=== PATIENT | male | born 1950 | race Caucasian/White ===

== ENCOUNTER 2017-05-15 19:14 | Observation (INO) | payer MEDICARE, OTHER ==
[2017-05-15] MEDS ORDERED: Sodium Chloride 0.9% 1000 ML 1,000 ML IV SCH (19:30)
--- NOTE | 2017-05-15 19:30 | ERPHSYRPT ---
- History of Present Illness Time Seen by Provider: 05/15/17 19:25 Source: patient Exam Limitations: no limitations Physician History: pt felt dizzy earlier today and had BP checked at 229/128 per a firend, but in ER is 130s /80s. No CP , some SObreath, no abd pain , no headache at this time; neuro is all normal on exam today. vis mendiola intact; Timing/Duration: today Activities at Onset: none Quality: other (no pain) Location: other (no pain) Chest Pain Radiation: no radiation Severity of Pain-Max: none Severity of Pain-Current: none Modifying Factors: Improves With: nothing Nitro Today/Relief: no nitro taken today Aspirin Treatment Today: 81 mg x 1, provided at home Associated Symptoms: shortness of breath Prior Chest Pain/Cardiac Workup: cardiac cath (prior stents) Allergies/Adverse Reactions: Penicillins Allergy (Severe, Verified 05/15/17 19:28) Hives silver [Silver] Allergy (Intermediate, Verified 05/15/17 19:28) Itching zinc [Zinc] Allergy (Intermediate, Verified 05/15/17 19:28) Itching carvedilol [From Coreg] Adverse Reaction (Intermediate, Verified 05/15/17 19:28) "makes me dizzy" metoprolol Adverse Reaction (Intermediate, Verified 05/15/17 19:28) "makes me dizzy" Home Medications: Aspirin 81 mg PO DAILY 01/30/16 [History] Insulin Lispro [Humalog] 25 unit SQ TIDWMEALS 01/30/16 [History] Pravastatin Sodium 20 mg PO DAILY 01/30/16 [History] Prednisone 10 mg [Deltasone 10 mg] 10 mg PO DAILY 01/30/16 [History] Tamsulosin HCl [Flomax] 0.8 mg PO HS 01/30/16 [History] Gabapentin [Neurontin] 800 mg PO TID 08/15/16 [History] Clopidogrel Bisulfate 75 mg [PLAVIX 75 MG Tablet] 75 mg PO DAILY 10/13/16 [History] Finasteride 5 mg [Proscar 5 MG] 5 mg PO DAILY 10/13/16 [History] Hydrocodone/APAP 10/325 mg [[place] 10/325 MG Tablet] 1 tab PO Q6H PRN PRN 10/13/16 [History] Omeprazole 20 MG [Prilosec 20 mg] 40 mg PO DAILY 10/13/16 [History] Sertraline HCl 50 mg [Zoloft 50 mg Tablet] 50 mg PO DAILY 10/13/16 [History] Hx Tetanus, Diphtheria Vaccination/Date Given: No Hx Influenza Vaccination/Date Given: Yes Hx Pneumococcal Vaccination/Date Given: Yes - Review of Systems Constitutional: No Fever, No Chills Eyes: No Symptoms Ears, Nose, & Throat: No Symptoms Respiratory: Dyspnea, No Cough, No Stridor, No Wheezing Cardiac: No Chest Pain, No Edema, No Syncope Abdominal/Gastrointestinal: No Abdominal Pain, No Nausea, No Vomiting, No Diarrhea Genitourinary Symptoms: No Dysuria Musculoskeletal: No Back Pain, No Neck Pain Skin: No Rash Neurological: No Dizziness, No Focal Weakness, No Sensory Changes Psychological: No Symptoms Endocrine: No Symptoms Hematologic/Lymphatic: No Symptoms Immunological/Allergic: No Symptoms All Other Systems: Reviewed and Negative - Past Medical History Pertinent Past Medical History: Yes Neurological History: Peripheral Neuropathy, TIA ENT History: No Pertinent History Cardiac History: Coronary Artery Disease, Hypertension, Myocardial Infarction ( [place]) Respiratory History: COPD Endocrine Medical History: Diabetes Type II Musculoskeletal History: Arthritis, Fractures, Osteoarthritis GI Medical History: Gallbladder Disease, GI Bleed, Ulcer History: Other Psycho-Social History: No Pertinent History Male Reproductive Disorders: Prostate Problems Other Medical History: right partial foot amputation. kidney infection, hx stones - Past Surgical History Past Surgical History: Yes Neuro Surgical History: No Pertinent History Cardiac: Cardiac Catheterization, Cardiac Stent Respiratory: No Pertinent History Gastrointestinal: Appendectomy, Cholecystectomy Genitourinary: No Pertinent History Musculoskeletal: No Pertinent History, Amputation, Orthopedic Surgery Male Surgical History: No Pertinent History Other Surgical History: Tonsillectomy and adenoidectomy. right toes/foot partial amputation and revision. PORT PLACEMENT - Social History Smoking Status: Never smoker Exposure to second hand smoke: No Drug Use: none Patient Lives Alone: No - Nursing Vital Signs Nursing Vital Signs: Initial Vital Signs Temperature 99.4 F Temperature Source Oral Pulse Rate 80 Respiratory Rate 20 Blood Pressure [] 132/76 Pain Intensity 0 - Physical Exam General Appearance: no apparent distress, alert Eye Exam: PERRL/EOMI, eyes nml inspection Ears, Nose, Throat Exam: normal ENT inspection, moist mucous membranes Neck Exam: normal inspection, non-tender, supple Respiratory Exam: normal breath sounds, lungs clear, airway intact, No respiratory distress, No diminished breath sounds, No accessory muscle use, No crackles/rales, No rhonchi, No wheezing, No stridor Cardiovascular Exam: regular rate/rhythm, normal heart sounds, normal peripheral pulses, No edema Gastrointestinal/Abdomen Exam: soft, No tenderness, No mass, No pulsatile mass Rectal Exam: deferred Back Exam: normal inspection, No CVA tenderness, No vertebral tenderness Extremity Exam: normal inspection, normal range of motion Neurologic Exam: alert, oriented x 3, cooperative, general handling supervisor II-XII nml as tested, normal mood/affect, nml cerebellar function, nml station & gait, sensation nml, other (no pronator drift; symmetrical facial muscles; FN coord normal; prototype carpenter normal bilat.), No motor deficits, No sensory deficit, No facial droop, No slurred speech, No aphasia, No dysarthria Skin Exam: normal color, warm, dry Lymphatic Exam: No adenopathy SpO2 Interpretation: normal Oxygen Delivery: Room Air - Course Nursing assessment & vital signs reviewed: Yes EKG Interpreted by Me: Sinus Rhythm, NORMAL AXIS, NORMAL QRS, Non-specific ST Changes, Other (poor r wave prog sim to previous) - Radiology Exams Chest X-ray Interpretation: Reviewed by me, Other (cardiomegally and venous congestion ) Ordered Tests: Active Orders 24 hr Category Date Time Status Ditch Cleaner STAT Care 05/15/17 19:30 Active Clean Catch Urine Specimen STAT Care 05/15/17 19:30 Active EKG-ER Only STAT Care 05/15/17 19:30 Active IV Insertion STAT Care 05/15/17 19:30 Active CHEST 2 VIEWS (PA AND LAT) Stat Exams 05/15/17 19:31 Taken CHEST WITH CONTRAST [CT] Stat Exams 05/15/17 20:21 Stop Req CBC W DIFF Stat Lab 05/15/17 19:50 Completed CMP Stat Lab 05/15/17 19:50 Completed D-DIMER QUANTITATION Stat Lab 05/15/17 19:33 Completed Lactic Acid Urgent Lab 05/15/17 19:48 Completed Manual Differential NC Stat Lab 05/15/17 19:50 Completed NT PRO BNP Stat Lab 05/15/17 19:50 Completed TROPONIN Q3H Lab 05/15/17 19:50 Completed TROPONIN Q3H Lab 05/15/17 22:30 Ordered TROPONIN Q3H Lab 05/16/17 01:30 Ordered TROPONIN Q3H Lab 05/16/17 04:30 Ordered TROPONIN Q3H Lab 05/16/17 07:30 Ordered UA W/RFX UR CULTURE Stat Lab 05/15/17 19:31 Ordered Medication Summary Generic Name Dose Route Start Last Admin Trade Name Freq PRN Reason Stop Dose Admin Sodium Chloride 1,000 mls @ 50 mls/hr 05/15/17 19:30 05/15/17 19:38 Sodium Chloride 0.9% 1000 Ml IV 06/14/17 19:29 50 mls/hr .Q20H JOSUE Administration Lab/Rad Data: Laboratory Result Diagrams 05/15/17 19:50 05/15/17 19:50 Laboratory Results 05/15/17 05/15/17 05/15/17 Range/Units 19:50 19:50 19:50 WBC 7.3 (4.0-10.5) K/mm3 RBC 3.55 L (4.1-5.6) M/mm3 Hgb 10.5 L (12.5-18.0) gm/dl Hct 34.8 L (42-50) % MCV 98.0 (78-100) fl MCH 29.5 (26-32) pg MCHC 30.2 L (32-36) g/dl RDW 13.0 (11.5-14.0) % Plt Count 228 (150-450) K/mm3 MPV 9.7 H (6-9.5) fl D-Dimer (0-500) ng/mL Sodium 142 (136-145) mEq/L Potassium 5.0 (3.5-5.1) mEq/L Chloride 108 H (98-107) mEq/L Carbon Dioxide 26.3 (21-32) mEq/L Anion Gap 12.7 (5-15) MEQ/L BUN 38 H (9-20) mg/dL Creatinine 1.77 H (0.55-1.30) mg/dl Estimated GFR 41 ML/MIN Glucose 265 H (70-110) MG/DL Lactic Acid (0.4-2.0) Calcium 8.0 L (8.5-10.1) mg/dL Total Bilirubin 0.40 (0.2-1.0) mg/dL AST 13 L (15-37) U/L ALT 14 (12-78) U/L Alkaline Phosphatase 93 (46-116) U/L Troponin I 0.055 (0.000-0.056) ng/ml NT-Pro-B Natriuret Pep 320 H (0-125) pg/ml Serum Total Protein 6.0 L (6.4-8.2) gm/dL Albumin 2.6 L (3.4-5.0) g/dL 05/15/17 05/15/17 Range/Units 19:48 19:33 WBC (4.0-10.5) K/mm3 RBC (4.1-5.6) M/mm3 Hgb (12.5-18.0) gm/dl Hct (42-50) % MCV (78-100) fl MCH (26-32) pg MCHC (32-36) g/dl RDW (11.5-14.0) % Plt Count (150-450) K/mm3 MPV (6-9.5) fl D-Dimer 594 H* (0-500) ng/mL Sodium (136-145) mEq/L Potassium (3.5-5.1) mEq/L Chloride (98-107) mEq/L Carbon Dioxide (21-32) mEq/L Anion Gap (5-15) MEQ/L BUN (9-20) mg/dL Creatinine (0.55-1.30) mg/dl Estimated GFR ML/MIN Glucose (70-110) MG/DL Lactic Acid 1.5 (0.4-2.0) Calcium (8.5-10.1) mg/dL Total Bilirubin (0.2-1.0) mg/dL AST (15-37) U/L ALT (12-78) U/L Alkaline Phosphatase (46-116) U/L Troponin I (0.000-0.056) ng/ml NT-Pro-B Natriuret Pep (0-125) pg/ml Serum Total Protein (6.4-8.2) gm/dL Albumin (3.4-5.0) g/dL - Progress Progress: improved, re-examined Air Movement: good Progress Note: 05/15/17 20:48 discussed slight elevation of d-dimer with Dr. gilbert who knows pt well and also his elevated Trop; it is felt that this is likely false pos for d-dimer ( cannot do ct contrast due to elevated RFTs)and that his Trop may also be frequnetly elevated in his situation, but also discussed with pt and all agree to obs for determining no upward trend in trops overnight , and after risk/ benefit to stay off lovenox at this time and continue asa/plavix; 05/15/17 20:52 Blood Culture(s) Obtained: No Antibiotics given: No Discussed with : Molly Will see patient in: hospital (observation) Counseled pt/family regarding: lab results, diagnosis, need for follow-up, rad results - Departure Time of Disposition: 20:51 Departure Disposition: Observation Clinical Impression: Elevated troponin, Dyspnea, Elevated d-dimer, CAD (coronary artery disease), Diabetes Condition: Good Critical Care Time: No
[2017-05-15] MEDS ORDERED: Sodium Chloride 0.9% 1000 ML 1,000 ML ONE (19:35)
[2017-05-15 20:09] LABS: Mean Platelet Volume 9.7 fl (6-9.5); Platelet Count 228 K/mm3 (150-450); Red Blood Count 3.55 M/mm3 (4.1-5.6); White Blood Count 7.3 K/mm3 (4.0-10.5)
[2017-05-15 20:23] LABS: ALBUMIN 2.6 g/dL (3.4-5.0); ANION GAP 12.7 MEQ/L (5-15); BILIRUBIN,TOTAL 0.4 mg/dL (0.2-1.0); Carbon Dioxide 26.3 mEq/L (21-32)
[2017-05-15 20:25] LABS: Mean Corpuscular Hemoglobin 29.5 pg (26-32)
[2017-05-15 20:53] LABS: BAND 4 % (0.0-2.0); Eosinophil 3 % (0.00-3.0); Platelet Estimate NORMAL (NORMAL); Total Cells Counted 100
[2017-05-15] MEDS ORDERED: TYLENOL 325 MG PO PRN (21:38)
[2017-05-15] MEDS ORDERED: Zofran 4 MG/2 ML VIAL IV PRN (21:38)
[2017-05-15] MEDS ORDERED: Senokot-S Tablet PO PRN (21:38)
[2017-05-15] MEDS ORDERED: MILK OF MAGNESIA 30 ML PO PRN (21:38)
[2017-05-15] MEDS ORDERED: NovoLIN R SQ PRN (21:38)
[2017-05-15] MEDS ORDERED: MAALOX ES 30 ML UNIT DOSE PO PRN (21:38)
[2017-05-15] MEDS ORDERED: Sodium Chloride 0.9% 500 ML 500 ML IV SCH (22:30)
[2017-05-16 00:46] LABS: Bilirubin NEGATIVE (NEGATIVE); Collection Type VOID; Glucose 1000 mg/dL (NEGATIVE); Leukocyte Esterase NEGATIVE (NEGATIVE)
[2017-05-16 00:47] LABS: ADD URINE CULTURE? NO (NO); Bacteria RARE /HPF (NEGATIVE); COMPLETE URINE MICROSCOPIC? YES; Epithelial Cells RARE /HPF (FEW); WBC 0-2 /HPF (0-5)
[2017-05-16] MEDS ORDERED: DELTASONE 10 MG PO ONE (02:05)
[2017-05-16] MEDS ORDERED: Neurontin 400 MG PO ONE (02:05)
[2017-05-16] MEDS ORDERED: Norco 10/325 MG Tablet PO PRN (02:15)
[2017-05-16 07:42] VITALS: BP 137/82; PULSE 76; O2SAT 96
--- NOTE | 2017-05-16 08:33 | XRAY ---
Indication: Short of breath. Comparison: October 13, 2016. AP/lateral chest remains clear with stable left apical calcified granuloma. Heart is not enlarged for AP projection. Stable left-sided Port-A-Cath. Bony thorax intact again with mild osteopenia and degenerative changes. Impression: Stable nonacute chest with chronic features.
[2017-05-16] MEDS ORDERED: Ranexa 500 MG PO PRN (08:57)
[2017-05-16] MEDS ORDERED: Novolin 70/30 SQ SCH (09:00)
[2017-05-16] MEDS ORDERED: DELTASONE 10 MG PO SCH (10:00)
[2017-05-16] MEDS ORDERED: BACTRIM DS TABLET PO SCH (10:00)
[2017-05-16] MEDS ORDERED: ZOLOFT 50 MG TABLET PO SCH (10:00)
[2017-05-16] MEDS ORDERED: NON-FORMULARY ITEM (Omeprazole 20 Mg [Prilosec 20 Mg] 40 MG) PO SCH (10:00)
[2017-05-16] MEDS ORDERED: NON-FORMULARY ITEM (Gabapentin [Neurontin] 800 MG) PO SCH (10:00)
[2017-05-16] MEDS ORDERED: NON-FORMULARY ITEM (Pravastatin Sodium [Pravastatin Sodium] 20 MG) PO SCH (10:00)
[2017-05-16] MEDS ORDERED: Flomax 0.4 MG PO SCH (10:00)
[2017-05-16] MEDS ORDERED: Ecotrin 325 MG PO SCH (10:00)
[2017-05-16] MEDS ORDERED: Cozaar 50 MG PO SCH (10:00)
[2017-05-16] MEDS ORDERED: Proscar 5 MG PO SCH (10:00)
[2017-05-16] MEDS ORDERED: Protonix 40MG Tablet PO SCH (10:00)
[2017-05-16] MEDS ORDERED: Neurontin 400 MG PO SCH (10:00)
[2017-05-16] MEDS ORDERED: TRIMETHOPRIM PO SCH (10:00)
[2017-05-16] MEDS ORDERED: SULFAMETHOXAZOLE PO SCH (10:00)
--- NOTE | 2017-05-16 11:18 | PCM.SSS ---
History of Present Illness - Chief Complaint Chief Complaint: feeling dizzy History of Present Illness: is a 66 year old male.pt felt dizzy earlier today and had BP checked at 229/128 per a firend, but in ER is 130s /80s. No CP , some SObreath, no abd pain , no headache at this time; neuro is all normal on exam today. vis mendiola intact; Timing/Duration: today Activities at Onset: none Quality: other (no pain) Location: other (no pain) Chest Pain Radiation: no radiation Severity of Pain-Max: none Severity of Pain-Current: none Modifying Factors: Improves With: nothing Nitro Today/Relief: no nitro taken today Aspirin Treatment Today: 81 mg x 1, provided at home Associated Symptoms: shortness of breath Prior Chest Pain/Cardiac Workup: cardiac cath (prior stents) - Review of Systems Constitutional: No Fever, No Chills Eyes: No Symptoms Ears, Nose, & Throat: No Symptoms Respiratory: No Cough, No Short Of Breath Cardiac: No Chest Pain, No Edema, No Syncope Abdominal/Gastrointestinal: No Abdominal Pain, No Nausea, No Vomiting, No Diarrhea Genitourinary Symptoms: No Dysuria Musculoskeletal: No Back Pain, No Neck Pain Skin: No Rash Neurological: Dizziness, No Focal Weakness, No Sensory Changes Psychological: No Symptoms Endocrine: No Symptoms Hematologic/Lymphatic: No Symptoms Immunological/Allergic: No Symptoms Medications & Allergies Home Medications: Home Medication List Losartan Potassium 50 mg [Cozaar 50 MG] 50 mg PO DAILY #0 tablet 01/30/16 [Rx Confirmed 05/15/17] Pravastatin Sodium 20 mg PO DAILY 01/30/16 [History Confirmed 05/15/17] Prednisone 10 mg [Deltasone 10 mg] 10 mg PO DAILY 01/30/16 [History Confirmed 05/15/17] Tamsulosin HCl [Flomax] 0.8 mg PO DAILY 01/30/16 [History Confirmed 05/16/17] Gabapentin [Neurontin] 800 mg PO TID 08/15/16 [History Confirmed 05/15/17] Finasteride 5 mg [Proscar 5 MG] 5 mg PO DAILY 10/13/16 [History Confirmed 05/15/17] Hydrocodone/APAP 10/325 mg [[place] 10/325 MG Tablet] 1 tab PO Q4HPRN PRN [History Confirmed 05/15/17] Omeprazole 20 MG [Prilosec 20 mg] 40 mg PO DAILY 10/13/16 [History Confirmed 12/31] Sertraline HCl 50 mg [Zoloft 50 mg Tablet] 100 mg PO DAILY 10/13/16 [ History Confirmed 05/15/17] Hum Insulin NPH/Reg Insulin Hm [Humulin 70-30 Vial] 25 unit SQ TIDWMEALS [History Confirmed 05/15/17] Ranolazine 500 MG [Ranexa 500 MG] 500 mg PO BID PRN PRN 05/15/17 [History Confirmed 05/15/17] Sulfamethoxazole/Trimethoprim [Bactrim 400-80 mg Tablet] 2 each PO BID 05/15/17 [History Confirmed 05/15/17] Allergies/Adverse Reactions: Allergies Allergy/AdvReac Type Severity Reaction Status Date / Time Penicillins Allergy Severe Hives Verified 05/15/17 21:47 silver [Silver] Allergy Intermediate Itching Verified 05/15/17 21:47 zinc [Zinc] Allergy Intermediate Itching Verified 05/15/17 21:47 carvedilol [From Coreg] AdvReac Intermediate Verified 05/15/17 21:47 metoprolol AdvReac Intermediate Verified 05/15/17 21:47 - Past Medical History Past Medical History: Yes Neurological History: TIA ENT History: Cataracts Cardiac History: Congestive Heart Failure, Coronary Artery Disease, Myocardial Infarction (MD) Respiratory History: CHF, COPD, Sleep Apnea Endocrine Medical History: Diabetes Type II Musculoskelatal History: Arthritis GI Medical History: GI Bleed, Ulcer History: No Pertinent History Pyscho-Social History: No Pertinent History Male Reproductive Disorders: Prostate Problems Comment: right partial foot amputation. kidney infection, hx stones - Past Surgical History Past Surgical History: Yes Neuro Surgical History: No Pertinent History Cardiac History: Cardiac Catheterization, Cardiac Stent Respiratory Surgery: No Pertinent History GI Surgical History: Appendectomy, Cholecystectomy Genitourinary Surgical Hx: No Pertinent History Musculskeletal Surgical Hx: Amputation Male Surgical History: Prostate Surgery Other Surgical History: Tonsillectomy and adenoidectomy. right toes/foot partial amputation and revision. PORT PLACEMENT - Social History Smoking Status: Never smoker Exposure to second hand smoke: No Alcohol: None Drug Use: none - Physical Exam Vital Signs: Vital Signs - 24 hr Temp Pulse Resp BP Pulse Ox 05/16/17 08:00 96 05/16/17 07:41 97.7 F 76 20 137/82 96 05/16/17 04:00 93 L 05/16/17 03:53 98.2 F 84 19 142/66 93 L 05/15/17 21:58 98.3 F 80 19 177/74 93 L 05/15/17 21:20 80 20 121/73 93 L 05/15/17 20:04 78 20 133/61 93 L 05/15/17 19:26 99.4 F 80 20 132/76 94 L General Appearance: no apparent distress, alert Neurologic Exam: alert, oriented x 3, cooperative, normal mood/affect, nml cerebellar function, nml station & gait, sensation nml, No motor deficits Eye Exam: PERRL/EOMI, eyes nml inspection Ears, Nose, Throat Exam: normal ENT inspection, TMs normal, pharynx normal, moist mucous membranes Neck Exam: normal inspection, non-tender, supple, full range of motion Respiratory Exam: normal breath sounds, lungs clear, No respiratory distress Cardiovascular Exam: regular rate/rhythm, normal heart sounds, normal peripheral pulses Gastrointestinal/Abdomen Exam: soft, normal bowel sounds, No tenderness, No mass Back Exam: normal inspection, normal range of motion, No CVA tenderness, No vertebral tenderness Extremity Exam: normal inspection, normal range of motion, pelvis stable Skin Exam: normal color, warm, dry, No rash Lymphatic Exam: No adenopathy Results - Labs Lab/Micro Results: Accuchecks Date 05/16/17 Time 05:00 Accucheck Value: 207 Accucheck Value: 191 Lab Results-Last 24 Hours 05/15/17 05/16/17 05/16/17 Range/Units 22:40 02:00 05:00 Troponin I 0.053 0.054 (0.000-0.056) ng/ml Triglycerides 101 (30-200) mg/dL Cholesterol 134 (100-200) mg/dL LDL Cholesterol 69 (5-99) mg/dL HDL Cholesterol 49 (35-60) mg/dL Heart Disease Risk Ratio 2.7 05/16/17 05/16/17 Range/Units 05:00 08:30 Troponin I 0.062 H* 0.054 (0.000-0.056) ng/ml Triglycerides (30-200) mg/dL Cholesterol (100-200) mg/dL LDL Cholesterol (5-99) mg/dL HDL Cholesterol (35-60) mg/dL Heart Disease Risk Ratio Accuchecks Date 05/16/17 Time 05:00 Accucheck Value: 207 Accucheck Value: 191 - Other Procedures and Tests Respiratory Therapy 05/17/17 05:00 EKG DAILY 05/18/17 05:00 EKG DAILY 05/19/17 05:00 EKG DAILY Assessment/Plan (1) CAD (coronary artery disease) Current Visit: Yes Status: Acute Qualifiers: Coronary Disease-Associated Artery/Lesion type: [place] artery [place] vs. transplanted heart: [place] heart Associated angina: without angina Qualified Code(s): I25.10 - Atherosclerotic heart disease of [place] coronary artery without angina pectoris Code(s): I25.10 - ATHSCL HEART DISEASE OF [place] CORONARY ARTERY W/O ANG PCTRS 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 Current Visit: Yes Status: Chronic Code(s): E11.59 - TYPE 2 DIABETES MELLITUS WITH OTH CIRCULATORY COMPLICATIONS; I20.9 - ANGINA PECTORIS, UNSPECIFIED (3) Peripheral vascular disease due to secondary diabetes Current Visit: Yes Status: Chronic Code(s): E13.51 - OTH DIABETES W DIABETIC PERIPHERAL ANGIOPATHY W/O [facility] Summary - Hospital Course Hospital Course: Chief Complaint Diagnosis elevated troponin and ddimer Allergies Allergy/AdvReac Type Severity Reaction Status Date / Time Penicillins Allergy Severe Hives Verified 05/15/17 21:47 silver [Silver] Allergy Intermediate Itching Verified 05/15/17 21:47 zinc [Zinc] Allergy Intermediate Itching Verified 05/15/17 21:47 carvedilol [From Coreg] AdvReac Intermediate Verified 05/15/17 21:47 metoprolol AdvReac Intermediate Verified 05/15/17 21:47 Vital Signs (Last 24 hours) Temp Pulse Resp BP Pulse Ox 05/16/17 08:00 96 05/16/17 07:41 97.7 F 76 20 137/82 96 05/16/17 04:00 93 L 05/16/17 03:53 98.2 F 84 19 142/66 93 L 05/15/17 21:58 98.3 F 80 19 177/74 93 L 05/15/17 21:20 80 20 121/73 93 L 05/15/17 20:04 78 20 133/61 93 L 05/15/17 19:26 99.4 F 80 20 132/76 94 L Home Medications Medication Instructions Recorded Confirmed Last Taken Type Hum Insulin NPH/Reg Insulin Hm 25 unit SQ TIDWMEALS 05/15/17 05/15/17 Unknown History [Humulin 70-30 Vial] Ranolazine 500 MG [Ranexa 500 500 mg PO BID PRN PRN 05/15/17 05/15/17 Unknown History MG] Sulfamethoxazole/Trimethoprim 2 each PO BID 05/15/17 05/15/17 Unknown History [Bactrim 400-80 mg Tablet] Current Medications Generic Name Dose Route Start Last Admin Trade Name Freq PRN Reason Stop Dose Admin Acetaminophen 650 mg 05/15/17 21:38 Tylenol 325 Mg PO 06/14/17 21:37 Q4H PRN PRN PAIN AND/OR FEVER Hydrocodone Bitart/Acetaminophen 1 tab 05/16/17 02:15 05/16/17 02:15 [place] 10/325 Mg Tablet PO 05/21/17 02:14 1 tab Q4H PRN PRN Administration PAIN Al Hydrox/Mg Hydrox/Simethicone 30 ml 05/15/17 21:38 Maalox Es 30 Ml Unit Dose PO 06/14/17 21:37 Q4H PRN PRN INDIGESTION Aspirin 325 mg 05/16/17 10:00 05/16/17 09:57 Ecotrin 325 Mg PO 06/15/17 09:59 Not Given DAILY JOSUE Finasteride 5 mg 05/16/17 10:00 05/16/17 10:06 Proscar 5 Mg PO 06/15/17 09:59 5 mg DAILY JOSUE Administration Gabapentin 800 mg 05/16/17 10:00 05/16/17 10:06 Neurontin 400 Mg PO 06/15/17 09:59 800 mg TID JOSUE Administration Heparin Sodium (Beef Lung) 500 units 05/16/17 08:20 05/16/17 08:56 Heparin Lock Flush 100 Units/Ml 5ml Syringe PORT FLUSH 06/15/17 08:19 500 units PRN PRN Administration IV PORT FLUSH Sodium Chloride 500 mls @ 50 mls/hr 05/15/17 22:30 05/16/17 02:08 Sodium Chloride 0.9% 500 Ml IV 06/14/17 22:29 Not Given .Q10H JOSUE Insulin Human Isoph/Insulin Regular 25 unit 05/16/17 09:00 05/16/17 10:10 Novolin 70/30 SQ 06/15/17 08:59 Not Given TIDWMEALS [facility] Insulin Human Regular 0 unit 05/15/17 21:38 05/16/17 08:01 Novolin R SQ 06/14/17 21:37 5 unit PRN PRN Administration HYPERGLYCEMIA Losartan Potassium 50 mg 05/16/17 10:00 05/16/17 10:07 Cozaar 50 Mg PO 06/15/17 09:59 50 mg DAILY JOSUE Administration Magnesium Hydroxide 30 - 60 ml 05/15/17 21:38 Milk Of Magnesia 30 Ml PO 06/14/17 21:37 QDP PRN CONSTIPATION Ondansetron HCl 4 mg 05/15/17 21:38 Zofran 4 Mg/2 Ml Vial IV 06/14/17 21:37 Q4H PRN PRN NAUSEA/VOMITING Pantoprazole Sodium 40 mg 05/16/17 10:00 05/16/17 10:06 Protonix 40mg Tablet PO 06/15/17 09:59 40 mg DAILY JOSUE Administration Prednisone 10 mg 05/16/17 10:00 05/16/17 10:06 Deltasone 10 Mg PO 06/15/17 09:59 10 mg DAILY JOSUE Administration Ranolazine 500 mg 05/16/17 08:57 Ranexa 500 Mg PO 06/15/17 08:56 BID PRN PRN CHEST PAIN Senna/Docusate Sodium 2 udtab 05/15/17 21:38 Senokot-S Tablet PO 06/14/17 21:37 BID PRN PRN CONSTIPATION Sertraline HCl 100 mg 05/16/17 10:00 05/16/17 10:06 Zoloft 50 Mg Tablet PO 06/15/17 09:59 100 mg DAILY JOSUE Administration Simvastatin 20 mg 05/16/17 22:00 Zocor 20mg PO 06/15/17 21:59 HS JOSUE Tamsulosin HCl 0.8 mg 05/16/17 10:00 05/16/17 10:06 Flomax 0.4 Mg PO 06/15/17 09:59 0.8 mg DAILY JOSUE Administration Trimethoprim/Sulfamethoxazole 1 tab 05/16/17 10:00 05/16/17 10:06 Bactrim Ds Tablet PO 06/15/17 09:59 1 tab BID JOSUE Administration Discontinued Medications Generic Name Dose Route Start Last Admin Trade Name Freq PRN Reason Stop Dose Admin Aspirin 325 mg 05/16/17 20:58 05/16/17 03:23 Ecotrin 325 Mg PO 05/16/17 20:59 325 mg STAT ONE Administration Gabapentin 800 mg 05/16/17 02:05 05/16/17 02:14 Neurontin 400 Mg PO 05/16/17 02:06 800 mg ONCE ONE Administration Sodium Chloride 1,000 mls @ 50 mls/hr 05/15/17 19:30 05/15/17 21:20 Sodium Chloride 0.9% 1000 Ml IV 06/14/17 19:29 0 mls/hr .Q20H JOUSE Infusion Sodium Chloride Confirm 05/15/17 19:35 Sodium Chloride 0.9% 1000 Ml Administered 05/15/17 19:36 Dose 1,000 mls @ ud .ROUTE .STK-MED ONE Prednisone 10 mg 05/16/17 02:05 05/16/17 02:14 Deltasone 10 Mg PO 05/16/17 02:06 10 mg ONCE ONE Administration Intake & Output (Last 24 hours) 05/13/17 05/14/17 05/15/17 05/16/17 11:59 11:59 11:59 11:59 Intake Total 1420 Output Total 0 Balance 1420 Weight 191.779 kg Laboratory Results (Last 24 hours) 05/16/17 05/16/17 05/16/17 08:30 05:00 05:00 WBC RBC Hgb Hct MCV MCH MCHC RDW Plt Count MPV Segmented Neutrophils Band Neutrophils Lymphocytes (Manual) Monocytes (Manual) Eosinophils (Manual) Differential Comment Platelet Estimate D-Dimer Sodium Potassium Chloride Carbon Dioxide Anion Gap BUN Creatinine Estimated GFR Glucose Lactic Acid Calcium Total Bilirubin AST ALT Alkaline Phosphatase Troponin I 0.054 0.062 H* NT-Pro-B Natriuret Pep Serum Total Protein Albumin Triglycerides 101 Cholesterol 134 LDL Cholesterol 69 HDL Cholesterol 49 Heart Disease Risk Ratio 2.7 Ur Collection Type Urine Color Urine Appearance Urine pH Ur Specific Counselor Urine Protein Urine Ketones Urine Blood Urine Nitrite Urine Bilirubin Urine Urobilinogen Ur Leukocyte Esterase Urine Microscopic RBC Urine Microscopic WBC Ur Epithelial Cells Urine Bacteria Urine Glucose Specimen Received 05/16/17 05/15/17 05/15/17 02:00 22:40 19:50 WBC RBC Hgb Hct MCV MCH MCHC RDW Plt Count MPV Segmented Neutrophils Band Neutrophils Lymphocytes (Manual) Monocytes (Manual) Eosinophils (Manual) Differential Comment Platelet Estimate D-Dimer Sodium Potassium Chloride Carbon Dioxide Anion Gap BUN Creatinine Estimated GFR Glucose Lactic Acid Calcium Total Bilirubin AST ALT Alkaline Phosphatase Troponin I 0.054 0.053 0.055 NT-Pro-B Natriuret Pep Serum Total Protein Albumin Triglycerides Cholesterol LDL Cholesterol HDL Cholesterol Heart Disease Risk Ratio Ur Collection Type Urine Color Urine Appearance Urine pH Ur Specific Counselor Urine Protein Urine Ketones Urine Blood Urine Nitrite Urine Bilirubin Urine Urobilinogen Ur Leukocyte Esterase Urine Microscopic RBC Urine Microscopic WBC Ur Epithelial Cells Urine Bacteria Urine Glucose Specimen Received 05/15/17 05/15/17 05/15/17 19:50 19:50 19:48 WBC 7.3 RBC 3.55 L Hgb 10.5 L Hct 34.8 L MCV 98.0 MCH 29.5 MCHC 30.2 L RDW 13.0 Plt Count 228 MPV 9.7 H Segmented Neutrophils 48 Band Neutrophils 4 H Lymphocytes (Manual) 38 Monocytes (Manual) 7 Eosinophils (Manual) 3 Differential Comment NORMAL Platelet Estimate NORMAL D-Dimer Sodium 142 Potassium 5.0 Chloride 108 H Carbon Dioxide 26.3 Anion Gap 12.7 BUN 38 H Creatinine 1.77 H Estimated GFR 41 Glucose 265 H Lactic Acid 1.5 Calcium 8.0 L Total Bilirubin 0.40 AST 13 L ALT 14 Alkaline Phosphatase 93 Troponin I NT-Pro-B Natriuret Pep 320 H Serum Total Protein 6.0 L Albumin 2.6 L Triglycerides Cholesterol LDL Cholesterol HDL Cholesterol Heart Disease Risk Ratio Ur Collection Type Urine Color Urine Appearance Urine pH Ur Specific Counselor Urine Protein Urine Ketones Urine Blood Urine Nitrite Urine Bilirubin Urine Urobilinogen Ur Leukocyte Esterase Urine Microscopic RBC Urine Microscopic WBC Ur Epithelial Cells Urine Bacteria Urine Glucose Specimen Received 05/15/17 05/15/17 19:33 00:26 WBC RBC Hgb Hct MCV MCH MCHC RDW Plt Count MPV Segmented Neutrophils Band Neutrophils Lymphocytes (Manual) Monocytes (Manual) Eosinophils (Manual) Differential Comment Platelet Estimate D-Dimer 594 H* Sodium Potassium Chloride Carbon Dioxide Anion Gap BUN Creatinine Estimated GFR Glucose Lactic Acid Calcium Total Bilirubin AST ALT Alkaline Phosphatase Troponin I NT-Pro-B Natriuret Pep Serum Total Protein Albumin Triglycerides Cholesterol LDL Cholesterol HDL Cholesterol Heart Disease Risk Ratio Ur Collection Type VOID Urine Color YELLOW Urine Appearance CLEAR Urine pH 5.0 Ur Specific Counselor 1.015 Urine Protein 30 Urine Ketones NEGATIVE Urine Blood 5-10 Urine Nitrite NEGATIVE Urine Bilirubin NEGATIVE Urine Urobilinogen NORMAL Ur Leukocyte Esterase NEGATIVE Urine Microscopic RBC 0-2 Urine Microscopic WBC 0-2 Ur Epithelial Cells RARE Urine Bacteria RARE Urine Glucose 1000 Specimen Received 05/16/17 2330 Orders (Last 24 hours) Category Date Time Status Bedrest with BRP/BSC ROUTINE Activity 05/15/17 21:38 Active Admission/Status Order ONCE Care 05/15/17 21:38 Active Pearl Technician STAT Care 05/15/17 19:30 Completed Clean Catch Urine Specimen STAT Care 05/15/17 19:30 Inactive Code Status Order ONCE Care 05/15/17 21:38 Active Code Status Order ROUTINE Care 05/16/17 02:10 Active EKG-ER Only STAT Care 05/15/17 19:30 Completed Fall Protocol Q1H Care 05/15/17 21:38 Active IV Care Q6H Care 05/15/17 21:38 Active IV Insertion STAT Care 05/15/17 19:30 Completed Implement Chest Pain Pathway ONCE Care 05/15/17 21:38 Active Neuro Checks Q2H Care 05/16/17 00:21 Active Kam Man, Apply ROUTINE Care 05/15/17 21:38 Completed Telemetry Q4H Care 05/15/17 21:38 Active Weight,Daily Q24H Care 05/15/17 21:38 Active CHEST 2 VIEWS (PA AND LAT) Stat Exams 05/15/17 19:31 Completed CBC W DIFF Stat Lab 05/15/17 19:50 Completed CMP Stat Lab 05/15/17 19:50 Completed D-DIMER QUANTITATION Stat Lab 05/15/17 19:33 Completed LIPID PROFILE AM.LAB Lab 05/16/17 05:00 Completed Lactic Acid Urgent Lab 05/15/17 19:48 Completed Manual Differential NC Stat Lab 05/15/17 19:50 Completed NT PRO BNP Stat Lab 05/15/17 19:50 Completed TROPONIN Q3H Lab 05/15/17 19:50 Completed TROPONIN Q3H Lab 05/15/17 22:40 Completed TROPONIN Q3H Lab 05/16/17 02:00 Completed TROPONIN Q3H Lab 05/16/17 05:00 Completed TROPONIN Q3H Lab 05/16/17 08:30 Completed Acetaminophen 325 mg [Tylenol 325 mg] Med 05/15/17 21:38 Active 650 mg PO Q4H PRN PRN Aspirin EC 325 mg [Ecotrin 325 MG] Med 05/16/17 10:00 Active 325 mg PO DAILY Aspirin EC 325 mg [Ecotrin 325 MG] Med 05/16/17 20:58 Discontinued 325 mg PO STAT ONE Finasteride 5 mg [Proscar 5 MG] Med 05/16/17 10:00 Active 5 mg PO DAILY Gabapentin 400 mg [Neurontin 400 MG] Med 05/16/17 02:05 Discontinued 800 mg PO ONCE ONE Gabapentin 400 mg [Neurontin 400 MG] Med 05/16/17 10:00 Active 800 mg PO TID Heparin Flush 500 units/5 ml [Heparin Lock Flush 100 Med 05/16/17 08:20 Active Units/ml 5ml Syringe] 500 units PORT FLUSH PRN PRN Hydrocodone/APAP 10/325 mg [[place] 10/325 MG Tablet Med 05/16/17 02:15 Active *] 1 tab PO Q4H PRN PRN Insulin NPH/Reg 70/30 [Novolin 70/30] Med 05/16/17 09:00 Active 25 unit SQ TIDWMEALS Insulin Regular, Human [NovoLIN R] Med 05/15/17 21:38 Active See Dose Instructions SQ PRN PRN Losartan Potassium 50 mg [Cozaar 50 MG] Med 05/16/17 10:00 Active 50 mg PO DAILY Mag Hydrox/Al Hydrox/Simeth [Maalox Es 30 ml Unit Med 05/15/17 21:38 Active Dose] 30 ml PO Q4H PRN PRN Magnesium Hydroxide 30 ml [Milk of Magnesia 30 ml Med 05/15/17 21:38 Active ] 30 - 60 ml PO QDP PRN NaCl 0.9% 1000 ml [Sodium Chloride 0.9% 1000 ML] 1,000 Med 05/15/17 19:30 Discontinued ml IV 50 mls/hr NaCl 0.9% 500 ml [Sodium Chloride 0.9% 500 ML] 500 ml Med 05/15/17 22:30 Active IV 50 mls/hr Ondansetron HCl 4 mg/2 ml [Zofran 4 MG/2 ML VIAL] Med 05/15/17 21:38 Active 4 mg IV Q4H PRN PRN PANTOPRAZOLE 40 mg Tablet [Protonix 40MG Tablet] Med 05/16/17 10:00 Active 40 mg PO DAILY Prednisone 10 mg [Deltasone 10 mg] Med 05/16/17 10:00 Active 10 mg PO DAILY Prednisone 10 mg [Deltasone 10 mg] Med 05/16/17 02:05 Discontinued 10 mg PO ONCE ONE Ranolazine 500 MG [Ranexa 500 MG] Med 05/16/17 08:57 Active 500 mg PO BID PRN PRN Senna/Docusate Sodium Tab [Senokot-S Tablet] Med 05/15/17 21:38 Active 2 udtab PO BID PRN PRN Sertraline HCl 50 mg [Zoloft 50 mg Tablet] Med 05/16/17 10:00 Active 100 mg PO DAILY Simvastatin 20Mg [Zocor 20Mg] Med 05/16/17 22:00 Active 20 mg PO HS Smz/Tmp Ds Tablet [Bactrim Ds Tablet] Med 05/16/17 10:00 Active 1 tab PO BID Tamsulosin HCl 0.4 mg [Flomax 0.4 MG] Med 05/16/17 10:00 Active 0.8 mg PO DAILY EKG DAILY RT 05/17/17 05:00 Active EKG DAILY RT 05/18/17 05:00 Active EKG DAILY RT 05/19/17 05:00 Active EKG Q8HX2,QAMX3,PRN RT 05/15/17 21:38 Completed EKG ROUTINE RT 05/16/17 03:30 Completed Pulse Oximetry Q4H RT 05/15/17 21:38 Active Transfer Order Routine Transfer 05/15/17 20:53 Completed Patient Care Notes (Last 24 hours) 05/16/17 02:50 Nursing Note by Samantha Dolan 05/16/17 0000 Pt informed of doctor's orders for IV fluids, KAM hose, and telemetry. Pt refuses all of these orders. Doing better, no chest pain. will discharge home. continue all home meds - Vitals & Intake/Output Vital Signs: Vital Signs Temperature 97.7 F 05/16/17 07:41 Pulse Rate 76 05/16/17 07:41 Respiratory Rate 20 05/16/17 07:41 Blood Pressure 137/82 05/16/17 07:41 O2 Sat by Pulse Oximetry 96 05/16/17 08:00 Intake & Output: Intake & Output 05/13/17 05/14/17 05/15/17 05/16/17 11:59 11:59 11:59 11:59 Intake Total 1420 Output Total 0 Balance 1420 Weight 191.779 kg - Lab Result Diagrams: 05/15/17 19:50 05/15/17 19:50 Lab Results-Last 24 Hrs: Accuchecks Date 05/16/17 Time 05:00 Accucheck Value: 207 Accucheck Value: 191 Lab Results-Last 24 Hours 05/15/17 05/16/17 05/16/17 Range/Units 22:40 02:00 05:00 Troponin I 0.053 0.054 (0.000-0.056) ng/ml Triglycerides 101 (30-200) mg/dL Cholesterol 134 (100-200) mg/dL LDL Cholesterol 69 (5-99) mg/dL HDL Cholesterol 49 (35-60) mg/dL Heart Disease Risk Ratio 2.7 05/16/17 05/16/17 Range/Units 05:00 08:30 Troponin I 0.062 H* 0.054 (0.000-0.056) ng/ml Triglycerides (30-200) mg/dL Cholesterol (100-200) mg/dL LDL Cholesterol (5-99) mg/dL HDL Cholesterol (35-60) mg/dL Heart Disease Risk Ratio Micro Results-Entire Visit: Accuchecks Date 05/16/17 Time 05:00 Accucheck Value: 207 Accucheck Value: 191 - Procedures and Test Procedures and Tests throughout Hospitalization: Therapy Orders & Screens 05/16/17 03:30 EKG ROUTINE Comment: Diagnosis: Chest pain rule out ACS 05/17/17 05:00 EKG DAILY Comment: Diagnosis: Chest pain rule out ACS 05/18/17 05:00 EKG DAILY Comment: Diagnosis: Chest pain rule out ACS 05/19/17 05:00 EKG DAILY Comment: Diagnosis: Chest pain rule out ACS - Discharge Discharge Date: 05/16/17 Disposition: Home, Self-Care Condition: Stable Prescriptions: Continue Pravastatin Sodium 20 mg PO DAILY Tamsulosin HCl [Flomax] 0.8 mg PO DAILY Prednisone 10 mg [Deltasone 10 mg] 10 mg PO DAILY Losartan Potassium 50 mg [Cozaar 50 MG] 50 mg PO DAILY #0 tablet Gabapentin [Neurontin] 800 mg PO TID Omeprazole 20 MG [Prilosec 20 mg] 40 mg PO DAILY Hydrocodone/APAP 10/325 mg [[place] 10/325 MG Tablet] 1 tab PO Q4HPRN PRN PRN Reason: Pain Sertraline HCl 50 mg [Zoloft 50 mg Tablet] 100 mg PO DAILY Finasteride 5 mg [Proscar 5 MG] 5 mg PO DAILY Hum Insulin NPH/Reg Insulin Hm [Humulin 70-30 Vial] 25 unit SQ TIDWMEALS Ranolazine 500 MG [Ranexa 500 MG] 500 mg PO BID PRN PRN PRN Reason: Chest Pain Sulfamethoxazole/Trimethoprim [Bactrim 400-80 mg Tablet] 2 each PO BID Instructions: Atypical Chest Pain, Diabetes Type 2 Follow up with: NELLY HOWELL MD [Primary Care Provider] - 05/23/17 2:45 pm ([facility]) Forms: Discharge Instructions
[2017-05-16] MEDS ORDERED: Ecotrin 325 MG PO ONE (20:58)
[2017-05-16] MEDS ORDERED: ZOCOR 20MG PO SCH (22:00)
== END 2017-05-16 11:25 | disposition home or self-care (01) ==
LOC: ED 19:14 → MED SURG 21:31
PROVIDERS: ADMIT General Practice; ATTEND General Practice
DX: I25.10 Atherosclerotic heart disease of native coronary artery without angina pectoris (principal); E11.59 Type 2 diabetes mellitus with other circulatory complications; I20.9 Angina pectoris, unspecified; E13.51 Other specified diabetes mellitus with diabetic peripheral angiopathy without gangrene; I50.9 Heart failure, unspecified; J44.9 Chronic obstructive pulmonary disease, unspecified; G47.30 Sleep apnea, unspecified; M19.90 Unspecified osteoarthritis, unspecified site; Z79.899 Other long term (current) drug therapy; Z86.73 Personal history of transient ischemic attack (TIA), and cerebral infarction without residual deficits
CPT/HCPCS: 36000; 36415; 71020; 80053; 80061; 81000; 82962; 83605; 83721; 83880; 84484; 85025; 85379; 93005; 93041; 96360; 96361; 99285; G0378; J1642; A9270-GY; J7506

== ENCOUNTER 2017-12-20 17:07 | Observation (INO) | payer MEDICARE, OTHER ==
--- NOTE | 2017-12-20 17:45 | ERPHSYRPT ---
- History of Present Illness Time Seen by Provider: 12/20/17 17:17 Source: patient, EMS Patient Subjective Stated Complaint: Pt states "I cannot walk. I would not be here but for some reason I cannot walk." Triage Nursing Assessment: Pt alert and oriented X 3, skin pwd. Pt able to speak in clear full sentences. no apparent respiratory distress. CSM X 4 Physician History: CC: trouble walking Hx: 67 y/o patient with hx of TIA, DM, and heart disease. He states his legs won 't work right today and he feels like jello and can not walk. Family told EMS his right face was drawn this AM. Pt states his right arm feels uncoordinated. Mild headache. No chest pain. No abd pain. No V/D. No fever or chills. Does not check sugar. Chews. Timing/Duration: today (since aroun 7AM) Allergies/Adverse Reactions: Penicillins Allergy (Severe, Verified 11/02/17 16:41) Hives silver [Silver] Allergy (Intermediate, Verified 11/02/17 16:41) Itching zinc [Zinc] Allergy (Intermediate, Verified 11/02/17 16:41) Itching carvedilol [From Coreg] Adverse Reaction (Intermediate, Verified 11/02/17 16:41) "makes me dizzy" metoprolol Adverse Reaction (Intermediate, Verified 11/02/17 16:41) "makes me dizzy" Home Medications: Pravastatin Sodium 20 mg PO DAILY 01/30/16 [History] Prednisone 10 mg [Deltasone 10 mg] 10 mg PO DAILY 01/30/16 [History] Tamsulosin HCl [Flomax] 0.8 mg PO DAILY 01/30/16 [History] Gabapentin [Neurontin] 800 mg PO TID 08/15/16 [History] Finasteride 5 mg [Proscar 5 MG] 5 mg PO DAILY 10/13/16 [History] Sertraline HCl 50 mg [Zoloft 50 mg Tablet] 50 mg PO DAILY 10/13/16 [History] Hum Insulin NPH/Reg Insulin Hm [Humulin 70-30 Vial] 25 unit SQ TIDWMEALS [History] Ranolazine 500 MG [Ranexa 500 MG] 500 mg PO BID PRN PRN 05/15/17 [History] Aspirin 81 mg PO DAILY 11/02/17 [History] Ferrous Sulfate [Iron] 325 mg PO TID 11/02/17 [History] Pantoprazole Sodium [Protonix] 40 mg PO DAILY 11/02/17 [History] Furosemide 20 mg [Lasix 20 mg] 20 mg PO DAILY 12/20/17 [History] Oxybutynin Chloride 10 mg Xl [Ditropan Xl 10 MG] 10 mg PO DAILY 12/20/17 [ History] Hx Tetanus, Diphtheria Vaccination/Date Given: No Hx Influenza Vaccination/Date Given: Yes Hx Pneumococcal Vaccination/Date Given: No Immunizations Up to Date: Yes - Review of Systems Constitutional: Fatigue, Malaise, Weakness, No Fever, No Chills Eyes: No Symptoms Ears, Nose, & Throat: No Symptoms Respiratory: No Cough, No Dyspnea Cardiac: No Chest Pain Abdominal/Gastrointestinal: No Abdominal Pain, No Nausea, No Vomiting, No Diarrhea Skin: No Rash Neurological: Focal Weakness (right face, arm, both legs), Headache All Other Systems: Reviewed and Negative - Past Medical History Pertinent Past Medical History: Yes Neurological History: TIA ENT History: Cataracts Cardiac History: Congestive Heart Failure, Coronary Artery Disease, Myocardial Infarction ([place]) Respiratory History: CHF, COPD, Sleep Apnea Endocrine Medical History: Diabetes Type II Musculoskeletal History: Arthritis GI Medical History: GI Bleed, Ulcer History: No Pertinent History Psycho-Social History: No Pertinent History Male Reproductive Disorders: Prostate Problems Other Medical History: right partial foot amputation. kidney infection, hx stones - Past Surgical History Past Surgical History: Yes Neuro Surgical History: No Pertinent History Cardiac: Cardiac Catheterization, Cardiac Stent Respiratory: No Pertinent History Gastrointestinal: Appendectomy, Cholecystectomy, Exploratory Laparoscopy Genitourinary: No Pertinent History Musculoskeletal: Amputation Male Surgical History: Prostate Surgery Other Surgical History: Tonsillectomy and adenoidectomy. right toes/foot partial amputation and revision. PORT PLACEMENT - Social History Smoking Status: Never smoker Exposure to second hand smoke: No Drug Use: none Patient Lives Alone: Yes - Nursing Vital Signs Nursing Vital Signs: Initial Vital Signs Temperature 98.7 F 12/20/17 17:08 Pulse Rate 82 12/20/17 17:08 Respiratory Rate 18 12/20/17 17:08 Blood Pressure 167/82 12/20/17 17:08 O2 Sat by Pulse Oximetry 96 12/20/17 17:08 Pain Scale Pain Intensity 0 - Physical Exam General Appearance: alert, obese Eye Exam: PERRL/EOMI Ears, Nose, Throat Exam: normal ENT inspection, moist mucous membranes Neck Exam: normal inspection, non-tender, supple Respiratory Exam: diminished breath sounds Cardiovascular Exam: regular rate/rhythm Gastrointestinal/Abdomen Exam: soft, No tenderness, No distention Extremity Exam: pedal edema Neurologic Exam: alert, oriented x 3, cooperative, brush clearer surveying II-XII nml as tested (no current facial droop), motor deficits (right arm drift, and mild weakness right leg) Skin Exam: warm, dry, pale SpO2 Interpretation: normal SpO2: 96 Oxygen Delivery: Room Air - Course Nursing assessment & vital signs reviewed: Yes EKG Interpreted by Me: RATE (81), Sinus Rhythm, NORMAL AXIS, NORMAL INTERVALS ( QTc 418), NORMAL QRS, NORMAL ST-T - Radiology Exams cxr X-ray Interpretation: Reviewed by me (DOUGIE) Ordered Tests: Active Orders 24 hr Category Date Time Status Tool Pusher STAT Care 12/20/17 17:23 Active Clean Catch Urine Specimen STAT Care 12/20/17 17:23 Active EKG-ER Only STAT Care 12/20/17 17:23 Active IV Insertion STAT Care 12/20/17 17:23 Active NPO (ED) STAT Care 12/20/17 17:23 Active Pulse Oximetry (ED) STAT Care 12/20/17 17:23 Active CHEST 1 VIEW (PORTABLE) Stat Exams 12/20/17 17:23 Taken HEAD WITHOUT CONTRAST [CT] Stat Exams 12/20/17 17:23 Taken CBC W DIFF Stat Lab 12/20/17 17:30 Completed CMP Stat Lab 12/20/17 17:30 Completed Lactic Acid Stat Lab 12/20/17 17:50 Completed PROTIME WITH INR Stat Lab 12/20/17 17:30 Completed PTT Stat Lab 12/20/17 17:30 Completed UA W/RFX UR CULTURE Stat Lab 12/20/17 17:23 Ordered Lab/Rad Data: Laboratory Result Diagrams 12/20/17 17:30 12/20/17 17:30 Laboratory Results 12/20/17 12/20/17 12/20/17 Range/Units 17:50 17:30 17:30 WBC (4.0-10.5) K/mm3 RBC (4.1-5.6) M/mm3 Hgb (12.5-18.0) gm/dl Hct (42-50) % MCV (78-100) fl MCH (26-32) pg MCHC (32-36) g/dl RDW (11.5-14.0) % Plt Count (150-450) K/mm3 MPV (6-9.5) fl Gran % (36.0-66.0) % Lymphocytes % (24.0-44.0) % Monocytes % (0.0-12.0) % Eosinophils % (0.00-5.0) % Basophils % (0.0-0.4) % Basophils # (0-0.4) INR 0.96 (0.8-3.0) APTT 31.7 (24.1-36.1) SECONDS Sodium 138 (136-145) mEq/L Potassium 4.9 (3.5-5.1) mEq/L Chloride 104 (98-107) mEq/L Carbon Dioxide 28.9 (21-32) mEq/L Anion Gap 9.5 (5-15) MEQ/L BUN 22 H (9-20) mg/dL Creatinine 1.69 H (0.55-1.30) mg/dl Estimated GFR 43 ML/MIN Glucose 211 H (70-110) MG/DL Lactic Acid 1.3 (0.4-2.0) Calcium 8.5 (8.5-10.1) mg/dL Total Bilirubin 0.20 (0.2-1.0) mg/dL AST 12 L (15-37) U/L ALT 11 L (12-78) U/L Alkaline Phosphatase 82 (46-116) U/L Serum Total Protein 7.0 (6.4-8.2) gm/dL Albumin 2.9 L (3.4-5.0) g/dL 12/20/17 Range/Units 17:30 WBC 8.3 (4.0-10.5) K/mm3 RBC 3.47 L (4.1-5.6) M/mm3 Hgb 10.2 L (12.5-18.0) gm/dl Hct 32.9 L (42-50) % MCV 94.8 (78-100) fl MCH 29.3 (26-32) pg MCHC 31.0 L (32-36) g/dl RDW 14.0 (11.5-14.0) % Plt Count 259 (150-450) K/mm3 MPV 9.3 (6-9.5) fl Gran % 77.8 H (36.0-66.0) % Lymphocytes % 14.3 L (24.0-44.0) % Monocytes % 6.7 (0.0-12.0) % Eosinophils % 0.8 (0.00-5.0) % Basophils % 0.4 (0.0-0.4) % Basophils # 0.03 (0-0.4) INR (0.8-3.0) APTT (24.1-36.1) SECONDS Sodium (136-145) mEq/L Potassium (3.5-5.1) mEq/L Chloride (98-107) mEq/L Carbon Dioxide (21-32) mEq/L Anion Gap (5-15) MEQ/L BUN (9-20) mg/dL Creatinine (0.55-1.30) mg/dl Estimated GFR ML/MIN Glucose (70-110) MG/DL Lactic Acid (0.4-2.0) Calcium (8.5-10.1) mg/dL Total Bilirubin (0.2-1.0) mg/dL AST (15-37) U/L ALT (12-78) U/L Alkaline Phosphatase (46-116) U/L Serum Total Protein (6.4-8.2) gm/dL Albumin (3.4-5.0) g/dL - Progress Progress Note: 12/20/17 18:19 CT brain: [email or web address] 6:09 PM 12/20/2017: Stable nonacute senile brain w/ remote L caudate lacunar infarct compared to . 12/20/17 18:38 NIH score 4. He is not a TPA candidate as symptoms onset greater than [address] Barnes. Pt takes asa daily. 12/20/17 18:40 Dr Barnes advised tele obs and teleneurology consultation. Discussed with : Molly Will see patient in: hospital (observation) Counseled pt/family regarding: lab results, diagnosis, need for follow-up, rad results - Departure Time of Disposition: 18:41 Departure Disposition: Observation (Tele) Clinical Impression: subacute nonhemorrhagic stroke, Type 2 diabetes mellitus, Morbid obesity Condition: Fair Critical Care Time: No Referrals: CONNIE GUY [Primary Care Provider] -
[2017-12-20 17:47] LABS: BASOPHIL % 0.4 % (0.0-0.4); Basophil (Absolute #) 0.03 (0-0.4); Eosinophil % 0.8 % (0.00-5.0); Eosinophil (Absolute #) 0.07 (0-0.5); Granulocyte Absolute (ANC) 6.44 (1.4-6.9); Granulocytes % 77.8 % (36.0-66.0); Hematocrit 32.9 % (42-50); Hemoglobin 10.2 gm/dl (12.5-18.0); Lymphocyte (Absolute #) 1.18 (1.0-4.6); Lymphocytes % 14.3 % (24.0-44.0); Mean Cell Volume 94.8 fl (78-100); Mean Platelet Volume 9.3 fl (6-9.5); Monocyte (Absolute #) 0.55 (0.0-1.3); Monocytes % 6.7 % (0.0-12.0); Platelet Count 259 K/mm3 (150-450); Red Blood Count 3.47 M/mm3 (4.1-5.6); White Blood Count 8.3 K/mm3 (4.0-10.5)
[2017-12-20 17:51] LABS: Mean Corpuscular Hemoglobin 29.3 pg (26-32)
[2017-12-20 18:23] LABS: INR 0.96 (0.8-3.0)
[2017-12-20 18:25] LABS: PTT 31.7 SECONDS (24.1-36.1)
[2017-12-20 18:29] LABS: ALBUMIN 2.9 g/dL (3.4-5.0); ANION GAP 9.5 MEQ/L (5-15); BILIRUBIN,TOTAL 0.2 mg/dL (0.2-1.0); Calcium 8.5 mg/dL (8.5-10.1); Carbon Dioxide 28.9 mEq/L (21-32); Creatinine 1 1.69 mg/dl (0.55-1.30); Potassium 4.9 mEq/L (3.5-5.1)
[2017-12-20 23:27] LABS: Appearance CLEAR (CLEAR); Bilirubin NEGATIVE (NEGATIVE); Blood NEGATIVE Ery/ul (0-5); Glucose 500 mg/dL (NEGATIVE); Ketones NEGATIVE (NEGATIVE); Leukocyte Esterase NEGATIVE (NEGATIVE); Nitrite NEGATIVE (NEGATIVE); Protein,Urine Dip TRACE (Negative); Urobilinogen 1 mg/dL (0-1)
[2017-12-20 23:28] LABS: Epithelial Cells RARE /HPF (FEW)
[2017-12-20] MEDS ORDERED: Proscar 5 MG PO ONE (23:30)
[2017-12-20] MEDS ORDERED: FEOSOL 325 MG PO ONE (23:30)
[2017-12-20] MEDS ORDERED: Neurontin 400 MG PO ONE (23:30)
[2017-12-20] MEDS: Proscar 5 MG PO SCH (23:59)
[2017-12-20] MEDS: NovoLOG Insulin SQ PRN (23:59)
[2017-12-21] MEDS: NovoLOG Insulin SQ PRN (08:27)
[2017-12-21] MEDS: Proscar 5 MG PO SCH (08:30)
--- NOTE | 2017-12-21 08:39 | XRAY ---
Indication: Right-sided weakness. Comparison: November 04, 2017. Portable apical lordotic chest is clear with stable incidental left apical calcified granuloma and left Port-A-Cath. Heart is not enlarged for AP portable technique. Bony thorax intact again with mild osteopenia and degenerative changes. Impression: Nonacute chest with chronic features.
--- NOTE | 2017-12-21 08:41 | XRAY ---
Indication: Right-sided weakness. Multiple contiguous axial images obtained through the head without contrast. Comparison: November 02, 2017. Stable age-appropriate global atrophy, minimal periventricular degenerative micro-ischemia bilaterally, and remote left caudate lacunar infarct. No acute intracranial hemorrhage, abnormal extra-axial fluid collection, or mass effect. Fourth ventricle is midline without hydrocephalus. Bony calvarium intact. Visualized paranasal sinuses and mastoid air cells are clear. Impression: Stable nonacute senile brain with remote left caudate lacunar infarct. CT DI 65.91
[2017-12-21] MEDS ORDERED: Sodium Chloride 0.9% 10 ML FLUSH Syringe IV PRN (09:36)
[2017-12-21] MEDS: Avodart 0.5 MG PO SCH (10:00)
[2017-12-21] MEDS: ZOCOR 20MG PO SCH (10:00)
[2017-12-21] MEDS: Ditropan XL 5 MG PO SCH (10:00)
[2017-12-21] MEDS: ZOLOFT 50 MG TABLET PO SCH (10:00)
[2017-12-21] MEDS: FEOSOL 325 MG PO SCH ×3 (10:00→22:45)
[2017-12-21] MEDS: Flomax 0.4 MG PO SCH (10:00)
[2017-12-21] MEDS: ECOTRIN 81 MG PO SCH (10:00)
[2017-12-21] MEDS: Neurontin 400 MG PO SCH ×3 (10:00→22:45)
[2017-12-21] MEDS: Protonix 40MG Tablet PO SCH (10:00)
[2017-12-21] MEDS: DELTASONE 10 MG PO SCH (10:00)
[2017-12-21] MEDS: Cozaar 50 MG PO SCH (10:00)
[2017-12-21] MEDS ORDERED: Ranexa 500 MG PO PRN (10:19)
--- NOTE | 2017-12-21 12:10 | XRAY ---
Indication: TIA. Two-dimensional sonogram and color Doppler imaging of the carotid arteries of the neck performed. Comparison: June 23, 2011. Examination of the right carotid circulation demonstrates mild soft plaquing in the common carotid artery. Minimal eccentric calcified plaquing seen at the level of the bulb. Mild heterogeneous plaquing seen in the proximal internal carotid artery. PSV of the CCA is 79 cm/s. PSV of the ICA is 54 cm/s. ICA/CCA ratio is 0.7. Normal antegrade vertebral artery flow. Examination of the left carotid circulation demonstrates widely patent common carotid artery. At the level of the bulb, there is mild calcified plaquing extending into the origin and proximal internal carotid artery. PSV of the CCA is 81 cm/s. PSV of the ICA is 66 cm/s. ICA/CCA ratio is 0.8. Normal antegrade vertebral artery flow. Impression: Interval worsening minimal/mild scattered plaquing, left greater than right. Velocity measurements and ratios are however negative for hemodynamically significant flow-limiting stenosis.
--- NOTE | 2017-12-21 12:31 | PCM.HP ---
History of Present Illness - Chief Complaint Chief Complaint: c/o weakness History of Present Illness: is a 67 year old male. 67 y/o patient with hx of TIA, DM, and heart disease. He states his legs won't work right today and he feels like jello and can not walk. Family told EMS his right face was drawn this AM. Pt states his right arm feels uncoordinated. Mild headache. No chest pain. No abd pain. No V/D. No fever or chills. Does not check sugar. Chews. - Review of Systems Constitutional: No Fever, No Chills Eyes: No Symptoms Ears, Nose, & Throat: No Symptoms Respiratory: No Cough, No Short Of Breath Cardiac: No Chest Pain, No Edema, No Syncope Abdominal/Gastrointestinal: No Abdominal Pain, No Nausea, No Vomiting, No Diarrhea Genitourinary Symptoms: No Dysuria Musculoskeletal: No Back Pain, No Neck Pain Skin: No Rash Neurological: Focal Weakness, Gait Changes, No Dizziness, No Sensory Changes Psychological: No Symptoms Endocrine: No Symptoms Hematologic/Lymphatic: No Symptoms Immunological/Allergic: No Symptoms Medications & Allergies Home Medications: Home Medication List Pravastatin Sodium 20 mg PO DAILY 01/30/16 [History Confirmed 12/20/17] Prednisone 10 mg [Deltasone 10 mg] 10 mg PO DAILY 01/30/16 [History Confirmed 12/20/17] Tamsulosin HCl [Flomax] 0.4 mg PO DAILY 01/30/16 [History Confirmed 12/20/17] Gabapentin [Neurontin] 800 mg PO TID 08/15/16 [History Confirmed 12/20/17] Finasteride 5 mg [Proscar 5 MG] 5 mg PO DAILY 10/13/16 [History Confirmed 12/20/17] Sertraline HCl 50 mg [Zoloft 50 mg Tablet] 50 mg PO DAILY 10/13/16 [History Confirmed 12/20/17] Hum Insulin NPH/Reg Insulin Hm [Humulin 70-30 Vial] 25 unit SQ TIDWMEALS [History Confirmed 12/20/17] Ranolazine 500 MG [Ranexa 500 MG] 500 mg PO BID PRN PRN 05/15/17 [History Confirmed 12/20/17] Aspirin 81 mg PO DAILY 11/02/17 [History Confirmed 12/20/17] Ferrous Sulfate [Iron] 325 mg PO TID 11/02/17 [History Confirmed 12/20/17] Pantoprazole Sodium [Protonix] 40 mg PO DAILY 11/02/17 [History Confirmed ] Dutasteride 0.5 MG [Avodart 0.5 MG] 0.5 mg PO DAILY 12/20/17 [History Confirmed 12/20/17] Losartan Potassium 50 mg [Cozaar 50 MG] 50 mg PO DAILY 12/20/17 [History Confirmed 12/20/17] Oxybutynin Chloride 10 mg Xl [Ditropan Xl 10 MG] 10 mg PO DAILY 12/20/17 [ History Confirmed 12/20/17] Allergies/Adverse Reactions: Allergies Allergy/AdvReac Type Severity Reaction Status Date / Time Penicillins Allergy Severe Hives Verified 11/02/17 16:41 silver [Silver] Allergy Intermediate Itching Verified 11/02/17 16:41 zinc [Zinc] Allergy Intermediate Itching Verified 11/02/17 16:41 carvedilol [From Coreg] AdvReac Intermediate Verified 11/02/17 16:41 metoprolol AdvReac Intermediate Verified 11/02/17 16:41 - Past Medical History Past Medical History: Yes Neurological History: TIA ENT History: Cataracts Cardiac History: Congestive Heart Failure, Coronary Artery Disease, Myocardial Infarction ([place]) Respiratory History: CHF, COPD, Sleep Apnea Endocrine Medical History: Diabetes Type II Musculoskelatal History: Arthritis GI Medical History: GI Bleed, Ulcer History: No Pertinent History Pyscho-Social History: No Pertinent History Male Reproductive Disorders: Prostate Problems Comment: right partial foot amputation. kidney infection, hx stones - Past Surgical History Past Surgical History: Yes Neuro Surgical History: No Pertinent History Cardiac History: Cardiac Catheterization, Cardiac Stent Respiratory Surgery: No Pertinent History GI Surgical History: Appendectomy, Cholecystectomy, Exploratory Laparoscopy Genitourinary Surgical Hx: No Pertinent History Musculskeletal Surgical Hx: Amputation Male Surgical History: Prostate Surgery Other Surgical History: Tonsillectomy and adenoidectomy. right toes/foot partial amputation and revision. PORT PLACEMENT - Social History Smoking Status: Never smoker Exposure to second hand smoke: No Alcohol: None Drug Use: none - Physical Exam Vital Signs: Vital Signs - 24 hr Temp Pulse Resp BP Pulse Ox 12/21/17 11:09 98.1 F 90 22 158/78 96 12/21/17 07:08 98 F 74 20 160/88 96 12/21/17 04:00 98.5 F 73 18 163/91 95 12/20/17 23:55 98.3 F 73 20 181/84 96 12/20/17 22:16 97.8 F 72 20 196/84 98 12/20/17 18:42 96 12/20/17 18:08 97.8 F 80 18 171/83 98 12/20/17 17:08 98.7 F 82 18 167/82 96 General Appearance: no apparent distress, alert Neurologic Exam: alert, oriented x 3, cooperative, normal mood/affect, nml cerebellar function, nml station & gait, sensation nml, No motor deficits Eye Exam: PERRL/EOMI, eyes nml inspection Ears, Nose, Throat Exam: normal ENT inspection, TMs normal, pharynx normal, moist mucous membranes Neck Exam: normal inspection, non-tender, supple, full range of motion Respiratory Exam: normal breath sounds, lungs clear, No respiratory distress Cardiovascular Exam: regular rate/rhythm, normal heart sounds, normal peripheral pulses Gastrointestinal/Abdomen Exam: soft, normal bowel sounds, No tenderness, No mass Back Exam: normal inspection, normal range of motion, No CVA tenderness, No vertebral tenderness Extremity Exam: normal inspection, normal range of motion, pelvis stable Skin Exam: normal color, warm, dry, No rash Lymphatic Exam: No adenopathy Results - Labs Lab/Micro Results: Accuchecks Date 12/21/17 Date 12/21/17 Time 07:30 Time 22:00 Accucheck Value: 219 Accucheck Value: 213 Lab Results-Last 24 Hours 12/20/17 Range/Units 23:00 Ur Collection Type CCMS Urine Color YELLOW (YELLOW) Urine Appearance CLEAR (CLEAR) Urine pH 7.0 (5-6) Ur Specific [place] 1.010 (1.005-1.025) Urine Protein TRACE (Negative) Urine Ketones NEGATIVE (NEGATIVE) Urine Blood NEGATIVE (0-5) [place]/ul Urine Nitrite NEGATIVE (NEGATIVE) Urine Bilirubin NEGATIVE (NEGATIVE) Urine Urobilinogen 1 (0-1) mg/dL Ur Leukocyte Esterase NEGATIVE (NEGATIVE) Urine Microscopic RBC 0-2 (0-2) /HPF Ur Epithelial Cells RARE (FEW) /HPF Urine Culture Reflexed NO (NO) Urine Glucose 500 (NEGATIVE) mg/dL Specimen Received 12-20-17 1317 Accuchecks Date 12/21/17 Date 12/21/17 Time 07:30 Time 22:00 Accucheck Value: 219 Accucheck Value: 213 - Radiology Impressions Radiology Exams & Impressions: Radiology Procedures Category Date Time Status CAROTID BILATERAL [US] Routine Exams 12/21/17 09:40 Completed ECHO W/2D AND DOPPLER [US] Routine Exams 12/21/17 09:40 Taken Assessment/Plan (1) TIA (transient ischemic attack) Current Visit: Yes Status: Acute Qualifiers: Transient cerebral ischemia type: unspecified Qualified Code(s): G45.9 - Transient cerebral ischemic attack, unspecified (2) Type 2 diabetes mellitus Current Visit: Yes Status: Acute Qualifiers: Diabetes mellitus complication status: with unspecified complications Diabetes mellitus emt intermediate insulin use: with emt intermediate use Qualified Code(s) : E11.8 - Type 2 diabetes mellitus with unspecified complications; Z79.4 - petroleum terminal plant operator (current) use of insulin; Z79.4 - senior living (current) use of insulin; Z79.4 - senior living (current) use of insulin; Z79.4 - petroleum terminal plant operator (current) use of insulin (3) CAD (coronary artery disease) Current Visit: Yes Status: Chronic Qualifiers: Coronary Disease-Associated Artery/Lesion type: [place] artery [place] vs. transplanted heart: [place] heart Associated angina: without angina Qualified Code(s): I25.10 - Atherosclerotic heart disease of [place] coronary artery without angina pectoris Code(s): I25.10 - ATHSCL HEART DISEASE OF [place] CORONARY ARTERY W/O ANG PCTRS
[2017-12-21] MEDS: Sodium Chloride 0.9% 10 ML FLUSH Syringe IV SCH ×2 (14:23→22:45)
[2017-12-21] MEDS: Novolin 70/30 SQ SCH ×2 (14:24→16:42)
[2017-12-21] MEDS ORDERED: NON-FORMULARY ITEM (Gabapentin [Neurontin] 800 MG) PO SCH (15:00)
[2017-12-22] MEDS: NovoLOG Insulin SQ PRN ×2 (00:59→11:48)
[2017-12-22] MEDS: Novolin 70/30 SQ SCH ×2 (08:29→11:49)
[2017-12-22] MEDS: FEOSOL 325 MG PO SCH (08:29)
[2017-12-22] MEDS: Protonix 40MG Tablet PO SCH (08:30)
[2017-12-22] MEDS: Ditropan XL 5 MG PO SCH (08:30)
[2017-12-22] MEDS: Flomax 0.4 MG PO SCH (08:30)
[2017-12-22] MEDS: DELTASONE 10 MG PO SCH (08:31)
[2017-12-22] MEDS: Cozaar 50 MG PO SCH (08:31)
[2017-12-22] MEDS: Avodart 0.5 MG PO SCH (08:32)
[2017-12-22] MEDS: ZOLOFT 50 MG TABLET PO SCH ×2 (08:33→08:35)
[2017-12-22] MEDS: Neurontin 400 MG PO SCH (08:33)
[2017-12-22] MEDS: ECOTRIN 81 MG PO SCH (08:34)
[2017-12-22] MEDS: Proscar 5 MG PO SCH (08:34)
[2017-12-22] MEDS: ZOCOR 20MG PO SCH (08:34)
[2017-12-22] MEDS: Sodium Chloride 0.9% 10 ML FLUSH Syringe IV SCH (08:44)
--- NOTE | 2017-12-22 09:14 | ECHO ---
DATE OF PROCEDURE: 12/21/2017 INDICATION: An echocardiogram was requested on this patient with complaints of neurological symptoms and stroke. ECHOCARDIOGRAM FINDINGS: CHAMBERS: The left atrium is normal size. Left ventricle is normal size. There is mild concentric left ventricular hypertrophy present. Normal left ventricular systolic function. Ejection fraction 55%. Right atrium is mildly dilated. Right ventricle is mildly dilated. Aortic root is normal. VALVES: None of the valves were visualized. Doppler evaluation of the valves revealed no significant valvular pathology. There is anterior echo-free space present probably secondary epicardial fat pad or a small pericardial effusion. IMPRESSION: 1) TECHNICALLY VERY DIFFICULT STUDY. 2) MILDLY DILATED RIGHT SIDED CARDIAC CHAMBERS. 3) MILD CONCENTRIC LEFT VENTRICULAR HYPERTROPHY. 4) NORMAL LEFT VENTRICULAR SYSTOLIC FUNCTION. EJECTION FRACTION 55%. 5) NO HEMODYNAMICALLY SIGNIFICANT VALVULAR PATHOLOGY NOTED. HOWEVER THIS STUDY WAS TECHNICALLY VERY DIFFICULT STUDY.
[2017-12-22] MEDS ORDERED: NON-FORMULARY ITEM (Aspirin [Aspirin] 81 MG) PO SCH (10:00)
[2017-12-22] MEDS ORDERED: NON-FORMULARY ITEM (Pravastatin Sodium [Pravastatin Sodium] 20 MG) PO SCH (10:00)
[2017-12-22] MEDS ORDERED: OXYBUTYNIN CHLORIDE 10 MG PO SCH (10:00)
--- NOTE | 2017-12-22 11:58 | PCM.DS ---
Discharge Summary Date of Admission: 12/20/17 18:53 Admitting Physician: NELLY HOWELL Primary Care Provider: JENNIFER Allergies Allergies Penicillins Allergy (Severe, Verified 11/02/17 16:41) Hives silver [Silver] Allergy (Intermediate, Verified 11/02/17 16:41) Itching zinc [Zinc] Allergy (Intermediate, Verified 11/02/17 16:41) Itching carvedilol [From Coreg] Adverse Reaction (Intermediate, Verified 11/02/17 16:41) "makes me dizzy" metoprolol Adverse Reaction (Intermediate, Verified 11/02/17 16:41) "makes me dizzy" Hospital Summary - Hospital Course Hospital Course: Chief Complaint Diagnosis c/o weakness Allergies Allergy/AdvReac Type Severity Reaction Status Date / Time Penicillins Allergy Severe Hives Verified 11/02/17 16:41 silver [Silver] Allergy Intermediate Itching Verified 11/02/17 16:41 zinc [Zinc] Allergy Intermediate Itching Verified 11/02/17 16:41 carvedilol [From Coreg] AdvReac Intermediate Verified 11/02/17 16:41 metoprolol AdvReac Intermediate Verified 11/02/17 16:41 Vital Signs (Last 24 hours) Temp Pulse Resp BP Pulse Ox 12/22/17 07:44 97.7 F 84 20 148/80 95 12/22/17 04:00 98.0 F 73 20 146/68 96 12/22/17 00:00 98.5 F 83 20 139/65 95 12/21/17 20:00 98.2 F 81 20 129/59 96 12/21/17 15:13 97.9 F 78 22 160/78 94 L Home Medications Medication Instructions Recorded Confirmed Last Taken Type Dutasteride 0.5 MG [Avodart 0.5 0.5 mg PO DAILY 12/20/17 12/20/17 12/20/17 History MG] Losartan Potassium 50 mg 50 mg PO DAILY 12/20/17 12/20/17 12/20/17 History [Cozaar 50 MG] Oxybutynin Chloride 10 mg Xl 10 mg PO DAILY 12/20/17 12/20/17 12/20/17 History [Ditropan Xl 10 MG] 10 Current Medications Generic Name Dose Route Start Last Admin Trade Name Freq PRN Reason Stop Dose Admin Aspirin 81 mg 12/21/17 10:00 12/22/17 08:34 Ecotrin 81 Mg PO 01/20/18 09:59 81 mg DAILY JOSUE Administration Dutasteride 0.5 mg 12/21/17 10:00 12/22/17 08:32 Avodart 0.5 Mg PO 01/20/18 09:59 0.5 mg DAILY JOSUE Administration Ferrous Sulfate 325 mg 12/21/17 10:00 12/22/17 08:29 Feosol 325 Mg PO 01/20/18 09:59 325 mg TID JOSUE Administration Finasteride 5 mg 12/20/17 23:50 12/22/17 08:34 Proscar 5 Mg PO 01/19/18 23:49 5 mg DAILY JOSUE Administration Gabapentin 800 mg 12/21/17 10:00 12/22/17 08:33 Neurontin 400 Mg PO 01/20/18 09:59 800 mg TID JOSUE Administration Insulin Aspart 0 unit 12/20/17 19:26 12/22/17 11:48 Novolog Insulin SQ 01/19/18 19:25 5 unit UD PRN Administration HYPERGLYCEMIA Insulin Human Isoph/Insulin Regular 25 unit 12/21/17 12:00 12/22/17 11:49 Novolin 70/30 SQ 01/20/18 11:59 25 unit TIDWMEALS JOSUE Administration Losartan Potassium 50 mg 12/21/17 10:00 12/22/17 08:31 Cozaar 50 Mg PO 01/20/18 09:59 50 mg DAILY JOSUE Administration Oxybutynin Chloride 10 mg 12/21/17 10:00 12/22/17 08:30 Ditropan Xl 5 Mg PO 01/20/18 09:59 10 mg DAILY JOSUE Administration Pantoprazole Sodium 40 mg 12/21/17 10:00 12/22/17 08:30 Protonix 40mg Tablet PO 01/20/18 09:59 40 mg DAILY JOSUE Administration Prednisone 10 mg 12/21/17 10:00 12/22/17 08:31 Deltasone 10 Mg PO 01/20/18 09:59 10 mg DAILY JOSUE Administration Ranolazine 500 mg 12/21/17 10:19 Ranexa 500 Mg PO 01/20/18 10:18 BID PRN PRN CHEST PAIN Sertraline HCl 50 mg 12/21/17 10:00 12/22/17 08:35 Zoloft 50 Mg Tablet PO 01/20/18 09:59 50 mg DAILY JOSUE Administration Simvastatin 20 mg 12/21/17 10:00 12/22/17 08:34 Zocor 20mg PO 01/20/18 09:59 20 mg DAILY JOSUE Administration Sodium Chloride 10 ml 12/21/17 14:00 12/22/17 08:44 Sodium Chloride 0.9% 10 Ml Flush Syringe IV 01/20/18 13:59 10 ml Q8HT JOSUE Administration Sodium Chloride 10 ml 12/21/17 09:36 Sodium Chloride 0.9% 10 Ml Flush Syringe IV 01/20/18 09:35 PRN PRN FLUSH Tamsulosin HCl 0.4 mg 12/22/17 22:00 Flomax 0.4 Mg PO 01/21/18 21:59 HS JOSUE Discontinued Medications Generic Name Dose Route Start Last Admin Trade Name Freq PRN Reason Stop Dose Admin Ferrous Sulfate 325 mg 12/20/17 23:30 12/20/17 23:58 Feosol 325 Mg PO 12/20/17 23:31 325 mg ONCE ONE Administration Finasteride 5 mg 12/20/17 23:30 12/21/17 00:02 Proscar 5 Mg PO 12/20/17 23:31 Not Given ONCE ONE Gabapentin 800 mg 12/20/17 23:30 12/20/17 23:58 Neurontin 400 Mg PO 12/20/17 23:31 800 mg ONCE ONE Administration Tamsulosin HCl 0.4 mg 12/21/17 10:00 12/21/17 10:00 Flomax 0.4 Mg PO 01/20/18 09:59 0.4 mg DAILY JOSUE Administration Intake & Output (Last 24 hours) 12/19/17 12/20/17 12/21/17 12/22/17 11:59 11:59 11:59 11:59 Intake Total 1320 1160 Output Total 3600 2275 Balance -2280 -1115 Weight 176 kg 177 kg Microbiology Results (Last 24 hours) 12/21/17 07:34 Urine, Indwelling Catheter Urine Culture - Preliminary NO GROWTH TO DATE Laboratory Results (Last 24 hours) 12/21/17 15:00 Hemoglobin A1c 8.1 H Orders (Last 24 hours) Category Date Time Status HEMOGLOBIN A1C Urgent Lab 12/21/17 15:00 Completed Insulin NPH/Reg 70/30 [Novolin 70/30] Med 12/21/17 12:00 Active 25 unit SQ TIDWMEALS NaCl 0.9% 10 ML FLUSH [Sodium Chloride 0.9% 10 ML FLUSH Med 12/21/17 14:00 Active Syringe] 10 ml IV Q8HT Tamsulosin HCl 0.4 mg [Flomax 0.4 MG] Med 12/22/17 22:00 Active 0.4 mg PO HS Patient Care Notes (Last 24 hours) 12/22/17 09:56 Nursing Note by Kathy Cartwright see medsurg assessment, pt denies c/o, up to chair with 2 heavy assist and walker. Initialized on 12/22/17 09:56 - END OF NOTE 12/21/17 15:15 Nursing Note by Maryuri Charlton Tele Neuro called at 1450 said they would be calling to converse with pt. Have been in pt. room no phone call [phone]. Initialized on 12/21/17 15:15 - END OF NOTE 12/21/17 12:10 (created 12/21/17 15:47) Case Management Note by Angeli Loyola DR. ROUNDED AND EVALUATED, DISCUSSED PLAN OF CARE. ALL QUESTIONS ANSWERED. FAMILY MEMBER AT BEDSIDE AND VERBALIZED UNDERSTANDING. PLANNING TO RETURN HOME TO PRE EPISODIC LEVEL OF [place] WITH [facility] TO FOLLOW, WITH ADD P.T. TO HHC SERVICES ON DISCHARGE. NORMALLY USES A WALKER AND IS INDEPENDENT WITH ALL ADL'S. Initialized on 12/21/17 15:47 - END OF NOTE - Vitals & Intake/Output Vital Signs: Vital Signs Temperature 97.7 F 12/22/17 07:44 Pulse Rate 84 12/22/17 07:44 Respiratory Rate 20 12/22/17 07:44 Blood Pressure 148/80 12/22/17 07:44 O2 Sat by Pulse Oximetry 95 12/22/17 07:44 Intake & Output: Intake & Output 02/0512/20/17 12/21/17 12/22/17 11:59 11:59 11:59 11:59 Intake Total 1320 1160 Output Total 3600 2275 Balance -2280 -1115 Weight 176 kg 177 kg - Lab Result Diagrams: 12/20/17 17:30 12/20/17 17:30 Lab Results-Last 24 Hrs: Accuchecks Date 12/22/17 Date 12/21/17 Date 12/21/17 Time 07:30 Time 21:30 Time 16:30 Accucheck Value: 114 Accucheck Value: 271 Accucheck Value: 197 Lab Results-Last 24 Hours 12/21/17 Range/Units 15:00 Hemoglobin A1c 8.1 H (4.5-6.2) Micro Results-Entire Visit: Microbiology 12/21/17 07:34 Urine Culture - Preliminary Urine, Indwelling Catheter NO GROWTH TO DATE Accuchecks Date 12/22/17 Date 12/21/17 Date 12/21/17 Time 07:30 Time 21:30 Time 16:30 Accucheck Value: 114 Accucheck Value: 271 Accucheck Value: 197 - Radiology Exams Ordered Rad Exams-Entire Visit: Radiology Procedures Category Date Time Status CAROTID BILATERAL [US] Routine Exams 12/21/17 09:40 Completed ECHO W/2D AND DOPPLER [US] Routine Exams 12/21/17 09:40 Draft Impressions Echocardiogram Ultrasound 12/21/17 09:40 IMPRESSION: 1) TECHNICALLY VERY DIFFICULT STUDY. 2) MILDLY DILATED RIGHT SIDED CARDIAC CHAMBERS. 3) MILD CONCENTRIC LEFT VENTRICULAR HYPERTROPHY. 4) NORMAL LEFT VENTRICULAR SYSTOLIC FUNCTION. EJECTION FRACTION 55%. 5) NO HEMODYNAMICALLY SIGNIFICANT VALVULAR PATHOLOGY NOTED. HOWEVER THIS STUDY WAS TECHNICALLY VERY DIFFICULT STUDY. - Procedures and Test Procedures and Tests throughout Hospitalization: Therapy Orders & Screens 12/21/17 09:28 PT Eval & Treat ( Order) ROUTINE Reason for Eval:: r side weakness, hx: tia Diagnosis: subacute nonhemorrhagic stroke Discharge Exam General Appearance: no apparent distress, alert Neurologic Exam: alert, oriented x 3, cooperative, normal mood/affect, nml cerebellar function, sensation nml, No motor deficits Skin Exam: normal color, warm, dry Eye Exam: PERRL, EOMI, eyes nml inspection Ears, Nose, Throat Exam: normal ENT inspection, pharynx normal, moist mucous membranes Neck Exam: normal inspection, non-tender, supple, full range of motion Respiratory Exam: normal breath sounds, lungs clear, No respiratory distress Cardiovascular Exam: regular rate/rhythm, normal heart sounds Gastrointestinal/Abdomen Exam: soft, No tenderness, No mass Extremity Exam: normal inspection, normal range of motion Back Exam: normal inspection, normal range of motion, No CVA tenderness, No vertebral tenderness Male Genitalia Exam: deferred Rectal Exam: deferred Final Diagnosis/Problem List - Final Discharge Diagnosis/Problem (1) TIA (transient ischemic attack) Current Visit: Yes Status: Resolved (2) Type 2 diabetes mellitus Current Visit: Yes Status: Chronic (3) CAD (coronary artery disease) Current Visit: Yes Status: Chronic - Discharge Discharge Date: 12/22/17 Disposition: Home, Self-Care Condition: Stable Prescriptions: Continue Pravastatin Sodium 20 mg PO DAILY Tamsulosin HCl [Flomax] 0.4 mg PO DAILY Prednisone 10 mg [Deltasone 10 mg] 10 mg PO DAILY Gabapentin [Neurontin] 800 mg PO TID Sertraline HCl 50 mg [Zoloft 50 mg Tablet] 50 mg PO DAILY Finasteride 5 mg [Proscar 5 MG] 5 mg PO DAILY Hum Insulin NPH/Reg Insulin Hm [Humulin 70-30 Vial] 25 unit SQ TIDWMEALS Ranolazine 500 MG [Ranexa 500 MG] 500 mg PO BID PRN PRN PRN Reason: Chest Pain Pantoprazole Sodium [Protonix] 40 mg PO DAILY Ferrous Sulfate [Iron] 325 mg PO TID Aspirin 81 mg PO DAILY Oxybutynin Chloride 10 mg Xl [Ditropan Xl 10 MG] 10 mg PO DAILY Losartan Potassium 50 mg [Cozaar 50 MG] 50 mg PO DAILY Dutasteride 0.5 MG [Avodart 0.5 MG] 0.5 mg PO DAILY Follow up with: ELIJAH MCCOY [ACTIVE STAFF] - 01/12/18 2:15 pm NELLY HOWELL MD [ACTIVE STAFF] - 1 Week
[2017-12-22 12:13] VITALS: BP 186/88; PULSE 82; O2SAT 96
[2017-12-22] MEDS ORDERED: Flomax 0.4 MG PO SCH (22:00)
== END 2017-12-22 13:20 | disposition home health service (06) ==
LOC: ED 17:07 → MED SURG 18:53
PROVIDERS: ADMIT General Practice; ATTEND General Practice
DX: G45.9 Transient cerebral ischemic attack, unspecified (principal); E11.9 Type 2 diabetes mellitus without complications; Z79.4 Long term (current) use of insulin; I25.10 Atherosclerotic heart disease of native coronary artery without angina pectoris; I50.9 Heart failure, unspecified; G47.30 Sleep apnea, unspecified; J44.9 Chronic obstructive pulmonary disease, unspecified; M19.90 Unspecified osteoarthritis, unspecified site; Z79.899 Other long term (current) drug therapy; I25.2 Old myocardial infarction
CPT/HCPCS: 36000; 36415; 70450; 71045; 80053; 81000; 82962; 83036; 83605; 85025; 85610; 85730; 87086; 93005; 93041; 93268; 93306; 93880; 99285; G0378; J1815; A9270-GY

== ENCOUNTER 2017-12-22 20:54 | Inpatient (IN) | payer MEDICARE, OTHER ==
--- NOTE | 2017-12-22 21:30 | ERPHSYRPT ---
- History of Present Illness Time Seen by Provider: 12/22/17 21:21 Source: patient Exam Limitations: no limitations Patient Subjective Stated Complaint: PT BROUGHT TO ED PER EMS FROM HOME-PT WAS RELEASED EARLIER TODAY ET DECLINED JAIL ADMISSION FOR [place]-PT HAS CHANGED HIS MIND ET WANTS TO BE ADMITTED Triage Nursing Assessment: PT PINK WARM ET [id number] WITH NO RESP UNEASE NOTED Physician History: Pt was treated here with stroke, discharged this morning. He was offered assisted placement for rehab. but refused it. He apparently fell few times today, denies any injuries, no LOC, headaches, chest pain other complaints. He has chronic right sided weakness due to an old CVA. Occurred: just prior to arrival Reason for Fall: lost balance Injuries/Pain Location: no injury Loss of Consciousness: no loss of consciousness Quality: other (denies) Severity of Pain-Max: none Modifying Factors: Improves With: nothing Associated Symptoms (Fall): denies symptoms Allergies/Adverse Reactions: Penicillins Allergy (Severe, Verified 12/22/17 21:10) Hives silver [Silver] Allergy (Intermediate, Verified 12/22/17 21:10) Itching zinc [Zinc] Allergy (Intermediate, Verified 12/22/17 21:10) Itching carvedilol [From Coreg] Adverse Reaction (Intermediate, Verified 12/22/17 21:10) "makes me dizzy" metoprolol Adverse Reaction (Intermediate, Verified 12/22/17 21:10) "makes me dizzy" Home Medications: Pravastatin Sodium 20 mg PO DAILY 01/30/16 [History] Prednisone 10 mg [Deltasone 10 mg] 10 mg PO DAILY 01/30/16 [History] Tamsulosin HCl [Flomax] 0.4 mg PO DAILY 01/30/16 [History] Gabapentin [Neurontin] 800 mg PO TID 08/15/16 [History] Finasteride 5 mg [Proscar 5 MG] 5 mg PO DAILY 10/13/16 [History] Sertraline HCl 50 mg [Zoloft 50 mg Tablet] 50 mg PO DAILY 10/13/16 [History] Hum Insulin NPH/Reg Insulin Hm [Humulin 70-30 Vial] 25 unit SQ TIDWMEALS [History] Ranolazine 500 MG [Ranexa 500 MG] 500 mg PO BID PRN PRN 05/15/17 [History] Aspirin 81 mg PO DAILY 11/02/17 [History] Ferrous Sulfate [Iron] 325 mg PO TID 11/02/17 [History] Pantoprazole Sodium [Protonix] 40 mg PO DAILY 11/02/17 [History] Dutasteride 0.5 MG [Avodart 0.5 MG] 0.5 mg PO DAILY 12/20/17 [History] Losartan Potassium 50 mg [Cozaar 50 MG] 50 mg PO DAILY 12/20/17 [History] Oxybutynin Chloride 10 mg Xl [Ditropan Xl 10 MG] 10 mg PO DAILY 12/20/17 [ History] Hx Tetanus, Diphtheria Vaccination/Date Given: No Hx Influenza Vaccination/Date Given: Yes Hx Pneumococcal Vaccination/Date Given: No Immunizations Up to Date: Yes - Review of Systems Constitutional: No Symptoms Cardiac: Edema - Past Medical History Pertinent Past Medical History: Yes Neurological History: TIA ENT History: Cataracts Cardiac History: Congestive Heart Failure, Coronary Artery Disease, Myocardial Infarction (DE) Respiratory History: CHF, COPD, Sleep Apnea Endocrine Medical History: Diabetes Type II Musculoskeletal History: Arthritis GI Medical History: GI Bleed, Ulcer History: No Pertinent History Psycho-Social History: No Pertinent History Male Reproductive Disorders: Prostate Problems Other Medical History: right partial foot amputation. kidney infection, hx stones - Past Surgical History Past Surgical History: Yes Neuro Surgical History: No Pertinent History Cardiac: Cardiac Catheterization, Cardiac Stent Respiratory: No Pertinent History Gastrointestinal: Appendectomy, Cholecystectomy, Exploratory Laparoscopy Genitourinary: No Pertinent History Musculoskeletal: Amputation Male Surgical History: Prostate Surgery Other Surgical History: Tonsillectomy and adenoidectomy. right toes/foot partial amputation and revision. PORT PLACEMENT - Social History Smoking Status: Never smoker Exposure to second hand smoke: No Drug Use: none Patient Lives Alone: No - Nursing Vital Signs Nursing Vital Signs: Initial Vital Signs Temperature 98.9 F 12/22/17 20:54 Pulse Rate 91 H 12/22/17 20:54 Respiratory Rate 20 12/22/17 20:54 Blood Pressure 137/56 12/22/17 20:54 O2 Sat by Pulse Oximetry 94 L 12/22/17 20:54 Pain Scale Pain Intensity 0 - [place] Coma Score Best Eye Response ([place]): (4) open spontaneously Best Verbal Response ([place]): (5) oriented Best Motor Response ([place]): (6) obeys commands [place] Total: 15 - Physical Exam General Appearance: no apparent distress Head Injury: no evidence of injury Eye Exam: PERRL/EOMI ENT Exam: airway nml Neck Exam: supple, trachea midline Respiratory/Chest Exam: normal breath sounds, No chest tenderness, No crepitus Cardiovascular Exam: normal heart sounds, regular rate/rhythm, No murmur, No JVD Gastrointestinal Exam: soft, normal bowel sounds Back Exam: normal inspection Extremity Exam: other (2 + non pitting edema bilaterally.), No calf tenderness Neurologic Exam: alert, oriented x 3, cooperative, normal mood/affect Skin Exam: normal color, warm, dry, No rash SpO2 Interpretation: normal SpO2: 94 Oxygen Delivery: Room Air - Course Nursing assessment & vital signs reviewed: Yes EKG Interpreted by Me: RATE, NORMAL AXIS, NORMAL INTERVALS, Non-specific ST Changes Ordered Tests: Active Orders 24 hr Category Date Time Status EKG-ER Only STAT Care 12/22/17 21:24 Active IV Insertion STAT Care 12/22/17 21:24 Active CBC W DIFF Stat Lab 12/22/17 22:10 Completed CMP Stat Lab 12/22/17 22:10 Received NT PRO BNP Stat Lab 12/22/17 22:10 Received Lab/Rad Data: Laboratory Result Diagrams 12/22/17 22:10 Laboratory Results 12/22/17 Range/Units 22:10 WBC 10.0 (4.0-10.5) K/mm3 RBC 3.69 L (4.1-5.6) M/mm3 Hgb 10.8 L (12.5-18.0) gm/dl Hct 34.7 L (42-50) % MCV 94.0 (78-100) fl MCH 29.2 (26-32) pg MCHC 31.1 L (32-36) g/dl RDW 14.0 (11.5-14.0) % Plt Count 295 (150-450) K/mm3 MPV 9.1 (6-9.5) fl Gran % 70.1 H (36.0-66.0) % Lymphocytes % 20.9 L (24.0-44.0) % Monocytes % 7.4 (0.0-12.0) % Eosinophils % 1.3 (0.00-5.0) % Basophils % 0.3 (0.0-0.4) % Basophils # 0.03 (0-0.4) - Progress Progress: unchanged Progress Note: 12/22/17 22:44 Pt has been stable, denies any pain or discomfort. 12/22/17 22:44 Dr Barnes was informed, admit patient to medical bed. Discussed with : Molly Will see patient in: hospital (full admit) - Departure Time of Disposition: 22:44 Departure Disposition: In-patient Admission Clinical Impression: Weakness Condition: Stable Critical Care Time: No Referrals: DOCTOR,NO FAMILY [Primary Care Provider] -
[2017-12-22 22:15] LABS: BASOPHIL % 0.3 % (0.0-0.4); Basophil (Absolute #) 0.03 (0-0.4); Eosinophil % 1.3 % (0.00-5.0); Eosinophil (Absolute #) 0.13 (0-0.5); Granulocyte Absolute (ANC) 6.99 (1.4-6.9); Granulocytes % 70.1 % (36.0-66.0); Hematocrit 34.7 % (42-50); Hemoglobin 10.8 gm/dl (12.5-18.0); Lymphocyte (Absolute #) 2.09 (1.0-4.6); Lymphocytes % 20.9 % (24.0-44.0); Mean Corpuscular Hgb Concent. 31.1 g/dl (32-36); Mean Platelet Volume 9.1 fl (6-9.5); Monocyte (Absolute #) 0.74 (0.0-1.3); Monocytes % 7.4 % (0.0-12.0); Platelet Count 295 K/mm3 (150-450); Red Blood Count 3.69 M/mm3 (4.1-5.6)
[2017-12-22 22:18] LABS: Mean Corpuscular Hemoglobin 29.2 pg (26-32)
[2017-12-22] MEDS ORDERED: DUONEB 0.5-3 MG/3 ml Neb IH PRN (22:45)
[2017-12-22 22:57] LABS: ANION GAP 10.9 MEQ/L (5-15); BILIRUBIN,TOTAL 0.2 mg/dL (0.2-1.0); Calcium 9.1 mg/dL (8.5-10.1); Carbon Dioxide 29.6 mEq/L (21-32); Creatinine 1 1.67 mg/dl (0.55-1.30); Potassium 4.3 mEq/L (3.5-5.1); Total Protein 7.4 gm/dL (6.4-8.2)
[2017-12-23] MEDS ORDERED: Ranexa 500 MG PO PRN (09:25)
[2017-12-23] MEDS ORDERED: Norco 10/325 MG Tablet PO PRN (09:25)
[2017-12-23] MEDS ORDERED: MEDICATION INTERVENTION MC PRN (09:57)
[2017-12-23] MEDS ORDERED: NON-FORMULARY ITEM (Aspirin [Aspirin] 81 MG) PO SCH (10:00)
[2017-12-23] MEDS ORDERED: OXYBUTYNIN CHLORIDE 10 MG PO SCH (10:00)
[2017-12-23] MEDS ORDERED: NON-FORMULARY ITEM (Pravastatin Sodium [Pravastatin Sodium] 20 MG) PO SCH (10:00)
[2017-12-23] MEDS ORDERED: Proscar 5 MG PO SCH (10:00)
[2017-12-23] MEDS ORDERED: NON-FORMULARY ITEM (Gabapentin [Neurontin] 800 MG) PO SCH (10:00)
[2017-12-23] MEDS: Avodart 0.5 MG PO SCH (10:24)
[2017-12-23] MEDS: FEOSOL 325 MG PO SCH ×2 (10:24→22:14)
[2017-12-23] MEDS: Protonix 40MG Tablet PO SCH (10:24)
[2017-12-23] MEDS: ZOLOFT 50 MG TABLET PO SCH (10:24)
[2017-12-23] MEDS: Neurontin 400 MG PO SCH ×3 (10:25→22:13)
[2017-12-23] MEDS: Cozaar 50 MG PO SCH (10:25)
[2017-12-23] MEDS: Ditropan XL 5 MG PO SCH (10:25)
[2017-12-23] MEDS: PLAVIX 75 MG Tablet PO SCH (10:25)
[2017-12-23] MEDS: DELTASONE 10 MG PO SCH (10:25)
[2017-12-23] MEDS: ECOTRIN 81 MG PO SCH (10:25)
[2017-12-23] MEDS: Novolin 70/30 SQ SCH ×2 (11:57→16:34)
[2017-12-23] MEDS: NovoLOG Insulin SQ PRN ×2 (16:34→22:15)
--- NOTE | 2017-12-23 17:48 | PCM.HP ---
History of Present Illness - Chief Complaint Chief Complaint: TIA History of Present Illness: is a 67 year old male.Pt was treated here with stroke, discharged this morning. He was offered longterm placement for rehab. but refused it. He apparently fell few times today, denies any injuries, no LOC, headaches, chest pain other complaints. He has chronic right sided weakness due to an old CVA. Occurred: just prior to arrival Reason for Fall: lost balance Injuries/Pain Location: no injury Loss of Consciousness: no loss of consciousness, Patient had recently multiple TIA episodes at home associated with multiple falls and confusion episodes. Patient also has been having slurred speech. - Review of Systems Constitutional: No Fever, No Chills Eyes: No Symptoms Ears, Nose, & Throat: No Symptoms Respiratory: No Cough, No Short Of Breath Cardiac: No Chest Pain, No Edema, No Syncope Abdominal/Gastrointestinal: No Abdominal Pain, No Nausea, No Vomiting, No Diarrhea Genitourinary Symptoms: No Dysuria Musculoskeletal: No Back Pain, No Neck Pain Skin: No Rash Neurological: Dizziness, Focal Weakness, Gait Changes, Lethargy, Speech Changes , No Sensory Changes Psychological: No Symptoms Endocrine: No Symptoms Hematologic/Lymphatic: No Symptoms Immunological/Allergic: No Symptoms Medications & Allergies Home Medications: Home Medication List Pravastatin Sodium 20 mg PO DAILY 01/30/16 [History Confirmed 12/22/17] Prednisone 10 mg [Deltasone 10 mg] 10 mg PO DAILY 01/30/16 [History Confirmed 12/22/17] Tamsulosin HCl [Flomax] 0.4 mg PO HS 01/30/16 [History Confirmed 12/23/17] Gabapentin [Neurontin] 800 mg PO TID 08/15/16 [History Confirmed 12/23/17] Finasteride 5 mg [Proscar 5 MG] 5 mg PO DAILY 10/13/16 [History Confirmed 12/22/17] Sertraline HCl 50 mg [Zoloft 50 mg Tablet] 50 mg PO DAILY 10/13/16 [History Confirmed 12/22/17] Hum Insulin NPH/Reg Insulin Hm [Humulin 70-30 Vial] 25 unit SQ TIDWMEALS [History Confirmed 12/22/17] Ranolazine 500 MG [Ranexa 500 MG] 500 mg PO BID PRN PRN 05/15/17 [History Confirmed 12/22/17] Aspirin 81 mg PO DAILY 11/02/17 [History Confirmed 12/22/17] Ferrous Sulfate [Iron] 325 mg PO BID 11/02/17 [History Confirmed 12/23/17] Pantoprazole Sodium [Protonix] 40 mg PO DAILY 11/02/17 [History Confirmed ] Dutasteride 0.5 MG [Avodart 0.5 MG] 0.5 mg PO DAILY 12/20/17 [History Confirmed 12/22/17] Losartan Potassium 50 mg [Cozaar 50 MG] 50 mg PO DAILY 12/20/17 [History Confirmed 12/22/17] Oxybutynin Chloride 10 mg Xl [Ditropan Xl 10 MG] 10 mg PO DAILY 12/20/17 [ History Confirmed 12/22/17] Clopidogrel Bisulfate 75 mg [PLAVIX 75 MG Tablet] 75 mg PO DAILY #30 tablet 12/22/17 [Rx Confirmed 12/22/17] Hydrocodone/APAP 10/325 mg [[place] 10/325 MG Tablet] 1 tab PO Q6H PRN PRN 12/23/17 [History Confirmed 12/23/17] Allergies/Adverse Reactions: Allergies Allergy/AdvReac Type Severity Reaction Status Date / Time Penicillins Allergy Severe Hives Verified 12/22/17 21:10 silver [Silver] Allergy Intermediate Itching Verified 12/22/17 21:10 zinc [Zinc] Allergy Intermediate Itching Verified 12/22/17 21:10 carvedilol [From Coreg] AdvReac Intermediate Verified 12/22/17 21:10 metoprolol AdvReac Intermediate Verified 12/22/17 21:10 - Past Medical History Past Medical History: Yes Neurological History: TIA ENT History: Cataracts Cardiac History: Congestive Heart Failure, Coronary Artery Disease, Myocardial Infarction ([place]) Respiratory History: CHF, COPD, Sleep Apnea Endocrine Medical History: Diabetes Type II Musculoskelatal History: Arthritis GI Medical History: GI Bleed, Ulcer History: No Pertinent History Pyscho-Social History: No Pertinent History Male Reproductive Disorders: Prostate Problems Comment: right partial foot amputation. kidney infection, hx stones - Past Surgical History Past Surgical History: Yes Neuro Surgical History: No Pertinent History Cardiac History: Cardiac Catheterization, Cardiac Stent Respiratory Surgery: No Pertinent History GI Surgical History: Appendectomy, Cholecystectomy, Exploratory Laparoscopy Genitourinary Surgical Hx: No Pertinent History Musculskeletal Surgical Hx: Amputation Male Surgical History: Prostate Surgery Other Surgical History: Tonsillectomy and adenoidectomy. right toes/foot partial amputation and revision. PORT PLACEMENT - Social History Smoking Status: Never smoker Exposure to second hand smoke: No Alcohol: None Drug Use: none - Physical Exam Vital Signs: Vital Signs - 24 hr Temp Pulse Resp BP Pulse Ox 12/23/17 16:00 98.0 F 77 22 145/70 91 L 12/23/17 11:36 98.6 F 81 22 143/63 93 L 12/23/17 08:00 98.6 F 83 20 149/63 95 12/23/17 07:37 80 16 94 L 12/23/17 04:00 98.4 F 79 16 124/59 96 12/23/17 00:48 97.7 F 96 H 18 163/70 96 12/22/17 23:45 69 16 149/72 100 12/22/17 23:18 74 20 97 12/22/17 22:45 94 L 12/22/17 22:28 78 20 149/76 96 12/22/17 20:54 98.9 F 91 H 20 137/56 94 L General Appearance: mild distress Neurologic Exam: alert, motor deficits, sensory deficit, confusion, abnormal gait Eye Exam: PERRL/EOMI, eyes nml inspection Ears, Nose, Throat Exam: normal ENT inspection, TMs normal, pharynx normal, moist mucous membranes Neck Exam: normal inspection, non-tender, supple, full range of motion Respiratory Exam: normal breath sounds, lungs clear, No respiratory distress Cardiovascular Exam: regular rate/rhythm, normal heart sounds, normal peripheral pulses Gastrointestinal/Abdomen Exam: soft, normal bowel sounds, No tenderness, No mass Back Exam: normal inspection, normal range of motion, No CVA tenderness, No vertebral tenderness Extremity Exam: normal inspection, normal range of motion, pelvis stable Skin Exam: normal color, warm, dry, No rash Lymphatic Exam: No adenopathy Results - Labs Lab/Micro Results: Accuchecks Date 12/23/17 Date 12/23/17 Date 12/23/17 Accucheck Value: 236 Accucheck Value: 252 Accucheck Value: 259 Accuchecks Date 12/23/17 Date 12/23/17 Date 12/23/17 Accucheck Value: 236 Accucheck Value: 252 Accucheck Value: 259 - Other Procedures and Tests Respiratory Therapy 12/23/17 07:37 Respiratory Nebulizer Q4H Assessment/Plan (1) TIA (transient ischemic attack) Current Visit: Yes Status: Acute Qualifiers: Transient cerebral ischemia type: unspecified Assessment & Plan: Patient is admitted, Neurochecks, will follow last neurology consult. 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 Current Visit: Yes Status: Chronic Code(s): E11.59 - TYPE 2 DIABETES MELLITUS WITH OTH CIRCULATORY COMPLICATIONS; I20.9 - ANGINA PECTORIS, UNSPECIFIED (3) CAD (coronary artery disease) Current Visit: Yes Status: Chronic Qualifiers: Coronary Disease-Associated Artery/Lesion type: [place] artery [place] vs. transplanted heart: [place] heart Associated angina: with unspecified angina Qualified Code(s): I25.119 - Atherosclerotic heart disease of [place] coronary artery with unspecified angina pectoris Code(s): I25.10 - ATHSCL HEART DISEASE OF [place] CORONARY ARTERY W/O ANG PCTRS (4) Diabetes Current Visit: No Status: Chronic Qualifiers: Diabetes mellitus type: type 2 Diabetes mellitus complication status: with neurologic complications Diabetes mellitus complication detail: with other neurological complication Diabetes mellitus buttermilk drier operator insulin use: with [facility] use Qualified Code(s): E11.49 - Type 2 diabetes mellitus with other diabetic neurological complication; Z79.4 - skilled nursing (current) use of insulin; Z79.4 - skilled nursing (current) use of insulin; Z79.4 - skilled nursing (current) use of insulin; Z79.4 - local company intermodal truck driver (current) use of insulin Code(s): E11.9 - TYPE 2 DIABETES MELLITUS WITHOUT COMPLICATIONS (5) IHD (ischemic heart disease) Current Visit: Yes Status: Chronic Code(s): I25.9 - CHRONIC ISCHEMIC HEART DISEASE, UNSPECIFIED (6) Morbid obesity Current Visit: Yes Status: Chronic Code(s): E66.01 - MORBID (SEVERE) OBESITY DUE TO EXCESS CALORIES (7) Obstructive sleep apnea Current Visit: Yes Status: Chronic Code(s): G47.33 - OBSTRUCTIVE SLEEP APNEA (ADULT) (PEDIATRIC)
[2017-12-23] MEDS: Flomax 0.4 MG PO SCH (22:13)
[2017-12-23] MEDS: ZOCOR 20MG PO SCH (22:14)
[2017-12-24] MEDS: Novolin 70/30 SQ SCH ×3 (07:30→16:57)
--- NOTE | 2017-12-24 09:20 | PCM.NOTE ---
Date and Time: 12/24/17916 Subjective Assessment: still c/o weakness and confusion - Review of Systems Constitutional: No Fever, No Chills Eyes: No Symptoms Ears, Nose, & Throat: No Symptoms Respiratory: No Cough, No Short Of Breath Cardiac: No Chest Pain, No Edema, No Syncope Abdominal/Gastrointestinal: No Abdominal Pain, No Nausea, No Vomiting, No Diarrhea Genitourinary Symptoms: No Dysuria Musculoskeletal: No Back Pain, No Neck Pain Skin: No Rash Neurological: Lethargy, No Dizziness, No Focal Weakness, No Sensory Changes Psychological: No Symptoms Endocrine: No Symptoms Hematologic/Lymphatic: No Symptoms Immunological/Allergic: No Symptoms Objective Exam General Appearance: no apparent distress, alert Neurologic Exam: alert, oriented x 3, cooperative, normal mood/affect, nml cerebellar function, sensation nml, No motor deficits Skin Exam: normal color, warm, dry Eye Exam: PERRL, EOMI, eyes nml inspection Ears, Nose, Throat Exam: normal ENT inspection, pharynx normal, moist mucous membranes Neck Exam: normal inspection, non-tender, supple, full range of motion Respiratory Exam: normal breath sounds, lungs clear, No respiratory distress Cardiovascular Exam: regular rate/rhythm, normal heart sounds Gastrointestinal/Abdomen Exam: soft, No tenderness, No mass Extremity Exam: normal inspection, normal range of motion Back Exam: normal inspection, normal range of motion, No CVA tenderness, No vertebral tenderness Male Genitalia Exam: deferred Rectal Exam: deferred OBJECTIVE DATA Vital Signs: Vital Signs - 24 hr Temp Pulse Resp BP Pulse Ox 12/24/17 08:00 20 12/24/17 07:27 77 20 96 12/24/17 07:23 97.6 F 74 20 169/67 94 L 12/24/17 04:00 98.0 F 73 22 129/70 93 L 12/23/17 23:52 97.3 F 70 20 106/50 94 L 12/23/17 20:00 98.4 F 77 20 144/66 92 L 12/23/17 19:19 77 20 91 L 12/23/17 16:00 98.0 F 77 22 145/70 91 L 12/23/17 11:36 98.6 F 81 22 143/63 93 L Pain Assessment - Last Documented Pain Scale Used 0-10 Pain Scale Intake and Output: Intake & Output 02/05/3112/22/17 12/23/17 12/24/17 11:59 11:59 11:59 11:59 Intake Total 1200 1660 Output Total 850 1600 Balance 350 60 Weight 174.7 kg Lab Results: Accuchecks Date 12/24/17 Date 12/23/17 Date 12/23/17 Date 12/23/17 Time 07:30 Accucheck Value: 90 Accucheck Value: 203 Accucheck Value: 236 Accucheck Value: 252 Multi-Disciplinary Progress Notes: Multi-Disciplinary Progress Notes 12/23/17 12:00 (created 12/23/17 12:42) Case Management Note by Angeli Loyola FROM [facility] CALLED TO REPORT THAT THEY WILL HAVE BED AVAILABLE WHEN PT READY FOR DISCHARGE. Initialized on 12/23/17 12:42 - END OF NOTE 12/23/17 09:22 Case Management Note by Angeli Loyola REFERRAL CALLED TO [place] AT THIS TIME. Initialized on 12/23/17 09:22 - END OF NOTE 12/23/17 09:20 Case Management Note by Ashley Goldman PAPERS WEB APPROVED, NO LEVEL II REQUIRED. ATTACHED TO PAPER CHART AND FILED. 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 Assessment & Plan: Chief Complaint Diagnosis TIA Allergies Allergy/AdvReac Type Severity Reaction Status Date / Time Penicillins Allergy Severe Hives Verified 12/22/17 21:10 silver [Silver] Allergy Intermediate Itching Verified 12/22/17 21:10 zinc [Zinc] Allergy Intermediate Itching Verified 12/22/17 21:10 carvedilol [From Coreg] AdvReac Intermediate Verified 12/22/17 21:10 metoprolol AdvReac Intermediate Verified 12/22/17 21:10 Vital Signs (Last 24 hours) Temp Pulse Resp BP Pulse Ox 12/24/17 08:00 20 12/24/17 07:27 77 20 96 12/24/17 07:23 97.6 F 74 20 169/67 94 L 12/24/17 04:00 98.0 F 73 22 129/70 93 L 12/23/17 23:52 97.3 F 70 20 106/50 94 L 12/23/17 20:00 98.4 F 77 20 144/66 92 L 12/23/17 19:19 77 20 91 L 12/23/17 16:00 98.0 F 77 22 145/70 91 L 12/23/17 11:36 98.6 F 81 22 143/63 93 L Home Medications Medication Instructions Recorded Confirmed Last Taken Type Hydrocodone/APAP 10/325 mg 1 tab PO Q6H PRN PRN 12/23/17 12/23/17 Unknown History [[place] 10/325 MG Tablet] Current Medications Generic Name Dose Route Start Last Admin Trade Name Freq PRN Reason Stop Dose Admin Hydrocodone Bitart/Acetaminophen 1 tab 12/23/17 09:25 [place] 10/325 Mg Tablet PO 12/28/17 09:24 Q6H PRN PRN PAIN Albuterol/Ipratropium 3 ml 12/22/17 22:45 12/22/17 23:11 Duoneb 0.5-3 Mg/3 Ml Neb IH 01/21/18 22:44 3 ml Q4HPRN PRN Administration SHORTNESS OF BREATH/WHEEZING Aspirin 81 mg 12/23/17 10:00 12/23/17 10:25 Ecotrin 81 Mg PO 01/22/18 09:59 81 mg DAILY JSOUE Administration Clopidogrel Bisulfate 75 mg 12/23/17 10:00 12/23/17 10:25 Plavix 75 Mg Tablet PO 01/22/18 09:59 75 mg DAILY JOSUE Administration Dutasteride 0.5 mg 12/23/17 10:00 12/23/17 10:24 Avodart 0.5 Mg PO 01/22/18 09:59 0.5 mg DAILY JOSUE Administration Ferrous Sulfate 325 mg 12/23/17 10:00 12/23/17 22:14 Feosol 325 Mg PO 01/22/18 09:59 325 mg BID JOSUE Administration Gabapentin 800 mg 12/23/17 10:00 12/23/17 22:13 Neurontin 400 Mg PO 01/22/18 09:59 800 mg TID JOSUE Administration Insulin Aspart 0 unit 12/23/17 12:15 12/23/17 22:15 Novolog Insulin SQ 01/22/18 12:14 5 unit UD PRN Administration HYPERGLYCEMIA Insulin Human Isoph/Insulin Regular 25 unit 12/23/17 12:00 12/24/17 07:30 Novolin 70/30 SQ 01/22/18 11:59 Not Given TIDWMEALS JOSUE Losartan Potassium 50 mg 12/23/17 10:00 12/23/17 10:25 Cozaar 50 Mg PO 01/22/18 09:59 50 mg DAILY JOSUE Administration Oxybutynin Chloride 10 mg 12/23/17 10:00 12/23/17 10:25 Ditropan Xl 5 Mg PO 01/22/18 09:59 10 mg DAILY JOSUE Administration Pantoprazole Sodium 40 mg 12/23/17 10:00 12/23/17 10:24 Protonix 40mg Tablet PO 01/22/18 09:59 40 mg DAILY JOSUE Administration Prednisone 10 mg 12/23/17 10:00 12/23/17 10:25 Deltasone 10 Mg PO 01/22/18 09:59 10 mg DAILY JOSUE Administration Ranolazine 500 mg 12/23/17 09:25 Ranexa 500 Mg PO 01/22/18 09:24 BID PRN PRN CHEST PAIN Sertraline HCl 50 mg 12/23/17 10:00 12/23/17 10:24 Zoloft 50 Mg Tablet PO 01/22/18 09:59 50 mg DAILY JOSUE Administration Simvastatin 20 mg 12/23/17 22:00 12/23/17 22:14 Zocor 20mg PO 01/22/18 21:59 20 mg HS JOSUE Administration Tamsulosin HCl 0.4 mg 12/23/17 22:00 12/23/17 22:13 Flomax 0.4 Mg PO 01/22/18 21:59 0.4 mg HS JOSUE Administration Intake & Output (Last 24 hours) 12/21/17 12/22/17 12/23/17 12/24/17 11:59 11:59 11:59 11:59 Intake Total 1200 1660 Output Total 1450 1600 Balance -250 60 Weight 174.7 kg Orders (Last 24 hours) Category Date Time Status Neuro Checks Q4H Care 12/23/17 08:48 Active Telemetry ROUTINE Care 12/23/17 08:48 Active Infection Control Consult ROUTINE Cons 12/23/17 15:53 Active Aspirin EC 81 mg [Ecotrin 81 mg] Med 12/23/17 10:00 Active 81 mg PO DAILY Clopidogrel Bisulfate 75 mg [PLAVIX 75 MG Tablet] Med 12/23/17 10:00 Active 75 mg PO DAILY Dutasteride 0.5 MG [Avodart 0.5 MG] Med 12/23/17 10:00 Active 0.5 mg PO DAILY Ferrous Sulfate 325 mg [Feosol 325 mg] Med 12/23/17 10:00 Active 325 mg PO BID Gabapentin 400 mg [Neurontin 400 MG] Med 12/23/17 10:00 Active 800 mg PO TID Hydrocodone/APAP 10/325 mg [[place] 10/325 MG Tablet Med 12/23/17 09:25 Active *] 1 tab PO Q6H PRN PRN Insulin Aspart [NovoLOG Insulin] Med 12/23/17 12:15 Active See Dose Instructions SQ UD PRN Insulin NPH/Reg 70/30 [Novolin 70/30] Med 12/23/17 12:00 Active 25 unit SQ TIDWMEALS Losartan Potassium 50 mg [Cozaar 50 MG] Med 12/23/17 10:00 Active 50 mg PO DAILY Medication Intervention Med 12/23/17 09:57 Active 0 each MC PRN PRN Oxybutynin Chloride Xl 5 mg [Ditropan XL 5 MG] Med 12/23/17 10:00 Active 10 mg PO DAILY PANTOPRAZOLE 40 mg Tablet [Protonix 40MG Tablet] Med 12/23/17 10:00 Active 40 mg PO DAILY Prednisone 10 mg [Deltasone 10 mg] Med 12/23/17 10:00 Active 10 mg PO DAILY Ranolazine 500 MG [Ranexa 500 MG] Med 12/23/17 09:25 Active 500 mg PO BID PRN PRN Sertraline HCl 50 mg [Zoloft 50 mg Tablet] Med 12/23/17 10:00 Active 50 mg PO DAILY Simvastatin 20Mg [Zocor 20Mg] Med 12/23/17 22:00 Active 20 mg PO HS Tamsulosin HCl 0.4 mg [Flomax 0.4 MG] Med 12/23/17 22:00 Active 0.4 mg PO HS Respiratory Nebulizer UD RT 12/23/17 19:19 Active Patient Care Notes (Last 24 hours) 12/24/17 04:04 Nursing Note by Vera Lopez A patient took telemetry off at this time, refused to wear. Initialized on 12/24/17 04:04 - END OF NOTE 12/23/17 12:00 (created 12/23/17 12:42) Case Management Note by Angeli Loyola FROM [facility] CALLED TO REPORT THAT THEY WILL HAVE BED AVAILABLE WHEN PT READY FOR DISCHARGE. Initialized on 12/23/17 12:42 - END OF NOTE 12/23/17 09:22 Case Management Note by Angeli Loyola REFERRAL CALLED TO [place] AT THIS TIME. Initialized on 12/23/17 09:22 - END OF NOTE 12/23/17 09:20 Case Management Note by Ashley Goldman PAPERS WEB APPROVED, NO LEVEL II REQUIRED. ATTACHED TO PAPER CHART AND FILED. Initialized on 12/23/17 09:20 - END OF NOTE 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 Current Visit: Yes Status: Chronic Code(s): E11.59 - TYPE 2 DIABETES MELLITUS WITH OTH CIRCULATORY COMPLICATIONS; I20.9 - ANGINA PECTORIS, UNSPECIFIED (3) CAD (coronary artery disease) Current Visit: Yes Status: Chronic Qualifiers: Coronary Disease-Associated Artery/Lesion type: [place] artery [place] vs. transplanted heart: [place] heart Associated angina: with unspecified angina Qualified Code(s): I25.119 - Atherosclerotic heart disease of [place] coronary artery with unspecified angina pectoris Code(s): I25.10 - ATHSCL HEART DISEASE OF [place] CORONARY ARTERY W/O ANG PCTRS (4) Diabetes Current Visit: No Status: Chronic Qualifiers: Diabetes mellitus type: type 2 Diabetes mellitus complication status: with neurologic complications Diabetes mellitus complication detail: with other neurological complication Diabetes mellitus intermodal truck driver insulin use: with [facility] use Qualified Code(s): E11.49 - Type 2 diabetes mellitus with other diabetic neurological complication; Z79.4 - computer terminal operator (current) use of insulin; Z79.4 - nursing home (current) use of insulin; Z79.4 - nursing home (current) use of insulin; Z79.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
[2017-12-24] MEDS: ZOLOFT 50 MG TABLET PO SCH (09:21)
[2017-12-24] MEDS: Ditropan XL 5 MG PO SCH (09:21)
[2017-12-24] MEDS: Avodart 0.5 MG PO SCH (09:22)
[2017-12-24] MEDS: Protonix 40MG Tablet PO SCH (09:23)
[2017-12-24] MEDS: FEOSOL 325 MG PO SCH ×2 (09:23→21:11)
[2017-12-24] MEDS: Neurontin 400 MG PO SCH ×3 (09:23→21:11)
[2017-12-24] MEDS: DELTASONE 10 MG PO SCH (09:23)
[2017-12-24] MEDS: ECOTRIN 81 MG PO SCH (09:23)
[2017-12-24] MEDS: PLAVIX 75 MG Tablet PO SCH (09:23)
[2017-12-24] MEDS: Cozaar 50 MG PO SCH (09:24)
[2017-12-24] MEDS: Flomax 0.4 MG PO SCH (21:11)
[2017-12-24] MEDS: ZOCOR 20MG PO SCH (21:11)
[2017-12-24] MEDS: NovoLOG Insulin SQ PRN (21:12)
[2017-12-25] MEDS: Novolin 70/30 SQ SCH ×2 (08:41→12:00)
[2017-12-25] MEDS: FEOSOL 325 MG PO SCH (10:52)
[2017-12-25] MEDS: DELTASONE 10 MG PO SCH (10:52)
[2017-12-25] MEDS: PLAVIX 75 MG Tablet PO SCH (10:52)
[2017-12-25] MEDS: Protonix 40MG Tablet PO SCH (10:52)
[2017-12-25] MEDS: Neurontin 400 MG PO SCH (10:52)
[2017-12-25] MEDS: Cozaar 50 MG PO SCH (10:52)
[2017-12-25] MEDS: Avodart 0.5 MG PO SCH (10:52)
[2017-12-25] MEDS: ECOTRIN 81 MG PO SCH (10:52)
[2017-12-25] MEDS: Ditropan XL 5 MG PO SCH (10:52)
[2017-12-25] MEDS: ZOLOFT 50 MG TABLET PO SCH (10:52)
[2017-12-25 11:08] VITALS: PULSE 91
[2017-12-25 11:30] VITALS: BP 134/82; O2SAT 97
--- NOTE | 2017-12-25 11:58 | PCM.DS ---
Discharge Summary Date of Admission: 12/22/17 23:47 Admitting Physician: NELLY HOWELL Primary Care Provider: NO FAMILY DOCTOR Allergies Allergies Penicillins Allergy (Severe, Verified 12/22/17 21:10) Hives silver [Silver] Allergy (Intermediate, Verified 12/22/17 21:10) Itching zinc [Zinc] Allergy (Intermediate, Verified 12/22/17 21:10) Itching carvedilol [From Coreg] Adverse Reaction (Intermediate, Verified 12/22/17 21:10) "makes me dizzy" metoprolol Adverse Reaction (Intermediate, Verified 12/22/17 21:10) "makes me dizzy" Hospital Summary - Hospital Course Hospital Course: Chief Complaint Diagnosis TIA Allergies Allergy/AdvReac Type Severity Reaction Status Date / Time Penicillins Allergy Severe Hives Verified 12/22/17 21:10 silver [Silver] Allergy Intermediate Itching Verified 12/22/17 21:10 zinc [Zinc] Allergy Intermediate Itching Verified 12/22/17 21:10 carvedilol [From Coreg] AdvReac Intermediate Verified 12/22/17 21:10 metoprolol AdvReac Intermediate Verified 12/22/17 21:10 Vital Signs (Last 24 hours) Temp Pulse Resp BP Pulse Ox 12/25/17 11:30 98.6 F 91 H 20 134/82 97 12/25/17 11:07 91 H 20 95 12/25/17 08:00 22 12/25/17 07:15 98.2 F 94 H 22 141/85 97 12/25/17 04:00 98.6 F 90 20 145/64 97 12/24/17 23:35 97.7 F 73 22 154/70 98 12/24/17 20:51 84 16 96 12/24/17 20:00 98.5 F 86 21 133/75 94 L 12/24/17 16:00 98.6 F 84 20 179/77 94 L 12/24/17 12:00 20 Home Medications Medication Instructions Recorded Confirmed Last Taken Type Hydrocodone/APAP 10/325 mg 1 tab PO Q6H PRN PRN 12/23/17 12/23/17 Unknown History [Rugby 10/325 MG Tablet] Current Medications Generic Name Dose Route Start Last Admin Trade Name Freq PRN Reason Stop Dose Admin Hydrocodone Bitart/Acetaminophen 1 tab 12/23/17 09:25 12/24/17 12:43 Rugby 10/325 Mg Tablet PO 12/28/17 09:24 1 tab Q6H PRN PRN Administration PAIN Albuterol/Ipratropium 3 ml 12/22/17 22:45 12/22/17 23:11 Duoneb 0.5-3 Mg/3 Ml Neb IH 01/21/18 22:44 3 ml Q4HPRN PRN Administration SHORTNESS OF BREATH/WHEEZING Aspirin 81 mg 12/23/17 10:00 12/25/17 10:52 Ecotrin 81 Mg PO 01/22/18 09:59 81 mg DAILY JOSUE Administration Clopidogrel Bisulfate 75 mg 12/23/17 10:00 12/25/17 10:52 Plavix 75 Mg Tablet PO 01/22/18 09:59 75 mg DAILY JOSUE Administration Dutasteride 0.5 mg 12/23/17 10:00 12/25/17 10:52 Avodart 0.5 Mg PO 01/22/18 09:59 0.5 mg DAILY JOSUE Administration Ferrous Sulfate 325 mg 12/23/17 10:00 12/25/17 10:52 Feosol 325 Mg PO 01/22/18 09:59 325 mg BID JOSUE Administration Gabapentin 800 mg 12/23/17 10:00 12/25/17 10:52 Neurontin 400 Mg PO 01/22/18 09:59 800 mg TID JOSUE Administration Insulin Aspart 0 unit 12/23/17 12:15 12/24/17 21:12 Novolog Insulin SQ 01/22/18 12:14 7 unit UD PRN Administration HYPERGLYCEMIA Insulin Human Isoph/Insulin Regular 25 unit 12/23/17 12:00 12/25/17 08:41 Novolin 70/30 SQ 01/22/18 11:59 25 unit TIDWMEALS JOSUE Administration Losartan Potassium 50 mg 12/23/17 10:00 12/25/17 10:52 Cozaar 50 Mg PO 01/22/18 09:59 50 mg DAILY JOSUE Administration Oxybutynin Chloride 10 mg 12/23/17 10:00 12/25/17 10:52 Ditropan Xl 5 Mg PO 01/22/18 09:59 10 mg DAILY JOSUE Administration Pantoprazole Sodium 40 mg 12/23/17 10:00 12/25/17 10:52 Protonix 40mg Tablet PO 01/22/18 09:59 40 mg DAILY JOSUE Administration Prednisone 10 mg 12/23/17 10:00 12/25/17 10:52 Deltasone 10 Mg PO 01/22/18 09:59 10 mg DAILY JOSUE Administration Ranolazine 500 mg 12/23/17 09:25 Ranexa 500 Mg PO 01/22/18 09:24 BID PRN PRN CHEST PAIN Sertraline HCl 50 mg 12/23/17 10:00 12/25/17 10:52 Zoloft 50 Mg Tablet PO 01/22/18 09:59 50 mg DAILY JOSUE Administration Simvastatin 20 mg 12/23/17 22:00 12/24/17 21:11 Zocor 20mg PO 01/22/18 21:59 20 mg HS JOSUE Administration Tamsulosin HCl 0.4 mg 12/23/17 22:00 12/24/17 21:11 Flomax 0.4 Mg PO 01/22/18 21:59 0.4 mg HS JOSUE Administration Intake & Output (Last 24 hours) 12/22/17 12/23/17 12/24/17 12/25/17 11:59 11:59 11:59 11:59 Intake Total 1200 1660 2590 Output Total 1450 1600 3000 Balance -250 60 -410 Weight 174.7 kg Patient Care Notes (Last 24 hours) 12/25/17 08:56 Case Management Note by Ashley Goldman DISCHARGE PLAN REVIEWED. PT HAS HAD HIS 3 MIDNIGHT STAY AT THIS TIME AND HAS A BED WAITING FOR HIM AT [facility] WHERE HE WILL HAVE REHAB FOR DECONDITIONING R/T CRESCENDO TIA'S. ALL PAPERWORK IS FILLED OUT AND PASRR PAPERS ARE IN FROM OF PATIENT CHART. WILL CONTINUE TO MONITOR FOR ALL D/C NEEDS. Initialized on 12/25/17 08:56 - END OF NOTE 67-year-old male admitted with recurrent transient ischemic attack for last 2-3 weeks. Patient was just admitted. Days ago and at that time patient was advised to go for rehabilitation but patient refused. Once he went home he was having some difficulty talking and weakness on the right side of the upper extremity and right lower extremity So he came back to the emergency room and from where patient was admitted for further evaluation. Patient admitted this time to go to the rehabilitation facility so patient is transferred to rehabilitation facility at [facility] in [facility]. - Vitals & Intake/Output Vital Signs: Vital Signs Temperature 98.6 F 12/25/17 11:30 Pulse Rate 91 H 12/25/17 11:30 Respiratory Rate 20 12/25/17 11:30 Blood Pressure 134/82 12/25/17 11:30 O2 Sat by Pulse Oximetry 97 12/25/17 11:30 Intake & Output: Intake & Output 12/22/17 12/23/17 12/24/17 12/25/17 11:59 11:59 11:59 11:59 Intake Total 1200 1660 2590 Output Total 850 1600 3000 Balance 350 60 -410 Weight 174.7 kg - Lab Result Diagrams: 12/22/17 22:10 12/22/17 22:10 Lab Results-Last 24 Hrs: Accuchecks Date 12/25/17 Date 12/25/1712/24/17 Date 12/24/17 Time 11:30 Time 07:30 Time 16:30 Accucheck Value: 186 Accucheck Value: 202 Accucheck Value: 262 Accucheck Value: 296 Micro Results-Entire Visit: Accuchecks Date 12/25/1712/25/17 Date 12/24/17 Date 12/24/17 Time 11:30 Time 07:30 Time 16:30 Accucheck Value: 186 Accucheck Value: 202 Accucheck Value: 262 Accucheck Value: 296 - Procedures and Test Procedures and Tests throughout Hospitalization: Therapy Orders & Screens 12/23/17 01:30 OT Screen per Nursing Assess Comment: Protocol Order Physician Instructions: Greater than 3 points order OT Admission Screening Reason For Exam: Triggered on Admission Diagnosis: Weakness Open Wound/Cellutlitis/Pressure Ulcers: No Acute Fx/ORIF/Change in wt bearing status: No Severe MUSCULOSKELETAL pain: No ADL Dysfunction: Yes Acute CVA w/Hemiparesis/Hemiplegia: No Decreased Functional Mobility/Strength: Yes Sprain/Strain: No Acute Post-op Mobility Dysfunction: No Total Points: 4 PT Screen per Nursing Assess Comment: Protocol Order Physician Instructions: Greater than 3 points order PT Admission Screenin Reason For Exam: Triggered on Admission Diagnosis: Weakness Open Wound/Cellutlitis/Pressure Ulcers: No Acute Fx/ORIF/Change in wt bearing status: No Severe MUSCULOSKELETAL pain: No ADL Dysfunction: Yes Acute CVA w/Hemiparesis/Hemiplegia: No Decreased Functional Mobility/Strength: Yes Sprain/Strain: No Acute Post-op Mobility Dysfunction: No Total Points: 4 12/23/17 19:19 Respiratory Nebulizer UD Comment: Diagnosis: TIA Discharge Exam General Appearance: no apparent distress, alert Neurologic Exam: alert, oriented x 3, cooperative, normal mood/affect, nml cerebellar function, sensation nml, No motor deficits Skin Exam: normal color, warm, dry Eye Exam: PERRL, EOMI, eyes nml inspection Ears, Nose, Throat Exam: normal ENT inspection, pharynx normal, moist mucous membranes Neck Exam: normal inspection, non-tender, supple, full range of motion Respiratory Exam: normal breath sounds, lungs clear, No respiratory distress Cardiovascular Exam: regular rate/rhythm, normal heart sounds Gastrointestinal/Abdomen Exam: soft, No tenderness, No mass Extremity Exam: normal inspection, normal range of motion Back Exam: normal inspection, normal range of motion, No CVA tenderness, No vertebral tenderness Male Genitalia Exam: deferred Rectal Exam: deferred Final Diagnosis/Problem List - Final Discharge Diagnosis/Problem (1) TIA (transient ischemic attack) Current Visit: Yes Status: Acute Assessment & Plan: improving, patient is being transferred to [facility] today for further rehabilitation. 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 Current Visit: Yes Status: Chronic (3) CAD (coronary artery disease) Current Visit: Yes Status: Chronic (4) Diabetes Current Visit: No Status: Chronic (5) IHD (ischemic heart disease) Current Visit: Yes Status: Chronic (6) Morbid obesity Current Visit: Yes Status: Chronic (7) Obstructive sleep apnea Current Visit: Yes Status: Chronic - Discharge Discharge Date: 12/25/17 Disposition: Skilled Care @ [facility] Condition: Stable Prescriptions: No Action Pravastatin Sodium 20 mg PO DAILY Tamsulosin HCl [Flomax] 0.4 mg PO HS Prednisone 10 mg [Deltasone 10 mg] 10 mg PO DAILY Gabapentin [Neurontin] 800 mg PO TID Sertraline HCl 50 mg [Zoloft 50 mg Tablet] 50 mg PO DAILY Finasteride 5 mg [Proscar 5 MG] 5 mg PO DAILY Hum Insulin NPH/Reg Insulin Hm [Humulin 70-30 Vial] 25 unit SQ TIDWMEALS Ranolazine 500 MG [Ranexa 500 MG] 500 mg PO BID PRN PRN PRN Reason: Chest Pain Pantoprazole Sodium [Protonix] 40 mg PO DAILY Ferrous Sulfate [Iron] 325 mg PO BID Aspirin 81 mg PO DAILY Oxybutynin Chloride 10 mg Xl [Ditropan Xl 10 MG] 10 mg PO DAILY Losartan Potassium 50 mg [Cozaar 50 MG] 50 mg PO DAILY Dutasteride 0.5 MG [Avodart 0.5 MG] 0.5 mg PO DAILY Clopidogrel Bisulfate 75 mg [PLAVIX 75 MG Tablet] 75 mg PO DAILY #30 tablet Hydrocodone/APAP 10/325 mg [Rugby 10/325 MG Tablet] 1 tab PO Q6H PRN PRN PRN Reason: Pain Follow up with: NELLY HOWELL MD [ACTIVE STAFF] - 1 Week
== END 2017-12-25 14:07 | DRG 69 ==
LOC: ED 20:54 → MED SURG 23:47
PROVIDERS: ADMIT General Practice; ATTEND General Practice
DX: R53.1 Weakness (principal); I50.9 Heart failure, unspecified; I25.2 Old myocardial infarction; G45.2 Multiple and bilateral precerebral artery syndromes; J44.9 Chronic obstructive pulmonary disease, unspecified; G47.30 Sleep apnea, unspecified; E11.9 Type 2 diabetes mellitus without complications; E11.59 Type 2 diabetes mellitus with other circulatory complications; M19.90 Unspecified osteoarthritis, unspecified site; Z86.73 Personal history of transient ischemic attack (TIA), and cerebral infarction without residual deficits; I20.9 Angina pectoris, unspecified; Z79.4 Long term (current) use of insulin; I25.10 Atherosclerotic heart disease of native coronary artery without angina pectoris; I25.9 Chronic ischemic heart disease, unspecified; E66.01 Morbid (severe) obesity due to excess calories; G47.33 Obstructive sleep apnea (adult) (pediatric); Z79.899 Other long term (current) drug therapy; E11.49 Type 2 diabetes mellitus with other diabetic neurological complication
CPT/HCPCS: 36000; 36415; 80053; 82962; 83880; 85025; 93005; 94640; 94760; 99285; J1815; A9270-GY

== ENCOUNTER 2018-01-06 15:41 | Emergency (ER) | payer MEDICARE, OTHER ==
--- NOTE | 2018-01-06 15:59 | ERPHSYRPT ---
- History of Present Illness Time Seen by Provider: 01/06/18 15:54 Source: patient, EMS, detention records Exam Limitations: no limitations Patient Subjective Stated Complaint: "very tired today and had a spell of slurred speech" Triage Nursing Assessment: PT to er c/o episode of slurred speech per detention. pt arrives speech clear and appropriated. pt has equal streghth kasi le and ue. pt very drowsy though easily arousable and [id number] Physician History: Patient is a 67-year-old morbidly obese male arriving by ambulance from a detention where it was reported that he was tired today and had slurred speech. The patient denies any problems and wonders why he is here. He has a past medical history of morbid obesity, TIA, recent stroke, CAD, diabetes, peripheral vascular disease, and Strickland catheter. Timing/Duration: today Severity: mild Modifying Factors: Improves With: nothing Associated Symptoms: denies symptoms Allergies/Adverse Reactions: Penicillins Allergy (Severe, Verified 01/06/18 15:55) Hives silver [Silver] Allergy (Intermediate, Verified 01/06/18 15:55) Itching zinc [Zinc] Allergy (Intermediate, Verified 01/06/18 15:55) Itching carvedilol [From Coreg] Adverse Reaction (Intermediate, Verified 01/06/18 15:55) "makes me dizzy" metoprolol Adverse Reaction (Intermediate, Verified 01/06/18 15:55) "makes me dizzy" Home Medications: Pravastatin Sodium 20 mg PO DAILY 01/30/16 [History] Prednisone 10 mg [Deltasone 10 mg] 10 mg PO DAILY 01/30/16 [History] Tamsulosin HCl [Flomax] 0.4 mg PO HS 01/30/16 [History] Gabapentin [Neurontin] 800 mg PO TID 08/15/16 [History] Finasteride 5 mg [Proscar 5 MG] 5 mg PO DAILY 10/13/16 [History] Sertraline HCl 50 mg [Zoloft 50 mg Tablet] 50 mg PO DAILY 10/13/16 [History] Hum Insulin NPH/Reg Insulin Hm [Humulin 70-30 Vial] 15 unit SQ TIDWMEALS [History] Ranolazine 500 MG [Ranexa 500 MG] 500 mg PO BID PRN PRN 05/15/17 [History] Aspirin 81 mg PO DAILY 11/02/17 [History] Ferrous Sulfate [Iron] 325 mg PO BID 11/02/17 [History] Pantoprazole Sodium [Protonix] 40 mg PO DAILY 11/02/17 [History] Dutasteride 0.5 MG [Avodart 0.5 MG] 0.5 mg PO DAILY 12/20/17 [History] Losartan Potassium 50 mg [Cozaar 50 MG] 50 mg PO DAILY 12/20/17 [History] Oxybutynin Chloride 10 mg Xl [Ditropan Xl 10 MG] 10 mg PO DAILY 12/20/17 [ History] Hydrocodone/APAP 10/325 mg [Nunnelly 10/325 MG Tablet] 1 tab PO Q6H PRN PRN 12/23/17 [History] Hx Tetanus, Diphtheria Vaccination/Date Given: No Hx Influenza Vaccination/Date Given: Yes Hx Pneumococcal Vaccination/Date Given: Yes - Review of Systems Constitutional: Weakness Eyes: No Symptoms Ears, Nose, & Throat: No Symptoms Respiratory: No Cough, No Dyspnea Cardiac: No Chest Pain, No Edema, No Syncope Abdominal/Gastrointestinal: No Abdominal Pain, No Nausea, No Vomiting, No Diarrhea Genitourinary Symptoms: No Dysuria Musculoskeletal: No Back Pain, No Neck Pain Skin: No Rash Neurological: No Dizziness, No Focal Weakness, No Sensory Changes Psychological: No Symptoms Endocrine: No Symptoms Hematologic/Lymphatic: No Symptoms Immunological/Allergic: No Symptoms All Other Systems: Reviewed and Negative - Past Medical History Pertinent Past Medical History: Yes Neurological History: TIA ENT History: Cataracts Cardiac History: Congestive Heart Failure, Coronary Artery Disease, Myocardial Infarction ([place]) Respiratory History: CHF, COPD, Sleep Apnea Endocrine Medical History: Diabetes Type II Musculoskeletal History: Arthritis GI Medical History: GI Bleed, Ulcer History: No Pertinent History Psycho-Social History: No Pertinent History Male Reproductive Disorders: Prostate Problems Other Medical History: right partial foot amputation. kidney infection, hx stones - Past Surgical History Past Surgical History: Yes Neuro Surgical History: No Pertinent History Cardiac: Cardiac Catheterization, Cardiac Stent Respiratory: No Pertinent History Gastrointestinal: Appendectomy, Cholecystectomy, Exploratory Laparoscopy Genitourinary: No Pertinent History Musculoskeletal: Amputation Male Surgical History: Prostate Surgery Other Surgical History: Tonsillectomy and adenoidectomy. right toes/foot partial amputation and revision. PORT PLACEMENT - Social History Smoking Status: Never smoker Exposure to second hand smoke: No Drug Use: none Patient Lives Alone: No - Nursing Vital Signs Nursing Vital Signs: Initial Vital Signs Temperature 97.6 F 01/06/18 15:45 Pulse Rate 85 01/06/18 15:45 Respiratory Rate 18 01/06/18 15:45 Blood Pressure 174/71 01/06/18 15:45 O2 Sat by Pulse Oximetry 98 01/06/18 15:45 Pain Scale Pain Intensity 0 - Physical Exam General Appearance: no apparent distress, alert Eye Exam: PERRL/EOMI, eyes nml inspection Ears, Nose, Throat Exam: normal ENT inspection, TMs normal, pharynx normal, moist mucous membranes Neck Exam: normal inspection, non-tender, supple, full range of motion Respiratory Exam: normal breath sounds, lungs clear, No respiratory distress Cardiovascular Exam: regular rate/rhythm, normal heart sounds, normal peripheral pulses Gastrointestinal/Abdomen Exam: soft, normal bowel sounds, other (obese), No tenderness, No mass Rectal Exam: not done Back Exam: normal inspection, normal range of motion, No CVA tenderness, No vertebral tenderness Extremity Exam: normal inspection, normal range of motion, pelvis stable Neurologic Exam: alert, oriented x 3, cooperative, normal mood/affect, nml cerebellar function, nml station & gait, sensation nml, No motor deficits Skin Exam: normal color, warm, dry, No rash Lymphatic Exam: No adenopathy SpO2 Interpretation: normal SpO2: 98 Oxygen Delivery: Room Air - Course EKG Interpreted by Me: RATE, Sinus Rhythm, NORMAL AXIS, NORMAL INTERVALS, NORMAL QRS, NORMAL ST-T Ordered Tests: Active Orders 24 hr Category Date Time Status EKG-ER Only STAT Care 01/06/18 15:59 Active CBC W DIFF Stat Lab 01/06/18 16:33 Completed CMP Stat Lab 01/06/18 16:33 Completed Manual Differential NC Stat Lab 01/06/18 16:33 Completed TROPONIN Stat Lab 01/06/18 16:33 Received UA W/RFX UR CULTURE Stat Lab 01/06/18 17:03 Completed Lab/Rad Data: Laboratory Result Diagrams 01/06/18 16:33 01/06/18 16:33 Laboratory Results 01/06/18 01/06/18 01/06/18 Range/Units 17:03 16:33 16:33 WBC 11.9 H (4.0-10.5) K/mm3 RBC 3.80 L (4.1-5.6) M/mm3 Hgb 11.4 L (12.5-18.0) gm/dl Hct 35.6 L (42-50) % MCV 93.7 (78-100) fl MCH 30.0 (26-32) pg MCHC 32.0 (32-36) g/dl RDW 13.8 (11.5-14.0) % Plt Count 340 (150-450) K/mm3 MPV 9.1 (6-9.5) fl Segmented Neutrophils 78 H (36.-66.) % Band Neutrophils 5 H (0.0-2.0) % Lymphocytes (Manual) 12 L (24-44) % Monocytes (Manual) 5 (0.0-12.0) % Differential Comment ABNORMAL Platelet Estimate NORMAL (NORMAL) Hypochromasia 1+ Anisocytosis 1+ Sodium 136 (136-145) mEq/L Potassium 4.7 (3.5-5.1) mEq/L Chloride 99 (98-107) mEq/L Carbon Dioxide 26.6 (21-32) mEq/L Anion Gap 15.0 (5-15) MEQ/L BUN 39 H (9-20) mg/dL Creatinine 2.07 H (0.55-1.30) mg/dl Estimated GFR 34 ML/MIN Glucose 323 H (70-110) MG/DL Calcium 8.6 (8.5-10.1) mg/dL Total Bilirubin 0.30 (0.2-1.0) mg/dL AST 8 L (15-37) U/L Alkaline Phosphatase 83 (46-116) U/L Serum Total Protein 7.2 (6.4-8.2) gm/dL Albumin 3.0 L (3.4-5.0) g/dL Ur Collection Type CCMS Urine Color YELLOW (YELLOW) Urine Appearance CLEAR (CLEAR) Urine pH 6.0 (5-6) Ur Specific [place] 1.010 (1.005-1.025) Urine Protein NEGATIVE (Negative) Urine Ketones NEGATIVE (NEGATIVE) Urine Blood NEGATIVE (0-5) [place]/ul Urine Nitrite NEGATIVE (NEGATIVE) Urine Bilirubin NEGATIVE (NEGATIVE) Urine Urobilinogen NORMAL (0-1) mg/dL Ur Leukocyte Esterase NEGATIVE (NEGATIVE) Urine Culture Reflexed NO (NO) Urine Glucose 500 (NEGATIVE) mg/dL Specimen Received 01-06-18 1710 - Progress Progress: unchanged Counseled pt/family regarding: lab results - Departure Time of Disposition: 17:58 Departure Disposition: Home Clinical Impression: Leukocytosis, Bandemia without diagnosis of specific infection Condition: Stable Critical Care Time: No Referrals: NELLY HOWELL MD [Primary Care Provider] - Additional Instructions: Your white count is mildly elevated. You were given Rocephin 1 g by IV in the ER. Follow-up on Tuesday with your primary care physician.
[2018-01-06 16:35] LABS: Hematocrit 35.6 % (42-50); Hemoglobin 11.4 gm/dl (12.5-18.0); Mean Cell Volume 93.7 fl (78-100); Mean Platelet Volume 9.1 fl (6-9.5); Platelet Count 340 K/mm3 (150-450); Red Cell Distribution Width 13.8 % (11.5-14.0); White Blood Count 11.9 K/mm3 (4.0-10.5)
[2018-01-06 17:03] LABS: ANISOCYTOSIS 1+; BAND 5 % (0.0-2.0); Hypochromia 1+; Lymphocytes 12 % (24-44); Monocyte 5 % (0.0-12.0); Neutrophils 78 % (36.-66.); Platelet Estimate NORMAL (NORMAL); Total Cells Counted 100
[2018-01-06 17:04] LABS: Granulocyte Absolute (ANC) 9.85 (1.4-6.9)
[2018-01-06 17:10] LABS: Appearance CLEAR (CLEAR); Bilirubin NEGATIVE (NEGATIVE); Blood NEGATIVE Ery/ul (0-5); Glucose 500 mg/dL (NEGATIVE); Ketones NEGATIVE (NEGATIVE); Leukocyte Esterase NEGATIVE (NEGATIVE); Nitrite NEGATIVE (NEGATIVE); Protein,Urine Dip NEGATIVE (Negative); Urobilinogen NORMAL mg/dL (0-1)
[2018-01-06 17:50] LABS: BILIRUBIN,TOTAL 0.3 mg/dL (0.2-1.0); Calcium 8.6 mg/dL (8.5-10.1); Carbon Dioxide 26.6 mEq/L (21-32); Creatinine 1 2.07 mg/dl (0.55-1.30); Potassium 4.7 mEq/L (3.5-5.1); Total Protein 7.2 gm/dL (6.4-8.2)
[2018-01-06] MEDS ORDERED: ROCEPHIN 1 Gm-D5w 50 ml Bag** 1 G/50 ML IVPB IV STA (17:57)
[2018-01-06] MEDS ORDERED: ROCEPHIN 1 Gm-D5w 50 ml Bag** 1 G/50 ML IVPB IV ONE (18:11)
[2018-01-06] MEDS ORDERED: Rocephin 1000 MG INJ ONE (18:19)
[2018-01-06] MEDS ORDERED: XYLOCAINE 1% HCL 20 ML MDV ONE (18:21)
[2018-01-06] MEDS ORDERED: Rocephin 1000 MG INJ IM ONE (18:26)
[2018-01-06 18:36] VITALS: BP 157/83; PULSE 80; O2SAT 99
== END 2018-01-06 19:57 | disposition home or self-care (01) ==
LOC: ED 15:41
DX: D72.825 Bandemia (principal); Z79.899 Other long term (current) drug therapy; E11.9 Type 2 diabetes mellitus without complications; Z79.4 Long term (current) use of insulin
CPT/HCPCS: 36415; 80053; 81002; 84484; 85025; 93005; 96372; 99282; 99284; J0696

== ENCOUNTER 2018-01-28 19:42 | Observation (INO) | payer MEDICARE, OTHER ==
--- NOTE | 2018-01-28 19:51 | ERPHSYRPT ---
- History of Present Illness Time Seen by Provider: 01/28/18 19:47 Source: patient, family, EMS Exam Limitations: no limitations Physician History: pt states that he was discharged for rehab [place] after his CVA but that he is still too weak to get around - hx right sided CVA with residual weakness without change per pt. Timing/Duration: day(s) Severity: moderate Character of Deficits: other (residual weakness after CVA without change per pt. ) Deficits: cannot walk, weak Baseline/Normal Cognition: alert oriented x 3 Current Cognition: alert oriented x 3 Baseline Gait: unable to walk Associated Symptoms: denies symptoms Allergies/Adverse Reactions: Penicillins Allergy (Severe, Verified 01/06/18 15:55) Hives silver [Silver] Allergy (Intermediate, Verified 01/06/18 15:55) Itching zinc [Zinc] Allergy (Intermediate, Verified 01/06/18 15:55) Itching carvedilol [From Coreg] Adverse Reaction (Intermediate, Verified 01/06/18 15:55) "makes me dizzy" metoprolol Adverse Reaction (Intermediate, Verified 01/06/18 15:55) "makes me dizzy" Home Medications: Pravastatin Sodium 20 mg PO DAILY 01/30/16 [History] Prednisone 10 mg [Deltasone 10 mg] 10 mg PO DAILY 01/30/16 [History] Tamsulosin HCl [Flomax] 0.4 mg PO HS 01/30/16 [History] Gabapentin [Neurontin] 800 mg PO TID 08/15/16 [History] Finasteride 5 mg [Proscar 5 MG] 5 mg PO DAILY 10/13/16 [History] Sertraline HCl 50 mg [Zoloft 50 mg Tablet] 50 mg PO DAILY 10/13/16 [History] Hum Insulin NPH/Reg Insulin Hm [Humulin 70-30 Vial] 15 unit SQ TIDWMEALS [History] Ranolazine 500 MG [Ranexa 500 MG] 500 mg PO BID PRN PRN 05/15/17 [History] Aspirin 81 mg PO DAILY 11/02/17 [History] Ferrous Sulfate [Iron] 325 mg PO BID 11/02/17 [History] Pantoprazole Sodium [Protonix] 40 mg PO DAILY 11/02/17 [History] Dutasteride 0.5 MG [Avodart 0.5 MG] 0.5 mg PO DAILY 12/20/17 [History] Losartan Potassium 50 mg [Cozaar 50 MG] 50 mg PO DAILY 12/20/17 [History] Oxybutynin Chloride 10 mg Xl [Ditropan Xl 10 MG] 10 mg PO DAILY 12/20/17 [ History] Hydrocodone/APAP 10/325 mg [Bendena 10/325 MG Tablet] 1 tab PO Q6H PRN PRN 12/23/17 [History] Hx Tetanus, Diphtheria Vaccination/Date Given: No Hx Influenza Vaccination/Date Given: Yes Hx Pneumococcal Vaccination/Date Given: Yes - Review of Systems Constitutional: Weakness, No Fever, No Chills Eyes: No Symptoms Ears, Nose, & Throat: No Symptoms Respiratory: No Cough, No Dyspnea Cardiac: No Chest Pain, No Edema, No Syncope Abdominal/Gastrointestinal: No Abdominal Pain, No Nausea, No Vomiting, No Diarrhea Genitourinary Symptoms: No Dysuria Musculoskeletal: No Back Pain, No Neck Pain Skin: No Rash Neurological: Other (residual right sided weakness and drift without change per pt. ), No Dizziness, No Focal Weakness, No Sensory Changes Psychological: No Symptoms Endocrine: No Symptoms Hematologic/Lymphatic: No Symptoms Immunological/Allergic: No Symptoms All Other Systems: Reviewed and Negative - Past Medical History Pertinent Past Medical History: Yes Neurological History: TIA ENT History: Cataracts Cardiac History: Congestive Heart Failure, Coronary Artery Disease, Myocardial Infarction ([place]) Respiratory History: CHF, COPD, Sleep Apnea Endocrine Medical History: Diabetes Type II Musculoskeletal History: Arthritis GI Medical History: GI Bleed, Ulcer History: No Pertinent History Psycho-Social History: No Pertinent History Male Reproductive Disorders: Prostate Problems Other Medical History: right partial foot amputation. kidney infection, hx stones - Past Surgical History Past Surgical History: Yes Neuro Surgical History: No Pertinent History Cardiac: Cardiac Catheterization, Cardiac Stent Respiratory: No Pertinent History Gastrointestinal: Appendectomy, Cholecystectomy, Exploratory Laparoscopy Genitourinary: No Pertinent History Musculoskeletal: Amputation Male Surgical History: Prostate Surgery Other Surgical History: Tonsillectomy and adenoidectomy. right toes/foot partial amputation and revision. PORT PLACEMENT - Social History Smoking Status: Never smoker Exposure to second hand smoke: No Drug Use: none Patient Lives Alone: No - Nursing Vital Signs Nursing Vital Signs: Initial Vital Signs Temperature 97.5 F 01/28/18 19:44 Pulse Rate 74 01/28/18 19:44 Respiratory Rate 98 H 01/28/18 19:44 Blood Pressure 184/99 01/28/18 19:44 O2 Sat by Pulse Oximetry 98 01/28/18 19:44 Pain Scale Pain Intensity 7 - [place] Coma Scale Best Eye Response ([place]): (4) open spontaneously Best Verbal Response ([place]): (5) oriented Best Motor Response ([place]): (6) obeys commands [place] Total: 15 - Physical Exam General Appearance: no apparent distress, alert Eye Exam: bilateral eye: PERRL, EOMI Ears, Nose, Throat Exam: normal ENT inspection, moist mucous membranes Neck Exam: normal inspection, non-tender, supple Respiratory: normal breath sounds, lungs clear, airway intact, No respiratory distress Cardiovascular: regular rate/rhythm, No edema Gastrointestinal: soft, No tenderness, No distention Back Exam: normal inspection Extremity Exam: normal inspection, No pedal edema Mental Status: alert, oriented x 3 gang supervisor Exam: tongue midline Coordination/Gait: normal finger to nose, normal gait Skin Exam: normal color, warm, dry, No rash - Course Nursing assessment & vital signs reviewed: Yes EKG Interpreted by Me: Sinus Rhythm, NORMAL AXIS, Non-specific ST Changes - Radiology Exams Chest X-ray Interpretation: Reviewed by me, No Infiltrates, Other (cardiomeg) Ordered Tests: Active Orders 24 hr Category Date Time Status Steel Erecting Pusher STAT Care 01/28/18 19:52 Active Clean Catch Urine Specimen STAT Care 01/28/18 19:51 Active EKG-ER Only STAT Care 01/28/18 19:51 Active IV Insertion STAT Care 01/28/18 19:51 Active Pulse Oximetry (ED) STAT Care 01/28/18 19:51 Active CHEST 1 VIEW (PORTABLE) Stat Exams 01/28/18 19:51 Completed HEAD WITHOUT CONTRAST [CT] Stat Exams 01/28/18 19:51 Completed CBC W DIFF Stat Lab 01/28/18 20:10 Completed CMP Stat Lab 01/28/18 20:10 Completed Lactic Acid Stat Lab 01/28/18 21:25 Completed NT PRO BNP Stat Lab 01/28/18 20:10 Completed TROPONIN Q3H Lab 01/28/18 20:10 Completed TROPONIN Q3H Lab 01/28/18 23:00 Ordered TROPONIN Q3H Lab 01/29/18 02:00 Ordered TROPONIN Q3H Lab 01/29/18 05:00 Ordered TROPONIN Q3H Lab 01/29/18 08:00 Ordered TSH [TSH, 3RD Generation] Stat Lab 01/28/18 20:10 Completed UA W/ MICROSCOPIC Stat Lab 01/28/18 Completed Medication Summary Generic Name Dose Route Start Last Admin Trade Name Freq PRN Reason Stop Dose Admin Sodium Chloride 1,000 mls @ 50 mls/hr 01/28/18 20:00 01/28/18 20:19 Sodium Chloride 0.9% 1000 Ml IV 02/27/18 19:59 50 mls/hr .Q20H JOSUE Administration Lab/Rad Data: Laboratory Result Diagrams 01/28/18 20:10 01/28/18 20:10 Laboratory Results 01/28/18 01/28/18 01/28/18 Range/Units Unknown 21:25 20:10 WBC (4.0-10.5) K/mm3 RBC (4.1-5.6) M/mm3 Hgb (12.5-18.0) gm/dl Hct (42-50) % MCV (78-100) fl MCH (26-32) pg MCHC (32-36) g/dl RDW (11.5-14.0) % Plt Count (150-450) K/mm3 MPV (6-9.5) fl Gran % (36.0-66.0) % Lymphocytes % (24.0-44.0) % Monocytes % (0.0-12.0) % Eosinophils % (0.00-5.0) % Basophils % (0.0-0.4) % Basophils # (0-0.4) Sodium (137-145) mmol/L Potassium (3.5-5.1) mmol/L Chloride (98-107) mmol/L Carbon Dioxide (22-30) mmol/L Anion Gap (5-15) MEQ/L BUN (9-20) mg/dL Creatinine (0.66-1.25) mg/dL Estimated GFR ML/MIN Glucose (74-106) mg/dL Lactic Acid 1.6 (0.4-2.0) Calcium (8.4-10.2) mg/dL Total Bilirubin (0.2-1.3) mg/dL AST (17-59) U/L ALT (0-50) U/L Alkaline Phosphatase (38-126) U/L Troponin I (0.000-0.034) ng/mL NT-Pro-B Natriuret Pep (0-900) pg/mL Serum Total Protein (6.3-8.2) g/dL Albumin (3.5-5.0) g/dL TSH 3rd Generation 0.716 (0.47-4.68) mIU/L Ur Collection Type VOID Urine Color YELLOW (YELLOW) Urine Appearance CLEAR (CLEAR) Urine pH 7.0 (5-6) Ur Specific [place] 1.005 (1.005-1.025) Urine Protein 100 (Negative) Urine Ketones NEGATIVE (NEGATIVE) Urine Blood 5-10 (0-5) [place]/ul Urine Nitrite NEGATIVE (NEGATIVE) Urine Bilirubin NEGATIVE (NEGATIVE) Urine Urobilinogen NORMAL (0-1) mg/dL Ur Leukocyte Esterase NEGATIVE (NEGATIVE) Urine Microscopic WBC 0-2 (0-5) /HPF Ur Epithelial Cells RARE (FEW) /HPF Urine Bacteria RARE (NEGATIVE) /HPF Urine Culture Reflexed NO (NO) Urine Glucose 1000 (NEGATIVE) mg/dL Influenza Type A Ag (NEGATIVE) Influenza Type B Ag (NEGATIVE) RSV (PCR) (Negative) Specimen Received 01/28/18199901/28/18 01/28/18 01/28/18 Range/Units 20:10 20:10 20:10 WBC (4.0-10.5) K/mm3 RBC (4.1-5.6) M/mm3 Hgb (12.5-18.0) gm/dl Hct (42-50) % MCV (78-100) fl MCH (26-32) pg MCHC (32-36) g/dl RDW (11.5-14.0) % Plt Count (150-450) K/mm3 MPV (6-9.5) fl Gran % (36.0-66.0) % Lymphocytes % (24.0-44.0) % Monocytes % (0.0-12.0) % Eosinophils % (0.00-5.0) % Basophils % (0.0-0.4) % Basophils # (0-0.4) Sodium 139 (137-145) mmol/L Potassium 5.2 H (3.5-5.1) mmol/L Chloride 102 (98-107) mmol/L Carbon Dioxide 27 (22-30) mmol/L Anion Gap 14.5 (5-15) MEQ/L BUN 28 H (9-20) mg/dL Creatinine 1.19 (0.66-1.25) mg/dL Estimated GFR > 60 ML/MIN Glucose 281 H (74-106) mg/dL Lactic Acid (0.4-2.0) Calcium 9.1 (8.4-10.2) mg/dL Total Bilirubin 0.40 (0.2-1.3) mg/dL AST 18 (17-59) U/L ALT 17 (0-50) U/L Alkaline Phosphatase 82 (38-126) U/L Troponin I < 0.012 (0.000-0.034) ng/mL NT-Pro-B Natriuret Pep 709 (0-900) pg/mL Serum Total Protein 6.8 (6.3-8.2) g/dL Albumin 3.7 (3.5-5.0) g/dL TSH 3rd Generation (0.47-4.68) mIU/L Ur Collection Type Urine Color (YELLOW) Urine Appearance (CLEAR) Urine pH (5-6) Ur Specific [place] (1.005-1.025) Urine Protein (Negative) Urine Ketones (NEGATIVE) Urine Blood (0-5) [place]/ul Urine Nitrite (NEGATIVE) Urine Bilirubin (NEGATIVE) Urine Urobilinogen (0-1) mg/dL Ur Leukocyte Esterase (NEGATIVE) Urine Microscopic WBC (0-5) /HPF Ur Epithelial Cells (FEW) /HPF Urine Bacteria (NEGATIVE) /HPF Urine Culture Reflexed (NO) Urine Glucose (NEGATIVE) mg/dL Influenza Type A Ag NEGATIVE (NEGATIVE) Influenza Type B Ag NEGATIVE (NEGATIVE) RSV (PCR) NEGATIVE (Negative) Specimen Received 01/28/18 Range/Units 20:10 WBC 8.9 (4.0-10.5) K/mm3 RBC 3.68 L (4.1-5.6) M/mm3 Hgb 11.1 L (12.5-18.0) gm/dl Hct 35.4 L (42-50) % MCV 96.2 (78-100) fl MCH 30.1 (26-32) pg MCHC 31.4 L (32-36) g/dl RDW 14.2 H (11.5-14.0) % Plt Count 274 (150-450) K/mm3 MPV 9.7 H (6-9.5) fl Gran % 73.8 H (36.0-66.0) % Lymphocytes % 17.9 L (24.0-44.0) % Monocytes % 6.6 (0.0-12.0) % Eosinophils % 1.3 (0.00-5.0) % Basophils % 0.4 (0.0-0.4) % Basophils # 0.04 (0-0.4) Sodium (137-145) mmol/L Potassium (3.5-5.1) mmol/L Chloride (98-107) mmol/L Carbon Dioxide (22-30) mmol/L Anion Gap (5-15) MEQ/L BUN (9-20) mg/dL Creatinine (0.66-1.25) mg/dL Estimated GFR ML/MIN Glucose (74-106) mg/dL Lactic Acid (0.4-2.0) Calcium (8.4-10.2) mg/dL Total Bilirubin (0.2-1.3) mg/dL AST (17-59) U/L ALT (0-50) U/L Alkaline Phosphatase (38-126) U/L Troponin I (0.000-0.034) ng/mL NT-Pro-B Natriuret Pep (0-900) pg/mL Serum Total Protein (6.3-8.2) g/dL Albumin (3.5-5.0) g/dL TSH 3rd Generation (0.47-4.68) mIU/L Ur Collection Type Urine Color (YELLOW) Urine Appearance (CLEAR) Urine pH (5-6) Ur Specific [place] (1.005-1.025) Urine Protein (Negative) Urine Ketones (NEGATIVE) Urine Blood (0-5) [place]/ul Urine Nitrite (NEGATIVE) Urine Bilirubin (NEGATIVE) Urine Urobilinogen (0-1) mg/dL Ur Leukocyte Esterase (NEGATIVE) Urine Microscopic WBC (0-5) /HPF Ur Epithelial Cells (FEW) /HPF Urine Bacteria (NEGATIVE) /HPF Urine Culture Reflexed (NO) Urine Glucose (NEGATIVE) mg/dL Influenza Type A Ag (NEGATIVE) Influenza Type B Ag (NEGATIVE) RSV (PCR) (Negative) Specimen Received - Progress Progress: unchanged, re-examined Progress Note: 01/28/18 22:[address] Gonzalez and pt and will place on Obs until re-admission to [place] can be arranged and to confirm no new pathology - current CT read is no change; Discussed with : Bernie Durant Will see patient in: hospital (observation) Counseled pt/family regarding: lab results, diagnosis, need for follow-up, rad results - Departure Time of Disposition: 22:11 Departure Disposition: Observation Clinical Impression: Weakness, cva - stable , weakness persisting after CVA requiring Condition: Good Critical Care Time: No Referrals: NELLY HOWELL MD [Primary Care Provider] -
[2018-01-28 20:19] LABS: BASOPHIL % 0.4 % (0.0-0.4); Basophil (Absolute #) 0.04 (0-0.4); Eosinophil % 1.3 % (0.00-5.0); Eosinophil (Absolute #) 0.12 (0-0.5); Granulocyte Absolute (ANC) 6.57 (1.4-6.9); Granulocytes % 73.8 % (36.0-66.0); Hematocrit 35.4 % (42-50); Hemoglobin 11.1 gm/dl (12.5-18.0); Lymphocytes % 17.9 % (24.0-44.0); Mean Cell Volume 96.2 fl (78-100); Mean Corpuscular Hgb Concent. 31.4 g/dl (32-36); Mean Platelet Volume 9.7 fl (6-9.5); Monocyte (Absolute #) 0.59 (0.0-1.3); Monocytes % 6.6 % (0.0-12.0); Platelet Count 274 K/mm3 (150-450); Red Blood Count 3.68 M/mm3 (4.1-5.6); Red Cell Distribution Width 14.2 % (11.5-14.0); White Blood Count 8.9 K/mm3 (4.0-10.5)
[2018-01-28] MEDS: Sodium Chloride 0.9% 1000 ML 1,000 ML IV SCH (20:19)
[2018-01-28 20:21] LABS: Mean Corpuscular Hemoglobin 30.1 pg (26-32)
[2018-01-28 20:45] LABS: ALBUMIN 3.7 g/dL (3.5-5.0); ALKALINE PHOSPHATASE 82 U/L (38-126); ANION GAP 14.5 MEQ/L (5-15); BLOOD UREA NITROGEN 28 mg/dL (9-20); CHLORIDE 102 mmol/L (98-107); Calcium 9.1 mg/dL (8.4-10.2); Carbon Dioxide 27 mmol/L (22-30); Creatinine 1 1.19 mg/dL (0.66-1.25); Glucose 281 mg/dL (74-106); Potassium 5.2 mmol/L (3.5-5.1); SGOT/AST 18 U/L (17-59); SGPT/ALT 17 U/L (0-50); SODIUM 139 mmol/L (137-145); Total Protein 6.8 g/dL (6.3-8.2)
[2018-01-28 21:01] LABS: INFLUENZA A NEGATIVE (NEGATIVE); INFLUENZA B NEGATIVE (NEGATIVE); NT PRO BNP 709 pg/mL (0-900); RESPIRATORY SYNCTIAL VIRUS NEGATIVE (Negative)
[2018-01-28 21:03] LABS: Appearance CLEAR (CLEAR); Leukocyte Esterase NEGATIVE (NEGATIVE); Nitrite NEGATIVE (NEGATIVE); Specific Gravity 1.005 (1.005-1.025)
[2018-01-28 21:04] LABS: Bacteria RARE /HPF (NEGATIVE); Bilirubin NEGATIVE (NEGATIVE); Epithelial Cells RARE /HPF (FEW); Glucose 1000 mg/dL (NEGATIVE); Ketones NEGATIVE (NEGATIVE); Protein,Urine Dip 100 (Negative); Urobilinogen NORMAL mg/dL (0-1); WBC 0-2 /HPF (0-5)
--- NOTE | 2018-01-28 21:46 | XRAY ---
Indication: Bilateral leg weakness. Multiple contiguous axial images obtained through the head without contrast. Comparison: December 20, 2017. Again age-appropriate global atrophy, minimal periventricular degenerative micro-ischemia bilaterally, and remote left caudate lacunar infarct. No acute intracranial hemorrhage, abnormal extra-axial fluid collection, or mass effect. Fourth ventricle is midline without hydrocephalus. Bony calvarium intact. There is mild mucosal thickening of the visualized right maxillary sinus. Mastoid air cells are clear. Impression: 1. Again nonacute senile brain with remote left caudate lacunar infarct.. 2. Incidental right maxillary sinus disease not previously included in the [id number]. Comment: Preliminary interpretation was made by [facility]. No discrepancy. CTDI 70.48
--- NOTE | 2018-01-28 21:49 | XRAY ---
Indication: Weakness. Comparison: December 20, 2017. Portable apical lordotic chest unchanged again clear with incidental left apical calcific granuloma and left-sided Port-A-Cath. Heart is not enlarged for AP portable technique. No new/acute findings.
[2018-01-29] MEDS ORDERED: MORPHINE SULFATE 4 MG INJ IV PRN (00:40)
[2018-01-29] MEDS ORDERED: TYLENOL 325 MG PO PRN (00:40)
[2018-01-29] MEDS ORDERED: Zofran 4 MG/2 ML VIAL IV PRN (00:40)
[2018-01-29 06:17] LABS: BASOPHIL % 0.6 % (0.0-0.4); Basophil (Absolute #) 0.04 (0-0.4); Eosinophil % 3.2 % (0.00-5.0); Eosinophil (Absolute #) 0.23 (0-0.5); Granulocyte Absolute (ANC) 3.94 (1.4-6.9); Granulocytes % 54.3 % (36.0-66.0); Hematocrit 32.3 % (42-50); Hemoglobin 10.2 gm/dl (12.5-18.0); Lymphocyte (Absolute #) 2.38 (1.0-4.6); Lymphocytes % 32.8 % (24.0-44.0); Mean Cell Volume 96.1 fl (78-100); Mean Corpuscular Hgb Concent. 31.6 g/dl (32-36); Mean Platelet Volume 9.3 fl (6-9.5); Monocyte (Absolute #) 0.66 (0.0-1.3); Monocytes % 9.1 % (0.0-12.0); Platelet Count 269 K/mm3 (150-450); Red Blood Count 3.36 M/mm3 (4.1-5.6); Red Cell Distribution Width 14.2 % (11.5-14.0); White Blood Count 7.3 K/mm3 (4.0-10.5)
[2018-01-29 06:19] LABS: Mean Corpuscular Hemoglobin 30.3 pg (26-32)
[2018-01-29 06:37] LABS: ALBUMIN 3.1 g/dL (3.5-5.0); ALKALINE PHOSPHATASE 64 U/L (38-126); ANION GAP 10.4 MEQ/L (5-15); BLOOD UREA NITROGEN 24 mg/dL (9-20); CHLORIDE 103 mmol/L (98-107); Calcium 8.8 mg/dL (8.4-10.2); Carbon Dioxide 29 mmol/L (22-30); Creatinine 1 1.07 mg/dL (0.66-1.25); Glucose 272 mg/dL (74-106); Potassium 4.5 mmol/L (3.5-5.1); SGOT/AST 12 U/L (17-59); SGPT/ALT 14 U/L (0-50); SODIUM 139 mmol/L (137-145)
[2018-01-29] MEDS ORDERED: Ranexa 500 MG PO PRN (14:09)
[2018-01-29] MEDS ORDERED: NON-FORMULARY ITEM (Gabapentin [Neurontin] 800 MG) PO SCH (15:00)
[2018-01-29] MEDS: ZOLOFT 50 MG TABLET PO SCH (15:21)
[2018-01-29] MEDS: Ditropan XL 5 MG PO SCH (15:21)
[2018-01-29] MEDS: DELTASONE 10 MG PO SCH (15:21)
[2018-01-29] MEDS: Cozaar 50 MG PO SCH (15:22)
[2018-01-29] MEDS: PLAVIX 75 MG Tablet PO SCH (15:22)
[2018-01-29] MEDS: ZOCOR 20MG PO SCH (15:22)
[2018-01-29] MEDS: Protonix 40MG Tablet PO SCH (15:22)
[2018-01-29] MEDS: Avodart 0.5 MG PO SCH (15:22)
[2018-01-29] MEDS: ECOTRIN 81 MG PO SCH (15:22)
[2018-01-29] MEDS: Neurontin 400 MG PO SCH ×2 (15:22→21:28)
[2018-01-29] MEDS: Proscar 5 MG PO SCH (15:25)
[2018-01-29] MEDS: Sodium Chloride 0.9% 1000 ML 1,000 ML IV SCH (16:32)
[2018-01-29] MEDS: Novolin 70/30 SQ SCH (17:00)
[2018-01-29] MEDS: FEOSOL 325 MG PO SCH (21:27)
[2018-01-29] MEDS ORDERED: Flomax 0.4 MG PO SCH (22:00)
[2018-01-29] MEDS: NovoLIN R SQ PRN (22:35)
[2018-01-30] MEDS: Neurontin 400 MG PO SCH (08:20)
[2018-01-30] MEDS: Novolin 70/30 SQ SCH ×2 (08:21→11:52)
[2018-01-30] MEDS: NovoLIN R SQ PRN ×2 (08:25→11:52)
--- NOTE | 2018-01-30 09:17 | HP ---
HISTORY OF PRESENT ILLNESS: The patient is a poor historian and somewhat drowsy at the time of this evaluation. History has been gathered from review of patient's chart and discussion with nursing staff. Matt Bravo is a 67 year old male with past medical history of hypertension, coronary artery disease, diabetes mellitus, chronic pain, hyperlipidemia, chronic obstructive pulmonary disease, sleep apnea and recent history of CVA with residual right-sided weakness (three weeks ago). He was recently discharged from skilled nursing after undergoing rehab. As per patient since he went home he has been having generalized weakness and was having trouble getting around. He also reported some right-sided weakness which was unchanged from when he was discharged from rehab. There were no other reported symptoms. Initial vitals upon emergency room presentation yesterday was blood pressure 184/99, heart rate 74, and temperature 97.5F. He was treated with normal saline 1 liter. Subsequently he was admitted to medical floor for further monitoring and management. His course since admission was essentially more or less unremarkable. As per the patient's nurse, the patient had declined to eat anything today and refused his insulin as well. At the time of this evaluation he is drowsy but easily arousable, answers simple questions. Complains of fatigue, generalized weakness, increased shortness of breath. Denies pain. PAST MEDICAL HISTORY: As noted above. The patient has history of transient ischemic attack, myocardial infarction, congestive heart failure. History of kidney stones. PAST SURGICAL HISTORY: Right partial foot amputation,, appendectomy, cholecystectomy, exploratory laparotomy, cardiac catheterization with stent placement, tonsillectomy, adenoidectomy, port placement. MEDICATIONS: Current medications were reviewed. ALLERGIES: PENICILLIN, SILVER, ZINC, CARVEDILOL, METOPROLOL. FAMILY HISTORY: Noncontributory. SOCIAL HISTORY: The patient lives at home. No history of smoking or illicit drug use. REVIEW OF SYSTEMS: Denies headache or dizziness. Complains of generalized weakness. Denies fever. Denies chest pain, increased shortness of breath or cough. Denies abdominal pain, nausea or vomiting. Denies constipation or diarrhea. Denies urinary complaints. PHYSICAL EXAMINATION: An elderly obese male lying comfortably in bed, not in acute distress. VITAL SIGNS: Blood pressure 142/80, heart rate 87, respiratory rate 20, temperature 98F. Oxygen saturation 97% on room air. HEENT: Pallor is present. No icterus is noted. NECK: No JVD is present. CVS: S1, S2 present. RESPIRATORY: Breath sounds are bilaterally diminished. ABDOMEN: Obese, soft, nontender. NEURO: The patient was drowsy but easily arousable, answers simple questions, follows simple commands. However falls back to drowsiness easily. Evaluation of motor strength in left upper and bilateral lower extremities revealed 4+ over 5 motor strength, right upper extremity strength appears to be 4 to 4+ over 5. EXTREMITIES: Trace edema in bilateral lower extremities. LABORATORY DATA AND TESTS: Labs on admission were notable for CBC with white blood cell 8.9, hemoglobin 11/.1, hematocrit 35.4, PLT 274,000. Today CBC was notable for white blood cell 7.3, hemoglobin 10.2, hematocrit 32.3, PLT 269,000. CMP from admission was notable for glucose of 281, BUN 28, creatinine 1.19. Today's CMP showed BUN 24, creatinine 1.07, glucose 272. Liver function test was unremarkable. Troponin was less than 0.012 x3. NT BNP was 709. TSH 0.716. Flu A/B and respiratory syncytial virus were negative. UA showed 0-2 white blood cells, rare epithelial cells, rare bacteria. Chest x-ray showed incidental left apical calcific granuloma. No new or acute findings. CT scan of head showed nonacute senile brain with remote left caudate lacunar infarct, incidental right maxillary sinus disease. ASSESSMENT: A 67 year old male with impression: 1) Generalized weakness. 2) Recent history of CVA with residual right-sided weakness. 3) History of hypertension/congestive heart failure. 4) History of diabetes mellitus. 5) Chronic pain. 6) History of chronic obstructive pulmonary disease. 7) History of sleep apnea. 8) Lethargy. 9) Renal insufficiency, mild. PLAN: The patient is admitted for further monitoring and management. Continue to monitor neurological status. Follow CBC and electrolytes in the a.m. Discharge plan regarding likely transfer back to skilled nursing tomorrow. The plan was discussed with the patient. He appears to be in understanding and agreement. Discussed with patient's nurse, Maryana.
[2018-01-30] MEDS ORDERED: NON-FORMULARY ITEM (Pravastatin Sodium [Pravastatin Sodium] 20 MG) PO SCH (10:00)
[2018-01-30] MEDS ORDERED: OXYBUTYNIN CHLORIDE 10 MG PO SCH (10:00)
[2018-01-30] MEDS ORDERED: NON-FORMULARY ITEM (Aspirin [Aspirin] 81 MG) PO SCH (10:00)
[2018-01-30] MEDS: Cozaar 50 MG PO SCH (10:14)
[2018-01-30] MEDS: Ditropan XL 5 MG PO SCH (10:14)
[2018-01-30] MEDS: FEOSOL 325 MG PO SCH (10:14)
[2018-01-30] MEDS: ZOLOFT 50 MG TABLET PO SCH (10:14)
[2018-01-30] MEDS: ECOTRIN 81 MG PO SCH (10:14)
[2018-01-30] MEDS: Protonix 40MG Tablet PO SCH (10:14)
[2018-01-30] MEDS: DELTASONE 10 MG PO SCH (10:14)
[2018-01-30] MEDS: Proscar 5 MG PO SCH (10:14)
[2018-01-30] MEDS: ZOCOR 20MG PO SCH (10:14)
[2018-01-30] MEDS: PLAVIX 75 MG Tablet PO SCH (10:14)
[2018-01-30] MEDS: Avodart 0.5 MG PO SCH (10:14)
--- NOTE | 2018-01-30 12:33 | PCM.SSS ---
History of Present Illness - Chief Complaint Chief Complaint: weakness for weeks, Patient wants to go back to rehab History of Present Illness: is a 67 year old male came to ER with c/o worsening weakness. patient was in rehab 2 weeks ago and went home but still has weakness and fell twice at home - Review of Systems Constitutional: No Fever, No Chills Eyes: No Symptoms Ears, Nose, & Throat: No Symptoms Respiratory: No Cough, No Short Of Breath Cardiac: No Chest Pain, No Edema, No Syncope Abdominal/Gastrointestinal: No Abdominal Pain, No Nausea, No Vomiting, No Diarrhea Genitourinary Symptoms: No Dysuria Musculoskeletal: No Back Pain, No Neck Pain Skin: No Rash Neurological: No Dizziness, No Focal Weakness, No Sensory Changes Psychological: No Symptoms Endocrine: No Symptoms Hematologic/Lymphatic: No Symptoms Immunological/Allergic: No Symptoms Medications & Allergies Home Medications: Home Medication List Pravastatin Sodium 20 mg PO DAILY 01/30/16 [History Confirmed 01/29/18] Prednisone 10 mg [Deltasone 10 mg] 10 mg PO DAILY 01/30/16 [History Confirmed 01/29/18] Tamsulosin HCl [Flomax] 0.4 mg PO HS 01/30/16 [History Confirmed 01/29/18] Gabapentin [Neurontin] 800 mg PO TID 08/15/16 [History Confirmed 01/29/18] Finasteride 5 mg [Proscar 5 MG] 5 mg PO DAILY 10/13/16 [History Confirmed 01/29/18] Sertraline HCl 50 mg [Zoloft 50 mg Tablet] 50 mg PO DAILY 10/13/16 [History Confirmed 01/29/18] Hum Insulin NPH/Reg Insulin Hm [Humulin 70-30 Vial] 15 unit SQ TIDWMEALS [History Confirmed 01/29/18] Ranolazine 500 MG [Ranexa 500 MG] 500 mg PO BID PRN PRN 05/15/17 [History Confirmed 01/29/18] Aspirin 81 mg PO DAILY 11/02/17 [History Confirmed 01/29/18] Ferrous Sulfate [Iron] 325 mg PO BID 11/02/17 [History Confirmed 01/29/18] Pantoprazole Sodium [Protonix] 40 mg PO DAILY 11/02/17 [History Confirmed ] Dutasteride 0.5 MG [Avodart 0.5 MG] 0.5 mg PO DAILY 12/20/17 [History Confirmed 01/29/18] Losartan Potassium 50 mg [Cozaar 50 MG] 50 mg PO DAILY 12/20/17 [History Confirmed 01/29/18] Oxybutynin Chloride 10 mg Xl [Ditropan Xl 10 MG] 10 mg PO DAILY 12/20/17 [ History Confirmed 01/29/18] Clopidogrel Bisulfate 75 mg [PLAVIX 75 MG Tablet] 75 mg PO DAILY #30 tablet 12/22/17 [Rx Confirmed 01/29/18] Hydrocodone/APAP 10/325 mg [[place] 10/325 MG Tablet] 1 tab PO Q6H PRN PRN 15 Days #60 tablet MDD 4 per day 01/30/18 [Rx] Allergies/Adverse Reactions: Allergies Allergy/AdvReac Type Severity Reaction Status Date / Time Penicillins Allergy Severe Hives Verified 01/29/18 04:17 silver [Silver] Allergy Intermediate Itching Verified 01/29/18 04:17 zinc [Zinc] Allergy Intermediate Itching Verified 01/29/18 04:17 carvedilol [From Coreg] AdvReac Intermediate Verified 01/29/18 04:17 metoprolol AdvReac Intermediate Verified 01/29/18 04:17 - Past Medical History Past Medical History: Yes Neurological History: Stroke, TIA ENT History: Cataracts Cardiac History: Congestive Heart Failure, Coronary Artery Disease, Myocardial Infarction ([place]) Respiratory History: CHF, COPD, Sleep Apnea Endocrine Medical History: Diabetes Type II Musculoskelatal History: Arthritis GI Medical History: GERD, GI Bleed, Ulcer History: No Pertinent History Pyscho-Social History: No Pertinent History, Depression Male Reproductive Disorders: Prostate Problems Comment: right partial foot amputation. kidney infection, hx stones - Past Surgical History Past Surgical History: Yes Neuro Surgical History: No Pertinent History Cardiac History: Cardiac Catheterization, Cardiac Stent Respiratory Surgery: No Pertinent History GI Surgical History: Appendectomy, Cholecystectomy, Exploratory Laparoscopy Genitourinary Surgical Hx: No Pertinent History Musculskeletal Surgical Hx: Amputation Male Surgical History: Prostate Surgery Other Surgical History: Tonsillectomy and adenoidectomy. right toes/foot partial amputation and revision. PORT PLACEMENT - Social History Smoking Status: Never smoker Exposure to second hand smoke: Yes Alcohol: None Drug Use: none - Physical Exam Vital Signs: Vital Signs - 24 hr Temp Pulse Resp BP Pulse Ox 01/30/18 07:35 97.8 F 86 20 178/80 95 01/30/18 04:00 98.2 F 78 22 132/68 95 01/29/18 23:59 98.2 F 81 24 127/55 94 L 01/29/18 19:49 98.3 F 89 20 138/63 96 01/29/18 16:00 98.5 F 75 18 139/85 General Appearance: no apparent distress, alert Neurologic Exam: alert, oriented x 3, cooperative, normal mood/affect, nml cerebellar function, nml station & gait, sensation nml, No motor deficits Eye Exam: PERRL/EOMI, eyes nml inspection Ears, Nose, Throat Exam: normal ENT inspection, TMs normal, pharynx normal, moist mucous membranes Neck Exam: normal inspection, non-tender, supple, full range of motion Respiratory Exam: normal breath sounds, lungs clear, No respiratory distress Cardiovascular Exam: regular rate/rhythm, normal heart sounds, normal peripheral pulses Gastrointestinal/Abdomen Exam: soft, normal bowel sounds, No tenderness, No mass Back Exam: normal inspection, normal range of motion, No CVA tenderness, No vertebral tenderness Extremity Exam: normal inspection, normal range of motion, pelvis stable Skin Exam: normal color, warm, dry, No rash Lymphatic Exam: No adenopathy Results - Labs Lab/Micro Results: Accuchecks Date 01/29/18 Time 16:30 Accucheck Value: 211 Accucheck Value: 230 Accucheck Value: 254 Accucheck Value: 198 Accuchecks Date 01/29/18 Time 16:30 Accucheck Value: 211 Accucheck Value: 230 Accucheck Value: 254 Accucheck Value: 198 Assessment/Plan (1) Weakness Current Visit: Yes Status: Acute Assessment & Plan: plan to transfer patient back to [facility] Code(s): R53.1 - WEAKNESS (2) TIA (transient ischemic attack) Current Visit: No Status: Acute Qualifiers: (3) Angina pectoris associated with type 2 diabetes mellitus Current Visit: No Status: Chronic Code(s): E11.59 - TYPE 2 DIABETES MELLITUS WITH OTH CIRCULATORY COMPLICATIONS; I20.9 - ANGINA PECTORIS, UNSPECIFIED (4) CAD (coronary artery disease) Current Visit: No Status: Chronic Qualifiers: Code(s): I25.10 - ATHSCL HEART DISEASE OF [place] CORONARY ARTERY W/O ANG PCTRS (5) Diabetes Current Visit: No Status: Chronic Qualifiers: Code(s): E11.9 - TYPE 2 DIABETES MELLITUS WITHOUT COMPLICATIONS (6) IHD (ischemic heart disease) Current Visit: No Status: Chronic Code(s): I25.9 - CHRONIC ISCHEMIC HEART DISEASE, UNSPECIFIED (7) Type 2 diabetes mellitus Current Visit: No Status: Chronic Qualifiers: Hospital Summary - Hospital Course Hospital Course: Chief Complaint Diagnosis weakness Allergies Allergy/AdvReac Type Severity Reaction Status Date / Time Penicillins Allergy Severe Hives Verified 01/29/18 04:17 silver [Silver] Allergy Intermediate Itching Verified 01/29/18 04:17 zinc [Zinc] Allergy Intermediate Itching Verified 01/29/18 04:17 carvedilol [From Coreg] AdvReac Intermediate Verified 01/29/18 04:17 metoprolol AdvReac Intermediate Verified 01/29/18 04:17 Vital Signs (Last 24 hours) Temp Pulse Resp BP Pulse Ox 01/30/18 07:35 97.8 F 86 20 178/80 95 01/30/18 04:00 98.2 F 78 22 132/68 95 01/29/18 23:59 98.2 F 81 24 127/55 94 L 01/29/18 19:49 98.3 F 89 20 138/63 96 01/29/18 16:00 98.5 F 75 18 139/85 Current Medications Generic Name Dose Route Start Last Admin Trade Name Freq PRN Reason Stop Dose Admin Acetaminophen 650 mg 01/29/18 00:40 Tylenol 325 Mg PO 02/28/18 00:39 Q4H PRN PRN PAIN AND/OR FEVER Aspirin 81 mg 01/29/18 15:00 01/30/18 10:14 Ecotrin 81 Mg PO 02/28/18 14:59 81 mg DAILY JOSUE Administration Clopidogrel Bisulfate 75 mg 01/29/18 15:00 01/30/18 10:14 Plavix 75 Mg Tablet PO 02/28/18 14:59 75 mg DAILY JOSUE Administration Dutasteride 0.5 mg 01/29/18 15:00 01/30/18 10:14 Avodart 0.5 Mg PO 02/28/18 14:59 0.5 mg DAILY JOSUE Administration Ferrous Sulfate 325 mg 01/29/18 22:00 01/30/18 10:14 Feosol 325 Mg PO 02/28/18 21:59 325 mg BID JOSUE Administration Finasteride 5 mg 01/29/18 15:00 01/30/18 10:14 Proscar 5 Mg PO 02/28/18 14:59 5 mg DAILY JOSUE Administration Gabapentin 800 mg 01/29/18 15:00 01/30/18 08:20 Neurontin 400 Mg PO 02/28/18 14:59 800 mg TID JOSUE Administration Sodium Chloride 1,000 mls @ 50 mls/hr 01/28/18 20:00 01/29/18 16:32 Sodium Chloride 0.9% 1000 Ml IV 02/27/18 19:59 50 mls/hr .Q20H JOSUE Administration Insulin Human Isoph/Insulin Regular 15 unit 01/29/18 17:00 01/30/18 11:52 Novolin 70/30 SQ 02/28/18 16:59 15 unit TIDWMEALS JOSUE Administration Insulin Human Regular 0 unit 01/29/18 00:40 01/30/18 11:52 Novolin R SQ 02/28/18 00:39 3 unit UD PRN Administration HYPERGLYCEMIA Losartan Potassium 50 mg 01/29/18 15:00 01/30/18 10:14 Cozaar 50 Mg PO 02/28/18 14:59 50 mg DAILY JOSUE Administration Morphine Sulfate 4 mg 01/29/18 00:40 Morphine Sulfate 4 Mg Inj IV 02/03/18 00:39 Q4H PRN PRN PAIN Ondansetron HCl 4 mg 01/29/18 00:40 Zofran 4 Mg/2 Ml Vial IV 02/28/18 00:39 Q6H PRN PRN NAUSEA/VOMITING Oxybutynin Chloride 10 mg 01/29/18 15:00 01/30/18 10:14 Ditropan Xl 5 Mg PO 02/28/18 14:59 10 mg DAILY JOSUE Administration Pantoprazole Sodium 40 mg 01/29/18 15:00 01/30/18 10:14 Protonix 40mg Tablet PO 02/28/18 14:59 40 mg DAILY JOSUE Administration Prednisone 10 mg 01/29/18 15:00 01/30/18 10:14 Deltasone 10 Mg PO 02/28/18 14:59 10 mg DAILY JOSUE Administration Ranolazine 500 mg 01/29/18 14:09 01/29/18 15:22 Ranexa 500 Mg PO 02/28/18 14:08 500 mg BID PRN PRN Administration CHEST PAIN Sertraline HCl 50 mg 01/29/18 15:00 01/30/18 10:14 Zoloft 50 Mg Tablet PO 02/28/18 14:59 50 mg DAILY JOSUE Administration Simvastatin 20 mg 01/29/18 15:00 01/30/18 10:14 Zocor 20mg PO 02/28/18 14:59 20 mg DAILY JOSUE Administration Tamsulosin HCl 0.4 mg 01/29/18 22:00 01/29/18 21:27 Flomax 0.4 Mg PO 02/28/18 21:59 0.4 mg HS JOSUE Administration Intake & Output (Last 24 hours) 01/28/18 01/29/18 01/30/18 01/31/18 11:59 11:59 11:59 11:59 Intake Total 735 2928 Output Total 700 3500 Balance 35 -572 Weight 179.4 kg 179.8 kg Orders (Last 24 hours) Category Date Time Status Aspirin EC 81 mg [Ecotrin 81 mg] Med 01/29/18 15:00 Active 81 mg PO DAILY Clopidogrel Bisulfate 75 mg [PLAVIX 75 MG Tablet] Med 01/29/18 15:00 Active 75 mg PO DAILY Dutasteride 0.5 MG [Avodart 0.5 MG] Med 01/29/18 15:00 Active 0.5 mg PO DAILY Ferrous Sulfate 325 mg [Feosol 325 mg] Med 01/29/18 22:00 Active 325 mg PO BID Finasteride 5 mg [Proscar 5 MG] Med 01/29/18 15:00 Active 5 mg PO DAILY Gabapentin 400 mg [Neurontin 400 MG] Med 01/29/18 15:00 Active 800 mg PO TID Insulin NPH/Reg 70/30 [Novolin 70/30] Med 01/29/18 17:00 Active 15 unit SQ TIDWMEALS Losartan Potassium 50 mg [Cozaar 50 MG] Med 01/29/18 15:00 Active 50 mg PO DAILY Oxybutynin Chloride Xl 5 mg [Ditropan XL 5 MG] Med 01/29/18 15:00 Active 10 mg PO DAILY PANTOPRAZOLE 40 mg Tablet [Protonix 40MG Tablet] Med 01/29/18 15:00 Active 40 mg PO DAILY Prednisone 10 mg [Deltasone 10 mg] Med 01/29/18 15:00 Active 10 mg PO DAILY Ranolazine 500 MG [Ranexa 500 MG] Med 01/29/18 14:09 Active 500 mg PO BID PRN PRN Sertraline HCl 50 mg [Zoloft 50 mg Tablet] Med 01/29/18 15:00 Active 50 mg PO DAILY Simvastatin 20Mg [Zocor 20Mg] Med 01/29/18 15:00 Active 20 mg PO DAILY Tamsulosin HCl 0.4 mg [Flomax 0.4 MG] Med 01/29/18 22:00 Active 0.4 mg PO HS Patient Care Notes (Last 24 hours) 01/30/18 10:22 Case Management Note by Ashley Goldman LEVEL I DONE, NO LEVEL II REQUIRED, NO LOC REQUIRED. ON CHART AND FAXED TO [place]. Initialized on 01/30/18 10:22 - END OF NOTE 01/30/18 08:55 (created 01/30/18 10:10) Case Management Note by Angeli Loyola CALL TO [facility] TO SEE IF PT HAS USED ALL SKILLED DAYS AND TO SEE HOW LONG PT HAS BEEN DISCHARGED FROM [facility]. SPOKE WITH [facility]. [facility] REPORTS THAT PT DISCHARGED ON JANUARY 22, AND HAS USED 44 DAYS. REPORTS THAT THEY HAVE A BED AND WOULD BE WILLING TO TAKE HIM BACK. PT IS UNABLE TO CARE FOR HIMSELF SAFELY IN THE HOME AND PREFERS TO GO BACK. NO ADDNL NEEDS NOTED AT PRESENT. WILL CONTINUE TO FOLLOW FOR ALL DC NEEDS. Initialized on 01/30/18 10:10 - END OF NOTE 01/29/18 17:30 (created 01/29/18 18:44) Nursing Note by Sophia Saunders Patient has refused all meals and insulins today. Patient educated on risks associated with both refusing medication and meals. Dr. Liset Durant made aware. No new orders received. Pt encouraged to drink fluids. Initialized on 01/29/18 18:44 - END OF NOTE - Vitals & Intake/Output Vital Signs: Vital Signs Temperature 97.8 F 01/30/18 07:35 Pulse Rate 86 01/30/18 07:35 Respiratory Rate 20 01/30/18 07:35 Blood Pressure 178/80 01/30/18 07:35 O2 Sat by Pulse Oximetry 95 01/30/18 07:35 Intake & Output: Intake & Output 01/28/18 01/29/18 01/30/18 01/31/18 11:59 11:59 11:59 11:59 Intake Total 735 2928 Output Total 700 3500 Balance 35 -572 Weight 179.4 kg 179.8 kg - Lab Result Diagrams: 01/29/18 05:20 01/29/18 05:20 Lab Results-Last 24 Hrs: Accuchecks Date 01/29/18 Time 16:30 Accucheck Value: 211 Accucheck Value: 230 Accucheck Value: 254 Accucheck Value: 198 Micro Results-Entire Visit: Accuchecks Date 01/29/18 Time 16:30 Accucheck Value: 211 Accucheck Value: 230 Accucheck Value: 254 Accucheck Value: 198 - Procedures and Test Procedures and Tests throughout Hospitalization: Therapy Orders & Screens 01/29/18 01:15 OT Screen per Nursing Assess Comment: Protocol Order Physician Instructions: Greater than 3 points order OT Admission Screening Reason For Exam: Triggered on Admission Diagnosis: weakness Open Wound/Cellutlitis/Pressure Ulcers: No Acute Fx/ORIF/Change in wt bearing status: No Severe MUSCULOSKELETAL pain: No ADL Dysfunction: Yes Acute CVA w/Hemiparesis/Hemiplegia: No Decreased Functional Mobility/Strength: Yes Sprain/Strain: No Acute Post-op Mobility Dysfunction: No Total Points: 4 PT Screen per Nursing Assess Comment: Protocol Order Physician Instructions: Greater than 3 points order PT Admission Screenin Reason For Exam: Triggered on Admission Diagnosis: weakness Open Wound/Cellutlitis/Pressure Ulcers: No Acute Fx/ORIF/Change in wt bearing status: No Severe MUSCULOSKELETAL pain: No ADL Dysfunction: Yes Acute CVA w/Hemiparesis/Hemiplegia: No Decreased Functional Mobility/Strength: Yes Sprain/Strain: No Acute Post-op Mobility Dysfunction: No Total Points: 4 - Discharge Discharge Date: 01/30/18 Disposition: Skilled Care @ [facility] Condition: Good Prescriptions: Continue Pravastatin Sodium 20 mg PO DAILY Tamsulosin HCl [Flomax] 0.4 mg PO HS Prednisone 10 mg [Deltasone 10 mg] 10 mg PO DAILY Gabapentin [Neurontin] 800 mg PO TID Sertraline HCl 50 mg [Zoloft 50 mg Tablet] 50 mg PO DAILY Finasteride 5 mg [Proscar 5 MG] 5 mg PO DAILY Hum Insulin NPH/Reg Insulin Hm [Humulin 70-30 Vial] 15 unit SQ TIDWMEALS Ranolazine 500 MG [Ranexa 500 MG] 500 mg PO BID PRN PRN PRN Reason: Chest Pain Pantoprazole Sodium [Protonix] 40 mg PO DAILY Ferrous Sulfate [Iron] 325 mg PO BID Aspirin 81 mg PO DAILY Oxybutynin Chloride 10 mg Xl [Ditropan Xl 10 MG] 10 mg PO DAILY Losartan Potassium 50 mg [Cozaar 50 MG] 50 mg PO DAILY Dutasteride 0.5 MG [Avodart 0.5 MG] 0.5 mg PO DAILY Clopidogrel Bisulfate 75 mg [PLAVIX 75 MG Tablet] 75 mg PO DAILY #30 tablet Hydrocodone/APAP 10/325 mg [[place] 10/325 MG Tablet] 1 tab PO Q6H PRN PRN 15 Days #60 tablet MDD 4 per day PRN Reason: Pain Follow up with: NELLY HOWELL MD [Primary Care Provider] - 1 Week
[2018-01-30 12:38] VITALS: BP 154/80; PULSE 84; O2SAT 96
== END 2018-01-30 14:40 ==
LOC: ED 19:42 → MED SURG 23:32
PROVIDERS: ADMIT General Practice; ATTEND General Practice
DX: R53.1 Weakness (principal); I69.851 Hemiplegia and hemiparesis following other cerebrovascular disease affecting right dominant side; I25.119 Atherosclerotic heart disease of native coronary artery with unspecified angina pectoris; G45.9 Transient cerebral ischemic attack, unspecified; I10 Essential (primary) hypertension; R06.02 Shortness of breath; G89.29 Other chronic pain; N28.9 Disorder of kidney and ureter, unspecified; Z79.01 Long term (current) use of anticoagulants; Z79.899 Other long term (current) drug therapy; E11.9 Type 2 diabetes mellitus without complications; Z79.4 Long term (current) use of insulin
CPT/HCPCS: 36000; 36415; 70450; 71045; 80053; 81000; 82962; 83605; 83880; 84443; 84484; 85025; 87631; 93005; 93041; 96360; 96361; 96365; 99285; G0378; J1815; A9270-GY

== ENCOUNTER 2018-04-24 15:24 | Observation (INO) | payer MEDICARE, OTHER ==
[2018-04-24] MEDS ORDERED: Sodium Chloride 0.9% 1000 ML 1,000 ML IV SCH (17:00)
--- NOTE | 2018-04-24 17:10 | XRAY ---
Indication: Fever. Acute pyelonephritis. Comparison: January 28, 2018. Portable apical lordotic chest again demonstrates normal heart and lungs with incidental left apical calcified granuloma and left Port-A-Cath. Bony thorax intact. No new/acute findings.
[2018-04-24 17:11] LABS: Hematocrit 34.8 % (42-50); Hemoglobin 11.4 gm/dl (12.5-18.0); Mean Cell Volume 92.6 fl (78-100); Mean Corpuscular Hemoglobin 30.3 pg (26-32); Mean Corpuscular Hgb Concent. 32.8 g/dl (32-36); Mean Platelet Volume 8.9 fl (6-9.5); Platelet Count 286 K/mm3 (150-450); Red Blood Count 3.76 M/mm3 (4.1-5.6); Red Cell Distribution Width 12.9 % (11.5-14.0); White Blood Count 9.1 K/mm3 (4.0-10.5)
[2018-04-24 17:38] LABS: ALBUMIN 3.7 g/dL (3.5-5.0); ALKALINE PHOSPHATASE 94 U/L (38-126); ANION GAP 14.2 MEQ/L (5-15); BLOOD UREA NITROGEN 53 mg/dL (9-20); CHLORIDE 96 mmol/L (98-107); Carbon Dioxide 30 mmol/L (22-30); Creatinine 1 1.87 mg/dL (0.66-1.25); Glucose 204 mg/dL (74-106); Potassium 3.5 mmol/L (3.5-5.1); SGOT/AST 16 U/L (17-59); SGPT/ALT 12 U/L (0-50); SODIUM 137 mmol/L (137-145); Total Protein 7.1 g/dL (6.3-8.2)
[2018-04-24] MEDS: NovoLOG Insulin SQ PRN ×2 (17:49→21:46)
[2018-04-24 17:52] LABS: TROPONIN < 0.012 ng/mL (0.000-0.034)
[2018-04-24] MEDS: Norco 10/325 MG Tablet PO PRN (19:06)
[2018-04-24 19:56] LABS: Appearance CLEAR (CLEAR); Leukocyte Esterase 1+ (NEGATIVE); Nitrite NEGATIVE (NEGATIVE); Protein,Urine Dip TRACE (Negative)
[2018-04-24 19:57] LABS: Bilirubin NEGATIVE (NEGATIVE); Blood TRACE NON-HEM Ery/ul (0-5); Glucose NEGATIVE (NEGATIVE); Ketones NEGATIVE (NEGATIVE); Urobilinogen NORMAL mg/dL (0-1)
[2018-04-24 20:00] LABS: Bacteria RARE /HPF (NEGATIVE); Epithelial Cells RARE /HPF (FEW)
[2018-04-24] MEDS ORDERED: Ranexa 500 MG PO PRN (20:00)
[2018-04-24 20:01] LABS: Amourphous Crystal FEW /HPF (NEGATIVE)
[2018-04-24] MEDS: Zaroxolyn 2.5 MG PO SCH (21:43)
[2018-04-24] MEDS ORDERED: Neurontin 100 MG PO SCH (22:00)
[2018-04-24] MEDS ORDERED: Colace 100 MG PO SCH (22:00)
[2018-04-24] MEDS ORDERED: NEURONTIN 300 MG PO SCH (22:00)
[2018-04-24] MEDS ORDERED: ZOCOR 20MG PO SCH (22:00)
[2018-04-24] MEDS ORDERED: Levaquin 250MG/50ML D5W 250 MG/50 ML BAG IV SCH (22:00)
[2018-04-24] MEDS ORDERED: Flomax 0.4 MG PO SCH (22:00)
[2018-04-24] MEDS ORDERED: Cymbalta 30 MG Capsule PO SCH (22:00)
[2018-04-25] MEDS ORDERED: TYLENOL 325 MG PO PRN (07:03)
[2018-04-25] MEDS ORDERED: MORPHINE SULFATE 5 MG PO PRN (07:03)
[2018-04-25] MEDS ORDERED: IMODIUM 2 MG PO PRN (07:03)
[2018-04-25] MEDS ORDERED: MILK OF MAGNESIA 30 ML PO PRN (07:03)
[2018-04-25] MEDS: Norco 10/325 MG Tablet PO PRN (07:45)
[2018-04-25] MEDS: Novolin 70/30 SQ SCH ×2 (08:35→11:56)
[2018-04-25] MEDS ORDERED: MEDICATION INTERVENTION MC SCH ×2 (08:45)
[2018-04-25] MEDS: Zaroxolyn 2.5 MG PO SCH (09:13)
[2018-04-25] MEDS ORDERED: PLAVIX 75 MG Tablet PO SCH (10:00)
[2018-04-25] MEDS ORDERED: DUONEB 0.5-3 MG/3 ml Neb IH SCH (10:00)
[2018-04-25] MEDS ORDERED: Ditropan XL 5 MG PO SCH (10:00)
[2018-04-25] MEDS ORDERED: Cozaar 50 MG PO SCH (10:00)
[2018-04-25] MEDS ORDERED: DELTASONE 10 MG PO SCH (10:00)
[2018-04-25] MEDS ORDERED: Voltaren GEL TP SCH (10:00)
[2018-04-25] MEDS ORDERED: Lasix 40 MG PO SCH (10:00)
[2018-04-25] MEDS ORDERED: Proscar 5 MG PO SCH (10:00)
[2018-04-25] MEDS ORDERED: Neurontin 400 MG PO SCH (10:00)
[2018-04-25] MEDS ORDERED: Avodart 0.5 MG PO SCH (10:00)
[2018-04-25] MEDS ORDERED: FEOSOL 325 MG PO SCH (10:00)
[2018-04-25] MEDS ORDERED: OXYBUTYNIN CHLORIDE 10 MG PO SCH (10:00)
[2018-04-25] MEDS ORDERED: ZOLOFT 50 MG TABLET PO SCH (10:00)
[2018-04-25] MEDS ORDERED: NEURONTIN 300 MG PO SCH (10:00)
[2018-04-25] MEDS ORDERED: Protonix 40MG Tablet PO SCH (10:00)
[2018-04-25] MEDS ORDERED: ECOTRIN 81 MG PO SCH (10:00)
[2018-04-25] MEDS ORDERED: NON-FORMULARY ITEM (Aspirin [Aspirin] 81 MG) PO SCH (10:00)
[2018-04-25 11:19] VITALS: BP 133/68; O2SAT 97
[2018-04-25] MEDS ORDERED: DUONEB 0.5-3 MG/3 ml Neb IH PRN (11:40)
[2018-04-25 11:48] VITALS: PULSE 81
--- NOTE | 2018-04-25 12:24 | PCM.SSS ---
History of Present Illness - Chief Complaint Chief Complaint: fever,acute pylonephritis, History of Present Illness: is a 67 year old male.admitted with fever and chills, - Review of Systems Constitutional: Fever, Chills Eyes: No Symptoms Ears, Nose, & Throat: No Symptoms Respiratory: No Cough, No Short Of Breath Cardiac: No Chest Pain, No Edema, No Syncope Abdominal/Gastrointestinal: No Abdominal Pain, No Nausea, No Vomiting, No Diarrhea Genitourinary Symptoms: No Dysuria Musculoskeletal: No Back Pain, No Neck Pain Skin: No Rash Neurological: No Dizziness, No Focal Weakness, No Sensory Changes Psychological: No Symptoms Endocrine: No Symptoms Hematologic/Lymphatic: No Symptoms Immunological/Allergic: No Symptoms Medications & Allergies Home Medications: Home Medication List Pravastatin Sodium 20 mg PO DAILY 01/30/16 [History Confirmed 04/24/18] Prednisone 10 mg [Deltasone 10 mg] 10 mg PO DAILY 01/30/16 [History Confirmed 04/24/18] Tamsulosin HCl [Flomax] 0.4 mg PO HS 01/30/16 [History Confirmed 04/24/18] Gabapentin [Neurontin] 1,000 mg PO TID 08/15/16 [History Confirmed 04/24/18] Finasteride 5 mg [Proscar 5 MG] 5 mg PO DAILY 10/13/16 [History Confirmed 04/24/18] Sertraline HCl 50 mg [Zoloft 50 mg Tablet] 50 mg PO DAILY 10/13/16 [History Confirmed 04/24/18] Hum Insulin NPH/Reg Insulin Hm [Humulin 70-30 Vial] 24 unit SQ TIDWMEALS [History Confirmed 04/24/18] Ranolazine 500 MG [Ranexa 500 MG] 500 mg PO BID PRN PRN 05/15/17 [History Confirmed 04/24/18] Aspirin 81 mg PO DAILY 11/02/17 [History Confirmed 04/24/18] Ferrous Sulfate [Iron] 325 mg PO DAILY 11/02/17 [History Confirmed 04/24/18] Pantoprazole Sodium [Protonix] 40 mg PO DAILY 11/02/17 [History Confirmed ] Dutasteride 0.5 MG [Avodart 0.5 MG] 0.5 mg PO DAILY 12/20/17 [History Confirmed 04/24/18] Losartan Potassium 50 mg [Cozaar 50 MG] 50 mg PO DAILY 12/20/17 [History Confirmed 04/24/18] Oxybutynin Chloride 10 mg Xl [Ditropan Xl 10 MG] 10 mg PO DAILY 12/20/17 [ History Confirmed 04/24/18] Clopidogrel Bisulfate 75 mg [PLAVIX 75 MG Tablet] 75 mg PO DAILY #30 tablet 12/22/17 [Rx Confirmed 04/24/18] Acetaminophen 325 mg [Tylenol 325 mg] 650 mg PO Q4HPRN PRN 04/24/18 [ History Confirmed 04/24/18] Albuterol/Ipratropium 3ml Neb* [DUONEB 0.5-3 MG/3 ml Neb] 1 neb IH TID [History Confirmed 04/24/18] Diclofenac Sodium Gel [Voltaren GEL] 1 applic TP TID 04/24/18 [History Confirmed 04/24/18] Docusate Sodium 100 mg [Colace 100 MG] 100 mg PO HS 04/24/18 [History Confirmed 04/24/18] Duloxetine HCl 30 mg [Cymbalta 30 MG Capsule] 30 mg PO HS 04/24/18 [ History Confirmed 04/24/18] Furosemide 40 mg [Lasix 40 MG] 40 mg PO DAILY 04/24/18 [History Confirmed 04/24/18] Hydrocodone/APAP 10/325 mg [[place] 10/325 MG Tablet] 1 tab PO Q4H PRN PRN MDD 4 per day 04/24/18 [History Confirmed 04/24/18] Loperamide HCl 2 mg [Imodium 2 mg] 2 mg PO Q4HPRN PRN 04/24/18 [History Confirmed 04/24/18] Magnesium Hydroxide 30 ml [Milk of Magnesia 30 ml] 30 ml PO DAILY PRN PRN 04/24/18 [History Confirmed 04/24/18] Morphine Sulfate [Roxanol] 5 mg PO Q4HPRN PRN 04/24/18 [History Confirmed ] metOLazone [Metolazone] 5 mg PO BID 04/24/18 [History Confirmed 04/24/18] Levofloxacin [Levaquin] 250 mg PO DAILY #5 tablet 04/25/18 [Rx] Allergies/Adverse Reactions: Allergies Allergy/AdvReac Type Severity Reaction Status Date / Time Penicillins Allergy Severe Hives Verified 04/24/18 17:39 silver [Silver] Allergy Intermediate Itching Verified 04/24/18 17:39 zinc [Zinc] Allergy Intermediate Itching Verified 04/24/18 17:39 carvedilol [From Coreg] AdvReac Intermediate Verified 04/24/18 17:39 metoprolol AdvReac Intermediate Verified 04/24/18 17:39 - Past Medical History Past Medical History: Yes Neurological History: Stroke, TIA ENT History: Cataracts Cardiac History: Congestive Heart Failure, Coronary Artery Disease, Myocardial Infarction (MD) Respiratory History: CHF, COPD, Sleep Apnea Endocrine Medical History: Diabetes Type II Musculoskelatal History: Arthritis GI Medical History: GERD, GI Bleed, Ulcer History: No Pertinent History Pyscho-Social History: Depression Male Reproductive Disorders: No Pertinent History Comment: right partial foot amputation. kidney infection, hx stones - Past Surgical History Past Surgical History: Yes Neuro Surgical History: No Pertinent History Cardiac History: Cardiac Catheterization, Cardiac Stent Respiratory Surgery: No Pertinent History GI Surgical History: Appendectomy, Cholecystectomy, Exploratory Laparoscopy Genitourinary Surgical Hx: No Pertinent History Musculskeletal Surgical Hx: Amputation Male Surgical History: Prostate Surgery Other Surgical History: Tonsillectomy and adenoidectomy. right toes/foot partial amputation and revision. PORT PLACEMENT - Social History Smoking Status: Never smoker Exposure to second hand smoke: No Alcohol: None Drug Use: none - Physical Exam Vital Signs: Vital Signs - 24 hr Temp Pulse Resp BP BP Pulse Ox 04/25/18 11:42 81 18 97 04/25/18 11:19 97.3 F 83 20 133/68 97 04/25/18 07:08 97.9 F 93 H 20 138/61 93 L 04/25/18 04:00 97.7 F 86 14 114/53 95 04/25/18 00:00 97.6 F 73 18 124/53 100 04/24/18 20:00 97.5 F 77 18 137/61 97 04/24/18 16:03 98.2 F 80 18 145/63 92 L 04/24/18 15:55 98.2 F 80 18 145/63 145/63 92 L General Appearance: no apparent distress, alert Neurologic Exam: alert, oriented x 3, cooperative, normal mood/affect, nml cerebellar function, nml station & gait, sensation nml, No motor deficits Eye Exam: PERRL/EOMI, eyes nml inspection Ears, Nose, Throat Exam: normal ENT inspection, TMs normal, pharynx normal, moist mucous membranes Neck Exam: normal inspection, non-tender, supple, full range of motion Respiratory Exam: normal breath sounds, lungs clear, No respiratory distress Cardiovascular Exam: regular rate/rhythm, normal heart sounds, normal peripheral pulses Gastrointestinal/Abdomen Exam: soft, normal bowel sounds, No tenderness, No mass Back Exam: normal inspection, normal range of motion, No CVA tenderness, No vertebral tenderness Extremity Exam: normal inspection, normal range of motion, pelvis stable Skin Exam: normal color, warm, dry, No rash Lymphatic Exam: No adenopathy Results - Labs Lab/Micro Results: Accuchecks Accucheck Value: 267 Accucheck Value: 246 Accucheck Value: 213 Accucheck Value: 204 Lab Results-Last 24 Hours 04/24/18 04/24/18 04/24/18 Range/Units 17:05 17:05 17:13 WBC 9.1 (4.0-10.5) K/mm3 RBC 3.76 L (4.1-5.6) M/mm3 Hgb 11.4 L (12.5-18.0) gm/dl Hct 34.8 L (42-50) % MCV 92.6 (78-100) fl MCH 30.3 (26-32) pg MCHC 32.8 (32-36) g/dl RDW 12.9 (11.5-14.0) % Plt Count 286 (150-450) K/mm3 MPV 8.9 (6-9.5) fl Sodium 137 (137-145) mmol/L Potassium 3.5 (3.5-5.1) mmol/L Chloride 96 L (98-107) mmol/L Carbon Dioxide 30 (22-30) mmol/L Anion Gap 14.2 (5-15) MEQ/L BUN 53 H (9-20) mg/dL Creatinine 1.87 H (0.66-1.25) mg/dL Estimated GFR 38.5 ML/MIN Glucose 204 H (74-106) mg/dL Lactic Acid 1.4 (0.4-2.0) Calcium 9.0 (8.4-10.2) mg/dL Total Bilirubin 0.20 (0.2-1.3) mg/dL AST 16 L (17-59) U/L ALT 12 (0-50) U/L Alkaline Phosphatase 94 (38-126) U/L Troponin I < 0.012 (0.000-0.034) ng/mL Serum Total Protein 7.1 (6.3-8.2) g/dL Albumin 3.7 (3.5-5.0) g/dL Ur Collection Type Urine Color (YELLOW) Urine Appearance (CLEAR) Urine pH (5-6) Ur Specific [place] (1.005-1.025) Urine Protein (Negative) Urine Ketones (NEGATIVE) Urine Blood (0-5) [place]/ul Urine Nitrite (NEGATIVE) Urine Bilirubin (NEGATIVE) Urine Urobilinogen (0-1) mg/dL Ur Leukocyte Esterase (NEGATIVE) Urine Microscopic RBC (0-2) /HPF Urine Microscopic WBC (0-5) /HPF Ur Epithelial Cells (FEW) /HPF Amorphous Crystals (NEGATIVE) /HPF Urine Bacteria (NEGATIVE) /HPF Urine Glucose (NEGATIVE) mg/dL Specimen Received 04/24/18 Range/Units 17:45 WBC (4.0-10.5) K/mm3 RBC (4.1-5.6) M/mm3 Hgb (12.5-18.0) gm/dl Hct (42-50) % MCV (78-100) fl MCH (26-32) pg MCHC (32-36) g/dl RDW (11.5-14.0) % Plt Count (150-450) K/mm3 MPV (6-9.5) fl Sodium (137-145) mmol/L Potassium (3.5-5.1) mmol/L Chloride (98-107) mmol/L Carbon Dioxide (22-30) mmol/L Anion Gap (5-15) MEQ/L BUN (9-20) mg/dL Creatinine (0.66-1.25) mg/dL Estimated GFR ML/MIN Glucose (74-106) mg/dL Lactic Acid (0.4-2.0) Calcium (8.4-10.2) mg/dL Total Bilirubin (0.2-1.3) mg/dL AST (17-59) U/L ALT (0-50) U/L Alkaline Phosphatase (38-126) U/L Troponin I (0.000-0.034) ng/mL Serum Total Protein (6.3-8.2) g/dL Albumin (3.5-5.0) g/dL Ur Collection Type VOID Urine Color YELLOW (YELLOW) Urine Appearance CLEAR (CLEAR) Urine pH 5.0 (5-6) Ur Specific [place] 1.010 (1.005-1.025) Urine Protein TRACE (Negative) Urine Ketones NEGATIVE (NEGATIVE) Urine Blood TRACE NON-HEM (0-5) [place]/ul Urine Nitrite NEGATIVE (NEGATIVE) Urine Bilirubin NEGATIVE (NEGATIVE) Urine Urobilinogen NORMAL (0-1) mg/dL Ur Leukocyte Esterase 1+ (NEGATIVE) Urine Microscopic RBC 5-10 (0-2) /HPF Urine Microscopic WBC 2-5 (0-5) /HPF Ur Epithelial Cells RARE (FEW) /HPF Amorphous Crystals FEW (NEGATIVE) /HPF Urine Bacteria RARE (NEGATIVE) /HPF Urine Glucose NEGATIVE (NEGATIVE) mg/dL Specimen Received 04/24/18 1900 Accuchecks Accucheck Value: 267 Accucheck Value: 246 Accucheck Value: 213 Accucheck Value: 204 - Radiology Impressions Radiology Exams & Impressions: Radiology Procedures Category Date Time Status CHEST 1 VIEW (PORTABLE) Routine Exams 04/24/18 17:00 Completed - Other Procedures and Tests Respiratory Therapy 04/25/18 11:40 Respiratory Nebulizer 04/25/18 11:41 Respiratory Therapy Assessment ONCE Assessment/Plan (1) Pyelonephritis due to Escherichia coli Current Visit: Yes Status: Acute Code(s): N12 - TUBULO-INTERSTITIAL NEPHRITIS, NOT SPCF ACUTE OR CHRONIC; B96.20 - UNSP ESCHERICHIA COLI THE CAUSE OF DISEASES CLASSD ELSWHR (2) Acute on chronic renal failure Current Visit: No Status: Acute Onset Date: ~04/24/18 Code(s): N17.9 - ACUTE KIDNEY FAILURE, UNSPECIFIED; N18.9 - CHRONIC KIDNEY DISEASE, UNSPECIFIED Hospital Summary - Hospital Course Hospital Course: Chief Complaint Diagnosis fever,acute pylonephritis,acute chronic renal failure Allergies Allergy/AdvReac Type Severity Reaction Status Date / Time Penicillins Allergy Severe Hives Verified 04/24/18 17:39 silver [Silver] Allergy Intermediate Itching Verified 04/24/18 17:39 zinc [Zinc] Allergy Intermediate Itching Verified 04/24/18 17:39 carvedilol [From Coreg] AdvReac Intermediate Verified 04/24/18 17:39 metoprolol AdvReac Intermediate Verified 04/24/18 17:39 Vital Signs (Last 24 hours) Temp Pulse Resp BP BP Pulse Ox 04/25/18 11:42 81 18 97 04/25/18 11:19 97.3 F 83 20 133/68 97 04/25/18 07:08 97.9 F 93 H 20 138/61 93 L 04/25/18 04:00 97.7 F 86 14 114/53 95 04/25/18 00:00 97.6 F 73 18 124/53 100 04/24/18 20:00 97.5 F 77 18 137/61 97 04/24/18 16:03 98.2 F 80 18 145/63 92 L 04/24/18 15:55 98.2 F 80 18 145/63 145/63 92 L Home Medications Medication Instructions Recorded Confirmed Last Taken Type Acetaminophen 325 mg [Tylenol 650 mg PO Q4HPRN PRN 04/24/18 04/24/18 Unknown History 325 mg] Albuterol/Ipratropium 3ml Neb* 1 neb IH TID 04/24/18 04/24/18 04/24/18 History [DUONEB 0.5-3 MG/3 ml Neb] Diclofenac Sodium Gel [Voltaren 1 applic TP TID 04/24/18 04/24/18 04/24/18 History GEL] Docusate Sodium 100 mg [Colace 100 mg PO HS 04/24/18 04/24/18 04/23/18 History 100 MG] Duloxetine HCl 30 mg [Cymbalta 30 mg PO HS 04/24/18 04/24/18 04/23/18 History 30 MG Capsule] Furosemide 40 mg [Lasix 40 40 mg PO DAILY 04/24/18 04/24/18 04/24/18 History MG] Hydrocodone/APAP 10/325 mg 1 tab PO Q4H PRN PRN MDD 4 per day 04/24/18 Unknown History [[place] 10/325 MG Tablet] Loperamide HCl 2 mg [Imodium 2 2 mg PO Q4HPRN PRN 04/24/18 04/24/18 Unknown History mg] Magnesium Hydroxide 30 ml [Milk 30 ml PO DAILY PRN PRN 04/24/18 04/24/18 Unknown History of Magnesia 30 ml] Morphine Sulfate [Roxanol] 5 mg PO Q4HPRN PRN 04/24/18 04/24/18 Unknown History metOLazone [Metolazone] 5 mg PO BID 04/24/18 04/24/18 04/24/18 History Current Medications Generic Name Dose Route Start Last Admin Trade Name Freq PRN Reason Stop Dose Admin Acetaminophen 650 mg 04/25/18 07:03 Tylenol 325 Mg PO 05/25/18 07:02 Q4HPRN PRN PAIN Hydrocodone Bitart/Acetaminophen 1 tab 04/24/18 19:00 04/25/18 07:45 [place] 10/325 Mg Tablet PO 04/29/18 18:59 1 tab Q4H PRN PRN Administration PAIN Albuterol/Ipratropium 3 ml 04/25/18 11:40 Duoneb 0.5-3 Mg/3 Ml Neb IH 05/25/18 11:39 Q4HPRN PRN SHORTNESS OF BREATH Aspirin 81 mg 04/25/18 10:00 04/25/18 09:13 Ecotrin 81 Mg PO 05/25/18 09:59 81 mg DAILY JOSUE Administration Clopidogrel Bisulfate 75 mg 04/25/18 10:00 04/25/18 09:13 Plavix 75 Mg Tablet PO 05/25/18 09:59 75 mg DAILY JOSUE Administration Diclofenac Sodium 0 gm 04/25/18 10:00 04/25/18 09:14 Voltaren Gel TP 05/25/18 09:59 100 gm TID JOSUE Administration Docusate Sodium 100 mg 04/24/18 22:00 04/24/18 21:42 Colace 100 Mg PO 05/24/18 21:59 100 mg HS JOSUE Administration Duloxetine HCl 30 mg 04/24/18 22:00 04/24/18 21:42 Cymbalta 30 Mg Capsule PO 05/24/18 21:59 Not Given HS JOSUE Ferrous Sulfate 325 mg 04/25/18 10:00 04/25/18 09:12 Feosol 325 Mg PO 05/25/18 09:59 325 mg DAILY JOSUE Administration Finasteride 5 mg 04/25/18 10:00 04/25/18 09:14 Proscar 5 Mg PO 05/25/18 09:59 5 mg DAILY JOSUE Administration Furosemide 40 mg 04/25/18 10:00 04/25/18 09:13 Lasix 40 Mg PO 05/25/18 09:59 40 mg DAILY JOSUE Administration Gabapentin 400 mg 04/25/18 10:00 04/25/18 09:13 Neurontin 400 Mg PO 05/25/18 09:59 400 mg TID JOSUE Administration Gabapentin 600 mg 04/25/18 10:00 04/25/18 09:13 Neurontin 300 Mg PO 05/25/18 09:59 600 mg TID JOSUE Administration Sodium Chloride 1,000 mls @ 70 mls/hr 04/24/18 17:00 04/24/18 17:49 Sodium Chloride 0.9% 1000 Ml IV 05/24/18 16:59 70 mls/hr .[id number] JOSUE Administration Levofloxacin/Dextrose 250 mg in 50 mls @ 50 mls/hr 04/25/18 22:00 Levaquin 250mg/50ml D5w IV 05/25/18 21:59 Q24H22 JOSUE Insulin Aspart 0 unit 04/24/18 17:00 04/24/18 21:46 Novolog Insulin SQ 05/24/18 16:59 2 unit UD PRN Administration HYPERGLYCEMIA Insulin Human Isoph/Insulin Regular 24 unit 04/25/18 08:00 04/25/18 11:56 Novolin 70/30 SQ 05/25/18 07:59 24 unit TIDWMEALS JOSUE Administration Loperamide HCl 2 mg 04/25/18 07:03 Imodium 2 Mg PO 05/25/18 07:02 Q4HPRN PRN DIARRHEA Losartan Potassium 50 mg 04/25/18 10:00 04/25/18 09:13 Cozaar 50 Mg PO 05/25/18 09:59 50 mg DAILY JOSUE Administration Magnesium Hydroxide 30 ml 04/25/18 07:03 Milk Of Magnesia 30 Ml PO 05/25/18 07:02 DAILY PRN PRN CONSTIPATION Metolazone 5 mg 04/24/18 22:00 04/25/18 09:13 Zaroxolyn 2.5 Mg PO 05/24/18 21:59 5 mg BID JOSUE Administration Miscellaneous Information 0 each 04/25/18 08:45 Medication Intervention 05/25/18 08:44 .RN TO CHECK WITH PA [facility] Miscellaneous Information 0 each 04/25/18 08:45 Medication Intervention 05/25/18 08:44 .RN TO CHECK WITH PT [facility] Oxybutynin Chloride 10 mg 04/25/18 10:00 04/25/18 09:12 Ditropan Xl 5 Mg PO 05/25/18 09:59 10 mg DAILY JOSUE Administration Pantoprazole Sodium 40 mg 04/25/18 10:00 04/25/18 09:13 Protonix 40mg Tablet PO 05/25/18 09:59 40 mg DAILY JOSUE Administration Prednisone 10 mg 04/25/18 10:00 04/25/18 09:13 Deltasone 10 Mg PO 05/25/18 09:59 10 mg DAILY JOSUE Administration Ranolazine 500 mg 04/24/18 20:00 Ranexa 500 Mg PO 05/24/18 19:59 BID PRN PRN Sertraline HCl 50 mg 04/25/18 10:00 04/25/18 09:13 Zoloft 50 Mg Tablet PO 05/25/18 09:59 50 mg DAILY JOSUE Administration Simvastatin 20 mg 04/24/18 22:00 04/24/18 21:44 Zocor 20mg PO 05/24/18 21:59 20 mg HS JOSUE Administration Tamsulosin HCl 0.4 mg 04/24/18 22:00 04/24/18 21:43 Flomax 0.4 Mg PO 05/24/18 21:59 0.4 mg HS JOSUE Administration Discontinued Medications Generic Name Dose Route Start Last Admin Trade Name Lisa PRN Reason Stop Dose Admin Albuterol/Ipratropium 3 ml 04/25/18 10:00 Duoneb 0.5-3 Mg/3 Ml Neb IH 05/25/18 09:59 TIDRT JOSUE Gabapentin 900 mg 04/24/18 22:00 04/24/18 21:43 Neurontin 300 Mg PO 05/24/18 21:59 900 mg TID JOSUE Administration Gabapentin 100 mg 04/24/18 22:00 04/24/18 21:43 Neurontin 100 Mg PO 05/24/18 21:59 100 mg TID JOSUE Administration Levofloxacin/Dextrose 250 mg in 50 mls @ 50 mls/hr 04/24/18 22:00 04/24/18 21 :43 Levaquin 250mg/50ml D5w IV 05/24/18 21:59 50 mls/hr Q24H10 JOSUE Administration Intake & Output (Last 24 hours) 04/23/18 04/24/18 04/25/18 04/26/18 11:59 11:59 11:59 11:59 Intake Total 2146 Output Total 2650 Balance -504 Weight 179.1 kg Microbiology Results (Last 24 hours) 04/24/18 16:43 Blood Blood Culture Gram Stain - Pending 04/24/18 16:43 Blood Blood Culture - Pending 04/24/18 19:00 Urine, Indwelling Catheter Urine Culture - Pending 04/24/18 18:07 Blood Blood Culture Gram Stain - Pending 04/24/18 18:07 Blood Blood Culture - Pending Laboratory Results (Last 24 hours) 04/24/18 04/24/18 04/24/18 17:45 17:13 17:05 WBC RBC Hgb Hct MCV MCH MCHC RDW Plt Count MPV Sodium 137 Potassium 3.5 Chloride 96 L Carbon Dioxide 30 Anion Gap 14.2 BUN 53 H Creatinine 1.87 H Estimated GFR 38.5 Glucose 204 H Lactic Acid 1.4 Calcium 9.0 Total Bilirubin 0.20 AST 16 L ALT 12 Alkaline Phosphatase 94 Troponin I < 0.012 Serum Total Protein 7.1 Albumin 3.7 Ur Collection Type VOID Urine Color YELLOW Urine Appearance CLEAR Urine pH 5.0 Ur Specific [place] 1.010 Urine Protein TRACE Urine Ketones NEGATIVE Urine Blood TRACE NON-HEM Urine Nitrite NEGATIVE Urine Bilirubin NEGATIVE Urine Urobilinogen NORMAL Ur Leukocyte Esterase 1+ Urine Microscopic RBC 5-10 Urine Microscopic WBC 2-5 Ur Epithelial Cells RARE Amorphous Crystals FEW Urine Bacteria RARE Urine Glucose NEGATIVE Specimen Received 04/24/18 1900 04/24/18 17:05 WBC 9.1 RBC 3.76 L Hgb 11.4 L Hct 34.8 L MCV 92.6 MCH 30.3 MCHC 32.8 RDW 12.9 Plt Count 286 MPV 8.9 Sodium Potassium Chloride Carbon Dioxide Anion Gap BUN Creatinine Estimated GFR Glucose Lactic Acid Calcium Total Bilirubin AST ALT Alkaline Phosphatase Troponin I Serum Total Protein Albumin Ur Collection Type Urine Color Urine Appearance Urine pH Ur Specific [place] Urine Protein Urine Ketones Urine Blood Urine Nitrite Urine Bilirubin Urine Urobilinogen Ur Leukocyte Esterase Urine Microscopic RBC Urine Microscopic WBC Ur Epithelial Cells Amorphous Crystals Urine Bacteria Urine Glucose Specimen Received Orders (Last 24 hours) Category Date Time Status ACCUCHECK [Accucheck] ACHS Care 04/24/18 16:27 Active Miscellaneous Nursing Order ROUTINE Care 04/24/18 16:[address] in Observation ROUTINE Care 04/24/18 15:26 Active Cardio-Pulmonary Rehab .as ordered Cons 04/24/18 16:29 Active Infection Control Consult Cons 04/24/18 16:29 Active Ribber/Discharge Plan Cons 04/24/18 16:29 Active 2000 Calorie ADA Diet 04/24/18 Dinner Active Nutritional Admission Screen Diet 04/24/18 16:29 Active CHEST 1 VIEW (PORTABLE) Routine Exams 04/24/18 17:00 Completed BLOOD CULTURE Routine Lab 04/24/18 16:43 Received CBC Urgent Lab 04/24/18 17:05 Completed CMP Urgent Lab 04/24/18 17:05 Completed CULTURE,URINE Urgent Lab 04/24/18 19:00 Received Lactic Acid Urgent Lab 04/24/18 17:13 Completed TROPONIN Urgent Lab 04/24/18 17:05 Completed UA W/ MICROSCOPIC Urgent Lab 04/24/18 17:45 Completed Acetaminophen 325 mg [Tylenol 325 mg] Med 04/25/18 07:03 Active 650 mg PO Q4HPRN PRN Albuterol/Ipratropium 3ml Neb* [DUONEB 0.5-3 MG/3 ml Med 04/25/18 11:40 Active Neb] 3 ml IH Q4HPRN PRN Albuterol/Ipratropium 3ml Neb* [DUONEB 0.5-3 MG/3 ml Med 04/25/18 10:00 Discontinued Neb] 3 ml IH TIDRT Aspirin EC 81 mg [Ecotrin 81 mg] Med 04/25/18 10:00 Active 81 mg PO DAILY Clopidogrel Bisulfate 75 mg [PLAVIX 75 MG Tablet] Med 04/25/18 10:00 Active 75 mg PO DAILY Diclofenac Sodium Gel [Voltaren GEL] Med 04/25/18 10:00 Active 0 gm TP TID Docusate Sodium 100 mg [Colace 100 MG] Med 04/24/18 22:00 Active 100 mg PO HS Duloxetine HCl 30 mg [Cymbalta 30 MG Capsule] Med 04/24/18 22:00 Active 30 mg PO HS Ferrous Sulfate 325 mg [Feosol 325 mg] Med 04/25/18 10:00 Active 325 mg PO DAILY Finasteride 5 mg [Proscar 5 MG] Med 04/25/18 10:00 Active 5 mg PO DAILY Furosemide 40 mg [Lasix 40 MG] Med 04/25/18 10:00 Active 40 mg PO DAILY Gabapentin 100 mg [Neurontin 100 MG] Med 04/24/18 22:00 Discontinued 100 mg PO TID Gabapentin 300 mg [Neurontin 300 mg] Med 04/25/18 10:00 Active 600 mg PO TID Gabapentin 300 mg [Neurontin 300 mg] Med 04/24/18 22:00 Discontinued 900 mg PO TID Gabapentin 400 mg [Neurontin 400 MG] Med 04/25/18 10:00 Active 400 mg PO TID Hydrocodone/APAP 10/325 mg [[place] 10/325 MG Tablet Med 04/24/18 19:00 Active *] 1 tab PO Q4H PRN PRN Insulin Aspart [NovoLOG Insulin] Med 04/24/18 17:00 Active See Dose Instructions SQ UD PRN Insulin NPH/Reg 70/30 [Novolin 70/30] Med 04/25/18 08:00 Active 24 unit SQ TIDWMEALS Levofloxacin [Levaquin 250MG/50ML D5W] Med 04/24/18 22:00 Discontinued 250 mg in 50 ml IV Q24H10 Levofloxacin [Levaquin 250MG/50ML D5W] Med 04/25/18 22:00 Active 250 mg in 50 ml IV Q24H22 Loperamide HCl 2 mg [Imodium 2 mg] Med 04/25/18 07:03 Active 2 mg PO Q4HPRN PRN Losartan Potassium 50 mg [Cozaar 50 MG] Med 04/25/18 10:00 Active 50 mg PO DAILY Magnesium Hydroxide 30 ml [Milk of Magnesia 30 ml Med 04/25/18 07:03 Active ] 30 ml PO DAILY PRN PRN Medication Intervention Med 04/25/18 08:45 Active 0 each MC .RN TO CHECK WITH PA Medication Intervention Med 04/25/18 08:45 Active 0 each MC .RN TO CHECK WITH PT Metolazone 2.5 mg [Zaroxolyn 2.5 MG] Med 04/24/18 22:00 Active 5 mg PO BID NaCl 0.9% 1000 ml [Sodium Chloride 0.9% 1000 ML] 1,000 Med 04/24/18 17:00 Active ml IV 70 mls/hr Oxybutynin Chloride Xl 5 mg [Ditropan XL 5 MG] Med 04/25/18 10:00 Active 10 mg PO DAILY PANTOPRAZOLE 40 mg Tablet [Protonix 40MG Tablet] Med 04/25/18 10:00 Active 40 mg PO DAILY Prednisone 10 mg [Deltasone 10 mg] Med 04/25/18 10:00 Active 10 mg PO DAILY Ranolazine 500 MG [Ranexa 500 MG] Med 04/24/18 20:00 Active 500 mg PO BID PRN PRN Sertraline HCl 50 mg [Zoloft 50 mg Tablet] Med 04/25/18 10:00 Active 50 mg PO DAILY Simvastatin 20Mg [Zocor 20Mg] Med 04/24/18 22:00 Active 20 mg PO HS Tamsulosin HCl 0.4 mg [Flomax 0.4 MG] Med 04/24/18 22:00 Active 0.4 mg PO HS EKG ROUTINE RT 04/24/18 16:40 Completed Respiratory Nebulizer RT 04/25/18 11:40 Active Respiratory Therapy Assessment ONCE RT 04/25/18 11:41 Active - Vitals & Intake/Output Vital Signs: Vital Signs Temperature 97.3 F 04/25/18 11:19 Pulse Rate 81 04/25/18 11:42 Respiratory Rate 18 04/25/18 11:42 Blood Pressure 133/68 04/25/18 11:19 O2 Sat by Pulse Oximetry 97 04/25/18 11:42 Intake & Output: Intake & Output 04/23/18 04/24/18 04/25/18 04/26/18 11:59 11:59 11:59 11:59 Intake Total 2146 Output Total 2650 Balance -504 Weight 179.1 kg - Lab Result Diagrams: 04/24/18 17:05 04/24/18 17:05 Lab Results-Last 24 Hrs: Accuchecks Accucheck Value: 267 Accucheck Value: 246 Accucheck Value: 213 Accucheck Value: 204 Lab Results-Last 24 Hours 04/24/18 04/24/18 04/24/18 Range/Units 17:05 17:05 17:13 WBC 9.1 (4.0-10.5) K/mm3 RBC 3.76 L (4.1-5.6) M/mm3 Hgb 11.4 L (12.5-18.0) gm/dl Hct 34.8 L (42-50) % MCV 92.6 (78-100) fl MCH 30.3 (26-32) pg MCHC 32.8 (32-36) g/dl RDW 12.9 (11.5-14.0) % Plt Count 286 (150-450) K/mm3 MPV 8.9 (6-9.5) fl Sodium 137 (137-145) mmol/L Potassium 3.5 (3.5-5.1) mmol/L Chloride 96 L (98-107) mmol/L Carbon Dioxide 30 (22-30) mmol/L Anion Gap 14.2 (5-15) MEQ/L BUN 53 H (9-20) mg/dL Creatinine 1.87 H (0.66-1.25) mg/dL Estimated GFR 38.5 ML/MIN Glucose 204 H (74-106) mg/dL Lactic Acid 1.4 (0.4-2.0) Calcium 9.0 (8.4-10.2) mg/dL Total Bilirubin 0.20 (0.2-1.3) mg/dL AST 16 L (17-59) U/L ALT 12 (0-50) U/L Alkaline Phosphatase 94 (38-126) U/L Troponin I < 0.012 (0.000-0.034) ng/mL Serum Total Protein 7.1 (6.3-8.2) g/dL Albumin 3.7 (3.5-5.0) g/dL Ur Collection Type Urine Color (YELLOW) Urine Appearance (CLEAR) Urine pH (5-6) Ur Specific [place] (1.005-1.025) Urine Protein (Negative) Urine Ketones (NEGATIVE) Urine Blood (0-5) [place]/ul Urine Nitrite (NEGATIVE) Urine Bilirubin (NEGATIVE) Urine Urobilinogen (0-1) mg/dL Ur Leukocyte Esterase (NEGATIVE) Urine Microscopic RBC (0-2) /HPF Urine Microscopic WBC (0-5) /HPF Ur Epithelial Cells (FEW) /HPF Amorphous Crystals (NEGATIVE) /HPF Urine Bacteria (NEGATIVE) /HPF Urine Glucose (NEGATIVE) mg/dL Specimen Received 04/24/18 Range/Units 17:45 WBC (4.0-10.5) K/mm3 RBC (4.1-5.6) M/mm3 Hgb (12.5-18.0) gm/dl Hct (42-50) % MCV (78-100) fl MCH (26-32) pg MCHC (32-36) g/dl RDW (11.5-14.0) % Plt Count (150-450) K/mm3 MPV (6-9.5) fl Sodium (137-145) mmol/L Potassium (3.5-5.1) mmol/L Chloride (98-107) mmol/L Carbon Dioxide (22-30) mmol/L Anion Gap (5-15) MEQ/L BUN (9-20) mg/dL Creatinine (0.66-1.25) mg/dL Estimated GFR ML/MIN Glucose (74-106) mg/dL Lactic Acid (0.4-2.0) Calcium (8.4-10.2) mg/dL Total Bilirubin (0.2-1.3) mg/dL AST (17-59) U/L ALT (0-50) U/L Alkaline Phosphatase (38-126) U/L Troponin I (0.000-0.034) ng/mL Serum Total Protein (6.3-8.2) g/dL Albumin (3.5-5.0) g/dL Ur Collection Type VOID Urine Color YELLOW (YELLOW) Urine Appearance CLEAR (CLEAR) Urine pH 5.0 (5-6) Ur Specific [place] 1.010 (1.005-1.025) Urine Protein TRACE (Negative) Urine Ketones NEGATIVE (NEGATIVE) Urine Blood TRACE NON-HEM (0-5) [place]/ul Urine Nitrite NEGATIVE (NEGATIVE) Urine Bilirubin NEGATIVE (NEGATIVE) Urine Urobilinogen NORMAL (0-1) mg/dL Ur Leukocyte Esterase 1+ (NEGATIVE) Urine Microscopic RBC 5-10 (0-2) /HPF Urine Microscopic WBC 2-5 (0-5) /HPF Ur Epithelial Cells RARE (FEW) /HPF Amorphous Crystals FEW (NEGATIVE) /HPF Urine Bacteria RARE (NEGATIVE) /HPF Urine Glucose NEGATIVE (NEGATIVE) mg/dL Specimen Received 04/24/18 1900 Micro Results-Entire Visit: Accuchecks Accucheck Value: 267 Accucheck Value: 246 Accucheck Value: 213 Accucheck Value: 204 - Radiology Exams Ordered Rad Exams-Entire Visit: Radiology Procedures Category Date Time Status CHEST 1 VIEW (PORTABLE) Routine Exams 04/24/18 17:00 Completed - Procedures and Test Procedures and Tests throughout Hospitalization: Therapy Orders & Screens 04/24/18 16:40 EKG ROUTINE Comment: Diagnosis: fever,acrf,acute pylonephritis 04/25/18 11:40 Respiratory Nebulizer Comment: DUONEB Q4PRN Diagnosis: fever,acute pylonephritis,acute chronic renal failure 04/25/18 11:41 Respiratory Therapy Assessment ONCE Comment: Diagnosis: fever,acute pylonephritis,acute chronic renal failure - Discharge Discharge Date: 04/25/18 Disposition: Home, Self-Care Condition: Stable Prescriptions: New Levofloxacin [Levaquin] 250 mg PO DAILY #5 tablet Continue Pravastatin Sodium 20 mg PO DAILY Tamsulosin HCl [Flomax] 0.4 mg PO HS Prednisone 10 mg [Deltasone 10 mg] 10 mg PO DAILY Gabapentin [Neurontin] 1,000 mg PO TID Sertraline HCl 50 mg [Zoloft 50 mg Tablet] 50 mg PO DAILY Finasteride 5 mg [Proscar 5 MG] 5 mg PO DAILY Hum Insulin NPH/Reg Insulin Hm [Humulin 70-30 Vial] 24 unit SQ TIDWMEALS Ranolazine 500 MG [Ranexa 500 MG] 500 mg PO BID PRN PRN PRN Reason: Chest Pain Pantoprazole Sodium [Protonix] 40 mg PO DAILY Ferrous Sulfate [Iron] 325 mg PO DAILY Aspirin 81 mg PO DAILY Oxybutynin Chloride 10 mg Xl [Ditropan Xl 10 MG] 10 mg PO DAILY Losartan Potassium 50 mg [Cozaar 50 MG] 50 mg PO DAILY Dutasteride 0.5 MG [Avodart 0.5 MG] 0.5 mg PO DAILY Clopidogrel Bisulfate 75 mg [PLAVIX 75 MG Tablet] 75 mg PO DAILY #30 tablet Diclofenac Sodium Gel [Voltaren GEL] 1 applic TP TID Acetaminophen 325 mg [Tylenol 325 mg] 650 mg PO Q4HPRN PRN PRN Reason: Pain Morphine Sulfate [Roxanol] 5 mg PO Q4HPRN PRN PRN Reason: Pain Magnesium Hydroxide 30 ml [Milk of Magnesia 30 ml] 30 ml PO DAILY PRN PRN PRN Reason: Constipation Loperamide HCl 2 mg [Imodium 2 mg] 2 mg PO Q4HPRN PRN PRN Reason: Diarrhea metOLazone [Metolazone] 5 mg PO BID Furosemide 40 mg [Lasix 40 MG] 40 mg PO DAILY Duloxetine HCl 30 mg [Cymbalta 30 MG Capsule] 30 mg PO HS Docusate Sodium 100 mg [Colace 100 MG] 100 mg PO HS Hydrocodone/APAP 10/325 mg [[place] 10/325 MG Tablet] 1 tab PO Q4H PRN PRN MDD 4 per day PRN Reason: Pain Albuterol/Ipratropium 3ml Neb* [DUONEB 0.5-3 MG/3 ml Neb] 1 neb IH TID Additional Instructions: [facility] SENIOR LIVING ORDERS: SEE ATTACHED MED LIST FOR CURRENT MED ORDERS 1999 [address] ADA DIET RESUME ALL OTHER SENIOR LIVING ORDERS Follow up with: NELLY HOWELL MD [Primary Care Provider] - 1 Week
[2018-04-25] MEDS ORDERED: Levaquin 250MG/50ML D5W 250 MG/50 ML BAG IV SCH (12:30)
== END 2018-04-25 14:10 ==
LOC: MED SURG 15:26
PROVIDERS: ADMIT General Practice; ATTEND General Practice
DX: N12 Tubulo-interstitial nephritis, not specified as acute or chronic (principal); B96.20 Unspecified Escherichia coli [E. coli] as the cause of diseases classified elsewhere; N17.9 Acute kidney failure, unspecified; N18.9 Chronic kidney disease, unspecified; Z79.899 Other long term (current) drug therapy
CPT/HCPCS: 36415; 71045; 80053; 81000; 83605; 84484; 85027; 87040; 87077; 87086; 87186; 93005; 94760; G0378; J1642; J1815; J1956; A9270-GY

== ENCOUNTER 2018-10-29 08:26 | Inpatient (IN) | payer MEDICARE ==
[2018-10-29] MEDS ORDERED: PHARMACY DOSING REQUIRED: GENTAMICIN IV ONE (08:30)
[2018-10-29] MEDS ORDERED: Vancomycin 1GM/ Ns 250ML*** 250 ML IV ONE ×2 (08:30→10:21)
[2018-10-29] MEDS ORDERED: FEVERALL 650 MG PR ONE (08:30)
[2018-10-29] MEDS ORDERED: FLAGYL 500 MG IVPB 500 MG/100 ML BAG IV STA (08:30)
[2018-10-29 08:45] LABS: Lactic Acid 2.3 (0.4-2.0)
--- NOTE | 2018-10-29 08:46 | ERPHSYRPT ---
- History of Present Illness Time Seen by Provider: 10/29/18 08:30 Source: patient, EMS, old records Exam Limitations: clinical condition (unconcious and unresponsive excpet to pain ) Physician History: per respiratory care program director patient was normal status last pm taking meds and eating; found in bed unconcious and unresponsive this am; hx of DM and COPD as well as heart issues and incontinent of stool this am with elizondo; FSBS 208; sats 92 on room air palced on O2, tachycardic, tachypnic and hot to the touch; narcan given with no response in field Timing/Duration: today (found this am and EMS called) Fever Severity: severe Fever Therapy COORDINATOR OF PLACEMENT: none, other (ordered in ER) International travel in last 2 weeks: No Allergies/Adverse Reactions: Penicillins Allergy (Severe, Verified 04/24/18 17:39) Hives silver [Silver] Allergy (Intermediate, Verified 04/24/18 17:39) Itching zinc [Zinc] Allergy (Intermediate, Verified 04/24/18 17:39) Itching carvedilol [From Coreg] Adverse Reaction (Intermediate, Verified 04/24/18 17:39) "makes me dizzy" metoprolol Adverse Reaction (Intermediate, Verified 04/24/18 17:39) "makes me dizzy" Home Medications: Pravastatin Sodium 20 mg PO DAILY 01/30/16 [History] Prednisone 10 mg [Deltasone 10 mg] 10 mg PO DAILY 01/30/16 [History] Tamsulosin HCl [Flomax] 0.4 mg PO HS 01/30/16 [History] Gabapentin [Neurontin] 1,000 mg PO TID 08/15/16 [History] Finasteride 5 mg [Proscar 5 MG] 5 mg PO DAILY 10/13/16 [History] Sertraline HCl 50 mg [Zoloft 50 mg Tablet] 50 mg PO DAILY 10/13/16 [History] Hum Insulin NPH/Reg Insulin Hm [Humulin 70-30 Vial] 24 unit SQ TIDWMEALS [History] Ranolazine 500 MG [Ranexa 500 MG] 500 mg PO BID PRN PRN 05/15/17 [History] Aspirin 81 mg PO DAILY 11/02/17 [History] Ferrous Sulfate [Iron] 325 mg PO DAILY 11/02/17 [History] Pantoprazole Sodium [Protonix] 40 mg PO DAILY 11/02/17 [History] Dutasteride 0.5 MG [Avodart 0.5 MG] 0.5 mg PO DAILY 12/20/17 [History] Losartan Potassium 50 mg [Cozaar 50 MG] 50 mg PO DAILY 12/20/17 [History] Oxybutynin Chloride 10 mg Xl [Ditropan Xl 10 MG] 10 mg PO DAILY 12/20/17 [ History] Acetaminophen 325 mg [Tylenol 325 mg] 650 mg PO Q4HPRN PRN 04/24/18 [ History] Albuterol/Ipratropium 3ml Neb* [DUONEB 0.5-3 MG/3 ml Neb] 1 neb IH TID [History] Diclofenac Sodium Gel [Voltaren GEL] 1 applic TP TID 04/24/18 [History] Docusate Sodium 100 mg [Colace 100 MG] 100 mg PO HS 04/24/18 [History] Duloxetine HCl 30 mg [Cymbalta 30 MG Capsule] 30 mg PO HS 04/24/18 [ History] Furosemide 40 mg [Lasix 40 MG] 40 mg PO DAILY 04/24/18 [History] Hydrocodone/APAP 10/325 mg [[place] 10/325 MG Tablet] 1 tab PO Q4H PRN PRN MDD 4 per day 04/24/18 [History] Loperamide HCl 2 mg [Imodium 2 mg] 2 mg PO Q4HPRN PRN 04/24/18 [History] Magnesium Hydroxide 30 ml [Milk of Magnesia 30 ml] 30 ml PO DAILY PRN PRN 04/24/18 [History] Morphine Sulfate [Roxanol] 5 mg PO Q4HPRN PRN 04/24/18 [History] metOLazone [Metolazone] 5 mg PO BID 04/24/18 [History] Hx Tetanus, Diphtheria Vaccination/Date Given: No Hx Influenza Vaccination/Date Given: Yes Hx Pneumococcal Vaccination/Date Given: Yes - Review of Systems Constitutional: Fever, Other (morbid obese, hot to touch; unconcious and unresponsive) Eyes: No Symptoms Ears, Nose, & Throat: No Symptoms Respiratory: Other (tachypnea), No Cough, No Wheezing Cardiac: Edema, No Chest Pain, No PND Abdominal/Gastrointestinal: Other (incontinent of large amount soft brown stool) , No Abdominal Pain, No Vomiting, No Constipation, No Hematemesis, No Hematochezia Genitourinary Symptoms: Other (indwelling cath- cloudy urine) Musculoskeletal: No Symptoms Skin: Other (small oldbruise left arm), No Cellulitis, No Rash Neurological: Other (unconcious, unresponseive except pain) Psychological: No Symptoms Endocrine: No Symptoms Hematologic/Lymphatic: No Symptoms Immunological/Allergic: No Symptoms All Other Systems: Unable due to condition - Past Medical History Pertinent Past Medical History: Yes Neurological History: Stroke, TIA ENT History: Cataracts Cardiac History: Congestive Heart Failure, Coronary Artery Disease, Myocardial Infarction ([place]) Respiratory History: CHF, COPD, Sleep Apnea Endocrine Medical History: Diabetes Type II Musculoskeletal History: Arthritis GI Medical History: GERD, GI Bleed, Ulcer History: No Pertinent History Psycho-Social History: Depression Male Reproductive Disorders: No Pertinent History Other Medical History: right partial foot amputation. kidney infection, hx stones - Past Surgical History Past Surgical History: Yes Neuro Surgical History: No Pertinent History Cardiac: Cardiac Catheterization, Cardiac Stent Respiratory: No Pertinent History Gastrointestinal: Appendectomy, Cholecystectomy, Exploratory Laparoscopy Genitourinary: No Pertinent History Musculoskeletal: Amputation Male Surgical History: Prostate Surgery Other Surgical History: Tonsillectomy and adenoidectomy. right toes/foot partial amputation and revision. PORT PLACEMENT - Social History Smoking Status: Never smoker Exposure to second hand smoke: No Alcohol Use: None Drug Use: none Patient Lives Alone: No Significant Family History: heart disease, diabetes, hypertension - Female History Hx Now: No - Nursing Vital Signs Nursing Vital Signs: Initial Vital Signs Temperature 101.6 F 10/29/18 08:27 Pulse Rate 118 H 10/29/18 08:27 Respiratory Rate 24 10/29/18 08:27 Blood Pressure 105/86 10/29/18 08:27 O2 Sat by Pulse Oximetry 97 10/29/18 08:27 Pain Scale Pain Intensity 0 - Physical Exam General Appearance: obese (morbid), other (unconcious and unresponsive excpe tpain) Eye Exam: PERRL/EOMI, eyes nml inspection, other (fundi benign) ENT Exam: normal ENT inspection, no apparent trauma, TMs normal, pharynx normal Neck Exam: non-tender, supple, trachea midline, JVD (mild flat) Respiratory Exam: normal breath sounds, chest non-tender, decreased breath sounds, No no respiratory distress (mild tachypnea), No rhonchi, No wheezing, No pleural rub Cardiovascular/Chest Exam: normal heart sounds, regular rate/rhythm, edema, JVD , tachycardia (112), No murmur Gastrointestinal/Abdominal Exam: soft, non tender, no mass, no guarding, no ecchymosis, no pulsatile mass, normal bowel sounds, No no distention (softly) Male Genitalia: normal genitalia (with catheter in place), No hernia, No priapism Rectal Exam: normal rectal tone, other (incontinent large amount soft brown stool) Neurologic Exam: other (initially unconsious and unresposnive except for pain; over time became more resposnie; gag and cornea reflex present from start,) Skin Exam: normal color, warm (increased warmth to the touch), dry, decubitus ( after cleaning up small 2-3 cm dry ulcer post proximal left thigh and open red with clear d/c 3 x 10 cm linear abrasion/ulcer mid anterior lower left leg), ecchymosis (small silver dollar size left upper arm), No rash, No petechiae, No cyanosis, No jaundice Lymphatic: No adenopathy SpO2 Interpretation: normal, O2 applied SpO2: 99 (after moved; O2 decreased as patinet aroused to maintain <92) Oxygen Delivery: Non-rebreather - Course Nursing assessment & vital signs reviewed: Yes EKG Interpreted by Me: RATE (109), A-fib (w RVR), NORMAL AXIS, NORMAL INTERVALS , Non-specific ST Changes (low voltage) Rhythm Strip: Rate (112), Atrial Fibrillation, Atrial Tachycardia - Radiology Exams Chest X-ray Interpretation: Interpreted by me, Negative (for acute process), Other ( unchanged form 04/24/18) Ordered Tests: Active Orders 24 hr Category Date Time Status Accucheck STAT Care 10/29/18 08:30 Active Admit as Inpatient ROUTINE Care 10/29/18 10:49 Ordered Medical Sales Associate STAT Care 10/29/18 08:31 Active Catheter-Loomis Elizondo STAT Care 10/29/18 08:30 Active Code Status Order ROUTINE Care 10/29/18 10:49 Ordered EKG-ER Only STAT Care 10/29/18 08:30 Active IV Care Q6H Care 10/29/18 10:49 Ordered IV Insertion STAT Care 10/29/18 08:30 Active IV Insertion-2nd Peripheral STAT Care 10/29/18 08:30 Active Oxygen-ED Only VENTI-MASK 28% Care 10/29/18 08:30 Active Pulse Oximetry (ED) STAT Care 10/29/18 08:30 Active Rectal Temperature STAT Care 10/29/18 08:30 Active CHEST 1 VIEW (PORTABLE) Stat Exams 10/29/18 09:37 Completed BLOOD CULTURE Stat Lab 10/29/18 08:35 Received CBC W DIFF Stat Lab 10/29/18 08:30 Completed CMP Stat Lab 10/29/18 08:30 Completed CULTURE,URINE Stat Lab 10/29/18 08:31 Uncollected CULTURE,WOUND Stat Lab 10/29/18 10:00 Received Lactic Acid Stat Lab 10/29/18 08:40 Completed Lactic Acid Stat Lab 10/29/18 10:45 Ordered Manual Differential NC Stat Lab 10/29/18 08:30 Completed PROTIME WITH INR Stat Lab 10/29/18 08:30 Completed TROPONIN Q3H Lab 10/29/18 08:30 Completed TROPONIN Q3H Lab 10/29/18 12:45 Ordered TROPONIN Q3H Lab 10/29/18 15:45 Ordered TROPONIN Q3H Lab 10/29/18 18:45 Ordered TROPONIN Q3H Lab 10/29/18 21:45 Ordered Urinalysis with Microscopy Stat Lab 10/29/18 Uncollected Transfer Order Routine Transfer 10/29/18 Ordered Medication Summary Generic Name Dose Route Start Last Admin Trade Name Freq PRN Reason Stop Dose Admin Sodium Chloride 1,000 mls @ 999 mls/hr 10/29/18 08:30 10/29/18 10:47 Sodium Chloride 0.9% 1000 Ml IV 10/29/18 12:30 999 mls/hr .Q1H1M JOSUE Administration Gentamicin Sulfate 240 mg/ 56 mls @ 112 mls/hr 10/29/18 10:00 10/29/18 09:38 Sodium Chloride IV 11/28/18 09:59 112 mls/hr DAILY JOSUE Administration Discontinued Medications Generic Name Dose Route Start Last Admin Trade Name Lisa PRN Reason Stop Dose Admin Acetaminophen 650 mg 10/29/18 08:30 10/29/18 09:15 Feverall 650 Mg SC 10/29/18 08:31 650 mg STAT ONE Administration Acetaminophen Confirm 10/29/18 09:15 [place] 650 Mg Administered 10/29/18 09:16 Dose 650 mg .ROUTE .STK-MED ONE Metronidazole 500 mg in 100 mls @ 200 mls/hr 10/29/18 08:30 10/29/18 09:22 Flagyl 500 Mg Ivpb IV 10/29/18 08:59 200 ml/hr STAT STA 200 mls/hr Administration Vancomycin HCl 250 mls @ 167 mls/hr 10/29/18 08:30 Vancomycin 1gm/ Ns 250ml IV 10/29/18 09:59 STAT ONE Metronidazole Confirm 10/29/18 09:21 Flagyl 500 Mg Ivpb Administered 10/29/18 09:22 Dose 500 mg in 100 mls @ ud IV .STK-MED ONE Vancomycin HCl Confirm 10/29/18 10:21 Vancomycin 1gm/ Ns 250ml Administered 10/29/18 10:22 Dose 250 mls @ ud IV .STK-MED ONE Non-Formulary Medication 1 each 10/29/18 08:30 10/29/18 10:02 Pharmacy Dosing Required: Gentamicin IV 10/29/18 08:31 Not Given STAT ONE Lab/Rad Data: Laboratory Result Diagrams 10/29/18 08:30 10/29/18 08:30 Laboratory Results 10/29/18 10/29/18 10/29/18 Range/Units 08:40 08:30 08:30 WBC (4.0-10.5) K/mm3 RBC (4.1-5.6) M/mm3 Hgb (12.5-18.0) gm/dl Hct (42-50) % MCV (78-100) fl MCH (26-32) pg MCHC (32-36) g/dl RDW (11.5-14.0) % Plt Count (150-450) K/mm3 MPV (6-9.5) fl Segmented Neutrophils (36.-66.) % Band Neutrophils (0.0-2.0) % Lymphocytes (Manual) (24-44) % Monocytes (Manual) (0.0-12.0) % Toxic Granulation Platelet Estimate (NORMAL) RBC Morphology Anisocytosis PT 13.8 H (8.83-12.87) SECONDS INR 1.18 (0.8-3.0) Sodium (137-145) mmol/L Potassium (3.5-5.1) mmol/L Chloride (98-107) mmol/L Carbon Dioxide (22-30) mmol/L Anion Gap (5-15) MEQ/L BUN (9-20) mg/dL Creatinine (0.66-1.25) mg/dL Estimated GFR ML/MIN Glucose (74-106) mg/dL Lactic Acid 2.3 H (0.4-2.0) Calcium (8.4-10.2) mg/dL Total Bilirubin (0.2-1.3) mg/dL AST (17-59) U/L ALT (0-50) U/L Alkaline Phosphatase (38-126) U/L Troponin I 0.074 H* (0.000-0.034) ng/mL Serum Total Protein (6.3-8.2) g/dL Albumin (3.5-5.0) g/dL 10/29/18 10/29/18 Range/Units 08:30 08:30 WBC 23.0 H (4.0-10.5) K/mm3 RBC 3.75 L (4.1-5.6) M/mm3 Hgb 11.4 L (12.5-18.0) gm/dl Hct 35.6 L (42-50) % MCV 94.9 (78-100) fl MCH 30.4 (26-32) pg MCHC 32.0 (32-36) g/dl RDW 12.5 (11.5-14.0) % Plt Count 301 (150-450) K/mm3 MPV 9.6 H (6-9.5) fl Segmented Neutrophils 86 H (36.-66.) % Band Neutrophils 7 H (0.0-2.0) % Lymphocytes (Manual) 4 L (24-44) % Monocytes (Manual) 3 (0.0-12.0) % Toxic Granulation 1+ Platelet Estimate NORMAL (NORMAL) RBC Morphology ABNORMAL Anisocytosis 1+ PT (8.83-12.87) SECONDS INR (0.8-3.0) Sodium 138 (137-145) mmol/L Potassium 4.0 (3.5-5.1) mmol/L Chloride 100 (98-107) mmol/L Carbon Dioxide 27 (22-30) mmol/L Anion Gap 15.0 (5-15) MEQ/L BUN 44 H (9-20) mg/dL Creatinine 3.00 H (0.66-1.25) mg/dL Estimated GFR 22.2 ML/MIN Glucose 205 H (74-106) mg/dL Lactic Acid (0.4-2.0) Calcium 8.7 (8.4-10.2) mg/dL Total Bilirubin 0.90 (0.2-1.3) mg/dL AST 21 (17-59) U/L ALT 16 (0-50) U/L Alkaline Phosphatase 82 (38-126) U/L Troponin I (0.000-0.034) ng/mL Serum Total Protein 6.7 (6.3-8.2) g/dL Albumin 3.3 L (3.5-5.0) g/dL reviewed - Progress Progress: improved Progress Note: 10/29/18 08:53 second IV started and fluid boluses ordered per sepsis protocol; O2 adjusted; tylenol ordered and ATBs ordered as well as cultures; patient becamee more responsive over time; elizondo changed; lab and xr pending 10/29/18 09:01 recheck and patient starting to have spontaneous opening of eyes; and movement of upper extremities; will see if rectal catheter available and place if available as he remains incontinent of stool; 10/29/18 09:05 elizondo cath temp now 102+; tyelnol ordered 10/29/18 09:25 ATBs started, temp now up to 103.3; tylenol given; lactic acid 2.3; INR 1.18; WBC 23.0 H?H = 11.4/35.6; Glu 205; BUN 44; Cr 3.0; lytes ok liver functions ok; cultures pending; xr pending; will consult LMD for disposition; 10/29/18 09:46 patient continues to imporve clinically, family at bedside and discussed findings; LMD to be consulted for disposition;CXR NAD 10/29/18 09:54 Dr Howell consulted and will admit to ICU. Family notified 10/29/18 10:46 Troponin was slightly elevated; Dr Howell notiifed and will monitor; on 3rd bag IV fluids; monitoring pressure which has been slightly low; patient awake and alert; will transfer to ICU Discussed with : Molly Will see patient in: hospital (full admit) (consulted and will admit) Counseled pt/family regarding: lab results, diagnosis, need for follow-up, rad results - Departure Time of Disposition: 09:55 Departure Disposition: In-patient Admission (ICU) Clinical Impression: Acute on chronic renal failure, Type 2 diabetes mellitus, CAD (coronary artery disease), Morbid obesity, FUO (fever of unknown origin), Sepsis, Atrial fibrillation with RVR Condition: Critical Critical Care Time: Yes Critical Care Time(excluding separately billable procedures): 30-74 minutes Referrals: CONNIE GUY [Primary Care Provider] - NELLY HOWELL MD [ACTIVE STAFF] -
[2018-10-29 08:54] LABS: Hematocrit 35.6 % (42-50); Hemoglobin 11.4 gm/dl (12.5-18.0); INR 1.18 (0.8-3.0); Mean Cell Volume 94.9 fl (78-100); Mean Corpuscular Hemoglobin 30.4 pg (26-32); Mean Platelet Volume 9.6 fl (6-9.5); Platelet Count 301 K/mm3 (150-450); Red Blood Count 3.75 M/mm3 (4.1-5.6); Red Cell Distribution Width 12.5 % (11.5-14.0)
[2018-10-29 08:59] LABS: ALBUMIN 3.3 g/dL (3.5-5.0); BILIRUBIN,TOTAL 0.9 mg/dL (0.2-1.3); Calcium 8.7 mg/dL (8.4-10.2); Total Protein 6.7 g/dL (6.3-8.2)
[2018-10-29] MEDS ORDERED: FEVERALL 650 MG ONE (09:15)
[2018-10-29] MEDS: Sodium Chloride 0.9% 1000 ML 1,000 ML IV SCH ×5 (09:16→22:14)
[2018-10-29] MEDS ORDERED: FLAGYL 500 MG IVPB 500 MG/100 ML BAG IV ONE (09:21)
[2018-10-29 09:40] LABS: ANISOCYTOSIS 1+; BAND 7 % (0.0-2.0); Lymphocytes 4 % (24-44); Monocyte 3 % (0.0-12.0); Neutrophils 86 % (36.-66.); Platelet Estimate NORMAL (NORMAL); Total Cells Counted 100; Toxic Granulation 1+
[2018-10-29] MEDS ORDERED: GARAMYCIN IV SCH (10:00)
[2018-10-29] MEDS ORDERED: SODIUM CHLORIDE 0.9% IV SCH (10:00)
--- NOTE | 2018-10-29 10:12 | XRAY ---
Indication: Possible sepsis. Comparison: April 24, 2018. Portable apical lordotic chest markedly underinflated today accentuating the cardiopulmonary structures. Stable left Port-A-Cath. Bony thorax intact. No new/acute findings. Impression: Nonacute underinflated chest.
[2018-10-29] MEDS: Dopamine 400 MG/D5W 250ML PREMIX 250 ML IV PRN ×3 (11:40→22:13)
[2018-10-29] MEDS ORDERED: Dopamine 400 MG/D5W 250ML PREMIX 250 ML IV ONE (11:41)
[2018-10-29] MEDS: LEVOPHED 4 MG/4 ML 4,000 MCG in Dextrose 5%/Water IV Soln. 500 ML 500 ML IV PRN ×3 (12:10→22:14)
[2018-10-29 12:15] LABS: Appearance CLOUDY (CLEAR); Bilirubin SMALL (NEGATIVE); Blood MODERATE Ery/ul (0-5); Glucose NEGATIVE (NEGATIVE); Ketones NEGATIVE (NEGATIVE); Leukocyte Esterase MODERATE (NEGATIVE); Nitrite NEGATIVE (NEGATIVE); Protein,Urine Dip >=500 (Negative); Specific Gravity 1.026 (1.005-1.025); Urobilinogen 4 mg/dL (0-1)
[2018-10-29] MEDS ORDERED: Sodium Chloride 0.9% 1000 ML 1,000 ML IV STA ×5 (12:16→14:26)
[2018-10-29] MEDS ORDERED: PHARMACY DOSING REQUEST MC ONE (13:09)
[2018-10-29] MEDS: Merrem 1 GM 1 G in Sodium Chloride 100ML MINI-BAG PLUS 100 ML IV SCH ×2 (13:43→22:13)
[2018-10-29] MEDS ORDERED: Lasix 40 MG/4 ML IV ONE (14:10)
[2018-10-29] MEDS: NovoLOG Insulin SQ PRN ×4 (14:52→20:46)
[2018-10-29] MEDS ORDERED: PHARMACY DOSING REQUIRED: VANCOMYCIN IV ONE (14:56)
[2018-10-29] MEDS ORDERED: VANCOCIN 1 GM VIAL*** 1.5 GM in Sodium Chloride 0.9% 500 ML 500 ML IV SCH (16:00)
[2018-10-29] MEDS ORDERED: FEVERALL 650 MG PR PRN (22:26)
[2018-10-30] MEDS: NovoLOG Insulin SQ PRN ×6 (00:24→21:45)
[2018-10-30] MEDS: Dopamine 400 MG/D5W 250ML PREMIX 250 ML IV PRN ×3 (03:14→20:02)
[2018-10-30] MEDS ORDERED: Vancomycin 1GM/ Ns 250ML*** 250 ML IV ONE (04:24)
[2018-10-30] MEDS: VANCOCIN 1 GM VIAL*** 1.5 GM in Sodium Chloride 0.9% 500 ML 500 ML IV SCH (05:04)
[2018-10-30 05:39] LABS: A-aADO2 57; ABG HEMOGLOBIN 12.2; ABG POTASSIUM 4.3 (3.5-5.1); ABG SITE RIGHT RADIAL; ALLEN TEST OK? no; ARTERIAL BLOOD GAS BASE EXCESS -1.8 (-2.0-2.0); ARTERIAL BLOOD GAS FIO2 40 %; ARTERIAL BLOOD GAS PCO2 33 mmHg (35-45); ARTERIAL BLOOD GAS PO2 187 mmHg (75-100); ARTERIAL BLOOD GAS VENT MODE BiPAP; ARTERIAL BLOOD GAS pH 7.43 (7.35-7.45); CARBOXYHEMOGLOBIN 5.3 % THgb (0.0-6.9); HCO3- 21.9 (22-28); HGB O2 SAT 92.5 g/dF (94-100); Methhemoglobin 1.3 % (1.4-1.5); paO2 pAO1 0.77
[2018-10-30 06:09] LABS: Hematocrit 37.6 % (42-50); Hemoglobin 12.1 gm/dl (12.5-18.0); Mean Cell Volume 94.9 fl (78-100); Mean Corpuscular Hgb Concent. 32.2 g/dl (32-36); Mean Platelet Volume 9.3 fl (6-9.5); Platelet Count 293 K/mm3 (150-450); Red Blood Count 3.96 M/mm3 (4.1-5.6); Red Cell Distribution Width 12.5 % (11.5-14.0); White Blood Count 23.9 K/mm3 (4.0-10.5)
[2018-10-30 06:11] LABS: Mean Corpuscular Hemoglobin 30.5 pg (26-32)
[2018-10-30 06:14] LABS: ALBUMIN 3.3 g/dL (3.5-5.0); ANION GAP 15.1 MEQ/L (5-15); BILIRUBIN,TOTAL 0.6 mg/dL (0.2-1.3); Calcium 8.1 mg/dL (8.4-10.2); Creatinine 1 2.42 mg/dL (0.66-1.25); Potassium 4.4 mmol/L (3.5-5.1); Total Protein 6.8 g/dL (6.3-8.2)
[2018-10-30 06:34] LABS: ANISOCYTOSIS 1+; BAND 3 % (0.0-2.0); Basophil 1 % (0.0-1.0); Lymphocytes 4 % (24-44); Monocyte 1 % (0.0-12.0); Neutrophils 91 % (36.-66.); Total Cells Counted 100
[2018-10-30 06:35] LABS: Platelet Estimate NORMAL (NORMAL); Toxic Granulation 1+
--- NOTE | 2018-10-30 08:56 | PCM.HP ---
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 was normal status last pm taking meds and eating; found in bed unconcious and unresponsive this am; hx of DM and COPD as well as heart issues and incontinent of stool this am with elizondo; FSBS 208; sats 92 on room air palced on O2, tachycardic, tachypnic and hot to the touch; narcan given with no response in field - Review of Systems Constitutional: Fever, Chills, Fatigue, Lethargy Eyes: No Symptoms Ears, Nose, & Throat: No Symptoms Respiratory: Orthopnea, Short Of Breath, No Cough Cardiac: No Chest Pain, No Edema, No Syncope Abdominal/Gastrointestinal: No Abdominal Pain, No Nausea, No Vomiting, No Diarrhea Genitourinary Symptoms: No Dysuria Musculoskeletal: No Back Pain, No Neck Pain Skin: No Rash Neurological: Other (unresponsive), No Sensory Changes Psychological: No Symptoms Endocrine: No Symptoms Hematologic/Lymphatic: No Symptoms Immunological/Allergic: No Symptoms Medications & Allergies Home Medications: Home Medication List Pravastatin Sodium 20 mg PO DAILY 01/30/16 [History Confirmed 04/24/18] Prednisone 10 mg [Deltasone 10 mg] 10 mg PO DAILY 01/30/16 [History Confirmed 04/24/18] Tamsulosin HCl [Flomax] 0.4 mg PO HS 01/30/16 [History Confirmed 04/24/18] Gabapentin [Neurontin] 1,000 mg PO TID 08/15/16 [History Confirmed 04/24/18] Finasteride 5 mg [Proscar 5 MG] 5 mg PO DAILY 10/13/16 [History Confirmed 04/24/18] Sertraline HCl 50 mg [Zoloft 50 mg Tablet] 50 mg PO DAILY 10/13/16 [History Confirmed 04/24/18] Hum Insulin NPH/Reg Insulin Hm [Humulin 70-30 Vial] 24 unit SQ TIDWMEALS [History Confirmed 04/24/18] Ranolazine 500 MG [Ranexa 500 MG] 500 mg PO BID PRN PRN 05/15/17 [History Confirmed 04/24/18] Aspirin 81 mg PO DAILY 11/02/17 [History Confirmed 04/24/18] Ferrous Sulfate [Iron] 325 mg PO DAILY 11/02/17 [History Confirmed 04/24/18] Pantoprazole Sodium [Protonix] 40 mg PO DAILY 11/02/17 [History Confirmed ] Dutasteride 0.5 MG [Avodart 0.5 MG] 0.5 mg PO DAILY 12/20/17 [History Confirmed 04/24/18] Losartan Potassium 50 mg [Cozaar 50 MG] 50 mg PO DAILY 12/20/17 [History Confirmed 04/24/18] Oxybutynin Chloride 10 mg Xl [Ditropan Xl 10 MG] 10 mg PO DAILY 12/20/17 [ History Confirmed 04/24/18] Clopidogrel Bisulfate 75 mg [PLAVIX 75 MG Tablet] 75 mg PO DAILY #30 tablet 12/22/17 [Rx Confirmed 04/24/18] Acetaminophen 325 mg [Tylenol 325 mg] 650 mg PO Q4HPRN PRN 04/24/18 [ History Confirmed 04/24/18] Albuterol/Ipratropium 3ml Neb* [DUONEB 0.5-3 MG/3 ml Neb] 1 neb IH TID [History Confirmed 04/24/18] Diclofenac Sodium Gel [Voltaren GEL] 1 applic TP TID 04/24/18 [History Confirmed 04/24/18] Docusate Sodium 100 mg [Colace 100 MG] 100 mg PO HS 04/24/18 [History Confirmed 04/24/18] Duloxetine HCl 30 mg [Cymbalta 30 MG Capsule] 30 mg PO HS 04/24/18 [ History Confirmed 04/24/18] Furosemide 40 mg [Lasix 40 MG] 40 mg PO DAILY 04/24/18 [History Confirmed 04/24/18] Hydrocodone/APAP 10/325 mg [Brantley 10/325 MG Tablet] 1 tab PO Q4H PRN PRN MDD 4 per day 04/24/18 [History Confirmed 04/24/18] Loperamide HCl 2 mg [Imodium 2 mg] 2 mg PO Q4HPRN PRN 04/24/18 [History Confirmed 04/24/18] Magnesium Hydroxide 30 ml [Milk of Magnesia 30 ml] 30 ml PO DAILY PRN PRN 04/24/18 [History Confirmed 04/24/18] Morphine Sulfate [Roxanol] 5 mg PO Q4HPRN PRN 04/24/18 [History Confirmed ] metOLazone [Metolazone] 5 mg PO BID 04/24/18 [History Confirmed 04/24/18] Levofloxacin [Levaquin] 250 mg PO DAILY #5 tablet 04/25/18 [Rx] Allergies/Adverse Reactions: Allergies Allergy/AdvReac Type Severity Reaction Status Date / Time Penicillins Allergy Severe Hives Verified 04/24/18 17:39 silver [Silver] Allergy Intermediate Itching Verified 04/24/18 17:39 zinc [Zinc] Allergy Intermediate Itching Verified 04/24/18 17:39 carvedilol [From Coreg] AdvReac Intermediate Verified 04/24/18 17:39 metoprolol AdvReac Intermediate Verified 04/24/18 17:39 - Past Medical History Past Medical History: Yes Neurological History: Stroke, TIA ENT History: Cataracts Cardiac History: Congestive Heart Failure, Coronary Artery Disease, Myocardial Infarction ([place]) Respiratory History: CHF, COPD, Sleep Apnea Endocrine Medical History: Diabetes Type II Musculoskelatal History: Arthritis GI Medical History: GERD, GI Bleed, Ulcer History: No Pertinent History Pyscho-Social History: Depression Male Reproductive Disorders: No Pertinent History Comment: right partial foot amputation. kidney infection, hx stones - Past Surgical History Past Surgical History: Yes Neuro Surgical History: No Pertinent History Cardiac History: Cardiac Catheterization, Cardiac Stent Respiratory Surgery: No Pertinent History GI Surgical History: Appendectomy, Cholecystectomy, Exploratory Laparoscopy Genitourinary Surgical Hx: No Pertinent History Musculskeletal Surgical Hx: Amputation Male Surgical History: Prostate Surgery Other Surgical History: Tonsillectomy and adenoidectomy. right toes/foot partial amputation and revision. PORT PLACEMENT - Social History Smoking Status: Never smoker Exposure to second hand smoke: No Alcohol: None Drug Use: none Significant Family History: heart disease, diabetes, hypertension - Physical Exam Vital Signs: Vital Signs - 24 hr Temp Pulse Pulse Resp BP BP Pulse Ox 10/30/18 08:00 98.6 F 88 12 97/53 100 10/30/18 06:00 98.8 F 87 16 134/66 100 10/30/18 05:00 98.8 F 83 15 121/58 98 10/30/18 04:00 98.8 F 90 15 128/56 100 10/30/18 03:52 91 H 15 10/30/18 03:00 99.0 F 88 17 138/58 99 10/30/18 02:00 99.0 F 89 19 145/62 99 10/30/18 01:00 99.3 F 90 16 149/64 99 10/30/18 00:01 96 H 10/30/18 00:00 99.5 F 90 16 165/68 100 10/29/18 22:55 99.9 F 92 H 16 155/85 100 10/29/18 22:00 100.0 F 97 H 18 136/77 100 10/29/18 21:00 99.7 F 99 H 16 158/99 100 10/29/18 20:00 99.7 F 102 H 20 140/90 100 10/29/18 19:00 99.5 F 103 H 26 H 124/84 100 10/29/18 18:00 99.5 F 110 H 27 H 155/55 96 10/29/18 17:00 99.3 F 110 H 22 96/65 96 10/29/18 16:41 99.1 F 114 H 24 110/53 96 10/29/18 16:00 99.1 F 115 H 22 74/53 100 10/29/18 15:56 113 H 10/29/18 15:00 99.5 F 119 H 20 75/37 100 10/29/18 14:00 99.7 F 125 H 20 74/37 98 18 13:00 100.6 F 128 H 22 76/33 97 18 11:40 100.6 F 111 H 22 84/28 98 10/29/18 11:00 101.8 F 108 H 72/49 93 L 10/29/18 10:54 99 10/29/18 10:50 102.0 F 107 H 94 L 10/29/18 10:45 84 26 H 84/70 93 L 10/29/18 10:00 102.6 F 107 H 24 100/45 92 L 10/29/18 09:56 110 H 10/29/18 09:21 103.3 F 10/29/18 09:20 111 H 24 112/88 100 Oxygen-Last 24 hours O2 Percentage 40% O2 Percentage 40% O2 Percentage 40% O2 Percentage 40% O2 Percentage 40% O2 Percentage 40% O2 Percentage 40% O2 Percentage 40% O2 Percentage 40% O2 Percentage 40% O2 Percentage 40% O2 Percentage 40% O2 Percentage 4 Liters = 36% O2 Percentage 4 Liters = 36% O2 Percentage 2 Liters = 28% O2 Percentage 2 Liters = 28% General Appearance: severe distress Neurologic Exam: disoriented Eye Exam: PERRL/EOMI Ears, Nose, Throat Exam: normal ENT inspection Neck Exam: normal inspection Respiratory Exam: diminished breath sounds, accessory muscle use, prolonged expirations, crackles/rales, rhonchi Cardiovascular Exam: tachycardia Gastrointestinal/Abdomen Exam: normal bowel sounds Rectal Exam: deferred Skin Exam: warm Results - Labs Lab/Micro Results: Accuchecks Date 10/30/18 Date 10/30/18 Date 10/29/18 Date 10/29/18 Date 10/29/18 Time 04:00 Time 00:00 Time 20:40 Time 16:03 Time 13:41 Accucheck Value: 381 Accucheck Value: 361 Accucheck Value: 405 Accucheck Value: 371 Accucheck Value: 316 Accucheck Value: 273 Accucheck Value: 251 Lab Results-Last 24 Hours 10/29/18 10/29/18 10/29/18 Range/Units 08:30 08:30 08:30 WBC 23.0 H (4.0-10.5) K/mm3 RBC 3.75 L (4.1-5.6) M/mm3 Hgb 11.4 L (12.5-18.0) gm/dl Hct 35.6 L (42-50) % MCV 94.9 (78-100) fl MCH 30.4 (26-32) pg MCHC 32.0 (32-36) g/dl RDW 12.5 (11.5-14.0) % Plt Count 301 (150-450) K/mm3 MPV 9.6 H (6-9.5) fl Segmented Neutrophils 86 H (36.-66.) % Band Neutrophils 7 H (0.0-2.0) % Lymphocytes (Manual) 4 L (24-44) % Monocytes (Manual) 3 (0.0-12.0) % Basophils (Manual) (0.0-1.0) % Toxic Granulation 1+ Platelet Estimate NORMAL (NORMAL) RBC Morphology ABNORMAL Anisocytosis 1+ PT 13.8 H (8.83-12.87) SECONDS INR 1.18 (0.8-3.0) Puncture Site pCO2 (35-45) mmHg pO2 (75-100) mmHg Base Excess (-2.0-2.0) O2 Saturation (94-100) g/dF ABG pH (7.35-7.45) ABG HCO3 (22-28) ABG O2 Sat (Measured) (95-100) % Chandra Test A-a Gradient a/A Ratio Hemoglobin Carboxyhemoglobin (0.0-6.9) % THgb Methemoglobin (1.4-1.5) % Temperature C POC O2 Flow Rate % Vent Mode Inspiratory BiPAP Expiratory BiPAP Sodium 138 (137-145) mmol/L Potassium 4.0 (3.5-5.1) mmol/L Chloride 100 (98-107) mmol/L Carbon Dioxide 27 (22-30) mmol/L Anion Gap 15.0 (5-15) MEQ/L BUN 44 H (9-20) mg/dL Creatinine 3.00 H (0.66-1.25) mg/dL Estimated GFR 22.2 ML/MIN Glucose 205 H (74-106) mg/dL Lactic Acid (0.4-2.0) Calcium 8.7 (8.4-10.2) mg/dL Magnesium (1.6-2.3) mg/dL Total Bilirubin 0.90 (0.2-1.3) mg/dL AST 21 (17-59) U/L ALT 16 (0-50) U/L Alkaline Phosphatase 82 (38-126) U/L Troponin I (0.000-0.034) ng/mL Serum Total Protein 6.7 (6.3-8.2) g/dL Albumin 3.3 L (3.5-5.0) g/dL Prealbumin (17.6-36.0) mg/dL Urine Color (YELLOW) Urine Appearance (CLEAR) Urine pH (5-6) Ur Specific Carmine (1.005-1.025) Urine Protein (Negative) Urine Ketones (NEGATIVE) Urine Blood (0-5) Chinmay/ul Urine Nitrite (NEGATIVE) Urine Bilirubin (NEGATIVE) Urine Urobilinogen (0-1) mg/dL Ur Leukocyte Esterase (NEGATIVE) Urine WBC (Auto) (0-5) /HPF Urine RBC (Auto) (0-2) /HPF U Epithel Cells (Auto) (FEW) /HPF Urine Bacteria (Auto) (NEGATIVE) /HPF Urine Mucus (Auto) (NEGATIVE) /HPF Urine Glucose (NEGATIVE) mg/dL 10/29/18 10/29/18 10/29/18 Range/Units 08:30 12:00 12:55 WBC (4.0-10.5) K/mm3 RBC (4.1-5.6) M/mm3 Hgb (12.5-18.0) gm/dl Hct (42-50) % MCV (78-100) fl MCH (26-32) pg MCHC (32-36) g/dl RDW (11.5-14.0) % Plt Count (150-450) K/mm3 MPV (6-9.5) fl Segmented Neutrophils (36.-66.) % Band Neutrophils (0.0-2.0) % Lymphocytes (Manual) (24-44) % Monocytes (Manual) (0.0-12.0) % Basophils (Manual) (0.0-1.0) % Toxic Granulation Platelet Estimate (NORMAL) RBC Morphology Anisocytosis PT (8.83-12.87) SECONDS INR (0.8-3.0) Puncture Site pCO2 (35-45) mmHg pO2 (75-100) mmHg Base Excess (-2.0-2.0) O2 Saturation (94-100) g/dF ABG pH (7.35-7.45) ABG HCO3 (22-28) ABG O2 Sat (Measured) (95-100) % Chandra Test A-a Gradient a/A Ratio Hemoglobin Carboxyhemoglobin (0.0-6.9) % THgb Methemoglobin (1.4-1.5) % Temperature C POC O2 Flow Rate % Vent Mode Inspiratory BiPAP Expiratory BiPAP Sodium (137-145) mmol/L Potassium (3.5-5.1) mmol/L Chloride (98-107) mmol/L Carbon Dioxide (22-30) mmol/L Anion Gap (5-15) MEQ/L BUN (9-20) mg/dL Creatinine (0.66-1.25) mg/dL Estimated GFR ML/MIN Glucose (74-106) mg/dL Lactic Acid (0.4-2.0) Calcium (8.4-10.2) mg/dL Magnesium (1.6-2.3) mg/dL Total Bilirubin (0.2-1.3) mg/dL AST (17-59) U/L ALT (0-50) U/L Alkaline Phosphatase (38-126) U/L Troponin I 0.074 H* (0.000-0.034) ng/mL Serum Total Protein (6.3-8.2) g/dL Albumin (3.5-5.0) g/dL Prealbumin 10.71 L (17.6-36.0) mg/dL Urine Color DIGNA (YELLOW) Urine Appearance CLOUDY (CLEAR) Urine pH 5.0 (5-6) Ur Specific Carmine 1.026 (1.005-1.025) Urine Protein >=500 (Negative) Urine Ketones NEGATIVE (NEGATIVE) Urine Blood MODERATE (0-5) Chinmay/ul Urine Nitrite NEGATIVE (NEGATIVE) Urine Bilirubin SMALL (NEGATIVE) Urine Urobilinogen 4 (0-1) mg/dL Ur Leukocyte Esterase MODERATE (NEGATIVE) Urine WBC (Auto) >100 (0-5) /HPF Urine RBC (Auto) 51-100 (0-2) /HPF U Epithel Cells (Auto) NONE (FEW) /HPF Urine Bacteria (Auto) MODERATE (NEGATIVE) /HPF Urine Mucus (Auto) SLIGHT (NEGATIVE) /HPF Urine Glucose NEGATIVE (NEGATIVE) mg/dL 10/29/18 10/29/18 10/29/18 Range/Units 12:59 15:47 15:49 WBC (4.0-10.5) K/mm3 RBC (4.1-5.6) M/mm3 Hgb (12.5-18.0) gm/dl Hct (42-50) % MCV (78-100) fl MCH (26-32) pg MCHC (32-36) g/dl RDW (11.5-14.0) % Plt Count (150-450) K/mm3 MPV (6-9.5) fl Segmented Neutrophils (36.-66.) % Band Neutrophils (0.0-2.0) % Lymphocytes (Manual) (24-44) % Monocytes (Manual) (0.0-12.0) % Basophils (Manual) (0.0-1.0) % Toxic Granulation Platelet Estimate (NORMAL) RBC Morphology Anisocytosis PT (8.83-12.87) SECONDS INR (0.8-3.0) Puncture Site pCO2 (35-45) mmHg pO2 (75-100) mmHg Base Excess (-2.0-2.0) O2 Saturation (94-100) g/dF ABG pH (7.35-7.45) ABG HCO3 (22-28) ABG O2 Sat (Measured) (95-100) % Chandra Test A-a Gradient a/A Ratio Hemoglobin Carboxyhemoglobin (0.0-6.9) % THgb Methemoglobin (1.4-1.5) % Temperature C POC O2 Flow Rate % Vent Mode Inspiratory BiPAP Expiratory BiPAP Sodium (137-145) mmol/L Potassium (3.5-5.1) mmol/L Chloride (98-107) mmol/L Carbon Dioxide (22-30) mmol/L Anion Gap (5-15) MEQ/L BUN (9-20) mg/dL Creatinine (0.66-1.25) mg/dL Estimated GFR ML/MIN Glucose (74-106) mg/dL Lactic Acid 2.0 (0.4-2.0) Calcium (8.4-10.2) mg/dL Magnesium (1.6-2.3) mg/dL Total Bilirubin (0.2-1.3) mg/dL AST (17-59) U/L ALT (0-50) U/L Alkaline Phosphatase (38-126) U/L Troponin I 0.083 H* 0.073 H* (0.000-0.034) ng/mL Serum Total Protein (6.3-8.2) g/dL Albumin (3.5-5.0) g/dL Prealbumin (17.6-36.0) mg/dL Urine Color (YELLOW) Urine Appearance (CLEAR) Urine pH (5-6) Ur Specific Carmine (1.005-1.025) Urine Protein (Negative) Urine Ketones (NEGATIVE) Urine Blood (0-5) Chinmay/ul Urine Nitrite (NEGATIVE) Urine Bilirubin (NEGATIVE) Urine Urobilinogen (0-1) mg/dL Ur Leukocyte Esterase (NEGATIVE) Urine WBC (Auto) (0-5) /HPF Urine RBC (Auto) (0-2) /HPF U Epithel Cells (Auto) (FEW) /HPF Urine Bacteria (Auto) (NEGATIVE) /HPF Urine Mucus (Auto) (NEGATIVE) /HPF Urine Glucose (NEGATIVE) mg/dL 10/29/18 10/29/18 10/29/18 Range/Units 19:05 19:12 22:15 WBC (4.0-10.5) K/mm3 RBC (4.1-5.6) M/mm3 Hgb (12.5-18.0) gm/dl Hct (42-50) % MCV (78-100) fl MCH (26-32) pg MCHC (32-36) g/dl RDW (11.5-14.0) % Plt Count (150-450) K/mm3 MPV (6-9.5) fl Segmented Neutrophils (36.-66.) % Band Neutrophils (0.0-2.0) % Lymphocytes (Manual) (24-44) % Monocytes (Manual) (0.0-12.0) % Basophils (Manual) (0.0-1.0) % Toxic Granulation Platelet Estimate (NORMAL) RBC Morphology Anisocytosis PT (8.83-12.87) SECONDS INR (0.8-3.0) Puncture Site pCO2 (35-45) mmHg pO2 (75-100) mmHg Base Excess (-2.0-2.0) O2 Saturation (94-100) g/dF ABG pH (7.35-7.45) ABG HCO3 (22-28) ABG O2 Sat (Measured) (95-100) % Chandra Test A-a Gradient a/A Ratio Hemoglobin Carboxyhemoglobin (0.0-6.9) % THgb Methemoglobin (1.4-1.5) % Temperature C POC O2 Flow Rate % Vent Mode Inspiratory BiPAP Expiratory BiPAP Sodium (137-145) mmol/L Potassium (3.5-5.1) mmol/L Chloride (98-107) mmol/L Carbon Dioxide (22-30) mmol/L Anion Gap (5-15) MEQ/L BUN (9-20) mg/dL Creatinine (0.66-1.25) mg/dL Estimated GFR ML/MIN Glucose (74-106) mg/dL Lactic Acid 1.5 (0.4-2.0) Calcium (8.4-10.2) mg/dL Magnesium (1.6-2.3) mg/dL Total Bilirubin (0.2-1.3) mg/dL AST (17-59) U/L ALT (0-50) U/L Alkaline Phosphatase (38-126) U/L Troponin I 0.069 H* 0.082 H* (0.000-0.034) ng/mL Serum Total Protein (6.3-8.2) g/dL Albumin (3.5-5.0) g/dL Prealbumin (17.6-36.0) mg/dL Urine Color (YELLOW) Urine Appearance (CLEAR) Urine pH (5-6) Ur Specific Carmine (1.005-1.025) Urine Protein (Negative) Urine Ketones (NEGATIVE) Urine Blood (0-5) Chinmay/ul Urine Nitrite (NEGATIVE) Urine Bilirubin (NEGATIVE) Urine Urobilinogen (0-1) mg/dL Ur Leukocyte Esterase (NEGATIVE) Urine WBC (Auto) (0-5) /HPF Urine RBC (Auto) (0-2) /HPF U Epithel Cells (Auto) (FEW) /HPF Urine Bacteria (Auto) (NEGATIVE) /HPF Urine Mucus (Auto) (NEGATIVE) /HPF Urine Glucose (NEGATIVE) mg/dL 10/30/18 10/30/18 10/30/18 Range/Units 05:25 05:50 05:50 WBC 23.9 H (4.0-10.5) K/mm3 RBC 3.96 L (4.1-5.6) M/mm3 Hgb 12.1 L (12.5-18.0) gm/dl Hct 37.6 L (42-50) % MCV 94.9 (78-100) fl MCH 30.5 (26-32) pg MCHC 32.2 (32-36) g/dl RDW 12.5 (11.5-14.0) % Plt Count 293 (150-450) K/mm3 MPV 9.3 (6-9.5) fl Segmented Neutrophils 91 H (36.-66.) % Band Neutrophils 3 H (0.0-2.0) % Lymphocytes (Manual) 4 L (24-44) % Monocytes (Manual) 1 (0.0-12.0) % Basophils (Manual) 1 (0.0-1.0) % Toxic Granulation 1+ Platelet Estimate NORMAL (NORMAL) RBC Morphology ABNORMAL Anisocytosis 1+ PT (8.83-12.87) SECONDS INR (0.8-3.0) Puncture Site RIGHT RADIAL pCO2 33 L (35-45) mmHg pO2 187 H* (75-100) mmHg Base Excess -1.8 (-2.0-2.0) O2 Saturation 92.5 L (94-100) g/dF ABG pH 7.43 (7.35-7.45) ABG HCO3 21.9 L (22-28) ABG O2 Sat (Measured) 99.0 (95-100) % Chandra Test no A-a Gradient 57 a/A Ratio 0.77 Hemoglobin 12.2 Carboxyhemoglobin 5.3 (0.0-6.9) % THgb Methemoglobin 1.3 L (1.4-1.5) % Temperature 37.0 C POC O2 Flow Rate 40 % Vent Mode BiPAP Inspiratory BiPAP 14 Expiratory BiPAP 8 Sodium 138 (137-145) mmol/L Potassium 4.3 4.4 (3.5-5.1) mmol/L Chloride 100 (98-107) mmol/L Carbon Dioxide 26 (22-30) mmol/L Anion Gap 15.1 H (5-15) MEQ/L BUN 44 H (9-20) mg/dL Creatinine 2.42 H (0.66-1.25) mg/dL Estimated GFR 28.5 ML/MIN Glucose 380 H (74-106) mg/dL Lactic Acid (0.4-2.0) Calcium 8.1 L (8.4-10.2) mg/dL Magnesium 1.6 (1.6-2.3) mg/dL Total Bilirubin 0.60 (0.2-1.3) mg/dL AST 27 (17-59) U/L ALT 19 (0-50) U/L Alkaline Phosphatase 92 (38-126) U/L Troponin I (0.000-0.034) ng/mL Serum Total Protein 6.8 (6.3-8.2) g/dL Albumin 3.3 L (3.5-5.0) g/dL Prealbumin (17.6-36.0) mg/dL Urine Color (YELLOW) Urine Appearance (CLEAR) Urine pH (5-6) Ur Specific Carmine (1.005-1.025) Urine Protein (Negative) Urine Ketones (NEGATIVE) Urine Blood (0-5) Chinmay/ul Urine Nitrite (NEGATIVE) Urine Bilirubin (NEGATIVE) Urine Urobilinogen (0-1) mg/dL Ur Leukocyte Esterase (NEGATIVE) Urine WBC (Auto) (0-5) /HPF Urine RBC (Auto) (0-2) /HPF U Epithel Cells (Auto) (FEW) /HPF Urine Bacteria (Auto) (NEGATIVE) /HPF Urine Mucus (Auto) (NEGATIVE) /HPF Urine Glucose (NEGATIVE) mg/dL 10/30/18 Range/Units 05:50 WBC (4.0-10.5) K/mm3 RBC (4.1-5.6) M/mm3 Hgb (12.5-18.0) gm/dl Hct (42-50) % MCV (78-100) fl MCH (26-32) pg MCHC (32-36) g/dl RDW (11.5-14.0) % Plt Count (150-450) K/mm3 MPV (6-9.5) fl Segmented Neutrophils (36.-66.) % Band Neutrophils (0.0-2.0) % Lymphocytes (Manual) (24-44) % Monocytes (Manual) (0.0-12.0) % Basophils (Manual) (0.0-1.0) % Toxic Granulation Platelet Estimate (NORMAL) RBC Morphology Anisocytosis PT (8.83-12.87) SECONDS INR (0.8-3.0) Puncture Site pCO2 (35-45) mmHg pO2 (75-100) mmHg Base Excess (-2.0-2.0) O2 Saturation (94-100) g/dF ABG pH (7.35-7.45) ABG HCO3 (22-28) ABG O2 Sat (Measured) (95-100) % Chandra Test A-a Gradient a/A Ratio Hemoglobin Carboxyhemoglobin (0.0-6.9) % THgb Methemoglobin (1.4-1.5) % Temperature C POC O2 Flow Rate % Vent Mode Inspiratory BiPAP Expiratory BiPAP Sodium (137-145) mmol/L Potassium (3.5-5.1) mmol/L Chloride (98-107) mmol/L Carbon Dioxide (22-30) mmol/L Anion Gap (5-15) MEQ/L BUN (9-20) mg/dL Creatinine (0.66-1.25) mg/dL Estimated GFR ML/MIN Glucose (74-106) mg/dL Lactic Acid (0.4-2.0) Calcium (8.4-10.2) mg/dL Magnesium (1.6-2.3) mg/dL Total Bilirubin (0.2-1.3) mg/dL AST (17-59) U/L ALT (0-50) U/L Alkaline Phosphatase (38-126) U/L Troponin I 0.174 H* (0.000-0.034) ng/mL Serum Total Protein (6.3-8.2) g/dL Albumin (3.5-5.0) g/dL Prealbumin (17.6-36.0) mg/dL Urine Color (YELLOW) Urine Appearance (CLEAR) Urine pH (5-6) Ur Specific Carmine (1.005-1.025) Urine Protein (Negative) Urine Ketones (NEGATIVE) Urine Blood (0-5) Chinmay/ul Urine Nitrite (NEGATIVE) Urine Bilirubin (NEGATIVE) Urine Urobilinogen (0-1) mg/dL Ur Leukocyte Esterase (NEGATIVE) Urine WBC (Auto) (0-5) /HPF Urine RBC (Auto) (0-2) /HPF U Epithel Cells (Auto) (FEW) /HPF Urine Bacteria (Auto) (NEGATIVE) /HPF Urine Mucus (Auto) (NEGATIVE) /HPF Urine Glucose (NEGATIVE) mg/dL Microbiology 10/29/18 12:00 Urine Culture - Preliminary Catherized NO GROWTH TO DATE Accuchecks Date 10/30/18 Date 10/30/18 Date 10/29/18 Date 10/29/18 Date 10/29/18 Time 04:00 Time 00:00 Time 20:40 Time 16:03 Time 13:41 Accucheck Value: 381 Accucheck Value: 361 Accucheck Value: 405 Accucheck Value: 371 Accucheck Value: 316 Accucheck Value: 273 Accucheck Value: 251 - Radiology Impressions Radiology Exams & Impressions: Radiology Procedures Category Date Time Status CHEST 1 VIEW (PORTABLE) Stat Exams 10/29/18 09:37 Completed - Other Procedures and Tests Respiratory Therapy 10/29/18 11:45 BiPap/CPAP ROUTINE 10/29/18 18:39 Oxygen VENTI-MASK 40% Assessment/Plan (1) Sepsis Current Visit: Yes Status: Acute Qualifiers: Sepsis type: Escherichia coli, in Qualified Code(s): P36.4 - Sepsis of due to Escherichia coli (2) Acute on chronic renal failure Current Visit: Yes Status: Acute Onset Date: ~04/24/18 Code(s): N17.9 - ACUTE KIDNEY FAILURE, UNSPECIFIED; N18.9 - CHRONIC KIDNEY DISEASE, UNSPECIFIED (3) Atrial fibrillation with RVR Current Visit: Yes Status: Acute Code(s): I48.91 - UNSPECIFIED ATRIAL FIBRILLATION (4) FUO (fever of unknown origin) Current Visit: Yes Status: Acute (5) Type 2 diabetes mellitus Current Visit: Yes Status: Chronic Qualifiers: (6) Pyelonephritis due to Escherichia coli Current Visit: No Status: Acute Code(s): N12 - TUBULO-INTERSTITIAL NEPHRITIS , NOT SPCF ACUTE OR CHRONIC; B96.20 - UNSP ESCHERICHIA COLI THE CAUSE OF DISEASES CLASSD ELSWHR (7) IHD (ischemic heart disease) Current Visit: No Status: Chronic Code(s): I25.9 - CHRONIC ISCHEMIC HEART DISEASE, UNSPECIFIED
--- NOTE | 2018-10-30 09:00 | PCM.NOTE ---
Date and Time: 10/30/18858 Subjective Assessment: doing little better - Review of Systems Constitutional: No Fever, No Chills Eyes: No Symptoms Ears, Nose, & Throat: No Symptoms Respiratory: Short Of Breath, No Cough Cardiac: No Chest Pain, No Edema, No Syncope Abdominal/Gastrointestinal: No Abdominal Pain, No Nausea, No Vomiting, No Diarrhea Genitourinary Symptoms: No Dysuria Musculoskeletal: No Back Pain, No Neck Pain Skin: No Rash Neurological: No Dizziness, No Focal Weakness, No Sensory Changes Psychological: No Symptoms Endocrine: No Symptoms Hematologic/Lymphatic: No Symptoms Immunological/Allergic: No Symptoms Objective Exam General Appearance: mild distress, alert Neurologic Exam: alert, oriented x 3, cooperative, normal mood/affect, nml cerebellar function, sensation nml, No motor deficits Skin Exam: normal color, warm, dry Eye Exam: PERRL, EOMI, eyes nml inspection Ears, Nose, Throat Exam: normal ENT inspection, pharynx normal, moist mucous membranes Neck Exam: normal inspection, non-tender, supple, full range of motion Respiratory Exam: prolonged expirations, crackles/rales, rhonchi, No respiratory distress Cardiovascular Exam: regular rate/rhythm, normal heart sounds Gastrointestinal/Abdomen Exam: soft, No tenderness, No mass Extremity Exam: normal inspection, normal range of motion Back Exam: normal inspection, normal range of motion, No CVA tenderness, No vertebral tenderness Male Genitalia Exam: deferred Rectal Exam: deferred OBJECTIVE DATA Vital Signs: Vital Signs - 24 hr Temp Pulse Pulse Resp BP BP Pulse Ox 10/30/18 08:00 98.6 F 88 12 97/53 100 10/30/18 06:00 98.8 F 87 16 134/66 100 10/30/18 05:00 98.8 F 83 15 121/58 98 10/30/18 04:00 98.8 F 90 15 128/56 100 10/30/18 03:52 91 H 15 10/30/18 03:00 99.0 F 88 17 138/58 99 10/30/18 02:00 99.0 F 89 19 145/62 99 10/30/18 01:00 99.3 F 90 16 149/64 99 10/30/18 00:01 96 H 10/30/18 00:00 99.5 F 90 16 165/68 100 10/29/18 22:55 99.9 F 92 H 16 155/85 100 10/29/18 22:00 100.0 F 97 H 18 136/77 100 10/29/18 21:00 99.7 F 99 H 16 158/99 100 10/29/18 20:00 99.7 F 102 H 20 140/90 100 10/29/18 19:00 99.5 F 103 H 26 H 124/84 100 10/29/18 18:00 99.5 F 110 H 27 H 155/55 96 10/29/18 17:00 99.3 F 110 H 22 96/65 96 10/29/18 16:41 99.1 F 114 H 24 110/53 96 10/29/18 16:00 99.1 F 115 H 22 74/53 100 10/29/18 15:56 113 H 10/29/18 15:00 99.5 F 119 H 20 75/37 100 10/29/18 14:00 99.7 F 125 H 20 74/37 98 10/29/18 13:00 100.6 F 128 H 22 76/33 97 10/29/18 11:40 100.6 F 111 H 22 84/28 98 10/29/18 11:00 101.8 F 108 H 72/49 93 L 10/29/18 10:54 99 10/29/18 10:50 102.0 F 107 H 94 L 10/29/18 10:45 84 26 H 84/70 93 L 10/29/18 10:00 102.6 F 107 H 24 100/45 92 L 10/29/18 09:56 110 H 10/29/18 09:21 103.3 F 10/29/18 09:20 111 H 24 112/88 100 Oxygen-Last 24 hours O2 Percentage 40% O2 Percentage 40% O2 Percentage 40% O2 Percentage 40% O2 Percentage 40% O2 Percentage 40% O2 Percentage 40% O2 Percentage 40% O2 Percentage 40% O2 Percentage 40% O2 Percentage 40% O2 Percentage 40% O2 Percentage 4 Liters = 36% O2 Percentage 4 Liters = 36% O2 Percentage 2 Liters = 28% O2 Percentage 2 Liters = 28% Pain Assessment - Last Documented Pain Intensity 0 Pain Scale Used FLACC Intake and Output: Intake & Output 10/27/18 10/28/18 10/29/18 10/30/18 11:59 11:59 11:59 11:59 Intake Total 9611 Output Total 20 6150 Balance -20 3461 Weight 181.3 kg Lab Results: Accuchecks Date 10/30/18 Date 10/30/18 Date 10/29/18 Date 10/29/18 Date 10/29/18 Time 04:00 Time 00:00 Time 20:40 Time 16:03 Time 13:41 Accucheck Value: 381 Accucheck Value: 361 Accucheck Value: 405 Accucheck Value: 371 Accucheck Value: 316 Accucheck Value: 273 Accucheck Value: 251 Lab Results-Last 24 Hours 10/29/18 10/29/18 10/29/18 Range/Units 08:30 08:30 08:30 WBC 23.0 H (4.0-10.5) K/mm3 RBC 3.75 L (4.1-5.6) M/mm3 Hgb 11.4 L (12.5-18.0) gm/dl Hct 35.6 L (42-50) % MCV 94.9 (78-100) fl MCH 30.4 (26-32) pg MCHC 32.0 (32-36) g/dl RDW 12.5 (11.5-14.0) % Plt Count 301 (150-450) K/mm3 MPV 9.6 H (6-9.5) fl Segmented Neutrophils 86 H (36.-66.) % Band Neutrophils 7 H (0.0-2.0) % Lymphocytes (Manual) 4 L (24-44) % Monocytes (Manual) 3 (0.0-12.0) % Basophils (Manual) (0.0-1.0) % Toxic Granulation 1+ Platelet Estimate NORMAL (NORMAL) RBC Morphology ABNORMAL Anisocytosis 1+ PT 13.8 H (8.83-12.87) SECONDS INR 1.18 (0.8-3.0) Puncture Site pCO2 (35-45) mmHg pO2 (75-100) mmHg Base Excess (-2.0-2.0) O2 Saturation (94-100) g/dF ABG pH (7.35-7.45) ABG HCO3 (22-28) ABG O2 Sat (Measured) (95-100) % Chandra Test A-a Gradient a/A Ratio Hemoglobin Carboxyhemoglobin (0.0-6.9) % THgb Methemoglobin (1.4-1.5) % Temperature C POC O2 Flow Rate % Vent Mode Inspiratory BiPAP Expiratory BiPAP Sodium 138 (137-145) mmol/L Potassium 4.0 (3.5-5.1) mmol/L Chloride 100 (98-107) mmol/L Carbon Dioxide 27 (22-30) mmol/L Anion Gap 15.0 (5-15) MEQ/L BUN 44 H (9-20) mg/dL Creatinine 3.00 H (0.66-1.25) mg/dL Estimated GFR 22.2 ML/MIN Glucose 205 H (74-106) mg/dL Lactic Acid (0.4-2.0) Calcium 8.7 (8.4-10.2) mg/dL Magnesium (1.6-2.3) mg/dL Total Bilirubin 0.90 (0.2-1.3) mg/dL AST 21 (17-59) U/L ALT 16 (0-50) U/L Alkaline Phosphatase 82 (38-126) U/L Troponin I (0.000-0.034) ng/mL Serum Total Protein 6.7 (6.3-8.2) g/dL Albumin 3.3 L (3.5-5.0) g/dL Prealbumin (17.6-36.0) mg/dL Urine Color (YELLOW) Urine Appearance (CLEAR) Urine pH (5-6) Ur Specific [place] (1.005-1.025) Urine Protein (Negative) Urine Ketones (NEGATIVE) Urine Blood (0-5) [place]/ul Urine Nitrite (NEGATIVE) Urine Bilirubin (NEGATIVE) Urine Urobilinogen (0-1) mg/dL Ur Leukocyte Esterase (NEGATIVE) Urine WBC (Auto) (0-5) /HPF Urine RBC (Auto) (0-2) /HPF U Epithel Cells (Auto) (FEW) /HPF Urine Bacteria (Auto) (NEGATIVE) /HPF Urine Mucus (Auto) (NEGATIVE) /HPF Urine Glucose (NEGATIVE) mg/dL 10/29/18 10/29/18 10/29/18 Range/Units 08:30 12:00 12:55 WBC (4.0-10.5) K/mm3 RBC (4.1-5.6) M/mm3 Hgb (12.5-18.0) gm/dl Hct (42-50) % MCV (78-100) fl MCH (26-32) pg MCHC (32-36) g/dl RDW (11.5-14.0) % Plt Count (150-450) K/mm3 MPV (6-9.5) fl Segmented Neutrophils (36.-66.) % Band Neutrophils (0.0-2.0) % Lymphocytes (Manual) (24-44) % Monocytes (Manual) (0.0-12.0) % Basophils (Manual) (0.0-1.0) % Toxic Granulation Platelet Estimate (NORMAL) RBC Morphology Anisocytosis PT (8.83-12.87) SECONDS INR (0.8-3.0) Puncture Site pCO2 (35-45) mmHg pO2 (75-100) mmHg Base Excess (-2.0-2.0) O2 Saturation (94-100) g/dF ABG pH (7.35-7.45) ABG HCO3 (22-28) ABG O2 Sat (Measured) (95-100) % Chandra Test A-a Gradient a/A Ratio Hemoglobin Carboxyhemoglobin (0.0-6.9) % THgb Methemoglobin (1.4-1.5) % Temperature C POC O2 Flow Rate % Vent Mode Inspiratory BiPAP Expiratory BiPAP Sodium (137-145) mmol/L Potassium (3.5-5.1) mmol/L Chloride (98-107) mmol/L Carbon Dioxide (22-30) mmol/L Anion Gap (5-15) MEQ/L BUN (9-20) mg/dL Creatinine (0.66-1.25) mg/dL Estimated GFR ML/MIN Glucose (74-106) mg/dL Lactic Acid (0.4-2.0) Calcium (8.4-10.2) mg/dL Magnesium (1.6-2.3) mg/dL Total Bilirubin (0.2-1.3) mg/dL AST (17-59) U/L ALT (0-50) U/L Alkaline Phosphatase (38-126) U/L Troponin I 0.074 H* (0.000-0.034) ng/mL Serum Total Protein (6.3-8.2) g/dL Albumin (3.5-5.0) g/dL Prealbumin 10.71 L (17.6-36.0) mg/dL Urine Color DIGNA (YELLOW) Urine Appearance CLOUDY (CLEAR) Urine pH 5.0 (5-6) Ur Specific [place] 1.026 (1.005-1.025) Urine Protein >=500 (Negative) Urine Ketones NEGATIVE (NEGATIVE) Urine Blood MODERATE (0-5) [place]/ul Urine Nitrite NEGATIVE (NEGATIVE) Urine Bilirubin SMALL (NEGATIVE) Urine Urobilinogen 4 (0-1) mg/dL Ur Leukocyte Esterase MODERATE (NEGATIVE) Urine WBC (Auto) >100 (0-5) /HPF Urine RBC (Auto) 51-100 (0-2) /HPF U Epithel Cells (Auto) NONE (FEW) /HPF Urine Bacteria (Auto) MODERATE (NEGATIVE) /HPF Urine Mucus (Auto) SLIGHT (NEGATIVE) /HPF Urine Glucose NEGATIVE (NEGATIVE) mg/dL 10/29/18 10/29/18 10/29/18 Range/Units 12:59 15:47 15:49 WBC (4.0-10.5) K/mm3 RBC (4.1-5.6) M/mm3 Hgb (12.5-18.0) gm/dl Hct (42-50) % MCV (78-100) fl MCH (26-32) pg MCHC (32-36) g/dl RDW (11.5-14.0) % Plt Count (150-450) K/mm3 MPV (6-9.5) fl Segmented Neutrophils (36.-66.) % Band Neutrophils (0.0-2.0) % Lymphocytes (Manual) (24-44) % Monocytes (Manual) (0.0-12.0) % Basophils (Manual) (0.0-1.0) % Toxic Granulation Platelet Estimate (NORMAL) RBC Morphology Anisocytosis PT (8.83-12.87) SECONDS INR (0.8-3.0) Puncture Site pCO2 (35-45) mmHg pO2 (75-100) mmHg Base Excess (-2.0-2.0) O2 Saturation (94-100) g/dF ABG pH (7.35-7.45) ABG HCO3 (22-28) ABG O2 Sat (Measured) (95-100) % Chandra Test A-a Gradient a/A Ratio Hemoglobin Carboxyhemoglobin (0.0-6.9) % THgb Methemoglobin (1.4-1.5) % Temperature C POC O2 Flow Rate % Vent Mode Inspiratory BiPAP Expiratory BiPAP Sodium (137-145) mmol/L Potassium (3.5-5.1) mmol/L Chloride (98-107) mmol/L Carbon Dioxide (22-30) mmol/L Anion Gap (5-15) MEQ/L BUN (9-20) mg/dL Creatinine (0.66-1.25) mg/dL Estimated GFR ML/MIN Glucose (74-106) mg/dL Lactic Acid 2.0 (0.4-2.0) Calcium (8.4-10.2) mg/dL Magnesium (1.6-2.3) mg/dL Total Bilirubin (0.2-1.3) mg/dL AST (17-59) U/L ALT (0-50) U/L Alkaline Phosphatase (38-126) U/L Troponin I 0.083 H* 0.073 H* (0.000-0.034) ng/mL Serum Total Protein (6.3-8.2) g/dL Albumin (3.5-5.0) g/dL Prealbumin (17.6-36.0) mg/dL Urine Color (YELLOW) Urine Appearance (CLEAR) Urine pH (5-6) Ur Specific [place] (1.005-1.025) Urine Protein (Negative) Urine Ketones (NEGATIVE) Urine Blood (0-5) [place]/ul Urine Nitrite (NEGATIVE) Urine Bilirubin (NEGATIVE) Urine Urobilinogen (0-1) mg/dL Ur Leukocyte Esterase (NEGATIVE) Urine WBC (Auto) (0-5) /HPF Urine RBC (Auto) (0-2) /HPF U Epithel Cells (Auto) (FEW) /HPF Urine Bacteria (Auto) (NEGATIVE) /HPF Urine Mucus (Auto) (NEGATIVE) /HPF Urine Glucose (NEGATIVE) mg/dL 10/29/18 10/29/18 10/29/18 Range/Units 19:05 19:12 22:15 WBC (4.0-10.5) K/mm3 RBC (4.1-5.6) M/mm3 Hgb (12.5-18.0) gm/dl Hct (42-50) % MCV (78-100) fl MCH (26-32) pg MCHC (32-36) g/dl RDW (11.5-14.0) % Plt Count (150-450) K/mm3 MPV (6-9.5) fl Segmented Neutrophils (36.-66.) % Band Neutrophils (0.0-2.0) % Lymphocytes (Manual) (24-44) % Monocytes (Manual) (0.0-12.0) % Basophils (Manual) (0.0-1.0) % Toxic Granulation Platelet Estimate (NORMAL) RBC Morphology Anisocytosis PT (8.83-12.87) SECONDS INR (0.8-3.0) Puncture Site pCO2 (35-45) mmHg pO2 (75-100) mmHg Base Excess (-2.0-2.0) O2 Saturation (94-100) g/dF ABG pH (7.35-7.45) ABG HCO3 (22-28) ABG O2 Sat (Measured) (95-100) % Chandra Test A-a Gradient a/A Ratio Hemoglobin Carboxyhemoglobin (0.0-6.9) % THgb Methemoglobin (1.4-1.5) % Temperature C POC O2 Flow Rate % Vent Mode Inspiratory BiPAP Expiratory BiPAP Sodium (137-145) mmol/L Potassium (3.5-5.1) mmol/L Chloride (98-107) mmol/L Carbon Dioxide (22-30) mmol/L Anion Gap (5-15) MEQ/L BUN (9-20) mg/dL Creatinine (0.66-1.25) mg/dL Estimated GFR ML/MIN Glucose (74-106) mg/dL Lactic Acid 1.5 (0.4-2.0) Calcium (8.4-10.2) mg/dL Magnesium (1.6-2.3) mg/dL Total Bilirubin (0.2-1.3) mg/dL AST (17-59) U/L ALT (0-50) U/L Alkaline Phosphatase (38-126) U/L Troponin I 0.069 H* 0.082 H* (0.000-0.034) ng/mL Serum Total Protein (6.3-8.2) g/dL Albumin (3.5-5.0) g/dL Prealbumin (17.6-36.0) mg/dL Urine Color (YELLOW) Urine Appearance (CLEAR) Urine pH (5-6) Ur Specific [place] (1.005-1.025) Urine Protein (Negative) Urine Ketones (NEGATIVE) Urine Blood (0-5) [place]/ul Urine Nitrite (NEGATIVE) Urine Bilirubin (NEGATIVE) Urine Urobilinogen (0-1) mg/dL Ur Leukocyte Esterase (NEGATIVE) Urine WBC (Auto) (0-5) /HPF Urine RBC (Auto) (0-2) /HPF U Epithel Cells (Auto) (FEW) /HPF Urine Bacteria (Auto) (NEGATIVE) /HPF Urine Mucus (Auto) (NEGATIVE) /HPF Urine Glucose (NEGATIVE) mg/dL 10/30/18 10/30/18 10/30/18 Range/Units 05:25 05:50 05:50 WBC 23.9 H (4.0-10.5) K/mm3 RBC 3.96 L (4.1-5.6) M/mm3 Hgb 12.1 L (12.5-18.0) gm/dl Hct 37.6 L (42-50) % MCV 94.9 (78-100) fl MCH 30.5 (26-32) pg MCHC 32.2 (32-36) g/dl RDW 12.5 (11.5-14.0) % Plt Count 293 (150-450) K/mm3 MPV 9.3 (6-9.5) fl Segmented Neutrophils 91 H (36.-66.) % Band Neutrophils 3 H (0.0-2.0) % Lymphocytes (Manual) 4 L (24-44) % Monocytes (Manual) 1 (0.0-12.0) % Basophils (Manual) 1 (0.0-1.0) % Toxic Granulation 1+ Platelet Estimate NORMAL (NORMAL) RBC Morphology ABNORMAL Anisocytosis 1+ PT (8.83-12.87) SECONDS INR (0.8-3.0) Puncture Site RIGHT RADIAL pCO2 33 L (35-45) mmHg pO2 187 H* (75-100) mmHg Base Excess -1.8 (-2.0-2.0) O2 Saturation 92.5 L (94-100) g/dF ABG pH 7.43 (7.35-7.45) ABG HCO3 21.9 L (22-28) ABG O2 Sat (Measured) 99.0 (95-100) % Chandra Test no A-a Gradient 57 a/A Ratio 0.77 Hemoglobin 12.2 Carboxyhemoglobin 5.3 (0.0-6.9) % THgb Methemoglobin 1.3 L (1.4-1.5) % Temperature 37.0 C POC O2 Flow Rate 40 % Vent Mode BiPAP Inspiratory BiPAP 14 Expiratory BiPAP 8 Sodium 138 (137-145) mmol/L Potassium 4.3 4.4 (3.5-5.1) mmol/L Chloride 100 (98-107) mmol/L Carbon Dioxide 26 (22-30) mmol/L Anion Gap 15.1 H (5-15) MEQ/L BUN 44 H (9-20) mg/dL Creatinine 2.42 H (0.66-1.25) mg/dL Estimated GFR 28.5 ML/MIN Glucose 380 H (74-106) mg/dL Lactic Acid (0.4-2.0) Calcium 8.1 L (8.4-10.2) mg/dL Magnesium 1.6 (1.6-2.3) mg/dL Total Bilirubin 0.60 (0.2-1.3) mg/dL AST 27 (17-59) U/L ALT 19 (0-50) U/L Alkaline Phosphatase 92 (38-126) U/L Troponin I (0.000-0.034) ng/mL Serum Total Protein 6.8 (6.3-8.2) g/dL Albumin 3.3 L (3.5-5.0) g/dL Prealbumin (17.6-36.0) mg/dL Urine Color (YELLOW) Urine Appearance (CLEAR) Urine pH (5-6) Ur Specific [place] (1.005-1.025) Urine Protein (Negative) Urine Ketones (NEGATIVE) Urine Blood (0-5) [place]/ul Urine Nitrite (NEGATIVE) Urine Bilirubin (NEGATIVE) Urine Urobilinogen (0-1) mg/dL Ur Leukocyte Esterase (NEGATIVE) Urine WBC (Auto) (0-5) /HPF Urine RBC (Auto) (0-2) /HPF U Epithel Cells (Auto) (FEW) /HPF Urine Bacteria (Auto) (NEGATIVE) /HPF Urine Mucus (Auto) (NEGATIVE) /HPF Urine Glucose (NEGATIVE) mg/dL 10/30/18 Range/Units 05:50 WBC (4.0-10.5) K/mm3 RBC (4.1-5.6) M/mm3 Hgb (12.5-18.0) gm/dl Hct (42-50) % MCV (78-100) fl MCH (26-32) pg MCHC (32-36) g/dl RDW (11.5-14.0) % Plt Count (150-450) K/mm3 MPV (6-9.5) fl Segmented Neutrophils (36.-66.) % Band Neutrophils (0.0-2.0) % Lymphocytes (Manual) (24-44) % Monocytes (Manual) (0.0-12.0) % Basophils (Manual) (0.0-1.0) % Toxic Granulation Platelet Estimate (NORMAL) RBC Morphology Anisocytosis PT (8.83-12.87) SECONDS INR (0.8-3.0) Puncture Site pCO2 (35-45) mmHg pO2 (75-100) mmHg Base Excess (-2.0-2.0) O2 Saturation (94-100) g/dF ABG pH (7.35-7.45) ABG HCO3 (22-28) ABG O2 Sat (Measured) (95-100) % Chandra Test A-a Gradient a/A Ratio Hemoglobin Carboxyhemoglobin (0.0-6.9) % THgb Methemoglobin (1.4-1.5) % Temperature C POC O2 Flow Rate % Vent Mode Inspiratory BiPAP Expiratory BiPAP Sodium (137-145) mmol/L Potassium (3.5-5.1) mmol/L Chloride (98-107) mmol/L Carbon Dioxide (22-30) mmol/L Anion Gap (5-15) MEQ/L BUN (9-20) mg/dL Creatinine (0.66-1.25) mg/dL Estimated GFR ML/MIN Glucose (74-106) mg/dL Lactic Acid (0.4-2.0) Calcium (8.4-10.2) mg/dL Magnesium (1.6-2.3) mg/dL Total Bilirubin (0.2-1.3) mg/dL AST (17-59) U/L ALT (0-50) U/L Alkaline Phosphatase (38-126) U/L Troponin I 0.174 H* (0.000-0.034) ng/mL Serum Total Protein (6.3-8.2) g/dL Albumin (3.5-5.0) g/dL Prealbumin (17.6-36.0) mg/dL Urine Color (YELLOW) Urine Appearance (CLEAR) Urine pH (5-6) Ur Specific [place] (1.005-1.025) Urine Protein (Negative) Urine Ketones (NEGATIVE) Urine Blood (0-5) [place]/ul Urine Nitrite (NEGATIVE) Urine Bilirubin (NEGATIVE) Urine Urobilinogen (0-1) mg/dL Ur Leukocyte Esterase (NEGATIVE) Urine WBC (Auto) (0-5) /HPF Urine RBC (Auto) (0-2) /HPF U Epithel Cells (Auto) (FEW) /HPF Urine Bacteria (Auto) (NEGATIVE) /HPF Urine Mucus (Auto) (NEGATIVE) /HPF Urine Glucose (NEGATIVE) mg/dL Radiology Exams: Radiology Procedures Category Date Time Status CHEST 1 VIEW (PORTABLE) Stat Exams 10/29/18 09:37 Completed Assessment/Plan (1) Sepsis Current Visit: Yes Status: Acute Qualifiers: Sepsis type: Escherichia coli, in Qualified Code(s): P36.4 - Sepsis of due to Escherichia coli (2) Acute on chronic renal failure Current Visit: Yes Status: Acute Onset Date: ~04/24/18 Code(s): N17.9 - ACUTE KIDNEY FAILURE, UNSPECIFIED; N18.9 - CHRONIC KIDNEY DISEASE, UNSPECIFIED (3) Atrial fibrillation with RVR Current Visit: Yes Status: Acute Code(s): I48.91 - UNSPECIFIED ATRIAL FIBRILLATION (4) FUO (fever of unknown origin) Current Visit: Yes Status: Acute (5) Type 2 diabetes mellitus Current Visit: Yes Status: Chronic Qualifiers: (6) Pyelonephritis due to Escherichia coli Current Visit: No Status: Acute Code(s): N12 - TUBULO-INTERSTITIAL NEPHRITIS , NOT SPCF ACUTE OR CHRONIC; B96.20 - UNSP ESCHERICHIA COLI THE CAUSE OF DISEASES CLASSD ELSWHR (7) IHD (ischemic heart disease) Current Visit: No Status: Chronic Code(s): I25.9 - CHRONIC ISCHEMIC HEART DISEASE, UNSPECIFIED
[2018-10-30] MEDS: Merrem 1 GM 1 G in Sodium Chloride 100ML MINI-BAG PLUS 100 ML IV SCH ×2 (10:18→21:43)
[2018-10-30] MEDS: Sodium Chloride 0.9% 1000 ML 1,000 ML IV SCH ×2 (10:52→23:09)
[2018-10-30] MEDS ORDERED: Nitrostat 0.4 MG Tablet SL PRN (13:56)
[2018-10-30] MEDS: Norco 10/325 MG Tablet PO PRN ×2 (14:17→21:51)
[2018-10-30] MEDS: DELTASONE 10 MG PO SCH (14:35)
[2018-10-30] MEDS: Novolin 70/30 SQ SCH (16:36)
[2018-10-30] MEDS: Bactroban OINTMENT TOP SCH (21:43)
[2018-10-31] MEDS: NovoLOG Insulin SQ PRN ×6 (00:29→22:14)
[2018-10-31] MEDS ORDERED: Vancomycin 1GM/ Ns 250ML*** 250 ML IV ONE (04:50)
[2018-10-31] MEDS: VANCOCIN 1 GM VIAL*** 1.5 GM in Sodium Chloride 0.9% 500 ML 500 ML IV SCH (05:26)
[2018-10-31 06:21] LABS: ALBUMIN 2.6 g/dL (3.5-5.0); ANION GAP 12.5 MEQ/L (5-15); BILIRUBIN,TOTAL 0.4 mg/dL (0.2-1.3); Creatinine 1 2.03 mg/dL (0.66-1.25); Potassium 4.1 mmol/L (3.5-5.1); Total Protein 5.6 g/dL (6.3-8.2)
[2018-10-31] MEDS ORDERED: VANCOCIN 500 MG VIAL*** 500 MG in Sodium Chloride 100ML MINI-BAG PLUS 100 ML IV ONE (06:45)
[2018-10-31 06:48] LABS: BASOPHIL % 0.1 % (0.0-0.4); Basophil (Absolute #) 0.02 (0-0.4); Eosinophil % 0.4 % (0.00-5.0); Eosinophil (Absolute #) 0.08 (0-0.5); Granulocyte Absolute (ANC) 16.53 (1.4-6.9); Granulocytes % 90.2 % (36.0-66.0); Hematocrit 30.4 % (42-50); Hemoglobin 9.9 gm/dl (12.5-18.0); Lymphocyte (Absolute #) 0.96 (1.0-4.6); Lymphocytes % 5.2 % (24.0-44.0); Mean Cell Volume 94.1 fl (78-100); Mean Corpuscular Hemoglobin 30.6 pg (26-32); Mean Corpuscular Hgb Concent. 32.6 g/dl (32-36); Mean Platelet Volume 9.6 fl (6-9.5); Monocyte (Absolute #) 0.76 (0.0-1.3); Monocytes % 4.1 % (0.0-12.0); Platelet Count 244 K/mm3 (150-450); Red Blood Count 3.23 M/mm3 (4.1-5.6); Red Cell Distribution Width 12.2 % (11.5-14.0); White Blood Count 18.4 K/mm3 (4.0-10.5)
[2018-10-31] MEDS: Novolin 70/30 SQ SCH ×3 (08:01→16:56)
[2018-10-31] MEDS ORDERED: MUPIROCIN CALCIUM NS SCH (10:00)
[2018-10-31] MEDS: Merrem 1 GM 1 G in Sodium Chloride 100ML MINI-BAG PLUS 100 ML IV SCH ×2 (10:04→22:14)
[2018-10-31] MEDS: DELTASONE 10 MG PO SCH (10:07)
[2018-10-31] MEDS: Cozaar 50 MG PO SCH (10:07)
[2018-10-31] MEDS: Lasix 40 MG PO SCH (10:07)
[2018-10-31] MEDS: Avodart 0.5 MG PO SCH (10:19)
[2018-10-31] MEDS: Bactroban OINTMENT TOP SCH ×2 (10:21→22:14)
--- NOTE | 2018-10-31 13:39 | PCM.NOTE ---
Date and Time: 10/31/18 7798 Subjective Assessment: doing better - Review of Systems Constitutional: No Fever, No Chills Eyes: No Symptoms Ears, Nose, & Throat: No Symptoms Respiratory: No Cough, No Short Of Breath Cardiac: No Chest Pain, No Edema, No Syncope Abdominal/Gastrointestinal: No Abdominal Pain, No Nausea, No Vomiting, No Diarrhea Genitourinary Symptoms: No Dysuria Musculoskeletal: No Back Pain, No Neck Pain Skin: No Rash Neurological: No Dizziness, No Focal Weakness, No Sensory Changes Psychological: No Symptoms Endocrine: No Symptoms Hematologic/Lymphatic: No Symptoms Immunological/Allergic: No Symptoms Objective Exam General Appearance: no apparent distress, alert Neurologic Exam: alert, oriented x 3, cooperative, normal mood/affect, nml cerebellar function, sensation nml, No motor deficits Skin Exam: normal color, warm, dry Eye Exam: PERRL, EOMI, eyes nml inspection Ears, Nose, Throat Exam: normal ENT inspection, pharynx normal, moist mucous membranes Neck Exam: normal inspection, non-tender, supple, full range of motion Respiratory Exam: normal breath sounds, lungs clear, No respiratory distress Cardiovascular Exam: regular rate/rhythm, normal heart sounds Gastrointestinal/Abdomen Exam: soft, No tenderness, No mass Extremity Exam: normal inspection, normal range of motion Back Exam: normal inspection, normal range of motion, No CVA tenderness, No vertebral tenderness Male Genitalia Exam: deferred Rectal Exam: deferred OBJECTIVE DATA Vital Signs: Vital Signs - 24 hr Temp Pulse Resp BP BP Pulse Ox 10/31/18 12:00 99.1 F 83 14 114/63 96 10/31/18 08:00 98.4 F 77 15 117/69 97 10/31/18 04:00 98.6 F 79 16 119/56 97 10/31/18 02:00 98.8 F 78 14 120/68 95 10/31/18 01:00 98.8 F 80 14 91/43 98/66 98 10/31/18 00:32 99.1 F 81 15 91/43 117/73 95 10/31/18 00:01 81 10/31/18 00:00 99.1 F 83 15 91/43 102/70 94 L 10/30/18 23:00 98.9 F 85 15 102/68 95 10/30/18 22:00 82 15 112/53 100 10/30/18 21:00 99.1 F 82 15 91/43 137/67 97 10/30/18 20:00 99.1 F 83 14 106/56 100 10/30/18 19:00 99.0 F 82 14 91/43 100 18 18:00 99.0 F 81 12 90/56 100 10/30/18 17:00 98.8 F 77 13 92/42 99 10/30/18 16:00 98.6 F 83 13 107/71 100 10/30/18 15:00 98.6 F 85 14 107/60 100 10/30/18 14:00 98.8 F 81 14 98/68 98 Oxygen-Last 24 hours O2 Percentage 4 Liters = 36% O2 Percentage 4 Liters = 36% O2 Percentage 4 Liters = 36% O2 Percentage 4 Liters = 36% O2 Percentage 4 Liters = 36% O2 Percentage 4 Liters = 36% Pain Assessment - Last Documented Pain Intensity 0 Pain Scale Used 0-10 Pain Scale Intake and Output: Intake & Output 10/29/18 10/30/18 10/31/18 11/01/18 11:59 11:59 11:59 11:59 Intake Total 9611 2474 904 Output Total 20 7000 800 Balance -20 2611 3464 904 Weight 181.3 kg 181.3 kg Lab Results: Accuchecks Date 10/31/18 Date 10/31/18 Date 10/30/18 Time 04:10 Time 00:20 Time 21:00 Accucheck Value: 189 Accucheck Value: 215 Accucheck Value: 261 Accucheck Value: 237 Accucheck Value: 291 Lab Results-Last 24 Hours 10/31/18 10/31/18 Range/Units 05:38 05:38 WBC 18.4 H (4.0-10.5) K/mm3 RBC 3.23 L (4.1-5.6) M/mm3 Hgb 9.9 L (12.5-18.0) gm/dl Hct 30.4 L (42-50) % MCV 94.1 (78-100) fl MCH 30.6 (26-32) pg MCHC 32.6 (32-36) g/dl RDW 12.2 (11.5-14.0) % Plt Count 244 (150-450) K/mm3 MPV 9.6 H (6-9.5) fl Gran % 90.2 H (36.0-66.0) % Eos # (Auto) 0.08 (0-0.5) Absolute Lymphs (auto) 0.96 L (1.0-4.6) Absolute Monos (auto) 0.76 (0.0-1.3) Lymphocytes % 5.2 L (24.0-44.0) % Monocytes % 4.1 (0.0-12.0) % Eosinophils % 0.4 (0.00-5.0) % Basophils % 0.1 (0.0-0.4) % Absolute Granulocytes 16.53 H (1.4-6.9) Basophils # 0.02 (0-0.4) Sodium 137 (137-145) mmol/L Potassium 4.1 (3.5-5.1) mmol/L Chloride 103 (98-107) mmol/L Carbon Dioxide 25 (22-30) mmol/L Anion Gap 12.5 (5-15) MEQ/L BUN 45 H (9-20) mg/dL Creatinine 2.03 H (0.66-1.25) mg/dL Estimated GFR 34.9 ML/MIN Glucose 186 H (74-106) mg/dL Calcium 8.0 L (8.4-10.2) mg/dL Total Bilirubin 0.40 (0.2-1.3) mg/dL AST 16 L (17-59) U/L ALT 15 (0-50) U/L Alkaline Phosphatase 69 (38-126) U/L Serum Total Protein 5.6 L (6.3-8.2) g/dL Albumin 2.6 L (3.5-5.0) g/dL Assessment/Plan (1) Sepsis Current Visit: Yes Status: Acute Qualifiers: Sepsis type: Escherichia coli, in Qualified Code(s): P36.4 - Sepsis of due to Escherichia coli (2) Acute on chronic renal failure Current Visit: Yes Status: Acute Onset Date: ~04/24/18 Qualifiers: Chronic kidney disease stage: stage 3 (moderate) Code(s): N17.9 - ACUTE KIDNEY FAILURE, UNSPECIFIED; N18.9 - CHRONIC KIDNEY DISEASE, UNSPECIFIED (3) Atrial fibrillation with RVR Current Visit: Yes Status: Acute Code(s): I48.91 - UNSPECIFIED ATRIAL FIBRILLATION (4) FUO (fever of unknown origin) Current Visit: Yes Status: Resolved (5) Type 2 diabetes mellitus Current Visit: Yes Status: Chronic Qualifiers: Diabetes mellitus complication status: with hyperglycemia (6) Pyelonephritis due to Escherichia coli Current Visit: Yes Status: Acute Code(s): N12 - TUBULO-INTERSTITIAL NEPHRITIS, NOT SPCF ACUTE OR CHRONIC; B96.20 - UNSP ESCHERICHIA COLI [facility] (7) IHD (ischemic heart disease) Current Visit: Yes Status: Chronic Code(s): I25.9 - CHRONIC ISCHEMIC HEART DISEASE, UNSPECIFIED
[2018-10-31] MEDS: Norco 10/325 MG Tablet PO PRN (16:54)
[2018-10-31] MEDS: Sodium Chloride 0.9% 1000 ML 1,000 ML IV SCH (17:10)
[2018-10-31] MEDS: MARY'S MOUTHWASH PO SCH ×2 (17:11→22:14)
[2018-10-31] MEDS ORDERED: VANCOCIN 1 GM VIAL*** 1 GM in Sodium Chloride 0.9% 250 ML 250 ML IV SCH (18:00)
[2018-11-01] MEDS: NovoLOG Insulin SQ PRN (00:33)
[2018-11-01 04:38] VITALS: PULSE 75
[2018-11-01] MEDS: Sodium Chloride 0.9% 1000 ML 1,000 ML IV SCH (05:44)
[2018-11-01 07:44] VITALS: BP 137/60; O2SAT 95
[2018-11-01] MEDS: Novolin 70/30 SQ SCH (08:29)
[2018-11-01] MEDS: Avodart 0.5 MG PO SCH (09:07)
[2018-11-01] MEDS: DELTASONE 10 MG PO SCH (09:08)
[2018-11-01] MEDS: Lasix 40 MG PO SCH (09:08)
[2018-11-01] MEDS: Cozaar 50 MG PO SCH (09:08)
[2018-11-01] MEDS: MARY'S MOUTHWASH PO SCH (09:09)
[2018-11-01] MEDS: Merrem 1 GM 1 G in Sodium Chloride 100ML MINI-BAG PLUS 100 ML IV SCH (09:11)
== END 2018-11-01 11:05 | DRG 872 ==
LOC: ED 08:26 → ICU 11:30 → UNDOADMOB 11:50 → INTOOBSV 11:50 → ICU 11:50 → OBSVTOIN 11:50 → MED SURG 10-31 13:14
PROVIDERS: ADMIT General Practice; ATTEND General Practice
DX: A41.51 Sepsis due to Escherichia coli [E. coli] (principal); N17.9 Acute kidney failure, unspecified; N12 Tubulo-interstitial nephritis, not specified as acute or chronic; N18.9 Chronic kidney disease, unspecified; E11.9 Type 2 diabetes mellitus without complications; Z79.4 Long term (current) use of insulin; I25.10 Atherosclerotic heart disease of native coronary artery without angina pectoris; B96.20 Unspecified Escherichia coli [E. coli] as the cause of diseases classified elsewhere; I25.9 Chronic ischemic heart disease, unspecified; E66.01 Morbid (severe) obesity due to excess calories; R50.9 Fever, unspecified; A41.9 Sepsis, unspecified organism; I48.91 Unspecified atrial fibrillation; J44.9 Chronic obstructive pulmonary disease, unspecified; Z79.899 Other long term (current) drug therapy; Z86.73 Personal history of transient ischemic attack (TIA), and cerebral infarction without residual deficits; I25.2 Old myocardial infarction; I50.9 Heart failure, unspecified; G47.30 Sleep apnea, unspecified; M19.90 Unspecified osteoarthritis, unspecified site; K21.9 Gastro-esophageal reflux disease without esophagitis; F32.9 Major depressive disorder, single episode, unspecified; Z87.442 Personal history of urinary calculi
CPT/HCPCS: 36000; 36415; 36600; 51702; 71045; 80053; 81001; 82375; 82803; 82962; 83605; 83735; 84134; 84484; 85025; 85610; 87040; 87045; 87046; 87070; 87077; 87086; 87186; 87335; 93005; 93041; 94002; 94003; 94760; 96360; 96365; 96367; 96374; 99285; J1265; J1580; J1815; J1940; J3370; A9270-GY

== ENCOUNTER 2020-01-12 18:15 | Observation (INO) | payer MEDICARE ==
--- NOTE | 2020-01-12 18:48 | ERPHSYRPT ---
- History of Present Illness Patient Subjective Stated Complaint: "I have just been dizzy for past 3 days" Triage Nursing Assessment: aaox3, color good, resp easy, denies trouble with breathing, abd distended states patient but denies pain of any type,. states h/ o heart stents. Denies dizzness at this time. States dizziness happens when trying to sit up. Has f/c and urine appears to have alot of sediment whitish colored. Patient states fell today trying to get into w/c. denies injury. 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 Physician History: 9 years old morbidly obese male with multiple medical problems including atrial fibrillation/flutter, coronary artery disease status post stenting, congestive heart failure, indwelling catheter, decreased mobility is brought in the ER by EMS with chief complaint of dizziness. Patient reports dizziness since yesterday whenever he tries to get up and feels things spinning around him. He does not feel spinning himself. Denies any lightheadedness or palpitations or shortness of breath. Denies any chest pain. Patient has chronic lower extremity swelling which is not any worse than usual. Dizziness gets better with sitting and lying. Denies any numbness tingling or focal weakness. Timing/Duration: yesterday, intermittent, worse Severity: moderate Character of Deficits: none Deficits: falling Baseline/Normal Cognition: alert oriented x 3 Current Cognition: alert oriented x 3 Associated Symptoms: fatigue, trouble walking, No fever, No chills, No nausea, No vomiting, No weakness, No numbness/tingling in legs/feet, No ringing in ears , No seizures, No slurred speech Allergies/Adverse Reactions: Penicillins Allergy (Severe, Verified 04/24/18 17:39) Hives silver [Silver] Allergy (Intermediate, Verified 04/24/18 17:39) Itching zinc [Zinc] Allergy (Intermediate, Verified 04/24/18 17:39) Itching carvedilol [From Coreg] Adverse Reaction (Intermediate, Verified 04/24/18 17:39) "makes me dizzy" metoprolol Adverse Reaction (Intermediate, Verified 04/24/18 17:39) "makes me dizzy" Home Medications: Dutasteride 0.5 MG [Avodart 0.5 MG] 0.5 mg PO DAILY 10/30/18 [History] Furosemide 40 mg [Lasix 40 MG] 40 mg PO DAILY 10/30/18 [History] Hum Insulin NPH/Reg Insulin Hm [Novolin 70-30 100 Unit/ml Vial] 24 units SQ AC 10/30/18 [History] Losartan Potassium 50 mg [Cozaar 50 MG] 50 mg PO DAILY 10/30/18 [History] Mupirocin Calcium [Bactroban Nasal] 1 gm NS DAILY 10/30/18 [History] Nitroglycerin 0.4 mg Tablet [Nitrostat 0.4 MG Tablet] 0.4 mg SL Q5MIN PRN MR X 3 PRN 10/30/18 [History] Prednisone 10 mg [Deltasone 10 mg] 10 mg PO DAILY 10/30/18 [History] Hx Tetanus, Diphtheria Vaccination/Date Given: No Hx Influenza Vaccination/Date Given: Yes Hx Pneumococcal Vaccination/Date Given: Yes - Review of Systems Constitutional: No Symptoms Eyes: No Symptoms Ears, Nose, & Throat: No Symptoms Respiratory: No Symptoms Cardiac: No Symptoms Abdominal/Gastrointestinal: No Symptoms Musculoskeletal: No Symptoms Skin: No Symptoms Neurological: Dizziness Psychological: No Symptoms Endocrine: No Symptoms Hematologic/Lymphatic: No Symptoms Immunological/Allergic: No Symptoms - Past Medical History Pertinent Past Medical History: Yes Neurological History: Stroke, TIA ENT History: Cataracts Cardiac History: Congestive Heart Failure, Coronary Artery Disease, Myocardial Infarction ([place]) Respiratory History: CHF, COPD, Sleep Apnea Endocrine Medical History: Diabetes Type II Musculoskeletal History: Arthritis GI Medical History: GERD, GI Bleed, Ulcer History: No Pertinent History Psycho-Social History: Depression Male Reproductive Disorders: No Pertinent History Other Medical History: right partial foot amputation. kidney infection, hx stones - Past Surgical History Past Surgical History: Yes Neuro Surgical History: No Pertinent History Cardiac: Cardiac Catheterization, Cardiac Stent Respiratory: No Pertinent History Gastrointestinal: Appendectomy, Cholecystectomy, Exploratory Laparoscopy Genitourinary: No Pertinent History Musculoskeletal: Amputation Male Surgical History: Prostate Surgery Other Surgical History: Tonsillectomy and adenoidectomy. right toes/foot partial amputation and revision. PORT PLACEMENT - Social History Smoking Status: Never smoker Exposure to second hand smoke: No Alcohol Use: None Drug Use: none Patient Lives Alone: No Significant Family History: heart disease, diabetes, hypertension - Nursing Vital Signs Nursing Vital Signs: Initial Vital Signs Temperature 97.9 F 01/12/20 18:15 Pulse Rate 80 01/12/20 18:15 Respiratory Rate 120 H 01/12/20 18:15 Blood Pressure 177/84 01/12/20 18:15 Pain Scale Pain Intensity 0 - [place] Coma Scale Best Eye Response ([place]): (4) open spontaneously Best Verbal Response ([place]): (5) oriented Best Motor Response ([place]): (6) obeys commands [place] Total: 15 - Physical Exam General Appearance: no apparent distress, alert Eye Exam: bilateral eye: normal inspection, PERRL, EOMI Ears, Nose, Throat Exam: normal ENT inspection, TMs normal, pharynx normal Neck Exam: normal inspection, non-tender, full range of motion Respiratory: diminished breath sounds Cardiovascular: normal heart sounds, irregular, capillary refill 2-3 sec, edema (2+ bilateral) Back Exam: normal inspection Extremity Exam: pelvis stable, pedal edema, swelling Mental Status: alert, oriented x 3, cooperative machine marker Exam: normal hearing, normal speech, PERRL Coordination/Gait: normal finger to nose Motor/Sensory: no motor deficit Skin Exam: normal color SpO2 Interpretation: normal O2 Delivery: Room Air - Course Nursing assessment & vital signs reviewed: Yes EKG Interpreted by Me: RATE ([id number]), NORMAL AXIS, NORMAL INTERVALS, Non-specific ST Changes Rhythm Strip: Atrial Flutter Ordered Tests: Active Orders 24 hr Category Date Time Status Operations Chief STAT Care 01/12/20 18:50 Active EKG-ER Only STAT Care 01/12/20 18:49 Active IV Insertion STAT Care 01/12/20 18:49 Active Orthostatic Vital Signs STAT Care 01/12/20 18:49 Active CHEST 1 VIEW (PORTABLE) Stat Exams 01/12/20 18:50 Completed HEAD WITHOUT CONTRAST [CT] Stat Exams 01/12/20 18:50 Taken CBC W DIFF Stat Lab 01/12/20 19:14 Completed CMP Stat Lab 01/12/20 19:14 Completed CULTURE,URINE Stat Lab 01/12/20 20:49 Received Lactic Acid Stat Lab 01/12/20 19:25 Completed MAGNESIUM Stat Lab 01/12/20 19:14 Completed TROPONIN Q3H Lab 01/12/20 19:14 Completed TROPONIN Q3H Lab 01/12/20 22:00 Ordered TROPONIN Q3H Lab 01/13/20 01:00 Ordered TROPONIN Q3H Lab 01/13/20 04:00 Ordered TROPONIN Q3H Lab 01/13/20 07:00 Ordered UA W/RFX UR CULTURE Stat Lab 01/12/20 20:49 Completed Transfer Order Routine Transfer 01/12/20 Ordered Medication Summary Generic Name Dose Route Start Last Admin Trade Name Lisa PRN Reason Stop Dose Admin Levofloxacin/Dextrose 250 mg in 50 mls @ 50 mls/hr 01/12/20 21:30 01/12/20 21 :40 Levaquin 250mg/50ml D5w IV 01/12/20 22:29 50 mls/hr STAT STA 50 mls/hr Administration Discontinued Medications Generic Name Dose Route Start Last Admin Trade Name Lisa PRN Reason Stop Dose Admin Levofloxacin/Dextrose Confirm 01/12/20 21:36 Levaquin 250mg/50ml D5w Administered 01/12/20 21:37 Dose 250 mg in 50 mls @ ud IV .STK-MED ONE Meclizine HCl 25 mg 01/12/20 18:49 01/12/20 19:10 Antivert 25 Mg PO 01/12/20 18:50 25 mg STAT ONE Administration Meclizine HCl Confirm 01/12/20 19:10 Antivert 25 Mg Administered 01/12/20 19:11 Dose 25 mg .ROUTE .STK-[facility] Lab/Rad Data: Laboratory Result Diagrams 01/12/20 19:14 01/12/20 19:14 Laboratory Results 01/12/20 01/12/20 01/12/20 Range/Units 20:49 19:25 19:14 WBC (4.0-10.5) K/mm3 RBC (4.1-5.6) M/mm3 Hgb (12.5-18.0) gm/dl Hct (42-50) % MCV (78-100) fl MCH (26-32) pg MCHC (32-36) g/dl RDW (11.5-14.0) % Plt Count (150-450) K/mm3 MPV (7.5-11.0) fl Gran % (36.0-66.0) % Eos # (Auto) (0-0.5) Absolute Lymphs (auto) (1.0-4.6) Absolute Monos (auto) (0.0-1.3) Lymphocytes % (24.0-44.0) % Monocytes % (0.0-12.0) % Eosinophils % (0.00-5.0) % Basophils % (0.0-0.4) % Absolute Granulocytes (1.4-6.9) Basophils # (0-0.4) Sodium (137-145) mmol/L Potassium (3.5-5.1) mmol/L Chloride (98-107) mmol/L Carbon Dioxide (22-30) mmol/L Anion Gap (5-15) MEQ/L BUN (9-20) mg/dL Creatinine (0.66-1.25) mg/dL Estimated GFR ML/MIN Glucose (74-106) mg/dL Lactic Acid 1.2 (0.4-2.0) Calcium (8.4-10.2) mg/dL Magnesium (1.6-2.3) mg/dL Total Bilirubin (0.2-1.3) mg/dL AST (17-59) U/L ALT (0-50) U/L Alkaline Phosphatase (38-126) U/L Troponin I < 0.012 (0.000-0.034) ng/mL Serum Total Protein (6.3-8.2) g/dL Albumin (3.5-5.0) g/dL Urine Color YELLOW (YELLOW) Urine Appearance TURBID (CLEAR) Urine pH 9.0 (5-6) Ur Specific [place] 1.005 (1.005-1.025) Urine Protein 100 (Negative) Urine Ketones NEGATIVE (NEGATIVE) Urine Blood SMALL (0-5) [place]/ul Urine Nitrite POSITIVE (NEGATIVE) Urine Bilirubin NEGATIVE (NEGATIVE) Urine Urobilinogen NEGATIVE (0-1) mg/dL Ur Leukocyte Esterase LARGE (NEGATIVE) Urine WBC (Auto) NONE (0-5) /HPF Urine RBC (Auto) 6-10 (0-2) /HPF U Epithel Cells (Auto) RARE (FEW) /HPF Urine Bacteria (Auto) RARE (NEGATIVE) /HPF Urine Culture Reflexed ORDERED SEPARATELY (NO) Urine Glucose 50 (NEGATIVE) mg/dL 01/12/20 01/12/20 Range/Units 19:14 19:14 WBC 8.9 (4.0-10.5) K/mm3 RBC 3.78 L (4.1-5.6) M/mm3 Hgb 11.2 L (12.5-18.0) gm/dl Hct 35.2 L (42-50) % MCV 93.1 (78-100) fl MCH 29.6 (26-32) pg MCHC 31.8 L (32-36) g/dl RDW 13.0 (11.5-14.0) % Plt Count 297 (150-450) K/mm3 MPV 9.1 (7.5-11.0) fl Gran % 74.0 H (36.0-66.0) % Eos # (Auto) 0.19 (0-0.5) Absolute Lymphs (auto) 1.57 (1.0-4.6) Absolute Monos (auto) 0.52 (0.0-1.3) Lymphocytes % 17.7 L (24.0-44.0) % Monocytes % 5.8 (0.0-12.0) % Eosinophils % 2.1 (0.00-5.0) % Basophils % 0.4 (0.0-0.4) % Absolute Granulocytes 6.57 (1.4-6.9) Basophils # 0.04 (0-0.4) Sodium 136 L (137-145) mmol/L Potassium 3.9 (3.5-5.1) mmol/L Chloride 97 L (98-107) mmol/L Carbon Dioxide 35 H (22-30) mmol/L Anion Gap 8.0 (5-15) MEQ/L BUN 44 H (9-20) mg/dL Creatinine 1.61 H (0.66-1.25) mg/dL Estimated GFR 45.5 ML/MIN Glucose 188 H (74-106) mg/dL Lactic Acid (0.4-2.0) Calcium 8.7 (8.4-10.2) mg/dL Magnesium 2.2 (1.6-2.3) mg/dL Total Bilirubin 0.40 (0.2-1.3) mg/dL AST 20 (17-59) U/L ALT 14 (0-50) U/L Alkaline Phosphatase 84 (38-126) U/L Troponin I (0.000-0.034) ng/mL Serum Total Protein 7.0 (6.3-8.2) g/dL Albumin 3.6 (3.5-5.0) g/dL Urine Color (YELLOW) Urine Appearance (CLEAR) Urine pH (5-6) Ur Specific [place] (1.005-1.025) Urine Protein (Negative) Urine Ketones (NEGATIVE) Urine Blood (0-5) [place]/ul Urine Nitrite (NEGATIVE) Urine Bilirubin (NEGATIVE) Urine Urobilinogen (0-1) mg/dL Ur Leukocyte Esterase (NEGATIVE) Urine WBC (Auto) (0-5) /HPF Urine RBC (Auto) (0-2) /HPF U Epithel Cells (Auto) (FEW) /HPF Urine Bacteria (Auto) (NEGATIVE) /HPF Urine Culture Reflexed (NO) Urine Glucose (NEGATIVE) mg/dL - Progress Progress: improved Progress Note: 01/12/20 22:03 69 years old is evaluated for dizziness along with generalized weakness and fatigue. EKG showed atrial flutter with no acute ST elevation. Negative initial troponins. CT head is negative. Chest x-ray did not show any pneumonic infiltrates. He does have UTI and this could be the reason for his symptoms. Patient is deconditioned and is at high risk for fall. He is being admitted for IV antibiotic and physical therapy so that he can ambulate better. Discussed with Dr. Workman and patient is being admitted. Discussed with : Karla Will see patient in: hospital (observation) Counseled pt/family regarding: lab results, diagnosis, rad results - Departure Departure Disposition: Observation Clinical Impression: Dizziness, Acute UTI Condition: Stable Critical Care Time: Yes Critical Care Time(excluding separately billable procedures): Critical 30-74 mins Referrals: [facility], [facility] [Primary Care Provider] -
[2020-01-12] MEDS ORDERED: ANTIVERT 25 MG PO ONE (18:49)
[2020-01-12] MEDS ORDERED: ANTIVERT 25 MG ONE (19:10)
[2020-01-12 19:15] LABS: Absolute Neutrophil Ct (ANC) 6.57 (1.4-6.9); BASOPHIL % 0.4 % (0.0-0.4); Basophil (Absolute #) 0.04 (0-0.4); Eosinophil % 2.1 % (0.00-5.0); Eosinophil (Absolute #) 0.19 (0-0.5); Hematocrit 35.2 % (42-50); Hemoglobin 11.2 gm/dl (12.5-18.0); Lymphocyte (Absolute #) 1.57 (1.0-4.6); Lymphocytes % 17.7 % (24.0-44.0); Mean Cell Volume 93.1 fl (78-100); Mean Corpuscular Hemoglobin 29.6 pg (26-32); Mean Corpuscular Hgb Concent. 31.8 g/dl (32-36); Mean Platelet Volume 9.1 fl (7.5-11.0); Monocyte (Absolute #) 0.52 (0.0-1.3); Monocytes % 5.8 % (0.0-12.0); Platelet Count 297 K/mm3 (150-450); Red Blood Count 3.78 M/mm3 (4.1-5.6); White Blood Count 8.9 K/mm3 (4.0-10.5)
[2020-01-12 19:26] LABS: ALBUMIN 3.6 g/dL (3.5-5.0); BILIRUBIN,TOTAL 0.4 mg/dL (0.2-1.3); Calcium 8.7 mg/dL (8.4-10.2); Creatinine 1 1.61 mg/dL (0.66-1.25); MAGNESIUM 2.2 mg/dL (1.6-2.3); Potassium 3.9 mmol/L (3.5-5.1)
--- NOTE | 2020-01-12 20:13 | XRAY ---
Indication: Dizziness. Comparison: October 29, 2018. Portable chest demonstrates normal heart and lungs with stable left Port-A-Cath and left upper lobe calcified granuloma. Bony thorax intact.
[2020-01-12 20:55] LABS: Appearance TURBID (CLEAR); Bacteria RARE /HPF (NEGATIVE); Bilirubin NEGATIVE (NEGATIVE); Blood SMALL Ery/ul (0-5); Epithelial Cells RARE /HPF (FEW); Glucose 50 mg/dL (NEGATIVE); Ketones NEGATIVE (NEGATIVE); Leukocyte Esterase LARGE (NEGATIVE); Nitrite POSITIVE (NEGATIVE); Protein,Urine Dip 100 (Negative); Specific Gravity 1.005 (1.005-1.025); Urobilinogen NEGATIVE mg/dL (0-1)
[2020-01-12] MEDS ORDERED: Levaquin 250MG/50ML D5W 250 MG/50 ML BAG IV STA (21:30)
[2020-01-12] MEDS ORDERED: Levaquin 250MG/50ML D5W 250 MG/50 ML BAG IV ONE (21:36)
[2020-01-13] MEDS ORDERED: Zofran 4 MG/2 ML VIAL IV PRN (00:36)
[2020-01-13] MEDS ORDERED: DUONEB 0.5-3 MG/3 ml Neb IH PRN (00:36)
[2020-01-13] MEDS ORDERED: ANTIVERT 25 MG PO PRN (01:16)
[2020-01-13 05:05] LABS: Absolute Neutrophil Ct (ANC) 6.05 (1.4-6.9); BASOPHIL % 0.3 % (0.0-0.4); Basophil (Absolute #) 0.03 (0-0.4); Eosinophil % 3.2 % (0.00-5.0); Eosinophil (Absolute #) 0.31 (0-0.5); Hematocrit 37.3 % (42-50); Hemoglobin 11.6 gm/dl (12.5-18.0); Lymphocyte (Absolute #) 2.73 (1.0-4.6); Lymphocytes % 27.8 % (24.0-44.0); Mean Cell Volume 93.7 fl (78-100); Mean Corpuscular Hemoglobin 29.1 pg (26-32); Mean Corpuscular Hgb Concent. 31.1 g/dl (32-36); Mean Platelet Volume 9.6 fl (7.5-11.0); Monocytes % 7.1 % (0.0-12.0); Neutrophil % 61.6 % (36.0-66.0); Platelet Count 279 K/mm3 (150-450); Red Blood Count 3.98 M/mm3 (4.1-5.6); Red Cell Distribution Width 13.2 % (11.5-14.0); White Blood Count 9.8 K/mm3 (4.0-10.5)
[2020-01-13 05:16] LABS: ANION GAP 9.6 MEQ/L (5-15); Calcium 8.7 mg/dL (8.4-10.2); Creatinine 1 1.46 mg/dL (0.66-1.25); Potassium 3.7 mmol/L (3.5-5.1)
--- NOTE | 2020-01-13 07:47 | XRAY ---
Indication: Dizziness 3 days. Weakness and fatigue. Multiple contiguous axial images obtained through the head without contrast. Comparison: January 28, 2018. There is again age-appropriate global atrophy, minimal periventricular degenerative micro-ischemia bilaterally, and remote left caudate lacunar infarct. No acute intracranial hemorrhage, abnormal extra-axial fluid collection, or mass effect. Fourth ventricle is midline without hydrocephalus. Bony calvarium intact. There is worsening near-complete opacification of the right maxillary sinus. Mastoid air cells are clear. Impression: 1. Again nonacute senile brain with remote left caudate lacunar infarct. 2. Worsening right maxillary sinus disease. Comment: Preliminary interpretation was made by [facility]. No critical discrepancy.
[2020-01-13] MEDS: HUMALOG SQ PRN ×3 (08:05→21:30)
[2020-01-13] MEDS ORDERED: Norco 10/325 MG Tablet PO PRN (15:12)
[2020-01-13] MEDS ORDERED: Atrovent 0.5MG NEBULE IH PRN (15:12)
[2020-01-13] MEDS ORDERED: Nitrostat 0.4 MG Tablet SL PRN (15:12)
--- NOTE | 2020-01-13 15:36 | PCM.HP ---
History of Present Illness - Chief Complaint Chief Complaint: Dizziness History of Present Illness: is a 69 year old male who was admitted through ER with dizziness. He describes episodes as the room is spinning .He has chronic sinus but denies ear pain or other symptoms associated with the dizziness. He is SP CVA right hemiplegia with IDDM,COPD,CAD,Afib,morbid obesity and sleep apnea stating he does not wear CPap bc his sinuses get congested.He lives at home with his who is a [employer] and able to care for him. - Review of Systems Constitutional: Other (denies fever or chills or change in chronic state) Eyes: No Symptoms Ears, Nose, & Throat: Nose Congestion (denies ear pain), Other (sleep apnea untreated,has CPap that he does not tolerate due to sinusitis) Respiratory: No Symptoms (he is deconditioned and has SOB with exertion chronically) Cardiac: Edema (chronic not improved on diuretics) Abdominal/Gastrointestinal: No Symptoms Genitourinary Symptoms: Other (no dysuria) Musculoskeletal: Arthralgias, Joint Pain (knee,chronic) Neurological: Dizziness, Focal Weakness (right sided hemiplegia remote CVA) Psychological: No Symptoms Endocrine: No Symptoms Hematologic/Lymphatic: No Symptoms Medications & Allergies Home Medications: Home Medication List Dutasteride 0.5 MG [Avodart 0.5 MG] 0.5 mg PO DAILY 10/30/18 [History Confirmed 01/13/20] Furosemide 40 mg [Lasix 40 MG] 80 mg PO DAILY 10/30/18 [History Confirmed 01/13/20] Nitroglycerin 0.4 mg Tablet [Nitrostat 0.4 MG Tablet] 0.4 mg SL Q5MIN PRN MR X 3 PRN 10/30/18 [History Confirmed 01/13/20] Prednisone 10 mg [Deltasone 10 mg] 10 mg PO DAILY 10/30/18 [History Confirmed 01/13/20] Hydrocodone/APAP 10/325 mg [[place] 10/325 MG Tablet] 1 tab PO Q6HPRN PRN 7 Days #28 tablet MDD 4 11/01/18 [Rx Confirmed 01/13/20] Bumetanide 1 mg PO DAILY 01/13/20 [History Confirmed 01/13/20] Cetirizine HCl [Zyrtec] 10 mg PO DAILY 01/13/20 [History Confirmed 01/13/20] Clopidogrel Bisulfate 75 mg [PLAVIX 75 MG Tablet] 75 mg PO DAILY 01/13/20 [History Confirmed 01/13/20] Docusate Sodium 100 mg [Colace 100 MG] 100 mg PO TID 01/13/20 [History Confirmed 01/13/20] Duloxetine HCl 30 mg [Cymbalta 30 MG Capsule] 30 mg PO QHS 01/13/20 [ History Confirmed 01/13/20] Ergocalciferol (Vitamin D2) [Vitamin D] 50,000 unit PO WEEKLY 01/13/20 [History Confirmed 01/13/20] Finasteride 5 mg [Proscar 5 MG] 5 mg PO DAILY 01/13/20 [History Confirmed 01/13/20] Gabapentin 400 mg [Neurontin 400 MG] 1,200 mg PO TID 01/13/20 [History Confirmed 01/13/20] Insulin Lispro [Humalog Kwikpen U-100] 45 unit SQ AC 01/13/20 [History Confirmed 01/13/20] Ipratropium [place] 0.5 mg [Atrovent 0.5MG NEBULE] 0.5 mg IH Q4HPRN PRN 12/03 [History Confirmed 01/13/20] Multivitamin [Multivitamins] 1 each PO DAILY 01/13/20 [History Confirmed ] Nitrofurantoin Monohyd/M-Cryst [Nitrofurantoin Orange-Mcr 100 mg] 100 mg PO DAILY 01/13/20 [History Confirmed 01/13/20] Oxybutynin Chloride [Oxybutynin Chloride ER] 10 mg PO DAILY 01/13/20 [History Confirmed 01/13/20] PANTOPRAZOLE 40 mg Tablet [Protonix 40MG Tablet] 40 mg PO DAILY 01/13/20 [ History Confirmed 01/13/20] Potassium Chloride [K-Dur] 40 meq PO DAILY 01/13/20 [History Confirmed 01/13/20] Pravastatin Sodium [Pravachol] 20 mg PO QHS 01/13/20 [History Confirmed 01/13/20 ] Sertraline HCl 50 mg [Zoloft 50 mg Tablet] 50 mg PO DAILY 01/13/20 [History Confirmed 01/13/20] Tamsulosin HCl 0.4 mg [Flomax 0.4 MG] 0.4 mg PO QHS 01/13/20 [History Confirmed 01/13/20] Allergies/Adverse Reactions: Allergies Allergy/AdvReac Type Severity Reaction Status Date / Time Penicillins Allergy Severe Hives Verified 04/24/18 17:39 silver [Silver] Allergy Intermediate Itching Verified 04/24/18 17:39 zinc [Zinc] Allergy Intermediate Itching Verified 04/24/18 17:39 carvedilol [From Coreg] AdvReac Intermediate Verified 04/24/18 17:39 metoprolol AdvReac Intermediate Verified 04/24/18 17:39 - Past Medical History Past Medical History: Yes Neurological History: Stroke, TIA ENT History: Cataracts Cardiac History: Congestive Heart Failure, Coronary Artery Disease, Myocardial Infarction ([place]) Respiratory History: CHF, COPD, Sleep Apnea Endocrine Medical History: Diabetes Type II Musculoskelatal History: Arthritis GI Medical History: GERD, GI Bleed, Ulcer History: No Pertinent History Pyscho-Social History: Depression Male Reproductive Disorders: No Pertinent History Comment: right partial foot amputation. kidney infection, hx stones - Past Surgical History Past Surgical History: Yes Neuro Surgical History: No Pertinent History Cardiac History: Cardiac Catheterization, Cardiac Stent Respiratory Surgery: No Pertinent History GI Surgical History: Appendectomy, Cholecystectomy, Exploratory Laparoscopy Genitourinary Surgical Hx: No Pertinent History Musculskeletal Surgical Hx: Amputation Male Surgical History: Prostate Surgery Other Surgical History: Tonsillectomy and adenoidectomy. right toes/foot partial amputation and revision. PORT PLACEMENT - Social History Smoking Status: Never smoker Exposure to second hand smoke: No Alcohol: None Drug Use: none Significant Family History: heart disease, diabetes, hypertension - Physical Exam Vital Signs: Vital Signs - 24 hr Temp Pulse Resp BP Pulse Ox 01/13/20 12:00 98.2 F 85 20 138/60 98 01/13/20 08:13 94 H 18 98 01/13/20 07:36 97.6 F 77 18 126/59 97 01/13/20 03:45 81 20 97 01/13/20 02:02 98.1 F 83 20 170/71 97 01/12/20 23:08 78 154/53 97 01/12/20 19:05 177/84 01/12/20 18:15 97.9 F 80 120 H 177 General Appearance: mild distress (due to vertigo) Neurologic Exam: alert, oriented x 3, cooperative, normal mood/affect, other ( right sided hemiplegia) Eye Exam: PERRL/EOMI (nonicteric) Ears, Nose, Throat Exam: moist mucous membranes (visable due to xs soft cerumin) Neck Exam: normal inspection Respiratory Exam: diminished breath sounds (bases,no rales or wheezing) Cardiovascular Exam: regular rate/rhythm Gastrointestinal/Abdomen Exam: soft (obese), normal bowel sounds (nontender) Rectal Exam: not done Back Exam: other (no CVA tenderness) Extremity Exam: swelling (bilateral LE) Skin Exam: normal color, warm, dry Results - Labs Lab/Micro Results: Accuchecks Date 01/13/20 Date 01/13/20 Time 11:30 Time 07:30 Accucheck Value: 334 Lab Results-Last 24 Hours 01/12/20 01/12/20 01/12/20 Range/Units 19:14 19:14 19:14 WBC 8.9 (4.0-10.5) K/mm3 RBC 3.78 L (4.1-5.6) M/mm3 Hgb 11.2 L (12.5-18.0) gm/dl Hct 35.2 L (42-50) % MCV 93.1 (78-100) fl MCH 29.6 (26-32) pg MCHC 31.8 L (32-36) g/dl RDW 13.0 (11.5-14.0) % Plt Count 297 (150-450) K/mm3 MPV 9.1 (7.5-11.0) fl Gran % 74.0 H (36.0-66.0) % Eos # (Auto) 0.19 (0-0.5) Absolute Lymphs (auto) 1.57 (1.0-4.6) Absolute Monos (auto) 0.52 (0.0-1.3) Lymphocytes % 17.7 L (24.0-44.0) % Monocytes % 5.8 (0.0-12.0) % Eosinophils % 2.1 (0.00-5.0) % Basophils % 0.4 (0.0-0.4) % Absolute Granulocytes 6.57 (1.4-6.9) Basophils # 0.04 (0-0.4) Sodium 136 L (137-145) mmol/L Potassium 3.9 (3.5-5.1) mmol/L Chloride 97 L (98-107) mmol/L Carbon Dioxide 35 H (22-30) mmol/L Anion Gap 8.0 (5-15) MEQ/L BUN 44 H (9-20) mg/dL Creatinine 1.61 H (0.66-1.25) mg/dL Estimated GFR 45.5 ML/MIN Glucose 188 H (74-106) mg/dL Hemoglobin A1c (4.5-6.0) % Lactic Acid (0.4-2.0) Calcium 8.7 (8.4-10.2) mg/dL Magnesium 2.2 (1.6-2.3) mg/dL Total Bilirubin 0.40 (0.2-1.3) mg/dL AST 20 (17-59) U/L ALT 14 (0-50) U/L Alkaline Phosphatase 84 (38-126) U/L Troponin I < 0.012 (0.000-0.034) ng/mL Serum Total Protein 7.0 (6.3-8.2) g/dL Albumin 3.6 (3.5-5.0) g/dL Urine Color (YELLOW) Urine Appearance (CLEAR) Urine pH (5-6) Ur Specific [place] (1.005-1.025) Urine Protein (Negative) Urine Ketones (NEGATIVE) Urine Blood (0-5) [place]/ul Urine Nitrite (NEGATIVE) Urine Bilirubin (NEGATIVE) Urine Urobilinogen (0-1) mg/dL Ur Leukocyte Esterase (NEGATIVE) Urine WBC (Auto) (0-5) /HPF Urine RBC (Auto) (0-2) /HPF U Epithel Cells (Auto) (FEW) /HPF Urine Bacteria (Auto) (NEGATIVE) /HPF Urine Culture Reflexed (NO) Urine Glucose (NEGATIVE) mg/dL 01/12/20 01/12/20 01/12/20 Range/Units 19:25 20:49 22:47 WBC (4.0-10.5) K/mm3 RBC (4.1-5.6) M/mm3 Hgb (12.5-18.0) gm/dl Hct (42-50) % MCV (78-100) fl MCH (26-32) pg MCHC (32-36) g/dl RDW (11.5-14.0) % Plt Count (150-450) K/mm3 MPV (7.5-11.0) fl Gran % (36.0-66.0) % Eos # (Auto) (0-0.5) Absolute Lymphs (auto) (1.0-4.6) Absolute Monos (auto) (0.0-1.3) Lymphocytes % (24.0-44.0) % Monocytes % (0.0-12.0) % Eosinophils % (0.00-5.0) % Basophils % (0.0-0.4) % Absolute Granulocytes (1.4-6.9) Basophils # (0-0.4) Sodium (137-145) mmol/L Potassium (3.5-5.1) mmol/L Chloride (98-107) mmol/L Carbon Dioxide (22-30) mmol/L Anion Gap (5-15) MEQ/L BUN (9-20) mg/dL Creatinine (0.66-1.25) mg/dL Estimated GFR ML/MIN Glucose (74-106) mg/dL Hemoglobin A1c (4.5-6.0) % Lactic Acid 1.2 (0.4-2.0) Calcium (8.4-10.2) mg/dL Magnesium (1.6-2.3) mg/dL Total Bilirubin (0.2-1.3) mg/dL AST (17-59) U/L ALT (0-50) U/L Alkaline Phosphatase (38-126) U/L Troponin I < 0.012 (0.000-0.034) ng/mL Serum Total Protein (6.3-8.2) g/dL Albumin (3.5-5.0) g/dL Urine Color YELLOW (YELLOW) Urine Appearance TURBID (CLEAR) Urine pH 9.0 (5-6) Ur Specific [place] 1.005 (1.005-1.025) Urine Protein 100 (Negative) Urine Ketones NEGATIVE (NEGATIVE) Urine Blood SMALL (0-5) [place]/ul Urine Nitrite POSITIVE (NEGATIVE) Urine Bilirubin NEGATIVE (NEGATIVE) Urine Urobilinogen NEGATIVE (0-1) mg/dL Ur Leukocyte Esterase LARGE (NEGATIVE) Urine WBC (Auto) NONE (0-5) /HPF Urine RBC (Auto) 6-10 (0-2) /HPF U Epithel Cells (Auto) RARE (FEW) /HPF Urine Bacteria (Auto) RARE (NEGATIVE) /HPF Urine Culture Reflexed ORDERED SEPARATELY (NO) Urine Glucose 50 (NEGATIVE) mg/dL 01/13/20 01/13/20 01/13/20 Range/Units 01:00 05:03 05:03 WBC (4.0-10.5) K/mm3 RBC (4.1-5.6) M/mm3 Hgb (12.5-18.0) gm/dl Hct (42-50) % MCV (78-100) fl MCH (26-32) pg MCHC (32-36) g/dl RDW (11.5-14.0) % Plt Count (150-450) K/mm3 MPV (7.5-11.0) fl Gran % (36.0-66.0) % Eos # (Auto) (0-0.5) Absolute Lymphs (auto) (1.0-4.6) Absolute Monos (auto) (0.0-1.3) Lymphocytes % (24.0-44.0) % Monocytes % (0.0-12.0) % Eosinophils % (0.00-5.0) % Basophils % (0.0-0.4) % Absolute Granulocytes (1.4-6.9) Basophils # (0-0.4) Sodium 135 L (137-145) mmol/L Potassium 3.7 (3.5-5.1) mmol/L Chloride 96 L (98-107) mmol/L Carbon Dioxide 33 H (22-30) mmol/L Anion Gap 9.6 (5-15) MEQ/L BUN 41 H (9-20) mg/dL Creatinine 1.46 H (0.66-1.25) mg/dL Estimated GFR 50.9 ML/MIN Glucose 332 H (74-106) mg/dL Hemoglobin A1c (4.5-6.0) % Lactic Acid (0.4-2.0) Calcium 8.7 (8.4-10.2) mg/dL Magnesium (1.6-2.3) mg/dL Total Bilirubin (0.2-1.3) mg/dL AST (17-59) U/L ALT (0-50) U/L Alkaline Phosphatase (38-126) U/L Troponin I < 0.012 < 0.012 (0.000-0.034) ng/mL Serum Total Protein (6.3-8.2) g/dL Albumin (3.5-5.0) g/dL Urine Color (YELLOW) Urine Appearance (CLEAR) Urine pH (5-6) Ur Specific [place] (1.005-1.025) Urine Protein (Negative) Urine Ketones (NEGATIVE) Urine Blood (0-5) [place]/ul Urine Nitrite (NEGATIVE) Urine Bilirubin (NEGATIVE) Urine Urobilinogen (0-1) mg/dL Ur Leukocyte Esterase (NEGATIVE) Urine WBC (Auto) (0-5) /HPF Urine RBC (Auto) (0-2) /HPF U Epithel Cells (Auto) (FEW) /HPF Urine Bacteria (Auto) (NEGATIVE) /HPF Urine Culture Reflexed (NO) Urine Glucose (NEGATIVE) mg/dL 01/13/20 01/13/20 01/13/20 Range/Units 05:03 07:00 07:05 WBC 9.8 (4.0-10.5) K/mm3 RBC 3.98 L (4.1-5.6) M/mm3 Hgb 11.6 L (12.5-18.0) gm/dl Hct 37.3 L (42-50) % MCV 93.7 (78-100) fl MCH 29.1 (26-32) pg MCHC 31.1 L (32-36) g/dl RDW 13.2 (11.5-14.0) % Plt Count 279 (150-450) K/mm3 MPV 9.6 (7.5-11.0) fl Gran % 61.6 (36.0-66.0) % Eos # (Auto) 0.31 (0-0.5) Absolute Lymphs (auto) 2.73 (1.0-4.6) Absolute Monos (auto) 0.70 (0.0-1.3) Lymphocytes % 27.8 (24.0-44.0) % Monocytes % 7.1 (0.0-12.0) % Eosinophils % 3.2 (0.00-5.0) % Basophils % 0.3 (0.0-0.4) % Absolute Granulocytes 6.05 (1.4-6.9) Basophils # 0.03 (0-0.4) Sodium (137-145) mmol/L Potassium (3.5-5.1) mmol/L Chloride (98-107) mmol/L Carbon Dioxide (22-30) mmol/L Anion Gap (5-15) MEQ/L BUN (9-20) mg/dL Creatinine (0.66-1.25) mg/dL Estimated GFR ML/MIN Glucose (74-106) mg/dL Hemoglobin A1c 9.08 H (4.5-6.0) % Lactic Acid (0.4-2.0) Calcium (8.4-10.2) mg/dL Magnesium (1.6-2.3) mg/dL Total Bilirubin (0.2-1.3) mg/dL AST (17-59) U/L ALT (0-50) U/L Alkaline Phosphatase (38-126) U/L Troponin I < 0.012 (0.000-0.034) ng/mL Serum Total Protein (6.3-8.2) g/dL Albumin (3.5-5.0) g/dL Urine Color (YELLOW) Urine Appearance (CLEAR) Urine pH (5-6) Ur Specific [place] (1.005-1.025) Urine Protein (Negative) Urine Ketones (NEGATIVE) Urine Blood (0-5) [place]/ul Urine Nitrite (NEGATIVE) Urine Bilirubin (NEGATIVE) Urine Urobilinogen (0-1) mg/dL Ur Leukocyte Esterase (NEGATIVE) Urine WBC (Auto) (0-5) /HPF Urine RBC (Auto) (0-2) /HPF U Epithel Cells (Auto) (FEW) /HPF Urine Bacteria (Auto) (NEGATIVE) /HPF Urine Culture Reflexed (NO) Urine Glucose (NEGATIVE) mg/dL Accuchecks Date 01/13/20 Date 01/13/20 Time 11:30 Time 07:30 Accucheck Value: 334 - Radiology Impressions Radiology Exams & Impressions: Radiology Procedures Category Date Time Status CHEST 1 VIEW (PORTABLE) Stat Exams 01/12/20 18:50 Completed HEAD WITHOUT CONTRAST [CT] Stat Exams 01/12/20 18:50 Completed - Other Procedures and Tests Respiratory Therapy 01/13/20 03:21 Respiratory Therapy Assessment DAILY Assessment/Plan (1) Vertigo Current Visit: Yes Status: Acute Assessment & Plan: start Meclizine 25mg q 6 hours,hold Zyrtec. Code(s): R42 - DIZZINESS AND GIDDINESS (2) Sleep apnea Current Visit: Yes Status: Chronic Assessment & Plan: patient states he does not wear the Cpap because nasal congestion. Agrees to try it and will start Flonase. Code(s): G47.30 - SLEEP APNEA, UNSPECIFIED (3) Ceruminosis Current Visit: Yes Status: Acute Assessment & Plan: treat after vertigo resolved Code(s): H61.20 - IMPACTED CERUMEN, UNSPECIFIED EAR
[2020-01-13] MEDS ORDERED: IMODIUM 2 MG PO ONE (15:45)
[2020-01-13] MEDS ORDERED: POTASSIUM CHLORIDE 40 MEQ PO SCH (16:30)
[2020-01-13] MEDS ORDERED: INSULIN LISPRO 45 UNIT SQ SCH (16:30)
[2020-01-13] MEDS: ZOLOFT 50 MG TABLET PO SCH (16:43)
[2020-01-13] MEDS: Macrobid 100MG Capsule PO SCH (16:44)
[2020-01-13] MEDS: THERAGRAN MULTIVITAMIN PO SCH (16:44)
[2020-01-13] MEDS: Avodart 0.5 MG PO SCH (16:44)
[2020-01-13] MEDS: Protonix 40MG Tablet PO SCH (16:44)
[2020-01-13] MEDS: DELTASONE 10 MG PO SCH (16:44)
[2020-01-13] MEDS: BUMEX 1 MG PO SCH (16:44)
[2020-01-13] MEDS: ANTIVERT 25 MG PO SCH ×2 (16:44→22:50)
[2020-01-13] MEDS: Ditropan XL 5 MG PO SCH (16:45)
[2020-01-13] MEDS: PLAVIX 75 MG Tablet PO SCH (16:45)
[2020-01-13] MEDS: Klor Con 10 MEQ PO SCH (16:45)
[2020-01-13] MEDS: HUMALOG SQ SCH (16:55)
[2020-01-13] MEDS ORDERED: Levaquin 250MG/50ML D5W 250 MG/50 ML BAG IV SCH (22:00)
[2020-01-13] MEDS ORDERED: NON-FORMULARY ITEM (Pravastatin Sodium [Pravachol] 20 MG) PO SCH (22:00)
[2020-01-13] MEDS: ZOCOR 20MG PO SCH (22:49)
[2020-01-13] MEDS: Neurontin 400 MG PO SCH (22:49)
[2020-01-13] MEDS: Cymbalta 30 MG Capsule PO SCH (22:49)
[2020-01-13] MEDS: Flomax 0.4 MG PO SCH (22:49)
[2020-01-14] MEDS: IMODIUM 2 MG PO PRN ×2 (00:26→13:27)
[2020-01-14] MEDS: PLAVIX 75 MG Tablet PO SCH (09:04)
[2020-01-14] MEDS: Neurontin 400 MG PO SCH ×3 (09:04→21:23)
[2020-01-14] MEDS: ZOLOFT 50 MG TABLET PO SCH (09:04)
[2020-01-14] MEDS: HUMALOG SQ SCH ×3 (09:04→18:21)
[2020-01-14] MEDS: Protonix 40MG Tablet PO SCH (09:04)
[2020-01-14] MEDS: ANTIVERT 25 MG PO SCH ×4 (09:05→21:23)
[2020-01-14] MEDS: Avodart 0.5 MG PO SCH (09:05)
[2020-01-14] MEDS: THERAGRAN MULTIVITAMIN PO SCH (09:05)
[2020-01-14] MEDS: Ditropan XL 5 MG PO SCH (09:05)
[2020-01-14] MEDS: Macrobid 100MG Capsule PO SCH (09:05)
[2020-01-14] MEDS: BUMEX 1 MG PO SCH (09:05)
[2020-01-14] MEDS: Klor Con 10 MEQ PO SCH (09:05)
[2020-01-14] MEDS: DELTASONE 10 MG PO SCH (09:05)
[2020-01-14] MEDS: KEFLEX 500 MG PO SCH ×3 (09:43→21:22)
[2020-01-14] MEDS ORDERED: NON-FORMULARY ITEM (Multivitamin [Multivitamins] 1 EACH) PO SCH (10:00)
[2020-01-14] MEDS ORDERED: NON-FORMULARY ITEM (Oxybutynin Chloride [Oxybutynin Chloride Er] 10 MG) PO SCH (10:00)
[2020-01-14] MEDS ORDERED: Proscar 5 MG PO SCH (10:00)
[2020-01-14] MEDS ORDERED: Lasix 40 MG PO SCH (10:00)
[2020-01-14] MEDS: ZOCOR 20MG PO SCH (21:23)
[2020-01-14] MEDS: Cymbalta 30 MG Capsule PO SCH (21:23)
[2020-01-14] MEDS: Flomax 0.4 MG PO SCH (21:24)
[2020-01-15 08:01] VITALS: BP 155/61; PULSE 78; O2SAT 97
[2020-01-15] MEDS: HUMALOG SQ SCH (08:05)
--- NOTE | 2020-01-15 09:02 | PCM.DS ---
Discharge Summary Date of Admission: 01/13/20 00:35 Admitting Physician: NELLY HOWELL Primary Care Provider: ESTHER MANDAEN [facility] Allergies Allergies Penicillins Allergy (Severe, Verified 04/24/18 17:39) Hives silver [Silver] Allergy (Intermediate, Verified 04/24/18 17:39) Itching zinc [Zinc] Allergy (Intermediate, Verified 04/24/18 17:39) Itching carvedilol [From Coreg] Adverse Reaction (Intermediate, Verified 04/24/18 17:39) "makes me dizzy" metoprolol Adverse Reaction (Intermediate, Verified 04/24/18 17:39) "makes me dizzy" Hospital Summary - Hospital Course Hospital Course: Chief Complaint Diagnosis Dizziness Allergies Allergy/AdvReac Type Severity Reaction Status Date / Time Penicillins Allergy Severe Hives Verified 04/24/18 17:39 silver [Silver] Allergy Intermediate Itching Verified 04/24/18 17:39 zinc [Zinc] Allergy Intermediate Itching Verified 04/24/18 17:39 carvedilol [From Coreg] AdvReac Intermediate Verified 04/24/18 17:39 metoprolol AdvReac Intermediate Verified 04/24/18 17:39 Vital Signs (Last 24 hours) Temp Pulse Resp BP Pulse Ox 01/15/20 08:00 97.8 F 78 19 155/61 97 01/15/20 04:00 97.7 F 81 16 128/58 98 01/14/20 23:41 97.3 F 74 20 141/58 94 L 01/14/20 21:26 85 16 95 01/14/20 20:00 98.3 F 87 16 130/69 99 01/14/20 16:00 97.8 F 66 20 148/83 01/14/20 12:00 97.8 F 87 18 145/71 98 Home Medications Medication Instructions Recorded Confirmed Last Taken Type Bumetanide 1 mg PO DAILY 01/13/20 01/13/20 Unknown History Cetirizine HCl [Zyrtec] 10 mg PO DAILY 01/13/20 01/13/20 Unknown History Clopidogrel Bisulfate 75 mg 75 mg PO DAILY 01/13/20 01/13/20 Unknown History [PLAVIX 75 MG Tablet] Docusate Sodium 100 mg [Colace 100 mg PO TID 01/13/20 01/13/20 Unknown History 100 MG] Duloxetine HCl 30 mg [Cymbalta 30 mg PO QHS 01/13/20 01/13/20 Unknown History 30 MG Capsule] Ergocalciferol (Vitamin D2) 50,000 unit PO WEEKLY 01/13/20 01/13/20 Unknown History [Vitamin D] Finasteride 5 mg [Proscar 5 5 mg PO DAILY 01/13/20 01/13/20 Unknown History MG] Gabapentin 400 mg [Neurontin 1,200 mg PO TID 01/13/20 01/13/20 Unknown History 400 MG] Insulin Lispro [Humalog Kwikpen 45 unit SQ AC 01/13/20 01/13/20 Unknown History U-100] Ipratropium [place] 0.5 mg 0.5 mg IH Q4HPRN PRN 01/13/20 01/13/20 Unknown History [Atrovent 0.5MG NEBULE] Multivitamin [Multivitamins] 1 each PO DAILY 01/13/20 01/13/20 Unknown History Nitrofurantoin Monohyd/M-Cryst 100 mg PO DAILY 01/13/20 01/13/20 Unknown History [Nitrofurantoin [place]-Mcr 100 mg] Oxybutynin Chloride [Oxybutynin 10 mg PO DAILY 01/13/20 01/13/20 Unknown History Chloride ER] PANTOPRAZOLE 40 mg Tablet 40 mg PO DAILY 01/13/20 01/13/20 Unknown History [Protonix 40MG Tablet] Potassium Chloride [K-Dur] 40 meq PO DAILY 01/13/20 01/13/20 Unknown History Pravastatin Sodium [Pravachol] 20 mg PO QHS 01/13/20 01/13/20 Unknown History Sertraline HCl 50 mg [Zoloft 50 50 mg PO DAILY 01/13/20 01/13/20 Unknown History mg Tablet] Tamsulosin HCl 0.4 mg [Flomax 0.4 mg PO QHS 01/13/20 01/13/20 Unknown History 0.4 MG] Current Medications Generic Name Dose Route Start Last Admin Trade Name Freq PRN Reason Stop Dose Admin Hydrocodone Bitart/Acetaminophen 1 tab 01/13/20 15:12 01/13/20 16:47 [place] 10/325 Mg Tablet PO 01/18/20 15:11 1 tab Q6HPRN PRN Administration PAIN Albuterol/Ipratropium 3 ml 01/13/20 00:36 Duoneb 0.5-3 Mg/3 Ml Neb IH 02/12/20 00:35 Q4HPRN PRN SHORTNESS OF BREATH/WHEEZING Bumetanide 1 mg 01/13/20 16:15 01/14/20 09:05 Bumex 1 Mg PO 02/12/20 16:14 1 mg DAILY JOSUE Administration Cephalexin HCl 500 mg 01/14/20 10:00 01/14/20 21:22 Keflex 500 Mg PO 02/13/20 09:59 500 mg TID JOSUE Administration Clopidogrel Bisulfate 75 mg 01/13/20 16:15 01/14/20 09:04 Plavix 75 Mg Tablet PO 02/12/20 16:14 75 mg DAILY JOSUE Administration Docusate Sodium 100 mg 01/15/20 10:00 Colace 100 Mg PO 02/14/20 09:59 DAILY JOSUE Duloxetine HCl 30 mg 01/13/20 22:00 01/14/20 21:23 Cymbalta 30 Mg Capsule PO 02/12/20 21:59 30 mg QHS JOSUE Administration Dutasteride 0.5 mg 01/13/20 16:00 01/14/20 09:05 Avodart 0.5 Mg PO 02/12/20 15:59 0.5 mg DAILY JOSUE Administration Ergocalciferol 50,000 unit 01/19/20 10:00 Vitamin D2 PO 02/18/20 09:59 WEEKLY JOSUE Finasteride 5 mg 01/14/20 10:00 01/14/20 09:05 Proscar 5 Mg PO 02/13/20 09:59 5 mg DAILY JOSUE Administration Furosemide 80 mg 01/14/20 10:00 01/14/20 09:05 Lasix 40 Mg PO 02/13/20 09:59 80 mg DAILY JOSUE Administration Gabapentin 1,200 mg 01/13/20 22:00 01/14/20 21:23 Neurontin 400 Mg PO 02/12/20 21:59 1,200 mg TID JOSUE Administration Insulin Human Lispro 0 unit 01/13/20 00:36 01/13/20 21:30 Humalog SQ 02/12/20 00:35 5 unit UD PRN Administration HYPERGLYCEMIA Insulin Human Lispro 45 unit 01/13/20 16:30 01/15/20 08:05 Humalog SQ 02/12/20 16:29 45 unit AC JOSUE Administration Ipratropium [place] 0.5 mg 01/13/20 15:12 Atrovent 0.5mg Nebule IH 02/12/20 15:11 Q4HPRN PRN SHORTNESS OF BREATH/WHEEZING Loperamide HCl 2 mg 01/13/20 23:54 01/14/20 13:27 Imodium 2 Mg PO 02/12/20 23:53 2 mg TID PRN PRN Administration DIARRHEA Meclizine HCl 25 mg 01/13/20 17:00 01/14/20 21:23 Antivert 25 Mg PO 02/12/20 16:59 25 mg QID JOSUE Administration Multivitamins Therapeutic 1 tab 01/13/20 16:15 01/14/20 09:05 Theragran Multivitamin PO 02/12/20 16:14 1 tab DAILY JOSUE Administration Nitrofurantoin Macrocrystals 100 mg 01/13/20 16:15 01/14/20 09:05 Macrobid 100mg Capsule PO 02/12/20 16:14 100 mg DAILY JOSUE Administration Nitroglycerin 0.4 mg 01/13/20 15:12 Nitrostat 0.4 Mg Tablet SL 02/12/20 15:11 Q5MIN PRN MR X 3 PRN CHEST PAIN Ondansetron HCl 4 mg 01/13/20 00:36 Zofran 4 Mg/2 Ml Vial IV 02/12/20 00:35 Q6H PRN PRN NAUSEA/VOMITING Oxybutynin Chloride 10 mg 01/13/20 16:15 01/14/20 09:05 Ditropan Xl 5 Mg PO 02/12/20 16:14 10 mg DAILY JOSUE Administration Pantoprazole Sodium 40 mg 01/13/20 16:15 01/14/20 09:04 Protonix 40mg Tablet PO 02/12/20 16:14 40 mg DAILY JOSUE Administration Potassium Chloride 40 meq 01/13/20 16:15 01/14/20 09:05 Klor Con 10 Meq PO 02/12/20 16:14 40 meq DAILY JOSUE Administration Prednisone 10 mg 01/13/20 16:15 01/14/20 09:05 Deltasone 10 Mg PO 02/12/20 16:14 10 mg DAILY JOSUE Administration Sertraline HCl 50 mg 01/13/20 16:15 01/14/20 09:04 Zoloft 50 Mg Tablet PO 02/12/20 16:14 50 mg DAILY JOSUE Administration Simvastatin 20 mg 01/13/20 22:00 01/14/20 21:23 Zocor 20mg PO 02/12/20 21:59 20 mg HS JOSUE Administration Tamsulosin HCl 0.4 mg 01/13/20 22:00 01/14/20 21:24 Flomax 0.4 Mg PO 02/12/20 21:59 0.4 mg QHS JOSUE Administration Discontinued Medications Generic Name Dose Route Start Last Admin Trade Name Freq PRN Reason Stop Dose Admin Ergocalciferol 50,000 unit 01/15/20 10:00 Vitamin D2 PO 02/14/20 09:59 WEEKLY JOSUE Levofloxacin/Dextrose 250 mg in 50 mls @ 50 mls/hr 01/12/20 21:30 01/12/20 21 :40 Levaquin 250mg/50ml D5w IV 01/12/20 22:29 50 mls/hr STAT STA 50 mls/hr Administration Levofloxacin/Dextrose Confirm 01/12/20 21:36 Levaquin 250mg/50ml D5w Administered 01/12/20 21:37 Dose 250 mg in 50 mls @ ud IV .STK-MED ONE Levofloxacin/Dextrose 250 mg in 50 mls @ 50 mls/hr 01/13/20 22:00 01/13/20 22 :49 Levaquin 250mg/50ml D5w IV 02/12/20 21:59 50 mls/hr Q24H22 JOSUE Administration Loperamide HCl 2 mg 01/13/20 15:45 01/13/20 15:38 Imodium 2 Mg PO 01/13/20 15:46 2 mg ONCE ONE Administration Meclizine HCl 25 mg 01/12/20 18:49 01/12/20 19:10 Antivert 25 Mg PO 01/12/20 18:50 25 mg STAT ONE Administration Meclizine HCl Confirm 01/12/20 19:10 Antivert 25 Mg Administered 01/12/20 19:11 Dose 25 mg .ROUTE .STK-MED ONE Meclizine HCl 25 mg 01/13/20 01:16 Antivert 25 Mg PO 02/12/20 01:15 Q8H PRN PRN DIZZINESS Intake & Output (Last 24 hours) 01/12/20 01/13/20 01/14/20 01/15/20 11:59 11:59 11:59 11:59 Intake Total 600 1800 840 Output Total 950 3500 3750 Balance -350 1700 -2910 Weight 182.4 kg 180.9 kg 178.1 kg Microbiology Results (Last 24 hours) 01/12/20 20:49 Urine, Indwelling Catheter Urine Culture - Final Proteus Mirabilis Orders (Last 24 hours) Category Date Time Status Infection Control Consult Cons 01/14/20 08:00 Active Cephalexin Mh 500 mg [Keflex 500 mg] Med 01/14/20 10:00 Active 500 mg PO TID Docusate Sodium 100 mg [Colace 100 MG] Med 01/15/20 10:00 Active 100 mg PO DAILY Ergocalciferol (Vitamin D2) [Vitamin D2] Med 01/15/20 10:00 Discontinued 50,000 unit PO WEEKLY Ergocalciferol (Vitamin D2) [Vitamin D2] Med 01/19/20 10:00 Active 50,000 unit PO WEEKLY Finasteride 5 mg [Proscar 5 MG] Med 01/14/20 10:00 Active 5 mg PO DAILY Furosemide 40 mg [Lasix 40 MG] Med 01/14/20 10:00 Active 80 mg PO DAILY Patient Care Notes (Last 24 hours) 01/14/20 12:30 (created 01/14/20 14:45) Case Management Note by Angeli Loyola DR. ROUNDED AND EVALUATED, PT LIVES AT HOME WITH GIRLFRIEND, WHO IS ACTIVELY INVOLVED IN ALL CARE, USES WHEELCHAIR AND WALKER. HAS ALL EQUIPMENT AT HOME AND REPORTS IT IS IN WORKING CONDITION. STILL C/O DIZZINESS AND R EAR PAIN. DR. HOWELL DISCUSSED TREATMENT AND PLAN OF CARE WITH PT AND GIRLFRIEND AT BEDSIDE. IF PT IS FEELING BETTER TOMORROW, DR. HOWELL REPORTS THAT HE WILL LIKELY DC HOME. PT/GIRLFRIEND VERBALIZED UNDERSTANDING AND IS IN AGREEMENT. Initialized on 01/14/20 14:45 - END OF NOTE - Vitals & Intake/Output Vital Signs: Vital Signs Temperature 97.8 F 01/15/20 08:00 Pulse Rate 78 01/15/20 08:00 Respiratory Rate 19 01/15/20 08:00 Blood Pressure 155/61 01/15/20 08:00 O2 Sat by Pulse Oximetry 97 01/15/20 08:00 Intake & Output: Intake & Output 01/12/20 01/13/20 01/14/20 01/15/20 11:59 11:59 11:59 11:59 Intake Total 600 1800 840 Output Total 950 3500 3750 Balance -350 -1700 -2910 Weight 182.4 kg 180.9 kg 178.1 kg - Lab Result Diagrams: 01/13/20 05:03 01/13/20 05:03 Lab Results-Last 24 Hrs: Accuchecks Date 01/15/20 Time 08:45 Accucheck Value: 204 Accucheck Value: 128 Accucheck Value: 137 Accucheck Value: 212 Micro Results-Entire Visit: Microbiology 01/12/20 20:49 Urine Culture - Final Urine, Indwelling Catheter Proteus Mirabilis Accuchecks Date 01/15/20 Time 08:45 Accucheck Value: 204 Accucheck Value: 128 Accucheck Value: 137 Accucheck Value: 212 - Procedures and Test Procedures and Tests throughout Hospitalization: Therapy Orders & Screens 01/13/20 03:21 Respiratory Therapy Assessment DAILY Comment: Diagnosis: Dizziness Discharge Exam General Appearance: no apparent distress, alert Neurologic Exam: alert, oriented x 3, cooperative, normal mood/affect, nml cerebellar function, sensation nml, No motor deficits Eye Exam: PERRL, EOMI, eyes nml inspection Ears, Nose, Throat Exam: normal ENT inspection, pharynx normal, moist mucous membranes Neck Exam: normal inspection, non-tender, supple, full range of motion Respiratory Exam: normal breath sounds, lungs clear, No respiratory distress Cardiovascular Exam: regular rate/rhythm, normal heart sounds Gastrointestinal/Abdomen Exam: soft, No tenderness, No mass Male Genitalia Exam: deferred Rectal Exam: deferred Back Exam: normal inspection, normal range of motion, No CVA tenderness, No vertebral tenderness Extremity Exam: normal inspection, normal range of motion Skin Exam: normal color, warm, dry Final Diagnosis/Problem List - Final Discharge Diagnosis/Problem (1) Vertigo Current Visit: Yes Status: Acute Code(s): R42 - DIZZINESS AND GIDDINESS (2) Pyelonephritis due to Escherichia coli Current Visit: No Status: Acute Priority: High Code(s): N12 - TUBULO- INTERSTITIAL NEPHRITIS, NOT SPCF ACUTE OR CHRONIC; B96.20 - UNSP ESCHERICHIA COLI THE CAUSE OF DISEASES CLASSD ELSWHR (3) Peripheral vascular disease due to secondary diabetes Current Visit: No Status: Chronic Code(s): E13.51 - OTH DIABETES W DIABETIC PERIPHERAL ANGIOPATHY W/O GANGRENE (4) Type 2 diabetes mellitus Current Visit: No Status: Chronic - Discharge Discharge Date: 01/15/20 Disposition: Home, Self-Care Condition: Stable Prescriptions: New Meclizine HCl 25 mg [Antivert 25 mg] 25 mg PO QID #30 tablet Cephalexin Mh 500 mg [Keflex 500 mg] 500 mg PO QID #30 capsule Continue Prednisone 10 mg [Deltasone 10 mg] 10 mg PO DAILY Furosemide 40 mg [Lasix 40 MG] 80 mg PO DAILY Dutasteride 0.5 MG [Avodart 0.5 MG] 0.5 mg PO DAILY Nitroglycerin 0.4 mg Tablet [Nitrostat 0.4 MG Tablet] 0.4 mg SL Q5MIN PRN MR X 3 PRN PRN Reason: Chest Pain Hydrocodone/APAP 10/325 mg [[place] 10/325 MG Tablet] 1 tab PO Q6HPRN PRN 7 Days #28 tablet MDD 4 PRN Reason: Pain Bumetanide 1 mg PO DAILY Gabapentin 400 mg [Neurontin 400 MG] 1,200 mg PO TID Potassium Chloride [K-Dur] 40 meq PO DAILY Multivitamin [Multivitamins] 1 each PO DAILY Tamsulosin HCl 0.4 mg [Flomax 0.4 MG] 0.4 mg PO QHS Docusate Sodium 100 mg [Colace 100 MG] 100 mg PO TID Clopidogrel Bisulfate 75 mg [PLAVIX 75 MG Tablet] 75 mg PO DAILY Pravastatin Sodium [Pravachol] 20 mg PO QHS Nitrofurantoin Monohyd/M-Cryst [Nitrofurantoin [place]-Mcr 100 mg] 100 mg PO DAILY Sertraline HCl 50 mg [Zoloft 50 mg Tablet] 50 mg PO DAILY Cetirizine HCl [Zyrtec] 10 mg PO DAILY PANTOPRAZOLE 40 mg Tablet [Protonix 40MG Tablet] 40 mg PO DAILY Oxybutynin Chloride [Oxybutynin Chloride ER] 10 mg PO DAILY Finasteride 5 mg [Proscar 5 MG] 5 mg PO DAILY Insulin Lispro [Humalog Kwikpen U-100] 45 unit SQ AC Duloxetine HCl 30 mg [Cymbalta 30 MG Capsule] 30 mg PO QHS Ergocalciferol (Vitamin D2) [Vitamin D] 50,000 unit PO WEEKLY Ipratropium [place] 0.5 mg [Atrovent 0.5MG NEBULE] 0.5 mg IH Q4HPRN PRN PRN Reason: Shortness Of Breath/Wheezing [facility] Care [facility] - 1 Week NELLY HOWELL MD [ACTIVE STAFF] - 1 Week
[2020-01-15] MEDS ORDERED: Colace 100 MG PO SCH (10:00)
[2020-01-15] MEDS ORDERED: VITAMIN D2 PO SCH (10:00)
[2020-01-19] MEDS ORDERED: VITAMIN D2 PO SCH (10:00)
== END 2020-01-15 10:40 | disposition home health service (06) ==
LOC: ED 18:15 → MED SURG 01-13 00:35
PROVIDERS: ADMIT General Practice; ATTEND General Practice
DX: R42 Dizziness and giddiness (principal); N12 Tubulo-interstitial nephritis, not specified as acute or chronic; B96.20 Unspecified Escherichia coli [E. coli] as the cause of diseases classified elsewhere; E11.51 Type 2 diabetes mellitus with diabetic peripheral angiopathy without gangrene; I69.951 Hemiplegia and hemiparesis following unspecified cerebrovascular disease affecting right dominant side; J44.9 Chronic obstructive pulmonary disease, unspecified; I25.10 Atherosclerotic heart disease of native coronary artery without angina pectoris; G47.30 Sleep apnea, unspecified; H61.20 Impacted cerumen, unspecified ear; Z79.899 Other long term (current) drug therapy; Z79.01 Long term (current) use of anticoagulants
CPT/HCPCS: 36415; 70450; 80048; 80053; 81001; 82962; 83036; 83605; 83735; 84484; 85025; 87077; 87086; 87186; 93005; 93041; 93268; 94760; 96365; 99291; G0378; 36000; 71045; 99284; J1817; J1956; A9270-GY

== ENCOUNTER 2021-06-21 14:16 | Emergency (ER) | payer MEDICARE ==
[2021-06-21] MEDS ORDERED: CLEOCIN 150 MG CAPSULE PO ONE (14:45)
--- NOTE | 2021-06-21 14:51 | ERPHSYRPT ---
- History of Present Illness Time Seen by Provider: 06/21/21 14:29 Source: patient, family Exam Limitations: no limitations Patient Subjective Stated Complaint: pt here for a sore to left foot for a week, he is seeing wound clinic for this foot Triage Nursing Assessment: pt has large wound to top of foot, he has black tissue with reddness and sloughing of skin around Physician History: 71 years old male with multiple medical problems including poorly controlled diabetes mellitus, CAD, chronic indwelling catheter, morbid obesity presented in the ER with chief complaint of worsening left foot wound with redness around which is extending proximally to left lower leg. Patient reports it started almost a week ago as a small blister and later on got scab, was evaluated at wound care clinic [facility] but noticed for the last 3 days is having increase swelling and redness around with some clear discharge and subjective feeling of fever and chills. Mild to moderate pain. Patient was advised by home health to be seen in the ER. Patient does not want any blood work done/IV established/x-rays/parenteral antibiotics but oral antibiotics until he can be evaluated by wound care on Tuesday. Timing/Duration: week(s) (1), constant, gradual onset, worse Quality: burning, painful Severity: mild Location: feet Possible Causes: no cause identified Associated Symptoms: fever, rash, swelling/mass/lumps Allergies/Adverse Reactions: Penicillins Allergy (Severe, Verified 06/21/21 14:33) Hives silver [Silver] Allergy (Intermediate, Verified 06/21/21 14:33) Itching zinc [Zinc] Allergy (Intermediate, Verified 06/21/21 14:33) Itching carvedilol [From Coreg] Adverse Reaction (Intermediate, Verified 06/21/21 14:33) "makes me dizzy" metoprolol Adverse Reaction (Intermediate, Verified 06/21/21 14:33) "makes me dizzy" Home Medications: Dutasteride 0.5 MG [Avodart 0.5 MG] 0.5 mg PO DAILY 10/30/18 [History] Furosemide 40 mg [Lasix 40 MG] 80 mg PO DAILY 10/30/18 [History] Nitroglycerin 0.4 mg Tablet [Nitrostat 0.4 MG Tablet] 0.4 mg SL Q5MIN PRN MR X 3 PRN 10/30/18 [History] Prednisone 10 mg [Deltasone 10 mg] 10 mg PO DAILY 10/30/18 [History] Bumetanide 1 mg PO DAILY 01/13/20 [History] Cetirizine HCl [Zyrtec] 10 mg PO DAILY 01/13/20 [History] Clopidogrel Bisulfate 75 mg [PLAVIX 75 MG Tablet] 75 mg PO DAILY 01/13/20 [History] Docusate Sodium 100 mg [Colace 100 MG] 100 mg PO TID 01/13/20 [History] Duloxetine HCl 30 mg [Cymbalta 30 MG Capsule] 30 mg PO QHS 01/13/20 [History] Ergocalciferol (Vitamin D2) [Vitamin D] 50,000 unit PO WEEKLY 01/13/20 [History] Finasteride 5 mg [Proscar 5 MG] 5 mg PO DAILY 01/13/20 [History] Gabapentin 400 mg [Neurontin 400 MG] 1,200 mg PO TID 01/13/20 [History] Insulin Lispro [Humalog Kwikpen U-100] 45 unit SQ AC 01/13/20 [History] Ipratropium [place] 0.5 mg [Atrovent 0.5MG NEBULE] 0.5 mg IH Q4HPRN PRN 01/13/20 [History] Multivitamin [Multivitamins] 1 each PO DAILY 01/13/20 [History] Nitrofurantoin Monohyd/M-Cryst [Nitrofurantoin [place]-Mcr 100 mg] 100 mg PO DAILY 01/13/20 [History] Oxybutynin Chloride [Oxybutynin Chloride ER] 10 mg PO DAILY 01/13/20 [History] PANTOPRAZOLE 40 mg Tablet [Protonix 40MG Tablet] 40 mg PO DAILY 01/13/20 [History] Potassium Chloride [K-Dur] 40 meq PO DAILY 01/13/20 [History] Pravastatin Sodium [Pravachol] 20 mg PO QHS 01/13/20 [History] Sertraline HCl 50 mg [Zoloft 50 mg Tablet] 50 mg PO DAILY 01/13/20 [History] Tamsulosin HCl 0.4 mg [Flomax 0.4 MG] 0.4 mg PO QHS 01/13/20 [History] Hx Tetanus, Diphtheria Vaccination/Date Given: No Hx Influenza Vaccination/Date Given: Yes Hx Pneumococcal Vaccination/Date Given: Yes Travel Risk - International Travel Have you traveled outside of the country in past 3 weeks: No - Coronavirus Screening Are you exhibiting any of the following symptoms?: No Close contact with a COVID-19 positive Pt in past 14-21 Days: No - Vaccine Status Have you recieved a Covid-19 vaccination: Yes [employer]: [employer] - Vaccination Dates Date of 2cond Vaccination (if applicable): 2020 - Review of Systems Constitutional: Fever, Chills, Fatigue Ears, Nose, & Throat: No Symptoms Respiratory: Dyspnea, Dyspnea on Exertion ([place]) Cardiac: No Symptoms Abdominal/Gastrointestinal: No Symptoms Musculoskeletal: Injury Skin: Cellulitis, Induration, Rash, Skin Lesions Neurological: No Symptoms Psychological: No Symptoms Hematologic/Lymphatic: No Symptoms Immunological/Allergic: No Symptoms - Past Medical History Pertinent Past Medical History: Yes Neurological History: Stroke, TIA ENT History: Cataracts Cardiac History: Congestive Heart Failure, Coronary Artery Disease, Myocardial Infarction ([place]) Respiratory History: CHF, COPD, Sleep Apnea Endocrine Medical History: Diabetes Type II Musculoskeletal History: Arthritis GI Medical History: GERD, GI Bleed, Ulcer History: No Pertinent History Psycho-Social History: Depression Male Reproductive Disorders: No Pertinent History Other Medical History: right partial foot amputation. kidney infection, hx stones - Past Surgical History Past Surgical History: Yes Neuro Surgical History: No Pertinent History Cardiac: Cardiac Catheterization, Cardiac Stent Respiratory: No Pertinent History Gastrointestinal: Appendectomy, Cholecystectomy, Exploratory Laparoscopy Genitourinary: No Pertinent History Musculoskeletal: Amputation Male Surgical History: Prostate Surgery Other Surgical History: Tonsillectomy and adenoidectomy. right toes/foot partial amputation and revision. PORT PLACEMENT - Social History Smoking Status: Never smoker Exposure to second hand smoke: No Alcohol Use: None Drug Use: none Patient Lives Alone: Yes Significant Family History: heart disease, diabetes, hypertension - Nursing Vital Signs Nursing Vital Signs: Initial Vital Signs Temperature 97.5 F 06/21/21 14:27 Pulse Rate 87 06/21/21 14:27 Respiratory Rate 22 06/21/21 14:27 Blood Pressure 165/106 06/21/21 14:27 O2 Sat by Pulse Oximetry 94 L 06/21/21 14:27 Pain Scale Pain Intensity 2 - Physical Exam General Appearance: no apparent distress, alert Ears, Nose, Throat Exam: normal ENT inspection, pharynx normal Neck Exam: normal inspection, full range of motion Respiratory Exam: diminished breath sounds (Because of body habitus.) Cardiovascular Exam: regular rate/rhythm, normal heart sounds Extremity Exam: inflammation (Erythema left lower leg), other (Bilateral lower extremity swelling with some lymphedema. Left foot diffuse erythema with a big necrotic/scabbed wound in the central dorsum on the medial aspect with small blisters around with sloughing. Mild increased temperature to touch as compared to surrounding skin. ) Neurologic Exam: alert, oriented x 3 SpO2 Interpretation: normal SpO2: 94 O2 Delivery: Room Air - Progress Progress: unchanged Progress Note: 06/21/21 14:51 Patient is evaluated for left foot infection. I have recommended blood work including cultures and IV antibiotics and imaging for further evaluation of possible osteomyelitis and admission but patient does not want any kind of work- up but oral antibiotics until he can be evaluated by wound care on coming Tuesday 3 days from now. Discussed with patient and significant other in detail about risk of sepsis/osteomyelitis with worsening of condition which may end up needing amputation/further morbidity and even full-blown sepsis leading to which they understand but still adamant about going home without any work-up and just antibiotics. He is started on clindamycin. Recommended return to ER for further evaluation which she will think about. Counseled pt/family regarding: diagnosis, need for follow-up - Departure Departure Disposition: Home Clinical Impression: Cellulitis of left foot Condition: Fair Critical Care Time: No Referrals: NELLY HOWELL MD [Primary Care Provider] - (Call tomorrow for appointment reevaluation) MEGHANA VARGAS DPM [ACTIVE STAFF] - (Call tomorrow for appointment and evaluation) Instructions: Cellulitis (Skin Infection), Adult (DC) Additional Instructions: Keep your legs elevated. Follow-up with primary care and podiatry/wound care for reevaluation in 1 to 2 days. Return to ER for increasing swelling redness discharge/fever chills etc.
[2021-06-21] MEDS ORDERED: CLEOCIN 150 MG CAPSULE ONE (15:07)
[2021-06-21 15:13] VITALS: BP 120/85; PULSE 84; O2SAT 96
== END 2021-06-21 15:16 | disposition home or self-care (01) ==
LOC: ED 14:16
DX: L03.116 Cellulitis of left lower limb (principal); E11.9 Type 2 diabetes mellitus without complications; I25.10 Atherosclerotic heart disease of native coronary artery without angina pectoris; E66.01 Morbid (severe) obesity due to excess calories; Z79.899 Other long term (current) drug therapy; I25.2 Old myocardial infarction; J44.9 Chronic obstructive pulmonary disease, unspecified; I50.9 Heart failure, unspecified; G47.30 Sleep apnea, unspecified
CPT/HCPCS: 99282; A9270-GY

== ENCOUNTER 2021-07-20 09:45 | Observation (INO) | payer MEDICARE ==
[2021-07-20] MEDS ORDERED: TYLENOL 325 MG PO STA (10:39)
--- NOTE | 2021-07-20 10:39 | ERPHSYRPT ---
- History of Present Illness Time Seen by Provider: 07/20/21 09:52 Patient Subjective Stated Complaint: Hyperglycemia Triage Nursing Assessment: Patient brought back to ED via EMS and transferred to bed with assist of 4. Patient A+O X3. Patient's skin pink, warm and dry. Patient bedridden at home with chronic f/c. Patient's caregiver stated patient slept all day yesterday not eating or drinking. Patient's blood sugar was in the 200s. Currently BS 115. Patient denies pain or discomfort. Patient will talk to nurse, but falls asleep easily. Physician History: 71 years old male with multiple comorbidities including diabetes mellitus, chronic lower extremity stasis with wound on the left, chronic respiratory failure on 2 L oxygen, chronic indwelling catheter, bed ridden is brought in the ER by EMS with complaint per significant other as patient been sleeping more than usual since yesterday. Initially they thought it would be hypoglycemia but his blood sugar was in 200s on EMS arrival at home and on presentation is 115. Patient is sleepy but arousable to verbal commands and answering appropriately, moving all 4 extremities but not good historian. Patient denies any chest pain palpitations or shortness of breath. Denies any abdominal pain nausea and vom iting. Does not know exactly why he was sent in here. History is limited Allergies/Adverse Reactions: Penicillins Allergy (Severe, Verified 07/20/21 09:49) Hives silver [Silver] Allergy (Intermediate, Verified 07/20/21 09:49) Itching zinc [Zinc] Allergy (Intermediate, Verified 07/20/21 09:49) Itching carvedilol [From Coreg] Adverse Reaction (Intermediate, Verified 07/20/21 09:49) "makes me dizzy" metoprolol Adverse Reaction (Intermediate, Verified 07/20/21 09:49) "makes me dizzy" Home Medications: Dutasteride 0.5 MG [Avodart 0.5 MG] 0.5 mg PO DAILY 10/30/18 [History] Furosemide 40 mg [Lasix 40 MG] 80 mg PO DAILY 10/30/18 [History] Nitroglycerin 0.4 mg Tablet [Nitrostat 0.4 MG Tablet] 0.4 mg SL Q5MIN PRN MR X 3 PRN 10/30/18 [History] Prednisone 10 mg [Deltasone 10 mg] 10 mg PO DAILY 10/30/18 [History] Bumetanide 1 mg PO DAILY 01/13/20 [History] Cetirizine HCl [Zyrtec] 10 mg PO DAILY 01/13/20 [History] Clopidogrel Bisulfate 75 mg [PLAVIX 75 MG Tablet] 75 mg PO DAILY 01/13/20 [History] Docusate Sodium 100 mg [Colace 100 MG] 100 mg PO TID 01/13/20 [History] Duloxetine HCl 30 mg [Cymbalta 30 MG Capsule] 30 mg PO QHS 01/13/20 [History] Ergocalciferol (Vitamin D2) [Vitamin D] 50,000 unit PO WEEKLY 01/13/20 [History] Finasteride 5 mg [Proscar 5 MG] 5 mg PO DAILY 01/13/20 [History] Gabapentin 400 mg [Neurontin 400 MG] 1,200 mg PO TID 01/13/20 [History] Insulin Lispro [Humalog Kwikpen U-100] 45 unit SQ AC 01/13/20 [History] Ipratropium [place] 0.5 mg [Atrovent 0.5MG NEBULE] 0.5 mg IH Q4HPRN PRN 01/13/20 [History] Multivitamin [Multivitamins] 1 each PO DAILY 01/13/20 [History] Nitrofurantoin Monohyd/M-Cryst [Nitrofurantoin Metcalfe-Mcr 100 mg] 100 mg PO DAILY 01/13/20 [History] Oxybutynin Chloride [Oxybutynin Chloride ER] 10 mg PO DAILY 01/13/20 [History] PANTOPRAZOLE 40 mg Tablet [Protonix 40MG Tablet] 40 mg PO DAILY 01/13/20 [History] Potassium Chloride [K-Dur] 40 meq PO DAILY 01/13/20 [History] Pravastatin Sodium [Pravachol] 20 mg PO QHS 01/13/20 [History] Sertraline HCl 50 mg [Zoloft 50 mg Tablet] 50 mg PO DAILY 01/13/20 [History] Tamsulosin HCl 0.4 mg [Flomax 0.4 MG] 0.4 mg PO QHS 01/13/20 [History] Hx Tetanus, Diphtheria Vaccination/Date Given: No Hx Influenza Vaccination/Date Given: Yes Hx Pneumococcal Vaccination/Date Given: Yes Immunizations Up to Date: Yes Travel Risk - International Travel Have you traveled outside of the country in past 3 weeks: No - Coronavirus Screening Are you exhibiting any of the following symptoms?: No Close contact with a COVID-19 positive Pt in past 14-21 Days: No - Vaccine Status Have you recieved a Covid-19 vaccination: Yes Accountant Clerk: [employer] - Vaccination Dates Date of 2cond Vaccination (if applicable): unknown Comment: Patient doesn't recall dates - Review of Systems Constitutional: Fatigue Eyes: No Symptoms Ears, Nose, & Throat: No Symptoms Respiratory: Cough, Dyspnea Cardiac: Edema Abdominal/Gastrointestinal: No Symptoms Genitourinary Symptoms: No Symptoms Musculoskeletal: Arthralgias Skin: Cellulitis, Skin Lesions Neurological: No Symptoms Hematologic/Lymphatic: No Symptoms Immunological/Allergic: No Symptoms - Past Medical History Pertinent Past Medical History: Yes Neurological History: Stroke, TIA ENT History: Cataracts Cardiac History: Congestive Heart Failure, Coronary Artery Disease, Myocardial Infarction ([place]) Respiratory History: CHF, COPD, Sleep Apnea Endocrine Medical History: Diabetes Type II Musculoskeletal History: Arthritis GI Medical History: GERD, GI Bleed, Ulcer History: No Pertinent History Psycho-Social History: Depression Male Reproductive Disorders: No Pertinent History Other Medical History: right partial foot amputation. kidney infection, hx ston es - Past Surgical History Past Surgical History: Yes Neuro Surgical History: No Pertinent History Cardiac: Cardiac Catheterization, Cardiac Stent Respiratory: No Pertinent History Gastrointestinal: Appendectomy, Cholecystectomy, Exploratory Laparoscopy Genitourinary: No Pertinent History Musculoskeletal: Amputation Male Surgical History: Prostate Surgery Other Surgical History: Tonsillectomy and adenoidectomy. right toes/foot partial amputation and revision. PORT PLACEMENT - Social History Smoking Status: Never smoker Exposure to second hand smoke: No Alcohol Use: None Drug Use: none Patient Lives Alone: No Significant Family History: heart disease, diabetes, hypertension - Nursing Vital Signs Nursing Vital Signs: Initial Vital Signs Temperature 100.6 F 07/20/21 09:49 Pulse Rate 54 L 07/20/21 09:49 Respiratory Rate 18 07/20/21 09:49 Blood Pressure 134/47 07/20/21 09:49 O2 Sat by Pulse Oximetry 98 07/20/21 09:49 Pain Scale Pain Intensity 0 - Physical Exam General Appearance: no apparent distress, other (Sleepy) Ears, Nose, Throat Exam: TMs normal, pharyngeal erythema Neck Exam: normal inspection, non-tender, full range of motion Respiratory Exam: diminished breath sounds Cardiovascular Exam: regular rate/rhythm, normal heart sounds Gastrointestinal/Abdomen Exam: soft, normal bowel sounds, No tenderness Back Exam: decreased range of motion, muscle spasm Neurologic Exam: oriented x 3, cooperative, curator zoological museum II-XII nml as tested, No alert (Sleepy but arousable easily.), No normal mood/affect, No sensation nml, No motor deficits Skin Exam: other (Left lower extremity erythema and wrapped in ) SpO2: 98 O2 Delivery: Nasal Cannula - Course EKG Interpreted by Me: RATE (92), Sinus Rhythm, NORMAL AXIS, NORMAL INTERVALS, NORMAL QRS (Nonspecific T wave changes.) Ordered Tests: Active Orders 24 hr Category Date Time Status CHEST 1 VIEW (PORTABLE) Stat Exams 07/20/21 10:17 Taken HEAD WITHOUT CONTRAST [CT] Stat Exams 07/20/21 11:55 Ordered BLOOD CULTURE Stat Lab 07/20/21 10:29 Received BNP [NT PRO BNP] Stat Lab 07/20/21 10:46 Received CBC W DIFF Stat Lab 07/20/21 10:46 Completed CMP Stat Lab 07/20/21 10:46 Completed CULTURE,URINE Stat Lab 07/20/21 10:48 Received Lactic Acid Stat Lab 07/20/21 10:48 Completed MAG [MAGNESIUM] Stat Lab 07/20/21 10:46 Completed Manual Differential NC Stat Lab 07/20/21 10:46 Completed TROPONIN Q3H Lab 07/20/21 10:46 Completed TROPONIN Q3H Lab 07/20/21 13:30 Ordered TROPONIN Q3H Lab 07/20/21 16:30 Ordered TROPONIN Q3H Lab 07/20/21 19:30 Ordered TROPONIN Q3H Lab 07/20/21 22:30 Ordered UA W/RFX UR CULTURE Stat Lab 07/20/21 10:48 Completed Medication Summary Generic Name Dose Route Start Last Admin Trade Name Freq PRN Reason Stop Dose Admin Levofloxacin/Dextrose 250 mg in 50 mls @ 50 mls/hr 07/20/21 12:48 07/20/21 13:04 Levaquin 250mg/50ml D5w IV 07/20/21 13:47 50 mls/hr STAT STA 50 mls/hr Administration Discontinued Medications Generic Name Dose Route Start Last Admin Trade Name Lisa PRN Reason Stop Dose Admin Acetaminophen 650 mg 07/20/21 10:39 07/20/21 10:49 Tylenol 325 Mg PO 07/20/21 10:40 650 mg STAT STA Administration Acetaminophen Confirm 07/20/21 10:48 Tylenol 325 Mg Administered 07/20/21 10:49 Dose 650 mg .ROUTE .STK-MED ONE Aspirin 324 mg 07/20/21 11:55 07/20/21 12:28 Baby Aspirin 81 Mg Chew PO 07/20/21 11:56 324 mg STAT ONE Administration Levofloxacin/Dextrose Confirm 07/20/21 13:00 Levaquin 250mg/50ml D5w Administered 07/20/21 13:01 Dose 250 mg in 50 mls @ ud IV .STK-MED ONE Lab/Rad Data: Laboratory Result Diagrams 07/20/21 10:46 07/20/21 10:46 Laboratory Results 07/20/21 07/20/21 07/20/21 Range/Units 10:48 10:48 10:46 WBC (4.0-10.5) K/mm3 RBC (4.1-5.6) M/mm3 Hgb (12.5-18.0) gm/dl Hct (42-50) % MCV (78-100) fl MCH (26-32) pg MCHC (32-36) g/dl RDW (11.5-14.0) % Plt Count (150-450) K/mm3 MPV (7.5-11.0) fl Segmented Neutrophils (36.-66.) % Lymphocytes (Manual) (24-44) % Monocytes (Manual) (0.0-12.0) % Eosinophils (Manual) (0.00-3.0) % Hypochromia Platelet Estimate (NORMAL) RBC Morphology Anisocytosis Sodium (137-145) mmol/L Potassium (3.5-5.1) mmol/L Chloride (98-107) mmol/L Carbon Dioxide (22-30) mmol/L Anion Gap (5-15) MEQ/L BUN (9-20) mg/dL Creatinine (0.66-1.25) mg/dL Estimated GFR ML/MIN Glucose (74-106) mg/dL Lactic Acid 0.9 (0.4-2.0) Calcium (8.4-10.2) mg/dL Magnesium (1.6-2.3) mg/dL Total Bilirubin (0.2-1.3) mg/dL AST (17-59) U/L ALT (0-50) U/L Alkaline Phosphatase (38-126) U/L Troponin I 0.158 H* (0.000-0.034) ng/mL Serum Total Protein (6.3-8.2) g/dL Albumin (3.5-5.0) g/dL Urine Color YELLOW (YELLOW) Urine Appearance CLOUDY (CLEAR) Urine pH 8.0 (5-6) Ur Specific Bonnie 1.011 (1.005-1.025) Urine Protein 100 (Negative) Urine Ketones NEGATIVE (NEGATIVE) Urine Blood SMALL (0-5) Chin[place]/ul Urine Nitrite NEGATIVE (NEGATIVE) Urine Bilirubin NEGATIVE (NEGATIVE) Urine Urobilinogen NEGATIVE (0-1) mg/dL Ur Leukocyte Esterase LARGE (NEGATIVE) Urine WBC (Auto) >100 (0-5) /HPF Urine RBC (Auto) 6-10 (0-2) /HPF U Epithel Cells (Auto) NONE (FEW) /HPF Urine Bacteria (Auto) MODERATE (NEGATIVE) /HPF Urine Mucus (Auto) SLIGHT (NEGATIVE) /HPF Urine Culture Reflexed YES (NO) Urine Glucose NEGATIVE (NEGATIVE) mg/dL 07/20/21 07/20/21 07/20/21 Range/Units 10:46 10:46 10:46 WBC 10.7 H (4.0-10.5) K/mm3 RBC 3.09 L (4.1-5.6) M/mm3 Hgb 8.5 L (12.5-18.0) gm/dl Hct 28.7 L (42-50) % MCV 92.9 (78-100) fl MCH 27.5 (26-32) pg MCHC 29.6 L (32-36) g/dl RDW 15.9 H (11.5-14.0) % Plt Count 494 H (150-450) K/mm3 MPV 8.7 (7.5-11.0) fl Segmented Neutrophils 70 H (36.-66.) % Lymphocytes (Manual) 27 (24-44) % Monocytes (Manual) 2 (0.0-12.0) % Eosinophils (Manual) 1 (0.00-3.0) % Hypochromia 1+ Platelet Estimate NORMAL (NORMAL) RBC Morphology ABNORMAL Anisocytosis 1+ Sodium 138 (137-145) mmol/L Potassium 3.5 (3.5-5.1) mmol/L Chloride 99 (98-107) mmol/L Carbon Dioxide 32 H (22-30) mmol/L Anion Gap 10.5 (5-15) MEQ/L BUN 35 H (9-20) mg/dL Creatinine 2.04 H (0.66-1.25) mg/dL Estimated GFR 34.4 ML/MIN Glucose 108 H (74-106) mg/dL Lactic Acid (0.4-2.0) Calcium 8.8 (8.4-10.2) mg/dL Magnesium 2.0 (1.6-2.3) mg/dL Total Bilirubin 0.30 (0.2-1.3) mg/dL AST 22 (17-59) U/L ALT 16 (0-50) U/L Alkaline Phosphatase 71 (38-126) U/L Troponin I (0.000-0.034) ng/mL Serum Total Protein 7.3 (6.3-8.2) g/dL Albumin 3.4 L (3.5-5.0) g/dL Urine Color (YELLOW) Urine Appearance (CLEAR) Urine pH (5-6) Ur Specific Bonnie (1.005-1.025) Urine Protein (Negative) Urine Ketones (NEGATIVE) Urine Blood (0-5) Chin[place]/ul Urine Nitrite (NEGATIVE) Urine Bilirubin (NEGATIVE) Urine Urobilinogen (0-1) mg/dL Ur Leukocyte Esterase (NEGATIVE) Urine WBC (Auto) (0-5) /HPF Urine RBC (Auto) (0-2) /HPF U Epithel Cells (Auto) (FEW) /HPF Urine Bacteria (Auto) (NEGATIVE) /HPF Urine Mucus (Auto) (NEGATIVE) /HPF Urine Culture Reflexed (NO) Urine Glucose (NEGATIVE) mg/dL - Progress Progress: unchanged Progress Note: 07/20/21 13:22 71 years old is evaluated for increased sleepiness. Patient has normal blood sugar. Stable H&H since previous visit. Does have mild worsening of renal function from baseline. Chest x-ray showed chronic finding with some congestion. EKG showed normal sinus rhythm without any ST elevation or depressions and initial troponin not 0.15 and patient continues to deny having any chest pain. Does have UTI. Did have a low-grade fever of 100.6, given Tylenol. Patient increased sleepiness could be secondary to UTI/sepsis and given a dose of Levaquin. He is given aspirin. I have discussed with who is the primary care for the patient and reviewed history and work-up including troponin, and do not think patient needs to be transferred as he is not a candidate for any kind of intervention and can be managed in here. We will trend cardiac enzyme and patient is being admitted here. Discussed with .: Yogesh Will see patient in: hospital (observation) Counseled pt/family regarding: lab results, diagnosis, rad results - Departure Departure Disposition: Observation Clinical Impression: NSTEMI (non-ST elevated myocardial infarction), Acute UTI, Morbid obesity, Cellulitis of left foot, Acute kidney injury superimposed on CKD Condition: Stable Critical Care Time: No Referrals: NELLY HOWELL MD [Primary Care Provider] -
[2021-07-20] MEDS ORDERED: TYLENOL 325 MG ONE (10:48)
[2021-07-20 11:12] LABS: Hematocrit 28.7 % (42-50); Hemoglobin 8.5 gm/dl (12.5-18.0); Mean Cell Volume 92.9 fl (78-100); Mean Corpuscular Hemoglobin 27.5 pg (26-32); Mean Corpuscular Hgb Concent. 29.6 g/dl (32-36); Mean Platelet Volume 8.7 fl (7.5-11.0); Platelet Count 494 K/mm3 (150-450); Red Blood Count 3.09 M/mm3 (4.1-5.6); Red Cell Distribution Width 15.9 % (11.5-14.0); White Blood Count 10.7 K/mm3 (4.0-10.5)
[2021-07-20 11:28] LABS: ALBUMIN 3.4 g/dL (3.5-5.0); ANION GAP 10.5 MEQ/L (5-15); BILIRUBIN,TOTAL 0.3 mg/dL (0.2-1.3); Calcium 8.8 mg/dL (8.4-10.2); Creatinine 1 2.04 mg/dL (0.66-1.25); EST GLOMERULAR FILTRATION RATE 34.4 ML/MIN; Potassium 3.5 mmol/L (3.5-5.1); Total Protein 7.3 g/dL (6.3-8.2)
[2021-07-20 11:42] LABS: Appearance CLOUDY (CLEAR); Bacteria MODERATE /HPF (NEGATIVE); Bilirubin NEGATIVE (NEGATIVE); Blood SMALL Ery/ul (0-5); Glucose NEGATIVE (NEGATIVE); Ketones NEGATIVE (NEGATIVE); Leukocyte Esterase LARGE (NEGATIVE); Mucus SLIGHT /HPF (NEGATIVE); Nitrite NEGATIVE (NEGATIVE); Protein,Urine Dip 100 (Negative); Specific Gravity 1.011 (1.005-1.025); Urobilinogen NEGATIVE mg/dL (0-1); WBC >100 /HPF (0-5)
[2021-07-20] MEDS ORDERED: BABY ASPIRIN 81 MG CHEW PO ONE (11:55)
[2021-07-20] MEDS ORDERED: Levaquin 250MG/50ML D5W 250 MG/50 ML BAG IV STA (12:48)
[2021-07-20 12:55] LABS: Eosinophil 1 % (0.00-3.0); Lymphocytes 27 % (24-44); Monocyte 2 % (0.0-12.0); Neutrophils 70 % (36.-66.); Total Cells Counted 100
[2021-07-20 12:56] LABS: ANISOCYTOSIS 1+; Hypochromia 1+; Platelet Estimate NORMAL (NORMAL)
[2021-07-20] MEDS ORDERED: Levaquin 250MG/50ML D5W 250 MG/50 ML BAG IV ONE (13:00)
[2021-07-20] MEDS ORDERED: TYLENOL 325 MG PO PRN (17:08)
[2021-07-20] MEDS ORDERED: DUONEB 0.5-3 MG/3 ml Neb IH PRN (17:08)
[2021-07-20] MEDS ORDERED: Zofran 4 MG/2 ML VIAL IV PRN (17:08)
--- NOTE | 2021-07-20 18:19 | XRAY ---
Indication: Weakness. Comparison: January 12, 2020. Portable chest demonstrates new subtle bibasilar interstitial alveolar opacities without consolidation/large effusion. Remaining heart and lungs are unremarkable again with left Port-A-Cath. Bony thorax intact.
--- NOTE | 2021-07-20 18:22 | XRAY ---
Indication: Acute mental status change. Multiple contiguous axial images obtained through the head without contrast. Comparison: January 12, 2020. Several images near the vertex are degraded by motion artifact. Grossly stable age-appropriate global atrophy, mild periventricular degenerative micro-ischemia bilaterally, and remote left caudate lacunar infarct. No acute intracranial hemorrhage, abnormal extra-axial fluid collection, or mass effect. Fourth ventricle is midline without hydrocephalus. Bony calvarium grossly intact. Visualized paranasal sinuses and mastoid air cells are clear. Impression: 1. Motion artifact. 2. Grossly stable nonacute senile brain with remote left caudate lacunar infarct Comment: Preliminary interpretation made by [facility]. No critical discrepancy.
[2021-07-20] MEDS: ANTIVERT 25 MG PO SCH (22:11)
[2021-07-20] MEDS: ZOCOR 20MG PO SCH (22:12)
[2021-07-20] MEDS: NEURONTIN 300 MG PO SCH (22:12)
[2021-07-20] MEDS: ZOLOFT 50 MG TABLET PO SCH (22:13)
[2021-07-20] MEDS: Colace 100 MG PO SCH (22:13)
[2021-07-20] MEDS: Flomax 0.4 MG PO SCH (22:13)
[2021-07-20] MEDS: HUMALOG SQ PRN (22:16)
[2021-07-21 05:48] LABS: Hematocrit 28.6 % (42-50); Mean Cell Volume 96.9 fl (78-100); Mean Corpuscular Hemoglobin 27.1 pg (26-32); Mean Platelet Volume 9.8 fl (7.5-11.0); Platelet Count 242 K/mm3 (150-450); Red Blood Count 2.95 M/mm3 (4.1-5.6); Red Cell Distribution Width 15.8 % (11.5-14.0); White Blood Count 12.5 K/mm3 (4.0-10.5)
[2021-07-21 06:10] LABS: ALBUMIN 3.2 g/dL (3.5-5.0); BILIRUBIN,TOTAL 0.4 mg/dL (0.2-1.3); Calcium 8.4 mg/dL (8.4-10.2); Creatinine 1 1.82 mg/dL (0.66-1.25); EST GLOMERULAR FILTRATION RATE 39.2 ML/MIN; Potassium 3.6 mmol/L (3.5-5.1); Total Protein 6.9 g/dL (6.3-8.2)
[2021-07-21] MEDS ORDERED: HYDROCODONE-ACETAMIN 10-325 MG PO PRN (07:08)
[2021-07-21] MEDS ORDERED: Atrovent 0.5MG NEBULE IH PRN (07:08)
[2021-07-21] MEDS ORDERED: Nitrostat 0.4 MG Tablet SL PRN (07:08)
[2021-07-21] MEDS ORDERED: INSULIN LISPRO 45 UNIT SQ SCH (07:30)
[2021-07-21 07:31] LABS: ANISOCYTOSIS 1+; Eosinophil 1 % (0.00-3.0); Hypochromia 1+; Lymphocytes 12 % (24-44); Microcytosis 1+; Neutrophils 87 % (36.-66.); Platelet Estimate NORMAL (NORMAL); Polychromasia 1+; Total Cells Counted 100
[2021-07-21] MEDS: HUMALOG SQ SCH ×3 (08:17→17:07)
[2021-07-21] MEDS ORDERED: PROTONIX 40 MG IV IV SCH (10:00)
[2021-07-21] MEDS ORDERED: NON-FORMULARY ITEM (Oxybutynin Chloride [Oxybutynin Chloride Er] 10 MG) PO SCH (10:00)
[2021-07-21] MEDS ORDERED: POTASSIUM CHLORIDE 40 MEQ PO SCH (10:00)
[2021-07-21] MEDS ORDERED: NON-FORMULARY ITEM (Multivitamin [Multivitamins] 1 EACH) PO SCH (10:00)
[2021-07-21] MEDS: Klor Con 10 MEQ PO SCH (10:29)
[2021-07-21] MEDS: Proscar 5 MG PO SCH (10:29)
[2021-07-21] MEDS: Ditropan XL 5 MG PO SCH (10:30)
[2021-07-21] MEDS: DELTASONE 10 MG PO SCH ×2 (10:30→22:49)
[2021-07-21] MEDS: Protonix 40MG Tablet PO SCH (10:30)
[2021-07-21] MEDS: BUMEX 1 MG PO SCH (10:30)
[2021-07-21] MEDS: THERAGRAN MULTIVITAMIN PO SCH (10:30)
[2021-07-21] MEDS: NEURONTIN 300 MG PO SCH ×3 (10:30→22:50)
[2021-07-21] MEDS: Colace 100 MG PO SCH ×3 (10:30→22:50)
[2021-07-21] MEDS: ZOLOFT 50 MG TABLET PO SCH ×2 (10:30→22:49)
[2021-07-21] MEDS: Lasix 40 MG PO SCH (10:30)
[2021-07-21] MEDS: ANTIVERT 25 MG PO SCH ×2 (10:30→22:49)
[2021-07-21] MEDS: Macrobid 100MG Capsule PO SCH (10:30)
[2021-07-21] MEDS: PLAVIX 75 MG Tablet PO SCH (10:31)
[2021-07-21] MEDS: ENOXAPARIN SODIUM SQ SCH (10:31)
[2021-07-21] MEDS: Santyl OINTMENT TP SCH (10:42)
[2021-07-21] MEDS: Levaquin 250MG/50ML D5W 250 MG/50 ML BAG IV SCH (14:14)
--- NOTE | 2021-07-21 17:06 | PCM.CONS ---
Podiatry HPI - Consult Date of Consultation Date: 07/21/21 Reason for Consult: Diabetic foot ulceration, history of amputation, uncontrolled diabetes Consulting Provider: MEGHANA VARGAS DPM - [facility] History of Present Illness: Matt is a very pleasant 71-year-old male with admission to the MedSurg unit on 07/20/2021 for NSTEMI sepsis UTI acute kidney injury, with a significant medical history of chronic kidney disease, peripheral vascular disease morbid obesity and uncontrolled diabetes mellitus. He gains consultation to my service for significant ulceration to the left lower extremity. Patient has had an amputation approximately 5 years ago as a result of uncontrolled diabetes and diabetic polyneuropathy. He has wounds to the dorsal aspect of the foot that measures 9.0 x 5 0 cm and to the plantar aspect that measures 2.0 x 2.0 cm with significant amounts of slough. T these are full-thickness ulcerations. Patient was admitted with a white blood cell count of 12.5 and sepsis however he is positive for a UTI as well. He has had elevated troponins. Subjective examination is limited due to patient's sedated nature however he is alert to person place and time. He denies any other pedal complaints Medications & Allergies Home Medications: Home Medication List Furosemide 40 mg [Lasix 40 MG] 80 mg PO DAILY 10/30/18 [History Confirmed 07/20/21] Nitroglycerin 0.4 mg Tablet [Nitrostat 0.4 MG Tablet] 0.4 mg SL Q5MIN PRN MR X 3 PRN 10/30/18 [History Confirmed 07/20/21] Prednisone 10 mg [Deltasone 10 mg] 10 mg PO BID 10/30/18 [History Confirmed 07/20/21] Hydrocodone/APAP 10/325 mg [[place] 10/325 MG TableT] 1 tab PO Q6HPRN PRN 7 Days #28 tablet MDD 4 11/01/18 [Rx Confirmed 07/20/21] Bumetanide 1 mg PO DAILY 01/13/20 [History Confirmed 07/20/21] Clopidogrel Bisulfate 75 mg [PLAVIX 75 MG Tablet] 75 mg PO DAILY 01/13/20 [History Confirmed 07/20/21] Docusate Sodium 100 mg [Colace 100 MG] 100 mg PO TID 01/13/20 [History Confirmed 07/20/21] Ergocalciferol (Vitamin D2) [Vitamin D] 50,000 unit PO WEEKLY 01/13/20 [History Confirmed 07/20/21] Insulin Lispro [Humalog Kwikpen U-100] 45 unit SQ AC 01/13/20 [History Confirmed 07/20/21] Ipratropium [place] 0.5 mg [Atrovent 0.5MG NEBULE] 0.5 mg IH Q4HPRN PRN 01/13/20 [History Confirmed 07/20/21] Multivitamin [Multivitamins] 1 each PO DAILY 01/13/20 [History Confirmed 07/20/21] Nitrofurantoin Monohyd/M-Cryst [Nitrofurantoin Ness-Mcr 100 mg] 100 mg PO DAILY 01/13/20 [History Confirmed 07/20/21] Oxybutynin Chloride [Oxybutynin Chloride ER] 10 mg PO DAILY 01/13/20 [History Confirmed 07/20/21] PANTOPRAZOLE 40 mg Tablet [Protonix 40MG Tablet] 40 mg PO DAILY 01/13/20 [History Confirmed 07/20/21] Potassium Chloride [K-Dur] 40 meq PO DAILY 01/13/20 [History Confirmed 07/20/21] Pravastatin Sodium [Pravachol] 20 mg PO QHS 01/13/20 [History Confirmed 07/20/21] Sertraline HCl 50 mg [Zoloft 50 mg Tablet] 50 mg PO BID 01/13/20 [History Confirmed 07/20/21] Tamsulosin HCl 0.4 mg [Flomax 0.4 MG] 0.4 mg PO QHS 01/13/20 [History Confirmed 07/20/21] Collagenase Oint [Santyl OINTMENT] 30 gm TP DAILY 07/20/21 [History Confirmed 07/20/21] Finasteride 5 mg [Proscar 5 MG] 5 mg PO DAILY 07/20/21 [History Confirmed 07/20/21] Gabapentin 300 mg [Neurontin 300 mg] 900 mg PO TID 07/20/21 [History Confirmed 07/20/21] Meclizine HCl 25 mg [Antivert 25 mg] 50 mg PO BID 07/20/21 [History Confirmed 07/20/21] Allergies/Adverse Reactions: Allergies Allergy/AdvReac Type Severity Reaction Status Date / Time Penicillins Allergy Severe Hives Verified 07/20/21 09:49 silver [Silver] Allergy Intermediate Itching Verified 07/20/21 09:49 zinc [Zinc] Allergy Intermediate Itching Verified 07/20/21 09:49 carvedilol [From Coreg] AdvReac Intermediate Verified 07/20/21 09:49 metoprolol AdvReac Intermediate Verified 07/20/21 09:49 - Past Medical History Past Medical History: Yes Neurological History: Stroke, TIA ENT History: Cataracts Cardiac History: Congestive Heart Failure, Coronary Artery Disease, Myocardial Infarction ([place]) Respiratory History: CHF, COPD, Sleep Apnea Endocrine Medical History: Diabetes Type II Musculoskelatal History: Arthritis GI Medical History: GERD, GI Bleed, Ulcer History: No Pertinent History Pyscho-Social History: Depression Male Reproductive Disorders: No Pertinent History Comment: right partial foot amputation. kidney infection, hx stones - Past Surgical History Past Surgical History: Yes Neuro Surgical History: No Pertinent History Cardiac History: Cardiac Catheterization, Cardiac Stent Respiratory Surgery: No Pertinent History GI Surgical History: Appendectomy, Cholecystectomy, Exploratory Laparoscopy Genitourinary Surgical Hx: No Pertinent History Musculskeletal Surgical Hx: Amputation Male Surgical History: Prostate Surgery Other Surgical History: Tonsillectomy and adenoidectomy. right toes/foot partial amputation and revision. PORT PLACEMENT - Social History Smoking Status: Never smoker Exposure to second hand smoke: No Alcohol: Rarely Drug Use: none Significant Family History: heart disease, diabetes, hypertension Physical Exam - Narrative Narrative Physical Exam: Podiatry Physical Exam Vascular DP and PT pulses are nonpalpable. Capillary refill time is less than 3 seconds. Doppler exam will be performed tomorrow at bedside prior bedside debridement. Cellulitis of the left lower extremity. Wounds as described below Dermatological full-thickness ulceration to the dorsal aspect of the left foot measuring 9.0 x 5.0 cm with significant fibrotic slough and serosanguineous drainage. Negative for purulence at this time. There is a positive probe to bone. To the plantar aspect of the left heel there is a wound with significant fibrotic tissue measuring 2.0 x 2.0 cm with a additional positive probe to bone. Negative for undermining negative for purulent drainage at this time. Neurological: Protective sensation is absent. Epicritic sensation is intact Musculoskeletal: Amputation transmetatarsal to the right foot. Left foot with ulcerations as described in the dermatological section of the note. Remainder of musculoskeletal examination deferred Results - Labs Lab/Micro Results: Lab Results-Last 24 Hours 07/20/21 07/20/21 07/20/21 Range/Units 01:10 16:25 19:50 WBC (4.0-10.5) K/mm3 RBC (4.1-5.6) M/mm3 Hgb (12.5-18.0) gm/dl Hct (42-50) % MCV (78-100) fl MCH (26-32) pg MCHC (32-36) g/dl RDW (11.5-14.0) % Plt Count (150-450) K/mm3 MPV (7.5-11.0) fl Segmented Neutrophils (36.-66.) % Lymphocytes (Manual) (24-44) % Eosinophils (Manual) (0.00-3.0) % Hypochromia Platelet Estimate (NORMAL) RBC Morphology Polychromasia Anisocytosis Microcytosis Sodium (137-145) mmol/L Potassium (3.5-5.1) mmol/L Chloride (98-107) mmol/L Carbon Dioxide (22-30) mmol/L Anion Gap (5-15) MEQ/L BUN (9-20) mg/dL Creatinine (0.66-1.25) mg/dL Estimated GFR ML/MIN Glucose (74-106) mg/dL POC Glucometer (74 to 106) mg/dL Hemoglobin A1c 6.49 H (4.5-6.0) % Calcium (8.4-10.2) mg/dL Total Bilirubin (0.2-1.3) mg/dL AST (17-59) U/L ALT (0-50) U/L Alkaline Phosphatase (38-126) U/L Troponin I 0.120 H* 0.101 H* (0.000-0.034) ng/mL Serum Total Protein (6.3-8.2) g/dL Albumin (3.5-5.0) g/dL 07/20/21 07/20/21 07/21/21 Range/Units 20:17 23:16 05:30 WBC 12.5 H (4.0-10.5) K/mm3 RBC 2.95 L (4.1-5.6) M/mm3 Hgb 8.0 L (12.5-18.0) gm/dl Hct 28.6 L (42-50) % MCV 96.9 (78-100) fl MCH 27.1 (26-32) pg MCHC 28.0 L (32-36) g/dl RDW 15.8 H (11.5-14.0) % Plt Count 242 D (150-450) K/mm3 MPV 9.8 (7.5-11.0) fl Segmented Neutrophils 87 H (36.-66.) % Lymphocytes (Manual) 12 L (24-44) % Eosinophils (Manual) 1 (0.00-3.0) % Hypochromia 1+ Platelet Estimate NORMAL (NORMAL) RBC Morphology ABNORMAL Polychromasia 1+ Anisocytosis 1+ Microcytosis 1+ Sodium (137-145) mmol/L Potassium (3.5-5.1) mmol/L Chloride (98-107) mmol/L Carbon Dioxide (22-30) mmol/L Anion Gap (5-15) MEQ/L BUN (9-20) mg/dL Creatinine (0.66-1.25) mg/dL Estimated GFR ML/MIN Glucose (74-106) mg/dL POC Glucometer 153 H (74 to 106) mg/dL Hemoglobin A1c (4.5-6.0) % Calcium (8.4-10.2) mg/dL Total Bilirubin (0.2-1.3) mg/dL AST (17-59) U/L ALT (0-50) U/L Alkaline Phosphatase (38-126) U/L Troponin I 0.089 H* (0.000-0.034) ng/mL Serum Total Protein (6.3-8.2) g/dL Albumin (3.5-5.0) g/dL 07/21/21 07/21/21 07/21/21 Range/Units 05:30 07:48 12:07 WBC (4.0-10.5) K/mm3 RBC (4.1-5.6) M/mm3 Hgb (12.5-18.0) gm/dl Hct (42-50) % MCV (78-100) fl MCH (26-32) pg MCHC (32-36) g/dl RDW (11.5-14.0) % Plt Count (150-450) K/mm3 MPV (7.5-11.0) fl Segmented Neutrophils (36.-66.) % Lymphocytes (Manual) (24-44) % Eosinophils (Manual) (0.00-3.0) % Hypochromia Platelet Estimate (NORMAL) RBC Morphology Polychromasia Anisocytosis Microcytosis Sodium 135 L (137-145) mmol/L Potassium 3.6 (3.5-5.1) mmol/L Chloride 98 (98-107) mmol/L Carbon Dioxide 28 (22-30) mmol/L Anion Gap 13.0 (5-15) MEQ/L BUN 41 H (9-20) mg/dL Creatinine 1.82 H (0.66-1.25) mg/dL Estimated GFR 39.2 ML/MIN Glucose 198 H (74-106) mg/dL POC Glucometer 220 H 205 H (74 to 106) mg/dL Hemoglobin A1c (4.5-6.0) % Calcium 8.4 (8.4-10.2) mg/dL Total Bilirubin 0.40 (0.2-1.3) mg/dL AST 23 (17-59) U/L ALT 16 (0-50) U/L Alkaline Phosphatase 69 (38-126) U/L Troponin I (0.000-0.034) ng/mL Serum Total Protein 6.9 (6.3-8.2) g/dL Albumin 3.2 L (3.5-5.0) g/dL 07/21/21 Range/Units 16:54 WBC (4.0-10.5) K/mm3 RBC (4.1-5.6) M/mm3 Hgb (12.5-18.0) gm/dl Hct (42-50) % MCV (78-100) fl MCH (26-32) pg MCHC (32-36) g/dl RDW (11.5-14.0) % Plt Count (150-450) K/mm3 MPV (7.5-11.0) fl Segmented Neutrophils (36.-66.) % Lymphocytes (Manual) (24-44) % Eosinophils (Manual) (0.00-3.0) % Hypochromia Platelet Estimate (NORMAL) RBC Morphology Polychromasia Anisocytosis Microcytosis Sodium (137-145) mmol/L Potassium (3.5-5.1) mmol/L Chloride (98-107) mmol/L Carbon Dioxide (22-30) mmol/L Anion Gap (5-15) MEQ/L BUN (9-20) mg/dL Creatinine (0.66-1.25) mg/dL Estimated GFR ML/MIN Glucose (74-106) mg/dL POC Glucometer 221 H (74 to 106) mg/dL Hemoglobin A1c (4.5-6.0) % Calcium (8.4-10.2) mg/dL Total Bilirubin (0.2-1.3) mg/dL AST (17-59) U/L ALT (0-50) U/L Alkaline Phosphatase (38-126) U/L Troponin I (0.000-0.034) ng/mL Serum Total Protein (6.3-8.2) g/dL Albumin (3.5-5.0) g/dL Microbiology 07/20/21 10:46 Blood Culture Gram Stain - Final Blood 07/20/21 10:48 Urine Culture - Preliminary Urine, Void GRAM NEGATIVE ID AND SENSITIVITY PENDING Accuchecks Date 07/21/21 Date 07/20/21 Time 16:56 Time 22:00 - Radiology Impressions Radiology Exams & Impressions: Radiology Procedures Category Date Time Status CHEST 1 VIEW (PORTABLE) Stat Exams 07/20/21 10:17 Completed HEAD WITHOUT CONTRAST [CT] Stat Exams 07/20/21 11:55 Completed - Other Procedures and Tests Respiratory Therapy 07/20/21 17:08 Oxygen Nasal Cannula 2 lpm 07/20/21 18:36 Respiratory Therapy Assessment DAILY Assessment/Plan (1) Pressure ulcer, stage III, full thickness Current Visit: Yes Status: Acute Assessment & Plan: Initial patient examination and evaluation. Patient's clinical examination is consistent with diabetic foot ulcerations to the plantar and dorsal aspect of the left foot. Patient was admitted to the hospital with NSTEMI and a acute on chronic kidney injury therefore surgical intervention at this time would likely provide no significant benefit to the patient. He also does have a diagnosed UTI and indications of sepsis which are of greater concern at this time. Patient would likely benefit from IV antibiotics which will be managed by medicine team at this time We will perform a bedside debridement that is likely superficial in nature in order to alleviate the patient of the slough to the dorsal aspect and the plantar aspect of the left heel. This will be performed under local anesthetic alone in order to avoid any risks for anesthesia. We will determine at bedside of patient would be a good candidate for wound VAC therapy. X-rays to be obtained left lower extremity Cultures obtained at bedside today. Dressings consisting of Betadine Adaptic 4 x 4 Aquacel AG Curlex and Armando to the left lower extremity. Keep dressings clean dry and intact. Dressings to be changed daily We will plan for surgical intervention either tomorrow or at bedside consisting of debridement of ulceration possible application of wound VAC. Patient is at a high risk for limb loss as he is extremely comorbid. He understands that there are no guarantees to treatment at this time. We will follow closely. Thank you for the consult Code(s): L89.93 - PRESSURE ULCER OF UNSPECIFIED SITE, STAGE 3 (2) Cellulitis of left foot Current Visit: Yes Status: Acute Code(s): L03.116 - CELLULITIS OF LEFT LOWER LIMB (3) Sepsis Current Visit: No Status: Resolved (4) Type 2 diabetes mellitus Current Visit: No Status: Chronic (5) Peripheral vascular disease due to secondary diabetes Current Visit: No Status: Chronic Code(s): E13.51 - OTH DIABETES W DIABETIC PERIPHERAL ANGIOPATHY W/O GANGRENE
--- NOTE | 2021-07-21 20:48 | PCM.HP ---
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 Initially they thought it would be hypoglycemia but his blood sugar was in 200s on EMS arrival at home and on presentation is 115. Patient is sleepy but arousable to verbal commands and answering appropriately, moving all 4 extremities but not good historian. Patient denies any chest pain palpitations or shortness of breath. Denies any abdominal pain nausea and vomiting. Does not know exactly why he was sent in here - Review of Systems Constitutional: Fatigue, Lethargy, Malaise, Weakness, No Fever, No Chills Eyes: No Symptoms Ears, Nose, & Throat: No Symptoms Respiratory: No Cough, No Short Of Breath Cardiac: Chest Pain, No Edema, No Syncope Abdominal/Gastrointestinal: No Abdominal Pain, No Nausea, No Vomiting, No Diarrhea Genitourinary Symptoms: No Dysuria Musculoskeletal: No Back Pain, No Neck Pain Skin: No Rash Neurological: No Dizziness, No Focal Weakness, No Sensory Changes Psychological: No Symptoms Endocrine: No Symptoms Hematologic/Lymphatic: No Symptoms Immunological/Allergic: No Symptoms Medications & Allergies Home Medications: Home Medication List Furosemide 40 mg [Lasix 40 MG] 80 mg PO DAILY 10/30/18 [History Confirmed 07/20/21] Nitroglycerin 0.4 mg Tablet [Nitrostat 0.4 MG Tablet] 0.4 mg SL Q5MIN PRN MR X 3 PRN 10/30/18 [History Confirmed 07/20/21] Prednisone 10 mg [Deltasone 10 mg] 10 mg PO BID 10/30/18 [History Confirmed 07/20/21] Hydrocodone/APAP 10/325 mg [[place] 10/325 MG TableT] 1 tab PO Q6HPRN PRN 7 Days #28 tablet MDD 4 11/01/18 [Rx Confirmed 07/20/21] Bumetanide 1 mg PO DAILY 01/13/20 [History Confirmed 07/20/21] Clopidogrel Bisulfate 75 mg [PLAVIX 75 MG Tablet] 75 mg PO DAILY 01/13/20 [History Confirmed 07/20/21] Docusate Sodium 100 mg [Colace 100 MG] 100 mg PO TID 01/13/20 [History Confirmed 07/20/21] Ergocalciferol (Vitamin D2) [Vitamin D] 50,000 unit PO WEEKLY 01/13/20 [History Confirmed 07/20/21] Insulin Lispro [Humalog Kwikpen U-100] 45 unit SQ AC 01/13/20 [History Confirmed 07/20/21] Ipratropium [place] 0.5 mg [Atrovent 0.5MG NEBULE] 0.5 mg IH Q4HPRN PRN 01/13/20 [History Confirmed 07/20/21] Multivitamin [Multivitamins] 1 each PO DAILY 01/13/20 [History Confirmed 07/20/21] Nitrofurantoin Monohyd/M-Cryst [Nitrofurantoin [place]-Mcr 100 mg] 100 mg PO DAILY 01/13/20 [History Confirmed 07/20/21] Oxybutynin Chloride [Oxybutynin Chloride ER] 10 mg PO DAILY 01/13/20 [History Confirmed 07/20/21] PANTOPRAZOLE 40 mg Tablet [Protonix 40MG Tablet] 40 mg PO DAILY 01/13/20 [History Confirmed 07/20/21] Potassium Chloride [K-Dur] 40 meq PO DAILY 01/13/20 [History Confirmed 07/20/21] Pravastatin Sodium [Pravachol] 20 mg PO QHS 01/13/20 [History Confirmed 07/20/21] Sertraline HCl 50 mg [Zoloft 50 mg Tablet] 50 mg PO BID 01/13/20 [History Confirmed 07/20/21] Tamsulosin HCl 0.4 mg [Flomax 0.4 MG] 0.4 mg PO QHS 01/13/20 [History Confirmed 07/20/21] Collagenase Oint [Santyl OINTMENT] 30 gm TP DAILY 07/20/21 [History Confirmed 07/20/21] Finasteride 5 mg [Proscar 5 MG] 5 mg PO DAILY 07/20/21 [History Confirmed 07/20/21] Gabapentin 300 mg [Neurontin 300 mg] 900 mg PO TID 07/20/21 [History Confirmed 07/20/21] Meclizine HCl 25 mg [Antivert 25 mg] 50 mg PO BID 07/20/21 [History Confirmed 07/20/21] Insulin Degludec [Tresiba Flextouch U-100] 30 units SQ DAILY 07/21/21 [History Confirmed 07/21/21] Allergies/Adverse Reactions: Allergies Allergy/AdvReac Type Severity Reaction Status Date / Time Penicillins Allergy Severe Hives Verified 07/20/21 09:49 silver [Silver] Allergy Intermediate Itching Verified 07/20/21 09:49 zinc [Zinc] Allergy Intermediate Itching Verified 07/20/21 09:49 carvedilol [From Coreg] AdvReac Intermediate Verified 07/20/21 09:49 metoprolol AdvReac Intermediate Verified 07/20/21 09:49 - Past Medical History Past Medical History: Yes Neurological History: Stroke, TIA ENT History: Cataracts Cardiac History: Congestive Heart Failure, Coronary Artery Disease, Myocardial Infarction (ND) Respiratory History: CHF, COPD, Sleep Apnea Endocrine Medical History: Diabetes Type II Musculoskelatal History: Arthritis GI Medical History: GERD, GI Bleed, Ulcer History: No Pertinent History Pyscho-Social History: Depression Male Reproductive Disorders: No Pertinent History Comment: right partial foot amputation. kidney infection, hx stones - Past Surgical History Past Surgical History: Yes Neuro Surgical History: No Pertinent History Cardiac History: Cardiac Catheterization, Cardiac Stent Respiratory Surgery: No Pertinent History GI Surgical History: Appendectomy, Cholecystectomy, Exploratory Laparoscopy Genitourinary Surgical Hx: No Pertinent History Musculskeletal Surgical Hx: Amputation Male Surgical History: Prostate Surgery Other Surgical History: Tonsillectomy and adenoidectomy. right toes/foot partial amputation and revision. PORT PLACEMENT - Social History Smoking Status: Never smoker Exposure to second hand smoke: No Alcohol: Rarely Drug Use: none Significant Family History: heart disease, diabetes, hypertension - Physical Exam Vital Signs: Vital Signs - 24 hr Temp Pulse Resp BP Pulse Ox 07/21/21 19:08 85 18 94 L 07/21/21 16:45 80 20 99 07/21/21 16:00 97.8 F 89 20 144/63 99 07/21/21 15:19 16 07/21/21 12:20 99.1 F 91 H 16 123/66 97 07/21/21 12:00 22 07/21/21 08:35 100.0 F 96 H 22 92/47 100 07/21/21 07:25 22 07/21/21 04:00 99.9 F 98 H 24 109/62 99 07/21/21 03:19 16 07/20/21 23:51 97.8 F 82 16 139/85 100 07/20/21 23:05 18 General Appearance: mild distress, alert Neurologic Exam: alert, cooperative, No sensation nml, No motor deficits Eye Exam: PERRL/EOMI, eyes nml inspection Ears, Nose, Throat Exam: normal ENT inspection, TMs normal, pharynx normal, moist mucous membranes Neck Exam: normal inspection, non-tender, supple, full range of motion Respiratory Exam: normal breath sounds, No respiratory distress Cardiovascular Exam: regular rate/rhythm, normal heart sounds, normal peripheral pulses Gastrointestinal/Abdomen Exam: soft, normal bowel sounds, No tenderness, No mass Back Exam: normal inspection, normal range of motion, No CVA tenderness, No vertebral tenderness Extremity Exam: normal inspection, normal range of motion, pelvis stable Skin Exam: normal color, warm, dry, No rash Wound Assessment: Skin/Wound Assessment Wound/Incision Assessment Start: 07/20/21 18:29 Text: Status: Active Freq: Q6H Protocol: Document 07/21/21 13:12 BSANTUS (Rec: 07/21/21 13:19 BSANTUS [id number]) Wound/Incision Assessment Left Buttock Wound Stage Stage II Comment 1CM X .5CM BLISTER NOTED TO TOP left BUTTOCK PHOTO ON CHART Right Buttock Wound Assessment New Finding Wound Stage Stage III Drainage Amount None Comment just below buttock in leg fold Left Heel Wound Assessment Shift Assessment Wound Type DIABETIC ULCER Drainage Amount None Drainage Odor None/Absent Wound Bed Greatest Portion Blanched/Dull Wound Bed Lesser Portion Blanched/Dull Comment APPROX 2CM X 2CM Right Heel Wound Assessment Shift Assessment Wound Type HEALING DIABETIC WOUND Dressing Status Dry & Intact Drainage Amount None Comment WOUND DRY AND SCALEY Left Foot Wound Assessment Shift Assessment Wound Type DIABETIC ULCER Drainage Amount Minimal Drainage Description Yellow Drainage Odor Foul Odor Wound Bed Greatest Portion Yellow (Slough) Wound Bed Lesser Portion Dusky Red Surrounding Tissue Lathrop Comment dorsal lt foot, pt states home health visits home daily for dressing changes . area covered with large open diabetic wound noted area measures 9cm x 6cm with yellow slough present and foul odor picture placed on chart NO CHANGE Wound Photo Photo Taken Yes Date: 07/21/21 Time: 09:00 Lymphatic Exam: No adenopathy Results - Labs Lab/Micro Results: Lab Results-Last 24 Hours 07/20/21 07/21/21 07/21/21 Range/Units 23:16 05:30 05:30 WBC 12.5 H (4.0-10.5) K/mm3 RBC 2.95 L (4.1-5.6) M/mm3 Hgb 8.0 L (12.5-18.0) gm/dl Hct 28.6 L (42-50) % MCV 96.9 (78-100) fl MCH 27.1 (26-32) pg MCHC 28.0 L (32-36) g/dl RDW 15.8 H (11.5-14.0) % Plt Count 242 D (150-450) K/mm3 MPV 9.8 (7.5-11.0) fl Segmented Neutrophils 87 H (36.-66.) % Lymphocytes (Manual) 12 L (24-44) % Eosinophils (Manual) 1 (0.00-3.0) % Hypochromia 1+ Platelet Estimate NORMAL (NORMAL) RBC Morphology ABNORMAL Polychromasia 1+ Anisocytosis 1+ Microcytosis 1+ Sodium 135 L (137-145) mmol/L Potassium 3.6 (3.5-5.1) mmol/L Chloride 98 (98-107) mmol/L Carbon Dioxide 28 (22-30) mmol/L Anion Gap 13.0 (5-15) MEQ/L BUN 41 H (9-20) mg/dL Creatinine 1.82 H (0.66-1.25) mg/dL Estimated GFR 39.2 ML/MIN Glucose 198 H (74-106) mg/dL POC Glucometer (74 to 106) mg/dL Calcium 8.4 (8.4-10.2) mg/dL Total Bilirubin 0.40 (0.2-1.3) mg/dL AST 23 (17-59) U/L ALT 16 (0-50) U/L Alkaline Phosphatase 69 (38-126) U/L Troponin I 0.089 H* (0.000-0.034) ng/mL Serum Total Protein 6.9 (6.3-8.2) g/dL Albumin 3.2 L (3.5-5.0) g/dL 07/21/21 07/21/21 07/21/21 Range/Units 07:48 12:07 16:54 WBC (4.0-10.5) K/mm3 RBC (4.1-5.6) M/mm3 Hgb (12.5-18.0) gm/dl Hct (42-50) % MCV (78-100) fl MCH (26-32) pg MCHC (32-36) g/dl RDW (11.5-14.0) % Plt Count (150-450) K/mm3 MPV (7.5-11.0) fl Segmented Neutrophils (36.-66.) % Lymphocytes (Manual) (24-44) % Eosinophils (Manual) (0.00-3.0) % Hypochromia Platelet Estimate (NORMAL) RBC Morphology Polychromasia Anisocytosis Microcytosis Sodium (137-145) mmol/L Potassium (3.5-5.1) mmol/L Chloride (98-107) mmol/L Carbon Dioxide (22-30) mmol/L Anion Gap (5-15) MEQ/L BUN (9-20) mg/dL Creatinine (0.66-1.25) mg/dL Estimated GFR ML/MIN Glucose (74-106) mg/dL POC Glucometer 220 H 205 H 221 H (74 to 106) mg/dL Calcium (8.4-10.2) mg/dL Total Bilirubin (0.2-1.3) mg/dL AST (17-59) U/L ALT (0-50) U/L Alkaline Phosphatase (38-126) U/L Troponin I (0.000-0.034) ng/mL Serum Total Protein (6.3-8.2) g/dL Albumin (3.5-5.0) g/dL Microbiology 07/20/21 10:46 Blood Culture Gram Stain - Final Blood 07/20/21 10:48 Urine Culture - Preliminary Urine, Void GRAM NEGATIVE ID AND SENSITIVITY PENDING Accuchecks Date 07/21/21 Date 07/20/21 Time 16:56 Time 22:00 - Radiology Impressions Radiology Exams & Impressions: Radiology Procedures Category Date Time Status CHEST 1 VIEW (PORTABLE) Stat Exams 07/20/21 10:17 Completed FOOT (MINIMUM 3 VIEWS) Routine Exams 07/21/21 19:18 Taken HEAD WITHOUT CONTRAST [CT] Stat Exams 07/20/21 11:55 Completed HEEL [OS CALCIS XRAY] Routine Exams 07/21/21 19:18 Taken Assessment/Plan (1) Acute UTI Current Visit: Yes Status: Acute Assessment & Plan: Chief Complaint Diagnosis NSTEMI Allergies Allergy/AdvReac Type Severity Reaction Status Date / Time Penicillins Allergy Severe Hives Verified 07/20/21 09:49 silver [Silver] Allergy Intermediate Itching Verified 07/20/21 09:49 zinc [Zinc] Allergy Intermediate Itching Verified 07/20/21 09:49 carvedilol [From Coreg] AdvReac Intermediate Verified 07/20/21 09:49 metoprolol AdvReac Intermediate Verified 07/20/21 09:49 Vital Signs (Last 24 hours) Temp Pulse Resp BP Pulse Ox 07/21/21 20:00 98.0 F 80 18 129/65 97 07/21/21 19:08 85 18 94 L 07/21/21 16:45 80 20 99 07/21/21 16:00 97.8 F 89 20 144/63 99 07/21/21 15:19 16 07/21/21 12:20 99.1 F 91 H 16 123/66 97 07/21/21 12:00 22 07/21/21 08:35 100.0 F 96 H 22 92/47 100 07/21/21 07:25 22 07/21/21 04:00 99.9 F 98 H 24 109/62 99 07/21/21 03:19 16 07/20/21 23:51 97.8 F 82 16 139/85 100 07/20/21 23:05 18 Home Medications Medication Instructions Recorded Confirmed Last Taken Type Collagenase Oint [Santyl 30 gm TP DAILY 07/20/21 07/20/21 07/20/21 History OINTMENT] Finasteride 5 mg [Proscar 5 5 mg PO DAILY 07/20/21 07/20/21 07/20/21 History MG] Gabapentin 300 mg [Neurontin 900 mg PO TID 07/20/21 07/20/21 07/20/21 History 300 mg] Meclizine HCl 25 mg [Antivert 50 mg PO BID 07/20/21 07/20/21 07/20/21 History 25 mg] Insulin Degludec [Tresiba 30 units SQ DAILY 07/21/21 07/21/21 Unknown History Flextouch U-100] Current Medications Generic Name Dose Route Start Last Admin Trade Name Freq PRN Reason Stop Dose Admin Acetaminophen 650 mg 07/20/21 17:08 Tylenol 325 Mg PO 08/19/21 17:07 Q4H PRN PRN PAIN AND/OR FEVER Hydrocodone Bitart/Acetaminophen 1 tablet 07/21/21 07:08 Hydrocodone-Acetamin 10-325 Mg PO 07/26/21 07:07 Q6HPRN PRN PAIN Albuterol/Ipratropium 3 ml 07/20/21 17:08 Duoneb 0.5-3 Mg/3 Ml Neb IH 08/19/21 17:07 Q4HPRN PRN SHORTNESS OF BREATH/WHEEZING Bumetanide 1 mg 07/21/21 10:00 07/21/21 10:30 Bumex 1 Mg PO 08/20/21 09:59 1 mg DAILY JOSUE Administration Clopidogrel Bisulfate 75 mg 07/21/21 10:00 07/21/21 10:31 Plavix 75 Mg Tablet PO 08/20/21 09:59 75 mg DAILY JOSUE Administration Collagenase 30 gm 07/21/21 10:00 07/21/21 10:42 Santyl Ointment TP 08/20/21 09:59 Not Given DAILY JOSUE Docusate Sodium 100 mg 07/20/21 22:00 07/21/21 14:21 Colace 100 Mg PO 08/19/21 21:59 100 mg TID JOSUE Administration Enoxaparin Sodium 40 mg 07/21/21 10:00 07/21/21 10:31 Enoxaparin Sodium SQ 08/20/21 09:59 40 mg DAILY JOSUE Administration Ergocalciferol 50,000 unit 07/24/21 10:00 Vitamin D2 PO 08/23/21 09:59 WEEKLY JOSUE Finasteride 5 mg 07/21/21 10:00 07/21/21 10:29 Proscar 5 Mg PO 08/20/21 09:59 5 mg DAILY JOSUE Administration Furosemide 80 mg 07/21/21 10:00 07/21/21 10:30 Lasix 40 Mg PO 08/20/21 09:59 80 mg DAILY JOSUE Administration Gabapentin 900 mg 07/20/21 22:00 07/21/21 14:20 Neurontin 300 Mg PO 08/19/21 21:59 900 mg TID JOSUE Administration Levofloxacin/Dextrose 250 mg in 50 mls @ 50 mls/hr 07/21/21 13:53 07/21/21 14:14 Levaquin 250mg/50ml D5w IV 08/20/21 13:52 50 mls/hr DAILY JOSUE Administration Insulin Glargine 30 unit 07/21/21 22:00 Lantus Insulin SQ 08/20/21 21:59 HS [facility] Insulin Human Lispro 0 unit 07/20/21 17:08 07/20/21 22:16 Humalog SQ 08/19/21 17:07 3 unit UD PRN Administration HYPERGLYCEMIA Insulin Human Lispro 45 unit 07/21/21 07:30 07/21/21 17:07 Humalog SQ 08/20/21 07:29 Not Given AC [facility] Meclizine HCl 50 mg 07/20/21 22:00 07/21/21 10:30 Antivert 25 Mg PO 08/19/21 21:59 50 mg BID JOSUE Administration Multivitamins Therapeutic 1 tab 07/21/21 10:00 07/21/21 10:30 Theragran Multivitamin PO 08/20/21 09:59 1 tab DAILY JOSUE Administration Nitrofurantoin Macrocrystals 100 mg 07/21/21 10:00 07/21/21 10:30 Macrobid 100mg Capsule PO 08/20/21 09:59 100 mg DAILY JOSUE Administration Nitroglycerin 0.4 mg 07/21/21 07:08 Nitrostat 0.4 Mg Tablet SL 08/20/21 07:07 Q5MIN PRN MR X 3 PRN CHEST PAIN Ondansetron HCl 4 mg 07/20/21 17:08 Zofran 4 Mg/2 Ml Vial IV 08/19/21 17:07 Q6H PRN PRN NAUSEA/VOMITING Oxybutynin Chloride 10 mg 07/21/21 10:00 07/21/21 10:30 Ditropan Xl 5 Mg PO 08/20/21 09:59 10 mg DAILY JOSUE Administration Pantoprazole Sodium 40 mg 07/21/21 10:00 07/21/21 10:30 Protonix 40mg Tablet PO 08/20/21 09:59 40 mg DAILY JOSUE Administration Potassium Chloride 40 meq 07/21/21 10:00 07/21/21 10:29 Klor Con 10 Meq PO 08/20/21 09:59 40 meq DAILY JOSUE Administration Prednisone 10 mg 07/21/21 10:00 07/21/21 10:30 Deltasone 10 Mg PO 08/20/21 09:59 10 mg BID JOSUE Administration Sertraline HCl 50 mg 07/20/21 22:00 07/21/21 10:30 Zoloft 50 Mg Tablet PO 08/19/21 21:59 50 mg BID JOSUE Administration Simvastatin 20 mg 07/20/21 22:00 07/20/21 22:12 Zocor 20mg PO 08/19/21 21:59 20 mg HS JOSUE Administration Tamsulosin HCl 0.4 mg 07/20/21 22:00 07/20/21 22:13 Flomax 0.4 Mg PO 08/19/21 21:59 0.4 mg HS JOSUE Administration Discontinued Medications Generic Name Dose Route Start Last Admin Trade Name Freq PRN Reason Stop Dose Admin Acetaminophen 650 mg 07/20/21 10:39 07/20/21 10:49 Tylenol 325 Mg PO 07/20/21 10:40 650 mg STAT STA Administration Acetaminophen Confirm 07/20/21 10:48 Tylenol 325 Mg Administered 07/20/21 10:49 Dose 650 mg .ROUTE .STK-MED ONE Aspirin 324 mg 07/20/21 11:55 07/20/21 12:28 Baby Aspirin 81 Mg Chew PO 07/20/21 11:56 324 mg STAT ONE Administration Levofloxacin/Dextrose 250 mg in 50 mls @ 50 mls/hr 07/20/21 12:48 07/20/21 14:13 Levaquin 250mg/50ml D5w IV 07/20/21 13:47 Infused STAT STA Infusion Levofloxacin/Dextrose Confirm 07/20/21 13:00 Levaquin 250mg/50ml D5w Administered 07/20/21 13:01 Dose 250 mg in 50 mls @ ud IV .STK-MED ONE Levofloxacin/Dextrose 250 mg in 50 mls @ 50 mls/hr 07/22/21 22:00 Levaquin 250mg/50ml D5w IV 08/21/21 21:59 Q24H10 JOSUE Levofloxacin/Dextrose 250 mg in 50 mls @ 50 mls/hr 07/22/21 13:00 Levaquin 250mg/50ml D5w IV 08/21/21 12:59 Q24H10 JOSUE Pantoprazole Sodium 40 mg 07/21/21 10:00 Protonix 40 Mg Iv IV 08/20/21 09:59 Q24H10 JOSUE Intake & Output (Last 24 hours) 07/19/21 07/20/21 07/21/21 07/22/21 11:59 11:59 11:59 11:59 Intake Total 1150 950 Output Total 650 1000 Balance 500 -50 Weight 199.127 kg 191.3 kg Microbiology Results (Last 24 hours) 07/20/21 10:46 Blood Blood Culture Gram Stain - Final 07/20/21 10:46 Blood Blood Culture - Pending 07/20/21 10:48 Urine, Void Urine Culture - Preliminary GRAM NEGATIVE ID AND SENSITIVITY PENDING Laboratory Results (Last 24 hours) 07/21/21 07/21/21 07/21/21 16:54 12:07 07:48 WBC RBC Hgb Hct MCV MCH MCHC RDW Plt Count MPV Segmented Neutrophils Lymphocytes (Manual) Eosinophils (Manual) Hypochromia Platelet Estimate RBC Morphology Polychromasia Anisocytosis Microcytosis Sodium Potassium Chloride Carbon Dioxide Anion Gap BUN Creatinine Estimated GFR Glucose POC Glucometer 221 H 205 H 220 H Calcium Total Bilirubin AST ALT Alkaline Phosphatase Troponin I Serum Total Protein Albumin 07/21/21 07/21/21 07/20/21 05:30 05:30 23:16 WBC 12.5 H RBC 2.95 L Hgb 8.0 L Hct 28.6 L MCV 96.9 MCH 27.1 MCHC 28.0 L RDW 15.8 H Plt Count 242 D MPV 9.8 Segmented Neutrophils 87 H Lymphocytes (Manual) 12 L Eosinophils (Manual) 1 Hypochromia 1+ Platelet Estimate NORMAL RBC Morphology ABNORMAL Polychromasia 1+ Anisocytosis 1+ Microcytosis 1+ Sodium 135 L Potassium 3.6 Chloride 98 Carbon Dioxide 28 Anion Gap 13.0 BUN 41 H Creatinine 1.82 H Estimated GFR 39.2 Glucose 198 H POC Glucometer Calcium 8.4 Total Bilirubin 0.40 AST 23 ALT 16 Alkaline Phosphatase 69 Troponin I 0.089 H* Serum Total Protein 6.9 Albumin 3.2 L Orders (Last 24 hours) Category Date Time Status Consent,Obtain ROUTINE Care 07/21/21 17:11 Active Consult Podiatry ROUTINE Cons 07/21/21 13:53 Completed FOOT (MINIMUM 3 VIEWS) Routine Exams 07/21/21 19:18 Taken HEEL [OS CALCIS XRAY] Routine Exams 07/21/21 19:18 Taken CBC W DIFF AM.LAB Lab 07/21/21 05:30 Completed CMP AM.LAB Lab 07/21/21 05:30 Completed Manual Differential NC Routine Lab 07/21/21 05:30 Completed POCT GLUCOSE Stat Lab 07/20/21 20:17 Completed POCT GLUCOSE Stat Lab 07/21/21 07:48 Completed POCT GLUCOSE Stat Lab 07/21/21 12:07 Completed POCT GLUCOSE Stat Lab 07/21/21 16:54 Completed TROPONIN Q3H Lab 07/20/21 19:50 Completed TROPONIN Q3H Lab 07/20/21 23:16 Completed Bumetanide 1 mg [Bumex 1 mg] Med 07/21/21 10:00 Active 1 mg PO DAILY Clopidogrel Bisulfate 75 mg [PLAVIX 75 MG Tablet] Med 07/21/21 10:00 Active 75 mg PO DAILY Collagenase Oint [Santyl OINTMENT] Med 07/21/21 10:00 Active 30 gm TP DAILY Docusate Sodium 100 mg [Colace 100 MG] Med 07/20/21 22:00 Active 100 mg PO TID Enoxaparin Sodium [Enoxaparin Sodium] Med 07/21/21 10:00 Active 40 mg SQ DAILY Ergocalciferol (Vitamin D2) [Vitamin D2] Med 07/24/21 10:00 Active 50,000 unit PO WEEKLY Finasteride 5 mg [Proscar 5 MG] Med 07/21/21 10:00 Active 5 mg PO DAILY Furosemide 40 mg [Lasix 40 MG] Med 07/21/21 10:00 Active 80 mg PO DAILY Gabapentin 300 mg [Neurontin 300 mg] Med 07/20/21 22:00 Active 900 mg PO TID Hydrocodone/Acetaminophen [Hydrocodone-Acetamin 10-325 Med 07/21/21 07:08 Active mg] 1 tablet PO Q6HPRN PRN Insulin Glargine [Lantus Insulin] Med 07/21/21 22:00 Ordered 30 unit SQ HS Insulin Lispro [Humalog] Med 07/21/21 07:30 Active 45 unit SQ AC Levofloxacin [Levaquin 250MG/50ML D5W] Med 07/21/21 13:53 Active 250 mg in 50 ml IV DAILY Levofloxacin [Levaquin 250MG/50ML D5W] Med 07/22/21 13:00 Discontinued 250 mg in 50 ml IV Q24H10 Levofloxacin [Levaquin 250MG/50ML D5W] Med 07/22/21 22:00 Discontinued 250 mg in 50 ml IV Q24H10 Meclizine HCl 25 mg [Antivert 25 mg] Med 07/20/21 22:00 Active 50 mg PO BID Multivitamins,Therapeutic Tab* [Theragran Multivitamin* Med 07/21/21 10:00 Active ] 1 tab PO DAILY Nitrofurantoin Macro 100 mg [Macrobid 100MG Capsule* Med 07/21/21 10:00 Active ] 100 mg PO DAILY Nitroglycerin 0.4 mg Tablet [Nitrostat 0.4 MG Tablet Med 07/21/21 07:08 Active ] 0.4 mg SL Q5MIN PRN MR X 3 PRN Oxybutynin Chloride Xl 5 mg [Ditropan XL 5 MG] Med 07/21/21 10:00 Active 10 mg PO DAILY PANTOPRAZOLE 40 mg Tablet [Protonix 40MG Tablet] Med 07/21/21 10:00 Active 40 mg PO DAILY Pantoprazole 40 mg [Protonix 40 mg IV] Med 07/21/21 10:00 Discontinued 40 mg IV Q24H10 Potassium Chloride 10 Meq Tab* [Klor Con 10 MEQ] Med 07/21/21 10:00 Active 40 meq PO DAILY Prednisone 10 mg [Deltasone 10 mg] Med 07/21/21 10:00 Active 10 mg PO BID Sertraline HCl 50 mg [Zoloft 50 mg Tablet] Med 07/20/21 22:00 Active 50 mg PO BID Simvastatin 20Mg [Zocor 20Mg] Med 07/20/21 22:00 Active 20 mg PO HS Tamsulosin HCl 0.4 mg [Flomax 0.4 MG] Med 07/20/21 22:00 Active 0.4 mg PO HS PT Eval & Treat (MD Order) ONCE PT 07/21/21 09:27 Active Patient Care Notes (Last 24 hours) 07/21/21 16:45 (created 07/21/21 16:55) Nursing Note by Fátima Castañeda is here to see patient. Initialized on 07/21/21 16:55 - END OF NOTE 07/21/21 11:21 Case Management Note by Dodie Correa PATIENT HAS [facility]. THEY WERE NOTIFIED PATIENT IS HERE. THEY WILL NEED NOTIFIED OF DC AT [phone]. THEY WILL NEED FAXED THE DC INSTRUCTIONS, DC MED LIST AND DC SUMMARY (IF AVAILABLE) FAXED TO [phone] Initialized on 07/21/21 11:21 - END OF NOTE 07/21/21 08:36 Nursing Note by Xiomara Coleman BP value reported to primary care RNHarriett Initialized on 07/21/21 08:36 - END OF NOTE 07/21/21 00:27 Nursing Note by Trang Miner [id number] aware of trop trending down 0.089 Initialized on 07/21/21 00:27 - END OF NOTE 07/21/21 00:23 Nursing Note by Trang Miner 07/20/[id number]: Dr. Molly aware fo trop trending down, 0.101 per marco Initialized on 07/21/21 00:23 - END OF NOTE Code(s): N39.0 - URINARY TRACT INFECTION, SITE NOT SPECIFIED (2) Acute kidney injury superimposed on CKD Current Visit: Yes Status: Acute Code(s): N17.9 - ACUTE KIDNEY FAILURE, UNSPECIFIED; N18.9 - CHRONIC KIDNEY DISEASE, UNSPECIFIED (3) Cellulitis of left foot Current Visit: Yes Status: Acute Code(s): L03.116 - CELLULITIS OF LEFT LOWER LIMB (4) NSTEMI (non-ST elevated myocardial infarction) Current Visit: Yes Status: Acute Code(s): I21.4 - NON-ST ELEVATION (NSTEMI) MYOCARDIAL INFARCTION (5) Diabetes Current Visit: No Status: Chronic Qualifiers: Code(s): E11.9 - TYPE 2 DIABETES MELLITUS WITHOUT COMPLICATIONS (6) Peripheral vascular disease due to secondary diabetes Current Visit: No Status: Chronic Code(s): E13.51 - OTH DIABETES W DIABETIC PERIPHERAL ANGIOPATHY W/O GANGRENE
[2021-07-21] MEDS: Flomax 0.4 MG PO SCH (22:49)
[2021-07-21] MEDS: ZOCOR 20MG PO SCH (22:49)
[2021-07-21] MEDS: Lantus Insulin SQ SCH (22:50)
--- NOTE | 2021-07-22 08:38 | XRAY ---
Indication: Heel ulcer. Comparison: None 3 nonweightbearing views left foot demonstrates osteopenia, tiny heel spurs, small plantar soft tissue ulcer, and extensive scattered vascular calcifications. No other bony, articular, or soft tissue abnormalities.
--- NOTE | 2021-07-22 08:38 | XRAY ---
Indication: Heel ulcer. Comparison: None 2 view left calcaneus demonstrates osteopenia, tiny heel spurs, small plantar soft tissue ulcer, and extensive scattered vascular calcifications. No other bony, articular, or soft tissue abnormalities.
[2021-07-22] MEDS: HUMALOG SQ SCH ×3 (09:59→17:43)
[2021-07-22] MEDS: Levaquin 250MG/50ML D5W 250 MG/50 ML BAG IV SCH (10:02)
[2021-07-22] MEDS: ENOXAPARIN SODIUM SQ SCH (10:02)
[2021-07-22] MEDS: ANTIVERT 25 MG PO SCH ×2 (11:22→20:59)
[2021-07-22] MEDS: BUMEX 1 MG PO SCH (11:22)
[2021-07-22] MEDS: PLAVIX 75 MG Tablet PO SCH (11:22)
[2021-07-22] MEDS: ZOLOFT 50 MG TABLET PO SCH ×2 (11:22→20:59)
[2021-07-22] MEDS: Ditropan XL 5 MG PO SCH (11:22)
[2021-07-22] MEDS: Klor Con 10 MEQ PO SCH (11:22)
[2021-07-22] MEDS: DELTASONE 10 MG PO SCH ×2 (11:22→20:59)
[2021-07-22] MEDS: NEURONTIN 300 MG PO SCH ×3 (11:22→20:59)
[2021-07-22] MEDS: Lasix 40 MG PO SCH (11:23)
[2021-07-22] MEDS: Colace 100 MG PO SCH ×3 (11:23→20:53)
[2021-07-22] MEDS: Proscar 5 MG PO SCH (11:23)
[2021-07-22] MEDS: THERAGRAN MULTIVITAMIN PO SCH (11:23)
[2021-07-22] MEDS: Macrobid 100MG Capsule PO SCH (11:23)
[2021-07-22] MEDS: Protonix 40MG Tablet PO SCH (11:23)
--- NOTE | 2021-07-22 12:59 | PCM.NOTE ---
Date and Time: 07/22/21 1258 Subjective Assessment: doing ok - Review of Systems Constitutional: No Fever, No Chills Eyes: No Symptoms Ears, Nose, & Throat: No Symptoms Respiratory: No Cough, No Short Of Breath Cardiac: No Chest Pain, No Edema, No Syncope Abdominal/Gastrointestinal: No Abdominal Pain, No Nausea, No Vomiting, No Diarrhea Genitourinary Symptoms: No Dysuria Musculoskeletal: No Back Pain, No Neck Pain Skin: No Rash Neurological: No Dizziness, No Focal Weakness, No Sensory Changes Psychological: No Symptoms Endocrine: No Symptoms Hematologic/Lymphatic: No Symptoms Immunological/Allergic: No Symptoms Objective Exam General Appearance: no apparent distress, alert Neurologic Exam: alert, oriented x 3, cooperative, normal mood/affect, nml cerebellar function, sensation nml, No motor deficits Skin Exam: normal color, warm, dry Wound Assessment: Skin/Wound Assessment Wound/Incision Assessment Start: 07/20/21 18:29 Text: Status: Active Freq: Q6H Protocol: Document 07/22/21 08:00 KAPIL (Rec: 07/22/21 10:39 KAPIL [id number]) Wound/Incision Assessment Left Buttock Wound Assessment Shift Assessment Wound Stage Stage II Drainage Amount None Surrounding Tissue [place] Right Buttock Wound Assessment Shift Assessment Wound Stage Stage III Drainage Amount None Left Heel Wound Assessment Shift Assessment Wound Type DIABETIC ULCER Drainage Amount None Drainage Odor None/Absent Comment UNABLE TO ASSESS DUE TO DRESSING Right Heel Wound Assessment Shift Assessment Wound Type HEALING DIABETIC WOUND Dressing Status Dry & Intact Drainage Amount None Left Foot Wound Assessment Shift Assessment Wound Type DIABETIC ULCER Drainage Amount None Drainage Description Yellow Comment UNABLE TO ASSESS DUE TO DRESSING Wound Photo Photo Taken No Date: 07/21/21 Time: 09:00 Eye Exam: PERRL, EOMI, eyes nml inspection Ears, Nose, Throat Exam: normal ENT inspection, pharynx normal, moist mucous membranes Neck Exam: normal inspection, non-tender, supple, full range of motion Respiratory Exam: normal breath sounds, lungs clear, No respiratory distress Cardiovascular Exam: regular rate/rhythm, normal heart sounds Gastrointestinal/Abdomen Exam: soft, No tenderness, No mass Extremity Exam: normal inspection, normal range of motion Back Exam: normal inspection, normal range of motion, No CVA tenderness, No vertebral tenderness Male Genitalia Exam: deferred Rectal Exam: deferred OBJECTIVE DATA Vital Signs: Vital Signs - 24 hr Temp Pulse Resp BP Pulse Ox 07/22/21 08:00 97.5 F 69 15 147/86 07/22/21 07:15 77 16 98 07/22/21 04:00 97.1 F 63 16 113/56 99 07/22/21 00:00 97.4 F 78 16 104/79 98 07/21/21 20:00 98.0 F 80 18 129/65 97 07/21/21 19:08 85 18 94 L 07/21/21 16:45 80 20 99 07/21/21 16:00 97.8 F 89 20 144/63 99 07/21/21 15:19 16 Pain Assessment - Last Documented Pain Intensity 0 Intake and Output: Intake & Output 07/20/21 07/21/21 07/22/21 07/23/21 11:59 11:59 11:59 11:59 Intake Total 1150 950 Output Total 650 1550 Balance 500 -600 Weight 199.127 kg 191.3 kg 189.8 kg Lab Results: Lab Results-Last 24 Hours 07/21/21 07/21/21 07/22/21 Range/Units 16:54 21:04 08:12 POC Glucometer 221 H 226 H 223 H (74 to 106) mg/dL 07/22/21 Range/Units 12:32 POC Glucometer 189 H (74 to 106) mg/dL Radiology Exams: Radiology Procedures Category Date Time Status FOOT (MINIMUM 3 VIEWS) Routine Exams 07/21/21 19:18 Completed HEEL [OS CALCIS XRAY] Routine Exams 07/21/21 19:18 Completed Multi-Disciplinary Progress Notes: Multi-Disciplinary Progress Notes 07/22/21 10:40 Case Management Note by Dodie Correa AWAITING BEDSIDE DEBRIDEMENT BY DR. KOWALSKI- WILL ASSESS ANY CHANGES IN NEEDS AFTER THAT IS COMPLETE Initialized on 07/22/21 10:40 - END OF NOTE Assessment/Plan (1) Cellulitis of left foot Current Visit: Yes Status: Acute Assessment & Plan: Chief Complaint Diagnosis confusion and chest pain for 1 day Allergies Allergy/AdvReac Type Severity Reaction Status Date / Time Penicillins Allergy Severe Hives Verified 07/20/21 09:49 silver [Silver] Allergy Intermediate Itching Verified 07/20/21 09:49 zinc [Zinc] Allergy Intermediate Itching Verified 07/20/21 09:49 carvedilol [From Coreg] AdvReac Intermediate Verified 07/20/21 09:49 metoprolol AdvReac Intermediate Verified 07/20/21 09:49 Vital Signs (Last 24 hours) Temp Pulse Resp BP Pulse Ox 07/22/21 08:00 97.5 F 69 15 147/86 07/22/21 07:15 77 16 98 07/22/21 04:00 97.1 F 63 16 113/56 99 07/22/21 00:00 97.4 F 78 16 104/79 98 07/21/21 20:00 98.0 F 80 18 129/65 97 07/21/21 19:08 85 18 94 L 07/21/21 16:45 80 20 99 07/21/21 16:00 97.8 F 89 20 144/63 99 07/21/21 15:19 16 Home Medications Medication Instructions Recorded Confirmed Last Taken Type Collagenase Oint [Santyl 30 gm TP DAILY 07/20/21 07/20/21 07/20/21 History OINTMENT] Finasteride 5 mg [Proscar 5 5 mg PO DAILY 07/20/21 07/20/21 07/20/21 History MG] Gabapentin 300 mg [Neurontin 900 mg PO TID 07/20/21 07/20/21 07/20/21 History 300 mg] Meclizine HCl 25 mg [Antivert 50 mg PO BID 07/20/21 07/20/21 07/20/21 History 25 mg] Insulin Degludec [Tresiba 30 units SQ DAILY 07/21/21 07/21/21 Unknown History Flextouch [id number]] Current Medications Generic Name Dose Route Start Last Admin Trade Name Freq PRN Reason Stop Dose Admin Acetaminophen 650 mg 07/20/21 17:08 Tylenol 325 Mg PO 08/19/21 17:07 Q4H PRN PRN PAIN AND/OR FEVER Hydrocodone Bitart/Acetaminophen 1 tablet 07/21/21 07:08 Hydrocodone-Acetamin 10-325 Mg PO 07/26/21 07:07 Q6HPRN PRN PAIN Albuterol/Ipratropium 3 ml 07/20/21 17:08 Duoneb 0.5-3 Mg/3 Ml Neb IH 08/19/21 17:07 Q4HPRN PRN SHORTNESS OF BREATH/WHEEZING Bumetanide 1 mg 07/21/21 10:00 07/22/21 11:22 Bumex 1 Mg PO 08/20/21 09:59 1 mg DAILY JOSUE Administration Clopidogrel Bisulfate 75 mg 07/21/21 10:00 07/22/21 11:22 Plavix 75 Mg Tablet PO 08/20/21 09:59 75 mg DAILY JOSUE Administration Collagenase 30 gm 07/21/21 10:00 07/21/21 10:42 Santyl Ointment TP 08/20/21 09:59 Not Given DAILY JOSUE Docusate Sodium 100 mg 07/20/21 22:00 07/22/21 11:23 Colace 100 Mg PO 08/19/21 21:59 100 mg TID JOSUE Administration Enoxaparin Sodium 40 mg 07/21/21 10:00 07/22/21 10:02 Enoxaparin Sodium SQ 08/20/21 09:59 40 mg DAILY JOSUE Administration Ergocalciferol 50,000 unit 07/24/21 10:00 Vitamin D2 PO 08/23/21 09:59 WEEKLY JOSUE Finasteride 5 mg 07/21/21 10:00 07/22/21 11:23 Proscar 5 Mg PO 08/20/21 09:59 5 mg DAILY JOSUE Administration Furosemide 80 mg 07/21/21 10:00 07/22/21 11:23 Lasix 40 Mg PO 08/20/21 09:59 80 mg DAILY JOSUE Administration Gabapentin 900 mg 07/20/21 22:00 07/22/21 11:22 Neurontin 300 Mg PO 08/19/21 21:59 900 mg TID JOSUE Administration Levofloxacin/Dextrose 250 mg in 50 mls @ 50 mls/hr 07/21/21 13:53 07/22/21 10:02 Levaquin 250mg/50ml D5w IV 08/20/21 13:52 50 mls/hr DAILY JOSUE Administration Insulin Glargine 30 unit 07/21/21 22:00 07/21/21 22:50 Lantus Insulin SQ 08/20/21 21:59 15 unit HS JOSUE Administration Insulin Human Lispro 0 unit 07/20/21 17:08 07/20/21 22:16 Humalog SQ 08/19/21 17:07 3 unit UD PRN Administration HYPERGLYCEMIA Insulin Human Lispro 45 unit 07/21/21 07:30 07/22/21 09:59 Humalog SQ 08/20/21 07:29 Not Given AC JOSUE Meclizine HCl 50 mg 07/20/21 22:00 07/22/21 11:22 Antivert 25 Mg PO 08/19/21 21:59 50 mg BID JOSUE Administration Multivitamins Therapeutic 1 tab 07/21/21 10:00 07/22/21 11:23 Theragran Multivitamin PO 08/20/21 09:59 1 tab DAILY JOSUE Administration Nitrofurantoin Macrocrystals 100 mg 07/21/21 10:00 07/22/21 11:23 Macrobid 100mg Capsule PO 08/20/21 09:59 100 mg DAILY JOSUE Administration Nitroglycerin 0.4 mg 07/21/21 07:08 Nitrostat 0.4 Mg Tablet SL 08/20/21 07:07 Q5MIN PRN MR X 3 PRN CHEST PAIN Ondansetron HCl 4 mg 07/20/21 17:08 Zofran 4 Mg/2 Ml Vial IV 08/19/21 17:07 Q6H PRN PRN NAUSEA/VOMITING Oxybutynin Chloride 10 mg 07/21/21 10:00 07/22/21 11:22 Ditropan Xl 5 Mg PO 08/20/21 09:59 10 mg DAILY JOSUE Administration Pantoprazole Sodium 40 mg 07/21/21 10:00 07/22/21 11:23 Protonix 40mg Tablet PO 08/20/21 09:59 40 mg DAILY JOSUE Administration Potassium Chloride 40 meq 07/21/21 10:00 07/22/21 11:22 Klor Con 10 Meq PO 08/20/21 09:59 40 meq DAILY JOSUE Administration Prednisone 10 mg 07/21/21 10:00 07/22/21 11:22 Deltasone 10 Mg PO 08/20/21 09:59 10 mg BID JOSUE Administration Sertraline HCl 50 mg 07/20/21 22:00 07/22/21 11:22 Zoloft 50 Mg Tablet PO 08/19/21 21:59 50 mg BID JOSUE Administration Simvastatin 20 mg 07/20/21 22:00 07/21/21 22:49 Zocor 20mg PO 08/19/21 21:59 20 mg HS JOSUE Administration Tamsulosin HCl 0.4 mg 07/20/21 22:00 07/21/21 22:49 Flomax 0.4 Mg PO 08/19/21 21:59 0.4 mg HS JOSUE Administration Discontinued Medications Generic Name Dose Route Start Last Admin Trade Name Lisa PRN Reason Stop Dose Admin Acetaminophen 650 mg 07/20/21 10:39 07/20/21 10:49 Tylenol 325 Mg PO 07/20/21 10:40 650 mg STAT STA Administration Acetaminophen Confirm 07/20/21 10:48 Tylenol 325 Mg Administered 07/20/21 10:49 Dose 650 mg .ROUTE .STK-MED ONE Aspirin 324 mg 07/20/21 11:55 07/20/21 12:28 Baby Aspirin 81 Mg Chew PO 07/20/21 11:56 324 mg STAT ONE Administration Levofloxacin/Dextrose 250 mg in 50 mls @ 50 mls/hr 07/20/21 12:48 07/20/21 14:13 Levaquin 250mg/50ml D5w IV 07/20/21 13:47 Infused STAT STA Infusion Levofloxacin/Dextrose Confirm 07/20/21 13:00 Levaquin 250mg/50ml D5w Administered 07/20/21 13:01 Dose 250 mg in 50 mls @ ud IV .STK-MED ONE Levofloxacin/Dextrose 250 mg in 50 mls @ 50 mls/hr 07/22/21 22:00 Levaquin 250mg/50ml D5w IV 08/21/21 21:59 Q24H10 JOSUE Levofloxacin/Dextrose 250 mg in 50 mls @ 50 mls/hr 07/22/21 13:00 Levaquin 250mg/50ml D5w IV 08/21/21 12:59 Q24H10 JOSUE Pantoprazole Sodium 40 mg 07/21/21 10:00 Protonix 40 Mg Iv IV 08/20/21 09:59 Q24H10 JOSUE Intake & Output (Last 24 hours) 07/20/21 07/21/21 07/22/21 07/23/21 11:59 11:59 11:59 11:59 Intake Total 1150 950 Output Total 650 1550 Balance 500 -600 Weight 199.127 kg 191.3 kg 189.8 kg Microbiology Results (Last 24 hours) 07/20/21 10:29 Blood Blood Culture Gram Stain - Pending 07/20/21 10:29 Blood Blood Culture - Preliminary NO GROWTH TO DATE 07/20/21 10:46 Blood Blood Culture Gram Stain - Final 07/20/21 10:46 Blood Blood Culture - Preliminary Coagulase Negative Staph. Possible Contaminant. Clinical judgement required. NO FURTHER WORKUP WILL BE PERFORMED UNLESS PHYSICIAN REQUESTED WITHIN THE NEXT 72 HOURS 07/20/21 10:48 Urine, Void Urine Culture - Preliminary GRAM NEGATIVE ID AND SENSITIVITY PENDING Laboratory Results (Last 24 hours) 07/22/21 07/22/21 07/21/21 12:32 08:12 21:04 POC Glucometer 189 H 223 H 226 H 07/21/21 16:54 POC Glucometer 221 H Orders (Last 24 hours) Category Date Time Status Consent,Obtain ROUTINE Care 07/21/21 17:11 Active Consult Podiatry ROUTINE Cons 07/21/21 13:53 Completed FOOT (MINIMUM 3 VIEWS) Routine Exams 07/21/21 19:18 Completed HEEL [OS CALCIS XRAY] Routine Exams 07/21/21 19:18 Completed POCT GLUCOSE Stat Lab 07/21/21 12:07 Completed POCT GLUCOSE Stat Lab 07/21/21 16:54 Completed POCT GLUCOSE Stat Lab 07/21/21 21:04 Completed POCT GLUCOSE Stat Lab 07/22/21 08:12 Completed POCT GLUCOSE Stat Lab 07/22/21 12:32 Completed Ergocalciferol (Vitamin D2) [Vitamin D2] Med 07/24/21 10:00 Active 50,000 unit PO WEEKLY Insulin Glargine [Lantus Insulin] Med 07/21/21 22:00 Active 30 unit SQ HS Levofloxacin [Levaquin 250MG/50ML D5W] Med 07/21/21 13:53 Active 250 mg in 50 ml IV DAILY Levofloxacin [Levaquin 250MG/50ML D5W] Med 07/22/21 13:00 Discontinued 250 mg in 50 ml IV Q24H10 Levofloxacin [Levaquin 250MG/50ML D5W] Med 07/22/21 22:00 Discontinued 250 mg in 50 ml IV Q24H10 Patient Care Notes (Last 24 hours) 07/22/21 10:40 Case Management Note by Dodie Correa AWAITING BEDSIDE DEBRIDEMENT BY DR. KOWALSKI- WILL ASSESS ANY CHANGES IN NEEDS AFTER THAT IS COMPLETE Initialized on 07/22/21 10:40 - END OF NOTE 07/21/21 16:45 (created 07/21/21 16:55) Nursing Note by Fátima Castañeda is here to see patient. Initialized on 07/21/21 16:55 - END OF NOTE Code(s): L03.116 - CELLULITIS OF LEFT LOWER LIMB (2) Acute UTI Current Visit: Yes Status: Acute Code(s): N39.0 - URINARY TRACT INFECTION, SITE NOT SPECIFIED (3) Acute kidney injury superimposed on CKD Current Visit: Yes Status: Acute Code(s): N17.9 - ACUTE KIDNEY FAILURE, U NSPECIFIED; N18.9 - CHRONIC KIDNEY DISEASE, UNSPECIFIED (4) NSTEMI (non-ST elevated myocardial infarction) Current Visit: Yes Status: Acute Code(s): I21.4 - NON-ST ELEVATION (NSTEMI) MYOCARDIAL INFARCTION (5) Diabetes Current Visit: No Status: Chronic Qualifiers: Code(s): E11.9 - TYPE 2 DIABETES MELLITUS WITHOUT COMPLICATIONS (6) Peripheral vascular disease due to secondary diabetes Current Visit: No Status: Chronic Code(s): E13.51 - OTH DIABETES W DIABETIC PERIPHERAL ANGIOPATHY W/O GANGRENE
[2021-07-22] MEDS ORDERED: Levaquin 250MG/50ML D5W 250 MG/50 ML BAG IV SCH ×2 (13:00→22:00)
[2021-07-22] MEDS: Santyl OINTMENT TP SCH (14:05)
[2021-07-22] MEDS: ZOCOR 20MG PO SCH (20:58)
[2021-07-22] MEDS: Flomax 0.4 MG PO SCH (20:59)
[2021-07-22] MEDS: Lantus Insulin SQ SCH (20:59)
[2021-07-22] MEDS: HUMALOG SQ PRN (20:59)
--- NOTE | 2021-07-23 08:26 | PCM.NOTE ---
Date and Time: 07/23/21824 Subjective Assessment: doing ok. - Review of Systems Constitutional: No Fever, No Chills Eyes: No Symptoms Ears, Nose, & Throat: No Symptoms Respiratory: No Cough, No Short Of Breath Cardiac: No Chest Pain, No Edema, No Syncope Abdominal/Gastrointestinal: No Abdominal Pain, No Nausea, No Vomiting, No Diarrhea Genitourinary Symptoms: No Dysuria Musculoskeletal: No Back Pain, No Neck Pain Skin: No Rash Neurological: No Dizziness, No Focal Weakness, No Sensory Changes Psychological: No Symptoms Endocrine: No Symptoms Hematologic/Lymphatic: No Symptoms Immunological/Allergic: No Symptoms Objective Exam General Appearance: no apparent distress, alert Neurologic Exam: alert, oriented x 3, cooperative, normal mood/affect, nml cerebellar function, sensation nml, No motor deficits Skin Exam: normal color, warm, dry Wound Assessment: Skin/Wound Assessment Wound/Incision Assessment Start: 07/20/21 18:29 Text: Status: Active Freq: Q6H Protocol: Document 07/23/21 08:00 KAPIL (Rec: 07/23/21 08:14 KAPIL [id number]) Wound/Incision Assessment Left Buttock Wound Assessment Shift Assessment Wound Stage Stage II Drainage Amount None Surrounding Tissue [place] Right Buttock Wound Assessment Shift Assessment Wound Stage Stage III Drainage Amount None Left Heel Wound Assessment Shift Assessment Wound Type DIABETIC ULCER Drainage Amount None Drainage Odor None/Absent Comment UNABLE TO ASSESS DUE TO DRESSING Right Heel Wound Assessment Shift Assessment Wound Type HEALING DIABETIC WOUND Dressing Status Dry & Intact Drainage Amount None Left Foot Wound Assessment Shift Assessment Wound Type DIABETIC ULCER Drainage Amount None Drainage Description Yellow Comment UNABLE TO ASSESS DUE TO DRESSING Eye Exam: PERRL, EOMI, eyes nml inspection Ears, Nose, Throat Exam: normal ENT inspection, pharynx normal, moist mucous membranes Neck Exam: normal inspection, non-tender, supple, full range of motion Respiratory Exam: normal breath sounds, lungs clear, No respiratory distress Cardiovascular Exam: regular rate/rhythm, normal heart sounds Gastrointestinal/Abdomen Exam: soft, No tenderness, No mass Extremity Exam: normal inspection, normal range of motion Back Exam: normal inspection, normal range of motion, No CVA tenderness, No vertebral tenderness Male Genitalia Exam: deferred Rectal Exam: deferred OBJECTIVE DATA Vital Signs: Vital Signs - 24 hr Temp Pulse Resp BP Pulse Ox 07/23/21 08:00 97.9 F 78 16 151/55 98 07/23/21 06:40 67 18 96 07/23/21 04:00 18 07/23/21 03:00 97.6 F 72 18 112/56 98 07/22/21 23:38 20 07/22/21 23:02 98.5 F 78 20 117/61 100 07/22/21 19:47 97.4 F 78 13 134/55 97 07/22/21 18:56 75 16 98 07/22/21 16:00 97.5 F 79 15 113/58 96 07/22/21 12:00 97.3 F 77 19 130/55 100 Pain Assessment - Last Documented Pain Intensity 0 Intake and Output: Intake & Output 07/20/21 07/21/21 07/22/21 07/23/21 11:59 11:59 11:59 11:59 Intake Total 1150 950 240 Output Total 650 1550 2200 Balance 500 -600 -1960 Weight 199.127 kg 191.3 kg 189.8 kg Lab Results: Lab Results-Last 24 Hours 07/22/21 07/22/21 07/22/21 Range/Units 12:32 17:14 20:15 POC Glucometer 189 H 304 H 276 H (74 to 106) mg/dL 07/23/21 Range/Units 07:31 POC Glucometer 198 H (74 to 106) mg/dL Radiology Exams: Radiology Procedures Category Date Time Status FOOT (MINIMUM 3 VIEWS) Routine Exams 07/21/21 19:18 Completed HEEL [OS CALCIS XRAY] Routine Exams 07/21/21 19:18 Completed Multi-Disciplinary Progress Notes: Multi-Disciplinary Progress Notes 07/22/21 16:04 Physical Therapy Note by Katie Alvarez HOLDING P.T. FOR W/C AT THIS TIME DR. KOWALSKI IS TO MANAGE WOUND AND PERFORM L FOOT WOUND DEBRIDEMENT BEDSIDE. WILL MONITOR. Initialized on 07/22/21 16:04 - END OF NOTE 07/22/21 10:40 Case Management Note by Dodie Correa AWAITING BEDSIDE DEBRIDEMENT BY DR. KOWALSKI- WILL ASSESS ANY CHANGES IN NEEDS AFTER THAT IS COMPLETE Initialized on 07/22/21 10:40 - END OF NOTE Assessment/Plan (1) Cellulitis of left foot Current Visit: Yes Status: Acute Assessment & Plan: Chief Complaint Diagnosis confusion and chest pain for 1 day Allergies Allergy/AdvReac Type Severity Reaction Status Date / Time Penicillins Allergy Severe Hives Verified 07/20/21 09:49 silver [Silver] Allergy Intermediate Itching Verified 07/20/21 09:49 zinc [Zinc] Allergy Intermediate Itching Verified 07/20/21 09:49 carvedilol [From Coreg] AdvReac Intermediate Verified 07/20/21 09:49 metoprolol AdvReac Intermediate Verified 07/20/21 09:49 Vital Signs (Last 24 hours) Temp Pulse Resp BP Pulse Ox 07/23/21 08:00 97.9 F 78 16 151/55 98 07/23/21 06:40 67 18 96 07/23/21 04:00 18 07/23/21 03:00 97.6 F 72 18 112/56 98 07/22/21 23:38 20 07/22/21 23:02 98.5 F 78 20 117/61 100 07/22/21 19:47 97.4 F 78 13 134/55 97 07/22/21 18:56 75 16 98 07/22/21 16:00 97.5 F 79 15 113/58 96 07/22/21 12:00 97.3 F 77 19 130/55 100 Home Medications Medication Instructions Recorded Confirmed Last Taken Type Collagenase Oint [Santyl 30 gm TP DAILY 07/20/21 07/20/21 07/20/21 History OINTMENT] Finasteride 5 mg [Proscar 5 5 mg PO DAILY 07/20/21 07/20/21 07/20/21 History MG] Gabapentin 300 mg [Neurontin 900 mg PO TID 07/20/21 07/20/21 07/20/21 History 300 mg] Meclizine HCl 25 mg [Antivert 50 mg PO BID 07/20/21 07/20/21 07/20/21 History 25 mg] Insulin Degludec [Tresiba 30 units SQ DAILY 07/21/21 07/21/21 Unknown History Flextouch U-100] Current Medications Generic Name Dose Route Start Last Admin Trade Name Freq PRN Reason Stop Dose Admin Acetaminophen 650 mg 07/20/21 17:08 Tylenol 325 Mg PO 08/19/21 17:07 Q4H PRN PRN PAIN AND/OR FEVER Hydrocodone Bitart/Acetaminophen 1 tablet 07/21/21 07:08 Hydrocodone-Acetamin 10-325 Mg PO 07/26/21 07:07 Q6HPRN PRN PAIN Albuterol/Ipratropium 3 ml 07/20/21 17:08 Duoneb 0.5-3 Mg/3 Ml Neb IH 08/19/21 17:07 Q4HPRN PRN SHORTNESS OF BREATH/WHEEZING Bumetanide 1 mg 07/21/21 10:00 07/22/21 11:22 Bumex 1 Mg PO 08/20/21 09:59 1 mg DAILY JOSUE Administration Clopidogrel Bisulfate 75 mg 07/21/21 10:00 07/22/21 11:22 Plavix 75 Mg Tablet PO 08/20/21 09:59 75 mg DAILY JOSUE Administration Collagenase 30 gm 07/21/21 10:00 07/22/21 14:05 Santyl Ointment TP 08/20/21 09:59 Not Given DAILY JOSUE Docusate Sodium 100 mg 07/20/21 22:00 07/22/21 20:53 Colace 100 Mg PO 08/19/21 21:59 Not Given TID JOSUE Enoxaparin Sodium 40 mg 07/21/21 10:00 07/22/21 10:02 Enoxaparin Sodium SQ 08/20/21 09:59 40 mg DAILY JOSUE Administration Ergocalciferol 50,000 unit 07/24/21 10:00 Vitamin D2 PO 08/23/21 09:59 WEEKLY JOSUE Finasteride 5 mg 07/21/21 10:00 07/22/21 11:23 Proscar 5 Mg PO 08/20/21 09:59 5 mg DAILY JOSUE Administration Furosemide 80 mg 07/21/21 10:00 07/22/21 11:23 Lasix 40 Mg PO 08/20/21 09:59 80 mg DAILY JOSUE Administration Gabapentin 900 mg 07/20/21 22:00 07/22/21 20:59 Neurontin 300 Mg PO 08/19/21 21:59 900 mg TID JOSUE Administration Levofloxacin/Dextrose 250 mg in 50 mls @ 50 mls/hr 07/21/21 13:53 07/22/21 10:02 Levaquin 250mg/50ml D5w IV 08/20/21 13:52 50 mls/hr DAILY JOSUE Administration Insulin Glargine 30 unit 07/21/21 22:00 07/22/21 20:59 Lantus Insulin SQ 08/20/21 21:59 30 unit HS JOSUE Administration Insulin Human Lispro 0 unit 07/20/21 17:08 07/22/21 20:59 Humalog SQ 08/19/21 17:07 7 unit UD PRN Administration HYPERGLYCEMIA Insulin Human Lispro 45 unit 07/21/21 07:30 07/22/21 17:43 Humalog SQ 08/20/21 07:29 45 unit AC JOSUE Administration Meclizine HCl 50 mg 07/20/21 22:00 07/22/21 20:59 Antivert 25 Mg PO 08/19/21 21:59 50 mg BID JOSUE Administration Multivitamins Therapeutic 1 tab 07/21/21 10:00 07/22/21 11:23 Theragran Multivitamin PO 08/20/21 09:59 1 tab DAILY JOSUE Administration Nitrofurantoin Macrocrystals 100 mg 07/21/21 10:00 07/22/21 11:23 Macrobid 100mg Capsule PO 08/20/21 09:59 100 mg DAILY JOSUE Administration Nitroglycerin 0.4 mg 07/21/21 07:08 Nitrostat 0.4 Mg Tablet SL 08/20/21 07:07 Q5MIN PRN MR X 3 PRN CHEST PAIN Ondansetron HCl 4 mg 07/20/21 17:08 Zofran 4 Mg/2 Ml Vial IV 08/19/21 17:07 Q6H PRN PRN NAUSEA/VOMITING Oxybutynin Chloride 10 mg 07/21/21 10:00 07/22/21 11:22 Ditropan Xl 5 Mg PO 08/20/21 09:59 10 mg DAILY JOSUE Administration Pantoprazole Sodium 40 mg 07/21/21 10:00 07/22/21 11:23 Protonix 40mg Tablet PO 08/20/21 09:59 40 mg DAILY JOSUE Administration Potassium Chloride 40 meq 07/21/21 10:00 07/22/21 11:22 Klor Con 10 Meq PO 08/20/21 09:59 40 meq DAILY JOSUE Administration Prednisone 10 mg 07/21/21 10:00 07/22/21 20:59 Deltasone 10 Mg PO 08/20/21 09:59 10 mg BID JOSUE Administration Sertraline HCl 50 mg 07/20/21 22:00 07/22/21 20:59 Zoloft 50 Mg Tablet PO 08/19/21 21:59 50 mg BID JOSUE Administration Simvastatin 20 mg 07/20/21 22:00 07/22/21 20:58 Zocor 20mg PO 08/19/21 21:59 20 mg HS JOSUE Administration Tamsulosin HCl 0.4 mg 07/20/21 22:00 07/22/21 20:59 Flomax 0.4 Mg PO 08/19/21 21:59 0.4 mg HS JOSUE Administration Discontinued Medications Generic Name Dose Route Start Last Admin Trade Name Freq PRN Reason Stop Dose Admin Acetaminophen 650 mg 07/20/21 10:39 07/20/21 10:49 Tylenol 325 Mg PO 07/20/21 10:40 650 mg STAT STA Administration Acetaminophen Confirm 07/20/21 10:48 Tylenol 325 Mg Administered 07/20/21 10:49 Dose 650 mg .ROUTE .STK-MED ONE Aspirin 324 mg 07/20/21 11:55 07/20/21 12:28 Baby Aspirin 81 Mg Chew PO 07/20/21 11:56 324 mg STAT ONE Administration Levofloxacin/Dextrose 250 mg in 50 mls @ 50 mls/hr 07/20/21 12:48 07/20/21 14:13 Levaquin 250mg/50ml D5w IV 07/20/21 13:47 Infused STAT STA Infusion Levofloxacin/Dextrose Confirm 07/20/21 13:00 Levaquin 250mg/50ml D5w Administered 07/20/21 13:01 Dose 250 mg in 50 mls @ ud IV .STK-MED ONE Levofloxacin/Dextrose 250 mg in 50 mls @ 50 mls/hr 07/22/21 22:00 Levaquin 250mg/50ml D5w IV 08/21/21 21:59 Q24H10 JOSUE Levofloxacin/Dextrose 250 mg in 50 mls @ 50 mls/hr 07/22/21 13:00 Levaquin 250mg/50ml D5w IV 08/21/21 12:59 Q24H10 JOSUE Pantoprazole Sodium 40 mg 07/21/21 10:00 Protonix 40 Mg Iv IV 08/20/21 09:59 Q24H10 JOSUE Intake & Output (Last 24 hours) 07/20/21 07/21/21 07/22/21 07/23/21 11:59 11:59 11:59 11:59 Intake Total 1150 950 240 Output Total 650 1550 2200 Balance 500 -600 -1960 Weight 199.127 kg 191.3 kg 189.8 kg Microbiology Results (Last 24 hours) 07/20/21 10:29 Blood Blood Culture Gram Stain - Pending 07/20/21 10:29 Blood Blood Culture - Preliminary NO GROWTH TO DATE 07/20/21 10:46 Blood Blood Culture Gram Stain - Final 07/20/21 10:46 Blood Blood Culture - Preliminary Coagulase Negative Staph. Possible Contaminant. Clinical judgement required. NO FURTHER WORKUP WILL BE PERFORMED UNLESS PHYSICIAN REQUESTED WITHIN THE NEXT 72 HOURS Laboratory Results (Last 24 hours) 07/23/21 07/22/21 07/22/21 07:31 20:15 17:14 POC Glucometer 198 H 276 H 304 H 07/22/21 12:32 POC Glucometer 189 H Orders (Last 24 hours) Category Date Time Status POCT GLUCOSE Stat Lab 07/22/21 08:12 Completed POCT GLUCOSE Stat Lab 07/22/21 12:32 Completed POCT GLUCOSE Stat Lab 07/22/21 17:14 Completed POCT GLUCOSE Stat Lab 07/22/21 20:15 Completed POCT GLUCOSE Stat Lab 07/23/21 07:31 Completed Ergocalciferol (Vitamin D2) [Vitamin D2] Med 07/24/21 10:00 Active 50,000 unit PO WEEKLY Levofloxacin [Levaquin 250MG/50ML D5W] Med 07/22/21 13:00 Discontinued 250 mg in 50 ml IV Q24H10 Levofloxacin [Levaquin 250MG/50ML D5W] Med 07/22/21 22:00 Discontinued 250 mg in 50 ml IV Q24H10 Patient Care Notes (Last 24 hours) 07/22/21 16:04 Physical Therapy Note by Kim,Katie HOLDING P.T. FOR W/C AT THIS TIME DR. KOWALSKI IS TO MANAGE WOUND AND PERFORM L FOOT WOUND DEBRIDEMENT BEDSIDE. WILL MONITOR. Initialized on 07/22/21 16:04 - END OF NOTE 07/22/21 10:40 Case Management Note by Dodie Correa AWAITING BEDSIDE DEBRIDEMENT BY DR. KOWALSKI- WILL ASSESS ANY CHANGES IN NEEDS AFTER THAT IS COMPLETE Initialized on 07/22/21 10:40 - END OF NOTE Code(s): L03.116 - CELLULITIS OF LEFT LOWER LIMB (2) Acute UTI Current Visit: Yes Status: Acute Code(s): N39.0 - URINARY TRACT INFECTION, SITE NOT SPECIFIED (3) Acute kidney injury superimposed on CKD Current Visit: Yes Status: Acute Code(s): N17.9 - ACUTE KIDNEY FAILURE, UNSPECIFIED; N18.9 - CHRONIC KIDNEY DISEASE, UNSPECIFIED (4) NSTEMI (non-ST elevated myocardial infarction) Current Visit: Yes Status: Acute Code(s): I21.4 - NON-ST ELEVATION (NSTEMI) MYOCARDIAL INFARCTION (5) Diabetes Current Visit: No Status: Chronic Qualifiers: Code(s): E11.9 - TYPE 2 DIABETES MELLITUS WITHOUT COMPLICATIONS (6) Peripheral vascular disease due to secondary diabetes Current Visit: No Status: Chronic Code(s): E13.51 - OTH DIABETES W DIABETIC PERIPHERAL ANGIOPATHY W/O GANGRENE
[2021-07-23] MEDS: HUMALOG SQ SCH ×3 (08:49→17:45)
[2021-07-23] MEDS: ZOLOFT 50 MG TABLET PO SCH ×2 (09:27→21:08)
[2021-07-23] MEDS: ENOXAPARIN SODIUM SQ SCH (09:27)
[2021-07-23] MEDS: PLAVIX 75 MG Tablet PO SCH (09:27)
[2021-07-23] MEDS: NEURONTIN 300 MG PO SCH ×3 (09:27→21:09)
[2021-07-23] MEDS: BUMEX 1 MG PO SCH (09:27)
[2021-07-23] MEDS: Ditropan XL 5 MG PO SCH (09:27)
[2021-07-23] MEDS: Klor Con 10 MEQ PO SCH (09:27)
[2021-07-23] MEDS: THERAGRAN MULTIVITAMIN PO SCH (09:27)
[2021-07-23] MEDS: Macrobid 100MG Capsule PO SCH (09:27)
[2021-07-23] MEDS: Lasix 40 MG PO SCH (09:27)
[2021-07-23] MEDS: ANTIVERT 25 MG PO SCH ×2 (09:27→21:09)
[2021-07-23] MEDS: Protonix 40MG Tablet PO SCH (09:28)
[2021-07-23] MEDS: Santyl OINTMENT TP SCH (09:28)
[2021-07-23] MEDS: Proscar 5 MG PO SCH (09:28)
[2021-07-23] MEDS: Colace 100 MG PO SCH ×3 (09:28→21:10)
[2021-07-23] MEDS: DELTASONE 10 MG PO SCH ×2 (09:28→21:09)
[2021-07-23] MEDS: Levaquin 250MG/50ML D5W 250 MG/50 ML BAG IV SCH (09:31)
[2021-07-23 10:53] LABS: Hematocrit 24.6 % (42-50); Hemoglobin 7.2 gm/dl (12.5-18.0); Mean Cell Volume 92.8 fl (78-100); Mean Corpuscular Hemoglobin 27.2 pg (26-32); Mean Corpuscular Hgb Concent. 29.3 g/dl (32-36); Mean Platelet Volume 8.7 fl (7.5-11.0); Platelet Count 447 K/mm3 (150-450); Red Blood Count 2.65 M/mm3 (4.1-5.6); Red Cell Distribution Width 15.1 % (11.5-14.0); White Blood Count 9.8 K/mm3 (4.0-10.5)
[2021-07-23] MEDS: Lantus Insulin SQ SCH (12:57)
[2021-07-23 14:26] LABS: ANISOCYTOSIS 1+; Eosinophil 2 % (0.00-3.0); Lymphocytes 10 % (24-44); Monocyte 2 % (0.0-12.0); Neutrophils 86 % (36.-66.); Platelet Estimate NORMAL (NORMAL); Total Cells Counted 100
--- NOTE | 2021-07-23 16:39 | OP ---
Podiatry Procedure Note Procedure Date:: 07/23/21 Procedure Time: 16:21 Podiatry Procedure Note: Bedside debridement left foot ulcerations Surgeon: Anesthesiologist Physician none Preoperative diagnosis: 1) Diabetic foot ulceration to dorsal aspect left foot to level of bone. 2) Ulceration to plantar heel left foot. 3) Peripheral vascular disease. 4) Cellulitis left lower extremity. 5) Diabetic peripheral neuropathy. 6) Pressure ulcer stage III to dorsal and plantar aspect of left foot Post-operative diagnosis:[ 1) Diabetic foot ulceration to dorsal aspect left foot to level of bone. 2) Ulceration to plantar heel left foot. 3) Peripheral vascular disease. 4) Cellulitis left lower extremity. 5) Diabetic peripheral neuropathy. 6) Pressure ulcer stage III to dorsal and plantar aspect of left foot] Anesthesia: [Neuropathic] Hemostasis: [Pressure dressing] Findings:[Significant degeneration of quality of bone able to disarticulate midfoot joints with Adson Dutton. Bone biopsy sent for assessment microbiologically and pathologically] Estimated Blood Loss: [Less than 10 cc] Materials: [None] Specimens:[Bone biopsy for pathological assessment. Soft tissue culture] Complications:[None] Condition:[Stable] Procedure Details:[] Patient was met at bedside discussion was held regarding choice of local anesthetic at bedside however patient indicates he is largely neuropathic and would likely not needed patient was given the option to proceed without it and agrees. No sedation was administered. Following this a timeout was called identifying patient name procedure operative location birthdate allergies antibiotics as well as other pertinent information in regards to the bedside surgery to which patient and everyone agreed. At this time the foot was prepped utilizing a Betadine paint and lowered onto the surgical field Attention was directed to the dorsal aspect of the left foot where significant fibrotic cap was identified at the dorsomedial aspect of the wound careful dissection removing this fibrotic capsule was performed utilizing a combination of loop curette and a 15 blade being careful not to damage any neurovascular structures in the path of the surgical dissection upon removing the fibrotic The joint was identified at the naviculocuneiform joint where a a significant portion of the bone appeared to be devitalized at this time a pair of pickups was utilized to resect some bone from the midfoot at the level of the first tarsometatarsal joint this was handed off the field and sent for pathological assessment. After this a soft tissue culture was obtained of the deep part of the wound at the midfoot and this was again handed off the field for microbiological assessment at this time discussion with patient in regards to continuing with surgical intervention at bedside was an unrealistic expectation. Patient chance of limb salvage is relatively low due to the poor quality of the bone noted at bedside. Options were discussed in regards to proceeding with surgical intervention consisting of a transmetatarsal versus Chopart's amputation in the OR however patient at this time is not amenable to surgical intervention unless it is definitive. Patient was advised that he would need surgical intervention and need to stay in the hospital for an additional week if we were to proceed with a transmetatarsal amputation however this would be more functional than a show parts or Symes amputation. Patient at this time wishes to no longer proceed with surgical intervention and wishes to proceed with conservative management. Patient understands that this would likely result in repeated bouts of sepsis. Potential loss of limb and potential loss of life as a result. Patient was advised and he wishes to proceed AGAINST MEDICAL ADVICE. Patient does indicate at the end of the procedure that he would like referral to [facility] for a below-knee amputation and request specifically Dr. Nunez. I am amenable to this plan however patient states he would not like to transfer at this time and would like to go home to spend time with his over the course of the next week or 2 prior to proceeding with surgical intervention at [facility]. Copious amounts of sterile saline were utilized to flush the surgical site at this time. At this time a dressing consisting of Betadine Adaptic 4 x 4 Curlex and Armando was applied to the left lower extremity. Following the procedure patient with vital signs stable and vascular status intact 1 Patient keep dressing clean dry and intact until home health care is able to provide dressing changes. Home health care dressing changes to occur every other day or Tuesday schedule consisting of Betadine Adaptic Aquacel Ag 4 x 4 Curlex and Armando. 2. patient will need follow-up with orthopedic or vascular at [facility] in order to proceed with below-knee amputation at this time he is likely an unsalvageable patient due to his comorbid medical status as well as noncompliance and the severity of his deformity 3. nonweightbearing to the left lower extremity 4. Patient is largely neuropathic: No need for pain control. OTC Tylenol for pain if necessary 5 Discharge to home at this time-patient is largely noncompliant and AGAINST MEDICAL ADVICE he refuses to go to a group home at this time in order to have care provided for him. He also refuses direct transfer to [place] or [facility] for a below-knee amputation.
[2021-07-23] MEDS: Flomax 0.4 MG PO SCH (21:09)
[2021-07-23] MEDS: ZOCOR 20MG PO SCH (21:09)
[2021-07-24] MEDS: HUMALOG SQ PRN (08:48)
[2021-07-24] MEDS: HUMALOG SQ SCH (08:48)
[2021-07-24] MEDS ORDERED: VITAMIN D2 PO SCH (10:00)
[2021-07-24] MEDS: ANTIVERT 25 MG PO SCH (10:22)
[2021-07-24] MEDS: ZOLOFT 50 MG TABLET PO SCH (10:22)
[2021-07-24] MEDS: Macrobid 100MG Capsule PO SCH (10:22)
[2021-07-24] MEDS: PLAVIX 75 MG Tablet PO SCH (10:22)
[2021-07-24] MEDS: THERAGRAN MULTIVITAMIN PO SCH (10:22)
[2021-07-24] MEDS: Colace 100 MG PO SCH (10:22)
[2021-07-24] MEDS: Lasix 40 MG PO SCH (10:22)
[2021-07-24] MEDS: Ditropan XL 5 MG PO SCH (10:22)
[2021-07-24] MEDS: BUMEX 1 MG PO SCH (10:22)
[2021-07-24] MEDS: DELTASONE 10 MG PO SCH (10:22)
[2021-07-24] MEDS: NEURONTIN 300 MG PO SCH (10:23)
[2021-07-24] MEDS: Klor Con 10 MEQ PO SCH (10:23)
[2021-07-24] MEDS: Lantus Insulin SQ SCH (10:23)
[2021-07-24] MEDS: ENOXAPARIN SODIUM SQ SCH (10:23)
[2021-07-24] MEDS: Protonix 40MG Tablet PO SCH (10:23)
[2021-07-24] MEDS: Levaquin 250MG/50ML D5W 250 MG/50 ML BAG IV SCH (10:23)
[2021-07-24] MEDS: Proscar 5 MG PO SCH (10:24)
[2021-07-24 12:44] VITALS: BP 111/58; PULSE 82; O2SAT 100
--- NOTE | 2021-07-24 13:15 | PCM.DS ---
Discharge Summary Date of Admission: 07/20/21 17:05 Admitting Physician: NELLY HOWELL Consults: Consults on Case 07/21/21 13:53 Consult Podiatry ROUTINE Primary Care Provider: NELLY HOWELL Allergies Allergies Penicillins Allergy (Severe, Verified 07/20/21 09:49) Hives silver [Silver] Allergy (Intermediate, Verified 07/20/21 09:49) Itching zinc [Zinc] Allergy (Intermediate, Verified 07/20/21 09:49) Itching carvedilol [From Coreg] Adverse Reaction (Intermediate, Verified 07/20/21 09:49) "makes me dizzy" metoprolol Adverse Reaction (Intermediate, Verified 07/20/21 09:49) "makes me dizzy" Hospital Summary - Hospital Course Hospital Course: Chief Complaint Diagnosis confusion and chest pain for 1 day Allergies Allergy/AdvReac Type Severity Reaction Status Date / Time Penicillins Allergy Severe Hives Verified 07/20/21 09:49 silver [Silver] Allergy Intermediate Itching Verified 07/20/21 09:49 zinc [Zinc] Allergy Intermediate Itching Verified 07/20/21 09:49 carvedilol [From Coreg] AdvReac Intermediate Verified 07/20/21 09:49 metoprolol AdvReac Intermediate Verified 07/20/21 09:49 Vital Signs (Last 24 hours) Temp Pulse Resp BP BP BP Pulse Ox 07/24/21 12:00 97.4 F 82 16 111/58 100 07/24/21 08:26 87 18 93 L 07/24/21 08:00 97.6 F 87 18 126/56 93 L 07/24/21 04:00 97.5 F 90 22 112/50 86 L 07/24/21 00:00 97.7 F 77 14 127/74 98 07/23/21 23:38 20 07/23/21 20:00 20 07/23/21 19:53 97.6 F 80 20 98/77 98 07/23/21 19:09 79 20 97 07/23/21 16:00 97.7 F 79 22 136/80 96 Home Medications Medication Instructions Recorded Confirmed Last Taken Type Collagenase Oint [Santyl 30 gm TP DAILY 07/20/21 07/20/21 07/20/21 History OINTMENT] Finasteride 5 mg [Proscar 5 5 mg PO DAILY 07/20/21 07/20/21 07/20/21 History MG] Gabapentin 300 mg [Neurontin 900 mg PO TID 07/20/21 07/20/21 07/20/21 History 300 mg] Meclizine HCl 25 mg [Antivert 50 mg PO BID 07/20/21 07/20/21 07/20/21 History 25 mg] Insulin Degludec [Tresiba 30 units SQ DAILY 07/21/21 07/21/21 Unknown History Flextouch U-100] Levofloxacin [Levaquin] 250 mg PO DAILY #7 tablet 07/24/21 Unknown Rx Current Medications Generic Name Dose Route Start Last Admin Trade Name Freq PRN Reason Stop Dose Admin Acetaminophen 650 mg 07/20/21 17:08 Tylenol 325 Mg PO 08/19/21 17:07 Q4H PRN PRN PAIN AND/OR FEVER Hydrocodone Bitart/Acetaminophen 1 tablet 07/21/21 07:08 Hydrocodone-Acetamin 10-325 Mg PO 07/26/21 07:07 Q6HPRN PRN PAIN Albuterol/Ipratropium 3 ml 07/20/21 17:08 Duoneb 0.5-3 Mg/3 Ml Neb IH 08/19/21 17:07 Q4HPRN PRN SHORTNESS OF BREATH/WHEEZING Bumetanide 1 mg 07/21/21 10:00 07/24/21 10:22 Bumex 1 Mg PO 08/20/21 09:59 1 mg DAILY JOSUE Administration Clopidogrel Bisulfate 75 mg 07/21/21 10:00 07/24/21 10:22 Plavix 75 Mg Tablet PO 08/20/21 09:59 75 mg DAILY JOSUE Administration Collagenase 30 gm 07/21/21 10:00 07/23/21 09:28 Santyl Ointment TP 08/20/21 09:59 Not Given DAILY JOSUE Docusate Sodium 100 mg 07/20/21 22:00 07/24/21 10:22 Colace 100 Mg PO 08/19/21 21:59 100 mg TID JOSUE Administration Enoxaparin Sodium 40 mg 07/21/21 10:00 07/24/21 10:23 Enoxaparin Sodium SQ 08/20/21 09:59 40 mg DAILY JOSUE Administration Ergocalciferol 50,000 unit 07/24/21 10:00 Vitamin D2 PO 08/23/21 09:59 WEEKLY JOSUE Finasteride 5 mg 07/21/21 10:00 07/24/21 10:24 Proscar 5 Mg PO 08/20/21 09:59 5 mg DAILY JOSUE Administration Furosemide 80 mg 07/21/21 10:00 07/24/21 10:22 Lasix 40 Mg PO 08/20/21 09:59 80 mg DAILY JOSUE Administration Gabapentin 900 mg 07/20/21 22:00 07/24/21 10:23 Neurontin 300 Mg PO 08/19/21 21:59 900 mg TID JOSUE Administration Levofloxacin/Dextrose 250 mg in 50 mls @ 50 mls/hr 07/21/21 13:53 07/24/21 10:23 Levaquin 250mg/50ml D5w IV 08/20/21 13:52 50 mls/hr DAILY JOSUE Administration Insulin Glargine 30 unit 07/23/21 11:00 07/24/21 10:23 Lantus Insulin SQ 08/22/21 10:59 30 unit DAILY JOSUE Administration Insulin Human Lispro 0 unit 07/20/21 17:08 07/24/21 08:48 Humalog SQ 08/19/21 17:07 5 unit UD PRN Administration HYPERGLYCEMIA Insulin Human Lispro 45 unit 07/21/21 07:30 07/24/21 08:48 Humalog SQ 08/20/21 07:29 45 unit AC JOSUE Administration Meclizine HCl 50 mg 07/20/21 22:00 07/24/21 10:22 Antivert 25 Mg PO 08/19/21 21:59 50 mg BID JOSUE Administration Multivitamins Therapeutic 1 tab 07/21/21 10:00 07/24/21 10:22 Theragran Multivitamin PO 08/20/21 09:59 1 tab DAILY JOSUE Administration Nitrofurantoin Macrocrystals 100 mg 07/21/21 10:00 07/24/21 10:22 Macrobid 100mg Capsule PO 08/20/21 09:59 100 mg DAILY JOSUE Administration Nitroglycerin 0.4 mg 07/21/21 07:08 Nitrostat 0.4 Mg Tablet SL 08/20/21 07:07 Q5MIN PRN MR X 3 PRN CHEST PAIN Ondansetron HCl 4 mg 07/20/21 17:08 Zofran 4 Mg/2 Ml Vial IV 08/19/21 17:07 Q6H PRN PRN NAUSEA/VOMITING Oxybutynin Chloride 10 mg 07/21/21 10:00 07/24/21 10:22 Ditropan Xl 5 Mg PO 08/20/21 09:59 10 mg DAILY JOSUE Administration Pantoprazole Sodium 40 mg 07/21/21 10:00 07/24/21 10:23 Protonix 40mg Tablet PO 08/20/21 09:59 40 mg DAILY JOSUE Administration Potassium Chloride 40 meq 07/21/21 10:00 07/24/21 10:23 Klor Con 10 Meq PO 08/20/21 09:59 40 meq DAILY JOSUE Administration Prednisone 10 mg 07/21/21 10:00 07/24/21 10:22 Deltasone 10 Mg PO 08/20/21 09:59 10 mg BID JOSUE Administration Sertraline HCl 50 mg 07/20/21 22:00 07/24/21 10:22 Zoloft 50 Mg Tablet PO 08/19/21 21:59 50 mg BID JOSUE Administration Simvastatin 20 mg 07/20/21 22:00 07/23/21 21:09 Zocor 20mg PO 08/19/21 21:59 20 mg HS JOSUE Administration Tamsulosin HCl 0.4 mg 07/20/21 22:00 07/23/21 21:09 Flomax 0.4 Mg PO 08/19/21 21:59 0.4 mg HS JOSUE Administration Discontinued Medications Generic Name Dose Route Start Last Admin Trade Name Freq PRN Reason Stop Dose Admin Acetaminophen 650 mg 07/20/21 10:39 07/20/21 10:49 Tylenol 325 Mg PO 07/20/21 10:40 650 mg STAT STA Administration Acetaminophen Confirm 07/20/21 10:48 Tylenol 325 Mg Administered 07/20/21 10:49 Dose 650 mg .ROUTE .STK-MED ONE Aspirin 324 mg 07/20/21 11:55 07/20/21 12:28 Baby Aspirin 81 Mg Chew PO 07/20/21 11:56 324 mg STAT ONE Administration Levofloxacin/Dextrose 250 mg in 50 mls @ 50 mls/hr 07/20/21 12:48 07/20/21 14:13 Levaquin 250mg/50ml D5w IV 07/20/21 13:47 Infused STAT STA Infusion Levofloxacin/Dextrose Confirm 07/20/21 13:00 Levaquin 250mg/50ml D5w Administered 07/20/21 13:01 Dose 250 mg in 50 mls @ ud IV .STK-MED ONE Levofloxacin/Dextrose 250 mg in 50 mls @ 50 mls/hr 07/22/21 22:00 Levaquin 250mg/50ml D5w IV 08/21/21 21:59 Q24H10 JOSUE Levofloxacin/Dextrose 250 mg in 50 mls @ 50 mls/hr 07/22/21 13:00 Levaquin 250mg/50ml D5w IV 08/21/21 12:59 Q24H10 JOSUE Insulin Glargine 30 unit 07/21/21 22:00 07/22/21 20:59 Lantus Insulin SQ 08/20/21 21:59 30 unit HS JOSUE Administration Pantoprazole Sodium 40 mg 07/21/21 10:00 Protonix 40 Mg Iv IV 08/20/21 09:59 Q24H10 JOSUE Intake & Output (Last 24 hours) 07/22/21 07/23/21 07/24/21 07/25/21 11:59 11:59 11:59 11:59 Intake Total 950 240 560 Output Total 1550 2200 2650 Balance -600 -1959 -2089 Weight 189.8 kg 190 kg Microbiology Results (Last 24 hours) 07/23/21 17:05 Foot - Left Dorsal Wound Culture - Preliminary GRAM NEGATIVE ID AND SENSITIVITY PENDING 07/20/21 10:29 Blood Blood Culture Gram Stain - Final Not Reportable 07/20/21 10:29 Blood Blood Culture - Final NO GROWTH 07/20/21 10:48 Urine, Void Urine Culture - Final Serratia Marcescens Proteus Mirabilis Laboratory Results (Last 24 hours) 07/24/21 07/24/21 07/23/21 12:19 08:24 20:28 Segmented Neutrophils Lymphocytes (Manual) Monocytes (Manual) Eosinophils (Manual) Platelet Estimate RBC Morphology Anisocytosis POC Glucometer 159 H 206 H 103 07/23/21 07/23/21 16:42 10:51 Segmented Neutrophils 86 H Lymphocytes (Manual) 10 L Monocytes (Manual) 2 Eosinophils (Manual) 2 Platelet Estimate NORMAL RBC Morphology ABNORMAL Anisocytosis 1+ POC Glucometer 110 H Orders (Last 24 hours) Category Date Time Status Discharge Planning,Consult Routine Discharge 07/24/21 Active CULTURE,WOUND Routine Lab 07/23/21 17:05 Results POCT GLUCOSE Stat Lab 07/23/21 16:42 Completed POCT GLUCOSE Stat Lab 07/23/21 20:28 Completed POCT GLUCOSE Stat Lab 07/24/21 08:24 Completed POCT GLUCOSE Stat Lab 07/24/21 12:19 Completed Ergocalciferol (Vitamin D2) [Vitamin D2] Med 07/24/21 10:00 Active 50,000 unit PO WEEKLY Pulse Oximetry .overnight RT 07/23/21 13:11 Completed Qualify for Home Oxygen TODAY RT 07/23/21 12:58 Active Patient Care Notes (Last 24 hours) 07/24/21 12:36 Nursing Note by Fani Michael ROUNDED WITH DR. HOWELL. PATIENT BEING DISCHARGE, GOING TO HOME WITH ANTIBIOTICS, PATIENT HAS APPOINTMENT WITH [facility]. PATIENT HAS BEEN EDUCATED ON THE IMPORTANCE OF GOING TO APPOINTMENT AND PREVIOUS RECOMMENDATIONS. PATIENT WOULD LIKE A SECOND OPINION. NEW ORDERS FAXED TO [facility]. HOME BEING SET UP. Initialized on 07/24/21 12:36 - END OF NOTE 07/24/21 08:12 Pharmacy Note by Foster Terry PATIENT'S PROTEUS CULTURE IS RESISTANT TO LEVAQUIN, PHARMACY RECOMMENDS SWITCH ING TO ROCEPHIN, WHICH BOTH CULTURES ARE SUSCEPTIBLE TO. Initialized on 07/24/21 08:12 - END OF NOTE will d/c levaquin. start him on cefadroxil 500 mg po bid for 10 days - Vitals & Intake/Output Vital Signs: Vital Signs Temperature 97.4 F 07/24/21 12:00 Pulse Rate 82 07/24/21 12:00 Respiratory Rate 16 07/24/21 12:00 Blood Pressure 111/58 07/24/21 12:00 O2 Sat by Pulse Oximetry 100 07/24/21 12:00 Intake & Output: Intake & Output 07/22/21 07/23/21 07/24/21 07/25/21 11:59 11:59 11:59 11:59 Intake Total 950 240 560 Output Total 1550 2200 2650 Balance -600 Weight 189.8 kg 190 kg - Lab Result Diagrams: 07/23/21 10:51 07/21/21 05:30 Lab Results-Last 24 Hrs: Lab Results-Last 24 Hours 07/23/21 07/23/21 07/23/21 Range/Units 10:51 16:42 20:28 Segmented Neutrophils 86 H (36.-66.) % Lymphocytes (Manual) 10 L (24-44) % Monocytes (Manual) 2 (0.0-12.0) % Eosinophils (Manual) 2 (0.00-3.0) % Platelet Estimate NORMAL (NORMAL) RBC Morphology ABNORMAL Anisocytosis 1+ POC Glucometer 110 H 103 (74 to 106) mg/dL 07/24/21 07/24/21 Range/Units 08:24 12:19 Segmented Neutrophils (36.-66.) % Lymphocytes (Manual) (24-44) % Monocytes (Manual) (0.0-12.0) % Eosinophils (Manual) (0.00-3.0) % Platelet Estimate (NORMAL) RBC Morphology Anisocytosis POC Glucometer 206 H 159 H (74 to 106) mg/dL Micro Results-Entire Visit: Microbiology 07/23/21 17:05 Wound Culture - Preliminary Foot - Left Dorsal GRAM NEGATIVE ID AND SENSITIVITY PENDING 07/20/21 10:29 Blood Culture Gram Stain - Final Blood Not Reportable Blood Culture - Final NO GROWTH 07/20/21 10:48 Urine Culture - Final Urine, Void Serratia Marcescens Proteus Mirabilis 07/20/21 10:46 Blood Culture Gram Stain - Final Blood Blood Culture - Preliminary Coagulase Negative Staph. Possible Contaminant. Clinical judgement required. NO FURTHER WORKUP WILL BE PERFORMED UNLESS PHYSICIAN REQUESTED WITHIN THE NEXT 72 HOURS Accuchecks Date 07/24/21 Date 07/23/21 Date 07/23/21 Time 07:30 Time 16:43 - Procedures and Test Procedures and Tests throughout Hospitalization: Therapy Orders & Screens 07/20/21 17:08 Oxygen Nasal Cannula 2 lpm Comment: 07/20/21 18:29 PT Screen per Nursing Assess ONCE Comment: Protocol Order Physician Instructions: Greater than 3 points order PT Admission Screenin Reason For Exam: Triggered on Admission Diagnosis: NSTEMI Open Wound/Cellutlitis/Pressure Ulcers: Yes Acute Fx/ORIF/Change in wt bearing status: No Severe MUSCULOSKELETAL pain: No ADL Dysfunction: Yes Acute CVA w/Hemiparesis/Hemiplegia: No Decreased Functional Mobility/Strength: Yes Sprain/Strain: No Acute Post-op Mobility Dysfunction: No Total Points: 9 07/20/21 18:36 Respiratory Therapy Assessment DAILY Comment: Diagnosis: NSTEMI 07/21/21 09:27 PT Eval & Treat ( Order) ONCE Reason for Eval:: diabetic wound to left foot Diagnosis: NSTEMI 07/23/21 12:58 Qualify for Home Oxygen TODAY Comment: Diagnosis: confusion and chest pain for 1 day Discharge Exam Wound Assessment: Skin/Wound Assessment Wound/Incision Assessment Start: 07/20/21 18:29 Text: Status: Active Freq: Q6H Protocol: Document 07/24/21 08:00 AWG (Rec: 07/24/21 10:49 AWG [id number]) Wound/Incision Assessment Left Buttock Wound Assessment Shift Assessment Wound Stage Stage II Drainage Amount None Surrounding Tissue Kendall Comment CDI Right Buttock Wound Assessment Shift Assessment Wound Stage Stage III Drainage Amount None Comment REMAINS TRUE Left Heel Wound Assessment Shift Assessment Wound Type DIABETIC ULCER Drainage Amount None Drainage Odor None/Absent Primary Dressing Elastic Bandage Comment UNABLE TO ASSESS DUE TO DRESSING, CDI Right Heel Wound Assessment Shift Assessment Wound Type HEALING DIABETIC WOUND Dressing Status Dry & Intact Drainage Amount None Left Foot Wound Assessment Shift Assessment Wound Type DIABETIC ULCER Drainage Amount None Drainage Description Yellow Comment UNABLE TO ASSESS DUE TO DRESSING Wound Photo Photo Taken No Date: 07/21/21 Time: 09:00 Final Diagnosis/Problem List - Final Discharge Diagnosis/Problem (1) Cellulitis of left foot Current Visit: Yes Status: Acute Code(s): L03.116 - CELLULITIS OF LEFT LOWER LIMB (2) Acute UTI Current Visit: Yes Status: Acute Code(s): N39.0 - URINARY TRACT INFECTION, SITE NOT SPECIFIED (3) Acute kidney injury superimposed on CKD Current Visit: Yes Status: Acute Code(s): N17.9 - ACUTE KIDNEY FAILURE, UNSPECIFIED; N18.9 - CHRONIC KIDNEY DISEASE, UNSPECIFIED (4) NSTEMI (non-ST elevated myocardial infarction) Current Visit: Yes Status: Resolved Code(s): I21.4 - NON-ST ELEVATION (NSTEMI) MYOCARDIAL INFARCTION (5) Diabetes Current Visit: No Status: Chronic Code(s): E11.9 - TYPE 2 DIABETES MELLITUS WITHOUT COMPLICATIONS (6) Peripheral vascular disease due to secondary diabetes Current Visit: No Status: Chronic Code(s): E13.51 - OTH DIABETES W DIABETIC PERIPHERAL ANGIOPATHY W/O GANGRENE (7) COPD mixed type Current Visit: Yes Status: Acute Priority: High Code(s): J44.9 - CHRONIC OBSTRUCTIVE PULMONARY DISEASE, UNSPECIFIED (8) Obesity with alveolar hypoventilation Current Visit: Yes Status: Acute Priority: High Code(s): E66.2 - MORBID (SEVERE) OBESITY WITH ALVEOLAR HYPOVENTILATION - Discharge Discharge Date: 07/24/21 Disposition: Home, Self-Care Condition: Stable Prescriptions: New Cefadroxil Hydrate [Duricef] 500 mg PO BID 10 Days #20 cap Continue Prednisone 10 mg [Deltasone 10 mg] 10 mg PO BID Furosemide 40 mg [Lasix 40 MG] 80 mg PO DAILY Nitroglycerin 0.4 mg Tablet [Nitrostat 0.4 MG Tablet] 0.4 mg SL Q5MIN PRN MR X 3 PRN PRN Reason: Chest Pain Hydrocodone/APAP 10/325 mg [[place] 10/325 MG TableT] 1 tab PO Q6HPRN PRN 7 Days #28 tablet MDD 4 PRN Reason: Pain Bumetanide 1 mg PO DAILY Potassium Chloride [K-Dur] 40 meq PO DAILY Multivitamin [Multivitamins] 1 each PO DAILY Tamsulosin HCl 0.4 mg [Flomax 0.4 MG] 0.4 mg PO QHS Docusate Sodium 100 mg [Colace 100 MG] 100 mg PO TID Clopidogrel Bisulfate 75 mg [PLAVIX 75 MG Tablet] 75 mg PO DAILY Pravastatin Sodium [Pravachol] 20 mg PO QHS Nitrofurantoin Monohyd/M-Cryst [Nitrofurantoin [place]-Mcr 100 mg] 100 mg PO DAILY Sertraline HCl 50 mg [Zoloft 50 mg Tablet] 50 mg PO BID PANTOPRAZOLE 40 mg Tablet [Protonix 40MG Tablet] 40 mg PO DAILY Oxybutynin Chloride [Oxybutynin Chloride ER] 10 mg PO DAILY Insulin Lispro [Humalog Kwikpen U-100] 45 unit SQ AC Ergocalciferol (Vitamin D2) [Vitamin D] 50,000 unit PO WEEKLY Ipratropium [place] 0.5 mg [Atrovent 0.5MG NEBULE] 0.5 mg IH Q4HPRN PRN PRN Reason: Shortness Of Breath/Wheezing Finasteride 5 mg [Proscar 5 MG] 5 mg PO DAILY Collagenase Oint [Santyl OINTMENT] 30 gm TP DAILY Meclizine HCl 25 mg [Antivert 25 mg] 50 mg PO BID Gabapentin 300 mg [Neurontin 300 mg] 900 mg PO TID Insulin Degludec [Tresiba Flextouch U-100] 30 units SQ DAILY Instructions: Diabetic Foot Ulcer (DC), Urinary Tract Infection, Adult (DC) Additional Instructions: DO NOT BEAR WEIGHT TO LEFT LOWER [facility] TO CONTINUE DRESSING CHANGES (NEW ORDERS SENT TO THEM) [facility] WILL DELIVER YOUR HOME OXYGEN, CALL THEM WHEN YOU GET HOME AT [phone] SO THEY CAN DELIVER THE CONCENTRATOR Follow up with: AMARJIT [facility] [REFERRING *] - (KEEP YOUR APPOINTMENT FOR TUESDAY THAT YOU ALREADY HAVE!) NELLY HOWELL MD [Primary Care Provider] - 08/07/21 1:30 pm Forms: Ambulance Transport Record
== END 2021-07-24 13:10 | disposition home or self-care (01) ==
LOC: ED 09:45 → ICU 17:05 → UNDODISOB 07-23 19:00
PROVIDERS: ADMIT General Practice; ATTEND General Practice
DX: L03.116 Cellulitis of left lower limb (principal); E11.621 Type 2 diabetes mellitus with foot ulcer; E11.65 Type 2 diabetes mellitus with hyperglycemia; N17.9 Acute kidney failure, unspecified; E11.22 Type 2 diabetes mellitus with diabetic chronic kidney disease; N18.9 Chronic kidney disease, unspecified; R53.83 Other fatigue; R41.0 Disorientation, unspecified; N39.0 Urinary tract infection, site not specified; J96.10 Chronic respiratory failure, unspecified whether with hypoxia or hypercapnia; L89.93 Pressure ulcer of unspecified site, stage 3; E11.42 Type 2 diabetes mellitus with diabetic polyneuropathy; I21.4 Non-ST elevation (NSTEMI) myocardial infarction; J44.9 Chronic obstructive pulmonary disease, unspecified; E66.2 Morbid (severe) obesity with alveolar hypoventilation; Z79.899 Other long term (current) drug therapy; Z79.01 Long term (current) use of anticoagulants; Z99.81 Dependence on supplemental oxygen; Z20.822 Contact with and (suspected) exposure to COVID-19
CPT/HCPCS: 28005; 36000; 36415; 70450; 71045; 73630; 73650; 80053; 81001; 82947; 83036; 83605; 83735; 83880; 84484; 85025; 87040; 87070; 87077; 87086; 87186; 93005; 93268; 94760; 94762; 96374; 97161; 99203; 99285; G0378; U0003; J1650; J1817; J1956; A9270-GY; J3590-GY